=== PATIENT | male | born 1945 | race Two or more races ===

== ENCOUNTER 2021-04-01 08:57 | Outpatient (REF) | payer MEDICARE, SELFPAY ==
[2021-04-01 10:04] LABS: Alanine Aminotransferase 166 U/L (0-40); Albumin Level 4.1 g/dL (3.5-5.0); Alkaline Phosphatase 131 U/L (39-117); Anion Gap 14 (12-20); Aspartate Amino Transferase 214 U/L (5-37); Bilirubin Total 1.2 mg/dL (0.0-1.0); Blood Urea Nitrogen 18 mg/dL (9-16); Calcium 9.1 mg/dL (8.4-10.2); Carbon Dioxide 26 mmol/L (22-29); Chloride 102 mmol/L (96-108); Cholesterol 82 mg/dL; Estimated Glomerular Filt Rate 58; Glucose Fasting 96 mg/dL (60-99); HDL Cholesterol 34 mg/dL; LDL Cholesterol Calculated 30 mg/dl; Potassium 4.6 mmol/L (3.3-5.1); Sodium 137 mmol/L (135-145); Triglycerides 93 mg/dL
== END 2021-04-01 08:58 | disposition home or self-care (01) ==
LOC: HO.LAB 08:57
PROVIDERS: PCP Internal Medicine; Visit Provider Internal Medicine
DX: E78.5 Hyperlipidemia, unspecified (principal); I10 Essential (primary) hypertension; Z87.891 Personal history of nicotine dependence
CPT/HCPCS: 36415; 80053; 80061

== ENCOUNTER 2021-04-26 07:50 | Outpatient (REF) | payer MEDICARE, SELFPAY ==
--- NOTE | ~2021-04-26 | US_ITS ---
EXAMINATION: US RETROPERITONEAL LIMITED (AORTA) CLINICAL INFORMATION: Personal history of nicotine dependence. COMPARISON: None TECHNIQUE: Serna-scale, color Doppler and spectral Doppler evaluation of the abdominal aorta. FINDINGS: The aorta is normal. The measurements of the aorta in maximum AP and transverse dimensions respectively are as follows: Proximal: 2.2 x 2.2 cm. Mid: 1.9 x 1.9 cm. Distal: 1.7 x 1.8 cm. PSV: 87 cm/s. The measurements of the common iliac arteries in maximum AP and TRV dimensions are as follows: Right Common Iliac Artery: 1.1 x 1.1 cm. Left Common Iliac Artery: 1.3 x 1.2 cm. US/US aorta IMPRESSION: No evidence of abdominal aortic aneurysm.
== END 2021-04-26 07:51 | disposition home or self-care (01) ==
LOC: HO.US 07:50
PROVIDERS: Visit Provider Internal Medicine
DX: Z87.891 Personal history of nicotine dependence (principal)
CPT/HCPCS: 76775

== ENCOUNTER 2021-09-12 09:18 | Outpatient (REF) | payer MEDICARE, SELFPAY ==
[2021-09-12 11:26] LABS: MANUAL DIFF FLAG NO
[2021-09-12 12:08] LABS: Basophils Percent Auto 0.5 % (0-2); Eosinophils Absolute Auto 0.1 X10*3/uL (0.0-0.4); Eosinophils Percent Auto 2.4 % (0-4); Hematocrit 40.5 % (42.0-52.0); Hemoglobin 13.2 g/dl (14.0-18.0); Imm Gran Abs Auto 0.02 X10*3/uL (0.00-0.03); Imm Gran Pct Auto 0.4 % (0.0-0.4); Lymphocytes Absolute Auto 1.6 X10*3/uL (1.2-4.9); Lymphocytes Percent Auto 28.1 % (20-40); Mean Corpuscular HGB Conc 32.6 g/dl (31.0-36.0); Mean Corpuscular Hemoglobin 30.9 pg (27.0-33.0); Mean Corpuscular Volume 94.8 fL (80.0-98.0); Mean Platelet Volume 11.6 fL (9.4-12.4); Monocytes Absolute Auto 0.5 X10*3/uL (0.1-1.2); Monocytes Percent Auto 9.1 % (2-11); Neutrophils Absolute Auto 3.3 x10*3/uL (2.0-8.3); Neutrophils Percent Auto 59.5 % (45-73); Platelet Count 162 X10*3/uL (160-400); Red Blood Count 4.27 X10*6/uL (4.60-5.80); Red Cell Distribution Width 12.3 % (11.0-16.0); White Blood Count 5.5 X10*3/uL (4.8-10.8)
[2021-09-12 12:31] LABS: Ethanol < 10 mg/dL
[2021-09-12 12:32] LABS: Bilirubin Direct 0.3 mg/dL (0.0-0.5); Gamma Glutamyl Transpeptidase 435 U/L (11-51)
[2021-09-12 12:52] LABS: Ferritin 696 ng/mL (20-250)
[2021-09-13 04:58] LABS: HBc Num1 0.04 S/CO (0.00-0.79); HIV AB/AG Nonreactive (Nonreactive); HIV Num 1 0.11 S/CO (0.00-0.99); Hepatitis B Core Antibody Nonreactive (Nonreactive); Hepatitis B Surface Antigen Negative (Negative); ~Hepatitis A Antibody IgM Nonreactive (Nonreactive)
[2021-09-13 05:08] LABS: ~HepC Num1 0.12 S/CO (0.00-0.79); ~Hepatitis B Surface Antibody NONREACTIVE (Nonreactive); ~Hepatitis C Antibody Nonreactive (Nonreactive)
[2021-09-13 12:41] LABS: Mitochondrial Antibodies NEGATIVE (NEGATIVE)
[2021-09-13 12:57] LABS: Alpha Fetoprotein 6.6 ng/mL (<6.1)
[2021-09-16 13:22] LABS: Smooth Muscle Antibody 22 U (<20)
== END 2021-09-12 09:19 | disposition home or self-care (01) ==
LOC: HO.LAB 09:18
PROVIDERS: PCP Internal Medicine; Referring Provider Internal Medicine; Visit Provider Nurse Practitioner
DX: Z01.84 Encounter for antibody response examination (principal); Z11.4 Encounter for screening for human immunodeficiency virus [HIV]; R74.01 Elevation of levels of liver transaminase levels; Z79.899 Other long term (current) drug therapy; Z87.891 Personal history of nicotine dependence
CPT/HCPCS: 36415; 82077; 82105; 82248; 82728; 82977; 85025; 86255; 86256; 86704; 86706; 86709; 86803; 87340; 87389; 99202

== ENCOUNTER 2021-10-21 08:32 | Outpatient (REF) | payer MEDICARE, SELFPAY ==
--- NOTE | ~2021-10-21 | US_ITS ---
EXAMINATION: US COMPLETE ABDOMEN WITH LIVER ELASTOGRAPHY CLINICAL INFORMATION: Elevated liver function tests COMPARISON: None. TECHNIQUE: Real-time imaging of the abdominal viscera. Noninvasive ultrasound liver fibrosis assessment is performed using Kip ElastPQ point quantification shear wave elastography (2D-SWE) with a C5-2 MHz transducer. Multiple elastography samples are obtained. FINDINGS: PANCREAS: Normal. ABDOMINAL AORTA: The proximal, middle, and distal aortic segments are normal in caliber. INFERIOR VENA CAVA: Visualized portions are normal. LIVER: Liver echotexture is slightly increased. The contour of the liver is normal. The liver is normal in size. No focal lesion or intrahepatic biliary duct dilatation. The right lobe measures 15 cm in length. The left lobe measures 10 cm in length. Portal flow is normal/hepatopedal Shear wave liver elastography median stiffness is 1.8 m/s (reference: normal median stiffness is 1.3 m/s or less). IQR/median stiffness to assess sampling precision is 0.18 (reference: good quality data set is IQR/median stiffness of 0.15 or less). GALLBLADDER: Normal. The gallbladder is physiologically distended without evidence of stones, sludge, polyps, wall thickening or pericholecystic fluid. COMMON BILE DUCT: Dilated measuring 1.1 cm in diameter. RIGHT KIDNEY: Normal. No hydronephrosis. No renal calculi or focal parenchymal lesions. The kidney measures 10 cm in maximum dimension. LEFT KIDNEY: Normal. No hydronephrosis. No renal calculi or focal parenchymal lesions. The kidney measures 11 cm in maximum dimension. SPLEEN: Normal. The spleen measures 9 cm in maximum dimension. FREE FLUID: None. US/US abdomen comp w elastography IMPRESSION: 1. Impression: Slightly echogenic liver. Dilated common bile duct. Normal-appearing gallbladder. 2. Liver elastography: Slightly limited due to sampling error. Suggestive of compensated advanced chronic liver disease but need further test for confirmation. REFERENCE: Society of Radiologists in Ultrasound Liver Stiffness Thresholds (2020): LIVER STIFFNESS THRESHOLDS: *Liver Stiffness equal or less than 1.3 m/s: High probability of being normal. *Liver Stiffness less than 1.7 m/s: In the absence of other known clinical signs, rules out compensated advanced chronic liver disease. *Liver Stiffness 1.7-2.1 m/s: *Liver Stiffness over 2.1 m/s: Rules in compensated advanced chronic liver disease. *Liver Stiffness over 2.4 m/s: Suggestive of clinically significant portal hypertension. QUALITY OF DATA SET: *IQR/Median value equal or less than 0.15 implies a quality data set. *IQR/Median value over 0.15 implies a poor quality data set. SIGNIFICANT CHANGE FROM PRIOR EXAM: Significant change if liver stiffness measurement is 10% or greater from prior exam. OTHER CONSIDERATIONS: The stage of liver fibrosis may be overestimated in the setting of acute hepatitis, liver inflammation, elevated liver function tests, hepatic vascular congestion, obstructive cholestasis, non-fasting state, and infiltrative diseases such as amyloidosis and lymphoma. In some patients with NAFLD, the liver stiffness thresholds for compensated advanced chronic liver disease may be lower. In causes other than viral hepatitis and NAFLD, liver stiffness thresholds are not well established.
== END 2021-10-21 08:33 | disposition home or self-care (01) ==
LOC: HO.US 08:32
PROVIDERS: Visit Provider Nurse Practitioner
DX: R74.01 Elevation of levels of liver transaminase levels (principal)
CPT/HCPCS: 76705; 76981

== ENCOUNTER 2022-03-25 19:33 | Emergency (ER) | payer MEDICARE, SELFPAY ==
--- NOTE | ~2022-03-25 | XR_ITS ---
EXAMINATION: XR CHEST CLINICAL INFORMATION: Shortness of breath COMPARISON: None TECHNIQUE: 2 views of the chest were obtained. FINDINGS: Lungs are clear. No pulmonary vascular congestion. There is no pleural effusion. The heart size is normal. The cardiac and mediastinal contours are normal. There are calcifications of the thoracic aorta. There are multilevel degenerative changes of dorsal spine. XR/XR chest 2V IMPRESSION: Unremarkable examination.
--- NOTE | 2022-03-25 19:41 | ECG_ITS ---
Test Reason : CHEST PAIN Blood Pressure : / mmHG Vent. Rate : 080 BPM Atrial Rate : 080 BPM P-R Int : 148 ms QRS Dur : 080 ms QT Int : 390 ms P-R-T Axes : 040 -13 008 degrees QTc Int : 449 ms Normal sinus rhythm Normal ECG No previous ECGs available Referred By: Generic ED Physician Electronically Signed By:DEVAN MICHEL MD
[2022-03-25 19:48] VITALS: BP 161/83; PULSE 88; RESP 18; TEMP 37; O2SAT 96; BMI 21.2
[2022-03-25 19:53] LABS: MANUAL DIFF FLAG NO
[2022-03-25 19:55] LABS: Basophils Percent Auto 0.5 % (0-2); Eosinophils Absolute Auto 0.1 X10*3/uL (0.0-0.4); Eosinophils Percent Auto 3.4 % (0-4); Hematocrit 39.2 % (42.0-52.0); Hemoglobin 13.1 g/dl (14.0-18.0); Imm Gran Abs Auto 0.01 X10*3/uL (0.00-0.03); Imm Gran Pct Auto 0.3 % (0.0-0.4); Lymphocytes Absolute Auto 1.3 X10*3/uL (1.2-4.9); Lymphocytes Percent Auto 34.7 % (20-40); Mean Corpuscular HGB Conc 33.4 g/dl (31.0-36.0); Mean Corpuscular Hemoglobin 30.6 pg (27.0-33.0); Mean Corpuscular Volume 91.6 fL (80.0-98.0); Mean Platelet Volume 10.8 fL (9.4-12.4); Monocytes Absolute Auto 0.4 X10*3/uL (0.1-1.2); Monocytes Percent Auto 10.4 % (2-11); Neutrophils Absolute Auto 1.9 x10*3/uL (2.0-8.3); Neutrophils Percent Auto 50.7 % (45-73); Platelet Count 109 X10*3/uL (160-400); Red Blood Count 4.28 X10*6/uL (4.60-5.80); Red Cell Distribution Width 13.3 % (11.0-16.0); White Blood Count 3.8 X10*3/uL (4.8-10.8)
[2022-03-25 20:12] LABS: Troponin-I High Sensitivity 4.3 ng/L (<3.5-35.0)
[2022-03-25 20:13] LABS: Alanine Aminotransferase 130 U/L (0-40); Albumin Level 3.9 g/dL (3.5-5.0); Alkaline Phosphatase 120 U/L (39-117); Anion Gap 13 (12-20); Aspartate Amino Transferase 244 U/L (5-37); Bilirubin Total 0.7 mg/dL (0.0-1.0); Blood Urea Nitrogen 14 mg/dL (9-16); Calcium 8.6 mg/dL (8.4-10.2); Carbon Dioxide 24 mmol/L (22-29); Chloride 104 mmol/L (96-108); Creatinine Clr Calc Pharmacy 40.1; Estimated Glomerular Filt Rate 55; Glucose Random 106 mg/dL (60-115); Potassium 4.1 mmol/L (3.3-5.1); Sodium 137 mmol/L (135-145); Total Protein 7.5 g/dL (6.5-8.0)
[2022-03-25 20:14] LABS: COVID-19 Test Negative (Negative)
--- NOTE | 2022-03-25 20:28 | ED_ITS ---
HPI - General Adult General Chief complaint: General Medical Stated complaint: SoB, Chest Tightness Time Seen by Provider: 03/25/22 20:28 Source: patient Mode of arrival: ambulatory Limitations: language barrier History of Present Illness HPI narrative: Patient with history of alcohol use and palpitation last night patient cramping in the right leg so he took 7 Emanuel aspirin tablets since morning complaining of pain retrosternal along with palpitation off and on no pain at all and after arrival in the ER no vomiting or diarrhea no black stools patient does have history of palpitation in the past and had full evaluation no medications started no dizziness no loss of consciousness Related Data Home Medications Medication Instructions Recorded Confirmed acetaminophen 650 mg 650 mg PO Q8H 04/01/21 02/24/22 tablet,extended release (Pain Relief (acetaminophen)) Previous Rx's Medication Instructions Recorded aspirin 81 mg tablet,delayed 81 mg PO DAILY 90 days #90 tabs 07/17/21 release (Adult Aspirin Regimen) metoprolol tartrate 25 mg tablet 25 mg PO BID 90 days #180 tabs 07/17/21 lisinopril 5 mg tablet 5 mg PO DAILY 90 days #90 tabs 08/28/21 hydroxyzine HCl 50 mg tablet 50 mg PO BEDTIME 30 days #30 tabs 09/12/21 rosuvastatin 20 mg tablet 20 mg PO DAILY 90 days #90 tabs 01/14/22 omeprazole 40 mg capsule,delayed 40 mg PO DAILY #30 caps 03/25/22 release sucralfate 1 gram tablet 1 g PO BID #60 tabs 03/25/22 Allergies Allergy/AdvReac Type Severity Reaction Status Date / Time atorvastatin Allergy Intermediate Rash Verified 03/25/22 19:47 oxycodone [From Percocet] AdvReac Intermediate itchy skin Verified 03/25/22 19:47 Review of Systems Review of Systems: Yes all other systems are reviewed and are negative [facility] Past Medical History Surgical History History of hernia surgery Family History Family History Mother No problems noted. Father No problems noted. Social History Social History Household Members: Children Housing: House Housing Other:: lives with son Are you a primary rn acute care to a significant other at home: No Do you presently have visiting nurse or other home services: No Alcohol intake: current Alcohol intake frequency: 0-2 drinks per day Alcohol type: beer and hard liquor Patient Tobacco Use Status: Former Tobacco user Tobacco use type: Cigarette e-Cigarette/Vaping Use: Never Used Second Hand Smoke Exposure: No Advance Directives: No Advance Directives Information Provided: Yes service: No Current occupational status: retired Physical Exam ED Vital Signs: Vital Signs - 24 hr 03/25/22 19:48 Temperature 98.6 F Pulse Rate 88 Respiratory Rate 18 Blood Pressure 161/83 H Pulse Oximetry 96 Oxygen Delivery Method Room Air BMI result Body Mass Index 21.2 Appearance: Alert. Oriented X3. No acute distress. Eyes: PERRLA, No Nystagmus ENT: Pharynx normal. Oral Mucosa moist Neck: Normal inspection. Neck supple. CVS: Normal heart rate and rhythm. Pulses normal. Respiratory: No respiratory distress. Equal air entry bilateral, no wheezing/rales/rhonchi Abdomen: Soft and nontender. Bowel sounds are present, no mass palpable, no CVA tenderness Skin: Skin warm and dry. Normal skin color. Normal skin turgor. Extremities: No lower extremity edema. No calf tenderness Neuro: Oriented X 3. No motor deficit. No sensory deficit.No cerebellar signs , cranial nerves II-XII intact Medical Decision Making MDM Narrative Medical decision making narrative: Patient with palpitation with chest pain with alcoholic gastritis after taking 6 Emanuel aspirin workup is negative EKG without any ischemic changes patient currently does not have any chest pain patient advised to follow-up with PCP/property management specialist stop drinking alcohol will give him a prescription for Prilosec and sucralfate Lab Data Lab results reviewed: Yes I reviewed the patient's lab results. Result diagrams: 03/25/22 19:48 03/25/22 19:48 Labs: Lab Results 03/25/22 03/25/22 03/25/22 Range/Units 19:48 19:48 19:48 WBC 3.8 L (4.8-10.8) X10*3/uL RBC 4.28 L (4.60-5.80) X10*6/uL Hgb 13.1 L (14.0-18.0) g/dl Hct 39.2 L (42.0-52.0) % MCV 91.6 (80.0-98.0) fL MCH 30.6 (27.0-33.0) pg MCHC 33.4 (31.0-36.0) g/dl RDW 13.3 (11.0-16.0) % Plt Count 109 L (160-400) X10*3/uL MPV 10.8 (9.4-12.4) fL Immature Gran % (Auto) 0.3 (0.0-0.4) % Neut % (Auto) 50.7 (45-73) % Lymph % (Auto) 34.7 (20-40) % [place] % (Auto) 10.4 (2-11) % Eos % (Auto) 3.4 (0-4) % Baso % (Auto) 0.5 (0-2) % Lymph # (Auto) 1.3 (1.2-4.9) X10*3/uL [place] # (Auto) 0.4 (0.1-1.2) X10*3/uL Eos # (Auto) 0.1 (0.0-0.4) X10*3/uL Baso # (Auto) 0.0 (0.0-0.2) X10*3/uL Abs Immat Gran (auto) 0.01 (0.00-0.03) X10*3/uL Absolute Neuts (auto) 1.9 L (2.0-8.3) x10*3/uL Absolute Nucleated RBC 0.000 (0.0-0.012) X10*3/uL Nucleated RBC % (auto) 0.0 (0.0-0.2) /100WBC Sodium 137 (135-145) mmol/L Potassium 4.1 (3.3-5.1) mmol/L Chloride 104 (96-108) mmol/L Carbon Dioxide 24 (22-29) mmol/L Anion Gap 13 (12-20) BUN 14 (9-16) mg/dL Creatinine 1.28 (0.5-1.4) mg/dL Estim Creat Clear Calc 40.1 Estimated GFR 55 Random Glucose 106 (60-115) mg/dL Calcium 8.6 D (8.4-10.2) mg/dL Magnesium 2.4 (1.6-2.6) mg/dL Total Bilirubin 0.7 (0.0-1.0) mg/dL AST 244 H (5-37) U/L ALT 130 H (0-40) U/L Alkaline Phosphatase 120 H D (39-117) U/L Troponin I High Sens 4.3 (<3.5-35.0) ng/L Total Protein 7.5 (6.5-8.0) g/dL Albumin 3.9 (3.5-5.0) g/dL COVID-19 ([facility]) (Negative) COVID-19 Clin Com 03/25/22 Range/Units 19:48 WBC (4.8-10.8) X10*3/uL RBC (4.60-5.80) X10*6/uL Hgb (14.0-18.0) g/dl Hct (42.0-52.0) % MCV (80.0-98.0) fL MCH (27.0-33.0) pg MCHC (31.0-36.0) g/dl RDW (11.0-16.0) % Plt Count (160-400) X10*3/uL MPV (9.4-12.4) fL Immature Gran % (Auto) (0.0-0.4) % Neut % (Auto) (45-73) % Lymph % (Auto) (20-40) % [place] % (Auto) (2-11) % Eos % (Auto) (0-4) % Baso % (Auto) (0-2) % Lymph # (Auto) (1.2-4.9) X10*3/uL [place] # (Auto) (0.1-1.2) X10*3/uL Eos # (Auto) (0.0-0.4) X10*3/uL Baso # (Auto) (0.0-0.2) X10*3/uL Abs Immat Gran (auto) (0.00-0.03) X10*3/uL Absolute Neuts (auto) (2.0-8.3) x10*3/uL Absolute Nucleated RBC (0.0-0.012) X10*3/uL Nucleated RBC % (auto) (0.0-0.2) /100WBC Sodium (135-145) mmol/L Potassium (3.3-5.1) mmol/L Chloride (96-108) mmol/L Carbon Dioxide (22-29) mmol/L Anion Gap (12-20) BUN (9-16) mg/dL Creatinine (0.5-1.4) mg/dL Estim Creat Clear Calc Estimated GFR Random Glucose (60-115) mg/dL Calcium (8.4-10.2) mg/dL Magnesium (1.6-2.6) mg/dL Total Bilirubin (0.0-1.0) mg/dL AST (5-37) U/L ALT (0-40) U/L Alkaline Phosphatase (39-117) U/L Troponin I High Sens (<3.5-35.0) ng/L Total Protein (6.5-8.0) g/dL Albumin (3.5-5.0) g/dL COVID-19 ([facility]) Negative (Negative) COVID-19 Clin Com See Note ECG Data Attestation: I personally reviewed and interpreted this ECG as follows: Interpretation: Normal sinus rhythm heart rate 80 beats per minute normal interval normal axis no acute ST-T changes impression normal EKG Discharge Plan Discharge Clinical Impression: Acute alcoholic gastritis, Heart palpitations Patient Disposition: Home, Self-Care Instructions: Heart Palpitations (ED), Gastritis (ED) Additional Instructions: Stop drinking alcohol Medicine as advised for gastritis Follow-up with property management specialist/PCP for further evaluation dejar de beber alcohol Medicamentos recomendados para la gastritis Seguimiento con cardi?logo/PCP para evaluaci?n adicional Prescriptions: New omeprazole 40 mg capsule,delayed release(DR/EC) 40 mg PO DAILY Qty: 30 0RF sucralfate 1 gram tablet 1 g PO BID Qty: 60 0RF No Action aspirin [Adult Aspirin Regimen] 81 mg tablet,delayed release (DR/EC) 81 mg PO DAILY 90 Days Qty: 90 1RF metoprolol tartrate 25 mg tablet 25 mg PO BID 90 Days Qty: 180 1RF rosuvastatin 20 mg tablet 20 mg PO DAILY 90 Days Qty: 90 1RF acetaminophen [Pain Relief (acetaminophen)] 650 mg tablet extended release 650 mg PO Q8H lisinopril 5 mg tablet 5 mg PO DAILY 90 Days Qty: 90 1RF hydroxyzine HCl 50 mg tablet 50 mg PO BEDTIME 30 Days Qty: 30 6RF Print Language: Thai
[2022-03-25 21:02] LABS: Magnesium 2.4 mg/dL (1.6-2.6)
[2022-03-25] MEDS: Magnesium Hydrox/Alum Hydrox 30 ML ORAL.SUSP PO (21:44)
[2022-03-25] MEDS: Omeprazole 40 MG CAPSULE.DR PO (21:44)
== END 2022-03-25 21:47 | disposition home or self-care (01) ==
PROVIDERS: Emergency Provider Internal Medicine
DX: K29.20 Alcoholic gastritis without bleeding (principal); R00.2 Palpitations; Z20.822 Contact with and (suspected) exposure to COVID-19; R06.02 Shortness of breath; I10 Essential (primary) hypertension; K70.9 Alcoholic liver disease, unspecified; Z79.82 Long term (current) use of aspirin; Z79.02 Long term (current) use of antithrombotics/antiplatelets; Z87.891 Personal history of nicotine dependence
CPT/HCPCS: 71046; 80053; 83735; 84484; 85025; 87635; 93005; 99283

== ENCOUNTER → 2022-10-27 10:59 | Outpatient (REF) | payer MEDICARE, SELFPAY ==
--- NOTE | 2022-10-27 11:06 | ECG_ITS ---
Test Reason : cp Blood Pressure : / mmHG Vent. Rate : 054 BPM Atrial Rate : 054 BPM P-R Int : 144 ms QRS Dur : 082 ms QT Int : 458 ms P-R-T Axes : 041 -16 009 degrees QTc Int : 434 ms Sinus bradycardia with sinus arrhythmia Nonspecific ST abnormality Abnormal ECG When compared with ECG of 25-MAR-2022 19:35, Vent. rate has decreased BY 26 BPM Referred By: Noemi Oliva Electronically Signed By:DEVAN MICHEL MD
== END ==
LOC: HO.CARD 10:59
PROVIDERS: PCP Internal Medicine; Visit Provider Internal Medicine
DX: R07.9 Chest pain, unspecified (principal)
CPT/HCPCS: 93005

== ENCOUNTER 2022-11-19 08:10 | Outpatient (REF) | payer MEDICARE, SELFPAY ==
--- NOTE | ~2022-11-19 | XR_ITS ---
EXAMINATION: XR SCAPULA, RIGHT CLINICAL INFORMATION: M89.8X1 - Other specified disorders of bone, shoulder COMPARISON: None TECHNIQUE: AP and scapular Y views of the right scapula. FINDINGS: There is prominent anterior downsloping of the anterior acromion. There is [id number] hypertrophic osteoarthritis of the acromioclavicular joint. In the partially visualized chest, there is calcification of the dorsal aorta. There is also spondylosis of the partially visualized cervical spine with facet arthrosis noted on the right. XR/XR scapula RT IMPRESSION: Degenerative changes of the right shoulder. Anterior downsloping of the acromion.
[2022-11-19 08:24] LABS: MANUAL DIFF FLAG NO
[2022-11-19 08:59] LABS: Eosinophils Absolute Auto 0.2 X10*3/uL (0.0-0.4); Eosinophils Percent Auto 3.9 % (0-4); Hematocrit 41.3 % (42.0-52.0); Imm Gran Abs Auto 0.01 X10*3/uL (0.00-0.03); Imm Gran Pct Auto 0.2 % (0.0-0.4); Lymphocytes Absolute Auto 1.6 X10*3/uL (1.2-4.9); Lymphocytes Percent Auto 37.5 % (20-40); Mean Corpuscular HGB Conc 33.9 g/dl (31.0-36.0); Mean Corpuscular Hemoglobin 31.3 pg (27.0-33.0); Mean Corpuscular Volume 92.2 fL (80.0-98.0); Monocytes Absolute Auto 0.4 X10*3/uL (0.1-1.2); Monocytes Percent Auto 10.2 % (2-11); Neutrophils Percent Auto 47.2 % (45-73); Platelet Count 129 X10*3/uL (160-400); Red Blood Count 4.48 X10*6/uL (4.60-5.80); Red Cell Distribution Width 12.4 % (11.0-16.0); White Blood Count 4.1 X10*3/uL (4.8-10.8)
[2022-11-19 09:29] LABS: Alanine Aminotransferase 313 U/L (0-40); Alkaline Phosphatase 128 U/L (39-117); Anion Gap 19 (12-20); Aspartate Amino Transferase 424 U/L (5-37); Bilirubin Total 1.2 mg/dL (0.0-1.0); Blood Urea Nitrogen 13 mg/dL (9-16); Calcium 9.3 mg/dL (8.4-10.2); Carbon Dioxide 22 mmol/L (22-29); Chloride 104 mmol/L (96-108); Cholesterol 101 mg/dL; Estimated Glomerular Filt Rate > 60; Glucose Fasting 82 mg/dL (60-99); HDL Cholesterol 37 mg/dL; Iron 110 mcg/dL (45-160); LDL Cholesterol Calculated 28 mg/dl; Percent Iron Saturation 39 % (15-50); Sodium 141 mmol/L (135-145); Total Iron Binding Capacity 284 mcg/dL (228-428); Total Protein 7.5 g/dL (6.5-8.0); Triglycerides 181 mg/dL; Unsaturated Iron Binding 174 ug/dL
[2022-11-19 10:02] LABS: Vitamin B12 421 pg/mL (200-900); Vitamin D 25-OH Total 7.7 ng/mL (>30)
[2022-11-26 17:14] LABS: Vitamin B1 13 nmol/L (8-30)
== END 2022-11-19 08:11 | disposition home or self-care (01) ==
LOC: HO.XRAY 08:10
PROVIDERS: PCP Internal Medicine; Visit Provider Internal Medicine
DX: M89.8X1 Other specified disorders of bone, shoulder (principal); E55.9 Vitamin D deficiency, unspecified; E53.8 Deficiency of other specified B group vitamins; E78.5 Hyperlipidemia, unspecified; D64.9 Anemia, unspecified; K70.9 Alcoholic liver disease, unspecified
CPT/HCPCS: 36415; 73010; 80053; 80061; 82306; 82607; 82746; 83540; 84425; 85025

== ENCOUNTER → 2022-12-16 14:39 | Outpatient (BNVA) | payer MEDICARE, SELFPAY | PROVIDERS: PCP Internal Medicine; Referring Provider Internal Medicine; Visit Provider Internal Medicine Cardiovascular Disease | DX: R07.9 Chest pain, unspecified (principal) | CPT/HCPCS: 99202 ==

== ENCOUNTER → 2022-12-29 08:46 | Outpatient (REF) | payer MEDICARE, SELFPAY ==
--- NOTE | ~2022-12-29 | NM_ITS ---
Myocardial perfusion study Indication: Chest pain to evaluate for myocardial ischemia Technique: The patient was brought in for a Lexiscan perfusion study on 12/29/2022. Patient performed low-level exercise and was injected 0.4 mg of Lexiscan intravenously. Within a minute of injection, 25 mCi of sestamibi was given intravenously. Images were obtained using the SPECT gamma camera interlaced with the gating device. Images were obtained in supine position. Resting perfusion study was performed on 12/30/2022. Patient was administered 25 mCi of sestamibi intravenously at rest. Images were then obtained in supine position. Images obtained with and without CT attenuation. Total DLP 95 mGy-cm. Images were processed with the software and compared side to side in short axis, horizontal long axis and vertical long axis views. Findings: The stress perfusion study showed non attenuated as well as attenuated corrected images show normal uptake of radiotracer in all segments of LV myocardium. The gated study shows normal LV systolic function with calculated LVEF of greater than 70%. LV cavity is normal size. The gated study shows normal systolic wall thickening and contraction of segments. Resting study shows attenuated corrected images show normal uptake of radiotracer in all segments of LV myocardium. Gating at rest reveals normal systolic wall motion with ejection fraction at 67%. The findings are consistent with normal myocardial perfusion. NM/NM cardiolite stress test Impression: 1. Myocardial perfusion imaging study shows normal myocardial perfusion 2. Gated LVEF is 67% 3. Transient ischemic dilatation not present EKG is nondiagnostic for ischemia
--- NOTE | 2022-12-29 08:52 | CA_ITS ---
Transthoracic Echocardiogram Patient (Last, First, Middle): Eulalio Miranda, Gender: Male Date of : 1945 Age: 77 Procedure Date: 12/29/2022 Procedure Type: Transthoracic Echocardiogram Location: OP Height: 160.02 cm Weight: 55.34 kg BSA: 1.57 m2 Heart Rate: bpm BP: 124 / 80 mmHg Prisoner Classification Interviewer: Referring MD: Oumar Mendoza MD Meat Cutting Teacher: Oumar Mendoza MD Symptoms: R07.9 - Chest pain, unspecified Study Quality: Good ECG Rhythm: Sinus Conclusions: - 1. Normal LV systolic function with grade 1 diastolic dysfunction 2. Mild aortic regurgitation 3. Normal RV systolic pressure 4. Mildly dilated ascending aorta at 3.9 cm 5. No gross pericardial effusion Findings Left Ventricle Normal left ventricular size, thickness, and systolic function. The visually estimated ejection fraction is between 65-70%. Spectral Doppler is indicative of an impaired relaxation filling pattern. E/E prime ratio is <8, consistent with normal filling pressures. Evidence suggests grade I (mild) diastolic dysfunction. Peak GLS is -22.4%, within normal limits. Right Ventricle Normal right ventricular cavity size and systolic function. Atria Both atria are normal in size. There is lipomatous hypertrophy of the interatrial septum. There is no evidence of interatrial shunt. Aortic Valve There is mild calcification of the aortic valve. There is mild thickening of the aortic valve. There is no aortic valve stenosis. There is mild aortic valve regurgitation. Mitral Valve There is mild anterior and posterior mitral leaflet thickening. There is trace mitral valve regurgitation. There is no mitral valve stenosis. Pulmonic Valve The pulmonic valve was not well visualized. There is trace to mild pulmonic valve regurgitation. Tricuspid Valve Normal tricuspid valve structure. There is mild tricuspid valve regurgitation. The right ventricular systolic pressure is normal. The right ventricular systolic pressure is 20 mmHg. Normal right atrial pressure. There is no evidence of pulmonary hypertension. Great Vessels The pulmonary artery was not well visualized. There is mild dilatation of the ascending aorta measuring 3.90 cm. Venous The inferior vena cava is normal in size and collapses greater than 50% with inspiration. Pericardium/Pleural There is no evidence of pericardial effusion. Prior Study Comparison No prior study available for comparison. Measurements 2D Linear Measurements IVSd: 1.05 0.6-0.9/0.6-1.0 cm LVIDd: 4.47 3.9-5.3/4.2-5.9 cm LVIDd Index: 2.85 2.4-3.2/2.2-3.1 cm/m2 LVIDs: 2.57 2.0-3.6 cm LVPWd: 0.97 0.7-1.1 cm Ao Root: 3.70 2.1-3.5 cm LA Diam: 3.50 2.7-3.8/3.0-4.0 cm LAIDs Index: 2.23 1.5-2.3 cm/m2 LV Mass: 191.01 67-162/88-224 g LV Mass Index: 121.66 43-95/49-115 g/m2 LVOT Diam: 2.20 3.0+(-)1.3 cm Mitral Valve MV Pk E: 0.47 MV PK A: 0.87 MV Decel Time: 235.00 E/A: 0.50 E'Lateral: 7.83 E'Medial: 6.20 E/E' Med: 7.60 E/E' Lat: 6.00 PHT: 69.00 MVA PHT: 3.19 Decel Payette: 2.01 Aortic Valve AoV Pk Alban: 1.25 AoV Mn Alban: 0.74 AoV VTI: 0.27 AoV Pk Grad: 6.00 Aov Mn Grad: 3.00 NICOLA Cont.VTI: 3.38 LVOT LVOT Pk Alban: 1.13 LVOT Mn Alban: 0.68 LVOT VTI: 0.24 LVOT Pk Grad: 5.00 LVOT Mn Grad: 2.00 LVOT Diam: 2.20 LVOT Area: 3.80 Diastolic Function MV Pk E: 0.47 MV Pk A: 0.87 E/A: 0.50 E'Medial: 6.20 E/E' Med: 7.60 E' Laterial: 7.83 E/E' Lat: 6.00 Right Ventricle TAPSE (mm): 21.00 TVS' Alban: 8.00 Tricuspid Valve TR Pk Alban: 2.04 TR Pk Grad: 17.00 RA Press: 3.00 RVSP: 20.00 Great Vessels Aorta Ao Root-2D: 3.70 2.0-3.7 cm Ao Asc: 3.90 2.1-3.4 cm Pulmonary Valve PV Pk Alban: 0.82 Peak PV Grad: 3.00 Updated in Other Vendor System with Status of Final Oumar Mendoza MD electronically signed on 12/29/2022 1:31:55 PM with status of Final
--- NOTE | 2022-12-29 08:52 | CA_ITS ---
Acquisition Time: 2022-12-29 09:55:58 Total Exercise Time: 00:02:00 Test Indications: CP,CAD Medications: SEE H Protocol: LEXISCAN Max HR: 084 BPM 57% of Pred: 145 BPM Max BP: 128/060 mmHG Max Work Load: 1.0 METS Pharmacological stress test with Lexiscan injection, while sitting and kicking his legs, without anginal symptoms, with isolated PACs, with normotensive response to injection, with nondiagnostic EKG for ischemia. Nuclear images pending. Test reviewed with Dr Mendoza Note: test ordered as exercise nuclear stress test and pt states he is unable to walk on treadmill. Test changed to a pharm nuclear stress test. Referred By: Oumar Mendoza Overread By: LETITIA MADSEN
== END ==
LOC: HO.CARD 08:46
PROVIDERS: PCP Internal Medicine; Visit Provider Internal Medicine Cardiovascular Disease
DX: R07.9 Chest pain, unspecified (principal)
CPT/HCPCS: 78452; 93017; 93306; 93356; A9500; J0280; J2785

== ENCOUNTER 2023-02-26 09:42 | Outpatient (REF) | payer MEDICARE, SELFPAY ==
[2023-02-26 10:01] LABS: MANUAL DIFF FLAG NO
[2023-02-26 10:46] LABS: Basophils Percent Auto 0.7 % (0-2); Eosinophils Absolute Auto 0.2 X10*3/uL (0.0-0.4); Eosinophils Percent Auto 3.8 % (0-4); Hematocrit 39.6 % (42.0-52.0); Hemoglobin 12.8 g/dl (14.0-18.0); Imm Gran Abs Auto 0.01 X10*3/uL (0.00-0.03); Imm Gran Pct Auto 0.2 % (0.0-0.4); Lymphocytes Absolute Auto 1.2 X10*3/uL (1.2-4.9); Lymphocytes Percent Auto 29.1 % (20-40); Mean Corpuscular HGB Conc 32.3 g/dl (31.0-36.0); Mean Corpuscular Hemoglobin 31.4 pg (27.0-33.0); Mean Corpuscular Volume 97.1 fL (80.0-98.0); Mean Platelet Volume 11.6 fL (9.4-12.4); Monocytes Absolute Auto 0.6 X10*3/uL (0.1-1.2); Monocytes Percent Auto 13.7 % (2-11); Neutrophils Absolute Auto 2.2 x10*3/uL (2.0-8.3); Neutrophils Percent Auto 52.5 % (45-73); Platelet Count 128 X10*3/uL (160-400); Red Blood Count 4.08 X10*6/uL (4.60-5.80); Red Cell Distribution Width 15.5 % (11.0-16.0); White Blood Count 4.2 X10*3/uL (4.8-10.8)
[2023-02-26 11:03] LABS: Alanine Aminotransferase 82 U/L (0-40); Albumin Level 3.7 g/dL (3.5-5.0); Alkaline Phosphatase 86 U/L (39-117); Aspartate Amino Transferase 80 U/L (5-37); Bilirubin Direct 0.5 mg/dL (0.0-0.5); Bilirubin Total 1.6 mg/dL (0.0-1.0)
== END 2023-02-26 09:43 | disposition home or self-care (01) ==
LOC: HO.LAB 09:42
PROVIDERS: Absent Provider Internal Medicine; PCP Internal Medicine; Visit Provider Internal Medicine Medical Oncology
DX: K70.9 Alcoholic liver disease, unspecified (principal); D64.9 Anemia, unspecified
CPT/HCPCS: 36415; 80076; 85025

== ENCOUNTER 2023-06-08 15:12 | Outpatient (AMB) | payer MEDICARE, SELFPAY ==
--- NOTE | 2023-06-08 15:20 | MHC.PC.OV ---
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 Accompanied by: son in law Allergies atorvastatin Allergy (Intermediate, Verified 06/08/23 15:50) Rash oxycodone [From Percocet] Adverse Reaction (Intermediate, Verified 06/08/23 15:50) itchy skin Medication List - Last Reconciled 06/08/23 by Noemi Oliva MD aspirin (Adult Aspirin Regimen) 81 mg PO DAILY 90 days hydroxyzine HCl 50 mg PO BEDTIME 30 days lisinopril 10 mg PO DAILY 90 days metoprolol tartrate 25 mg PO BID 90 days omeprazole 40 mg PO DAILY 90 days rosuvastatin 20 mg PO DAILY 90 days sucralfate 1 g PO BID Tobacco use date assessed: 11/19/22 Fall risk assessment: No Falls in past year Last assessed Fall Risk: 06/08/23 Dental Screening Dental Screen Date: 06/08/23 Did you have a dental visit in the last 12 months?: No Did you have a dental problem in the last 6 months where you did not have access to dental care?: No Was dental information given to patient?: Yes HPI HPI Comments History of Present Illness Details This is a 78-year-old male with hypertension, dyslipidemia, chronic GERD and alcoholic liver disease that comes today for follow-up on his conditions. Blood pressure stable. On statin for dyslipidemia and was advised to continue. GERD stable with PPIs. Alcoholic liver disease has been follow by Gastroenterology and was recommended to discontinue drinking alcohol. No chest pain. Complains of some shortness of breath and insomnia. No wheezing. Some occasional leg swelling. He is alone in the room. PFSH Medical History Alcoholic liver disease Anemia Decrease in appetite Dyslipidemia Essential hypertension Former smoker Surgical History History of hernia surgery Family History Mother No problems noted. Father No problems noted. Social History Household Members: Children Housing: House Housing Other:: lives with son Are you a primary neonatal critical care nurse to a significant other at home: No Do you presently have visiting nurse or other home services: No Alcohol intake: current Alcohol intake frequency: 0-2 drinks per day Alcohol type: beer and hard liquor Patient Tobacco Use Status: Former Tobacco user Tobacco use type: Cigarette e-Cigarette/Vaping Use: Never Used Second Hand Smoke Exposure: No service: No Current occupational status: retired Cognitive needs: No Hearing needs: No Vision needs: No Questionnaire Thrive Questionnaire Date Thrive assessed: 10/20/22 DUNIA-7 AMB Questionnaire DUNIA-7 Date DUNIA - 7 assessed: 10/20/22 Source: Developed by Drs. Joseph Bourgeois, Veronica Fiore, Kenyon Barbosa and colleagues, with an educational chico from [employer]. Review of Systems Const All systems reviewed & are unremarkable except as noted in HPI and below Eyes Reports no additional complaints, Denies change in vision and Denies other visual disturbances Card Denies chest pain at rest, Denies chest pain with activity, Denies edema, Denies irregular heart rhythm, Denies claudication, Denies dyspnea, Denies dyspnea on exertion, Denies orthopnea, Denies paroxysmal nocturnal dyspnea and Denies slow heart rate Resp Denies cough, Denies dyspnea and Denies dyspnea on exertion GI Denies abdominal pain, Denies change in bowel habits, Denies excessive flatus, Denies nausea and Denies vomiting Denies urinary hesitancy, Denies urinary incontinence and Denies urinary urgency Musc Denies abnormal gait, Denies atrophy, Denies deformity and Denies limited range of motion Skin/Breast Denies bleeding lesions, Denies changing lesions and Denies rash Neuro Denies abnormal gait and Denies lack of coordination Physical exam (Primary Care) Vital Signs: Last Vital Signs BP 120/70 06/08/23 15:35 BMI result Body Mass Index 20.9 Tobacco/Smoking Status: Tobacco use Status Tobacco use date assessed 11/19/22 06/08/23 15:21 Patient Tobacco Use Status Former Tobacco user 06/08/23 15:21 Tobacco use type Cigarette 06/08/23 15:21 e-Cigarette/Vaping Use Never Used 06/08/23 15:21 Thrive Assessment: Date of Thrive Assessment Date Thrive assessed 10/20/22 06/08/23 15:21 Eyes General: appearance normal, both eyes and all related structures Eyelids: Yes eyelids normal Conjunctivae: conjunctivae normal Neck Neck: Yes normal visual inspection and Yes supple Resp Effort & Inspection: normal respiratory effort Auscultation: clear to auscultation bilaterally Cardio Jugular venous distension: no JVD Rate: regular rate Rhythm: regular rhythm Heart sounds: Murmur heart sound present Extrem General: Yes full ROM Assessment and Plan Assessment & Plan (1) Alcoholic liver disease: Code(s): K70.9 - Alcoholic liver disease, unspecified Plan: Recommended to stop drinking alcohol. Follow up with Gastroenterology. (2) Essential hypertension: Code(s): I10 - Essential (primary) hypertension Plan: Continue lisinopril. Blood pressure goal is equal or less than 130/80. (3) Dyslipidemia: Code(s): E78.5 - Hyperlipidemia, unspecified Plan: Continue statins. (4) Chronic GERD: Code(s): K21.9 - Gastro-esophageal reflux disease without esophagitis Plan: Continue PPIs Orders: Orders CA echo transthoracic complete Today R01.1 - Cardiac murmur, unspecified PFT pulmonary function test Today R06.00 - Dyspnea, unspecified Medications: New melatonin 10 mg PO BEDTIME 90 days PRN 90 caps 1RF sleep Refilled aspirin (Adult Aspirin Regimen) 81 mg PO DAILY 90 days 90 tabs 1RF metoprolol tartrate 25 mg PO BID 90 days 180 tabs 1RF omeprazole 40 mg PO DAILY 90 days 90 caps 1RF rosuvastatin 20 mg PO DAILY 90 days 90 tabs 1RF Discontinued sucralfate Discontinued Reason: Patient Completed Course 1 g PO BID 60 tabs 0RF hydroxyzine HCl Discontinued Reason: Patient Completed Course 50 mg PO BEDTIME 30 days 30 tabs 6RF R74.01 - Elevation of levels of liver transaminase levels Coding Level of Care Code Est Pt Level 4 (92338) Diagnoses Alcoholic liver disease K70.9 Essential hypertension I10 Dyslipidemia E78.5 Chronic GERD K21.9 Time Spent (min) 22
[2023-06-08 15:35] VITALS: BP 120/70; BMI 20.9
== END 2023-06-08 15:58 | disposition home or self-care (01) ==
PROVIDERS: PCP Internal Medicine; Visit Provider Internal Medicine
DX: K70.9 Alcoholic liver disease, unspecified (principal); I10 Essential (primary) hypertension; E78.5 Hyperlipidemia, unspecified; K21.9 Gastro-esophageal reflux disease without esophagitis
CPT/HCPCS: 99214

== ENCOUNTER 2023-07-02 07:16 | Outpatient (REF) | payer MEDICARE, SELFPAY ==
--- NOTE | 2023-07-02 08:22 | PFT_ITS ---
FLOWS: 1. FEV1 96% of predicted at 2.18 L. 2. FVC 97% of predicted at 3.0 L. 3. FEV1 to FVC ratio of 0.73. 4. Positive bronchodilator response. LUNG VOLUMES: 1. Total lung capacity 85% of predicted at 4.78 L. 2. Residual volume 99% of predicted at 2.18 L. 3. Slow vital capacity 75% of predicted at 2.61 L. 4. Expiratory reserve volume 91% of predicted at 0.70 L. 5. Diffusion capacity is moderately decreased, diffusion capacity corrects to normal after adjustment for alveolar ventilation. IMPRESSION: Mild obstructive reversible ventilatory defect with positive bronchodilator response. Decreased diffusion capacity suggest emphysema. MD CASIMIRO Lopez/MODL / [id number]
== END 2023-07-02 07:17 | disposition home or self-care (01) ==
LOC: HO.RESP 07:16
PROVIDERS: Visit Provider Internal Medicine
DX: R06.00 Dyspnea, unspecified (principal)
CPT/HCPCS: 94010; 94727; 94729

== ENCOUNTER → 2023-07-02 08:22 | Outpatient (BNV) | payer MEDICARE, SELFPAY | PROVIDERS: Visit Provider Internal Medicine Pulmonary Disease | DX: R06.09 Other forms of dyspnea (principal) | CPT/HCPCS: 94060; 94727; 94729 ==

== ENCOUNTER → 2023-07-23 12:40 | Outpatient (REF) | payer MEDICARE, SELFPAY ==
--- NOTE | 2023-07-23 12:43 | CA_ITS ---
Transthoracic Echocardiogram Patient (Last, First, Middle): Eulalio Miranda, Gender: Male Date of : 1945 Age: 78 Procedure Date: 07/23/2023 Procedure Type: Transthoracic Echocardiogram Location: OP Height: 152.4 cm Weight: 54.89 kg BSA: 1.51 m2 Heart Rate: bpm BP: 115 / 68 mmHg Nurse Care Manager: YASSINE Referring MD: Noemi Oliva MD Symptoms: R01.1 - Cardiac murmur, unspecified Study Quality: Fair Conclusions: - Normal left ventricular size, thickness, systolic function, and wall motion. The visually estimated ejection fraction is between 55-60%. Diastolic function is normal for age. - Normal right ventricular cavity size. There is borderline right ventricular systolic function. - There is mild aortic valve regurgitation. - There is mild dilatation of the sinuses of Valsalva measuring 3.88 cm and mild dilatation of the ascending aorta measuring 3.90 cm. Findings Left Ventricle Normal left ventricular size, thickness, systolic function, and wall motion. The visually estimated ejection fraction is between 55-60%. Diastolic function is normal for age. Right Ventricle Normal right ventricular cavity size. There is borderline right ventricular systolic function. Atria The left atrium is mildly dilated. Aortic Valve There is a normal trileaflet aortic valve. There is mild calcification of the aortic valve. There is no aortic valve stenosis. There is mild aortic valve regurgitation. Mitral Valve The mitral valve appears normal. There is trace mitral valve regurgitation. There is no mitral valve stenosis. Pulmonic Valve Normal pulmonic valve structure and function. There is trace pulmonic valve regurgitation. Tricuspid Valve Normal tricuspid valve structure. There is trace tricuspid valve regurgitation. Normal right atrial pressure. There is no evidence of pulmonary hypertension. Great Vessels There is mild dilatation of the sinuses of Valsalva measuring 3.88 cm and mild dilatation of the ascending aorta measuring 3.90 cm. The visualized portions of the pulmonary artery and branches are normal. Venous The inferior vena cava is normal in size and collapses greater than 50% with inspiration. Pericardium/Pleural There is no evidence of pericardial effusion. Prior Study Comparison Changes noted compared to prior study dated: 12/29/2022. Mildly dilated ascending aorta. Measurements 2D Linear Measurements IVSd: 0.86 0.6-0.9/0.6-1.0 cm LVIDd: 4.92 3.9-5.3/4.2-5.9 cm LVIDd Index: 3.26 2.4-3.2/2.2-3.1 cm/m2 LVIDs: 3.42 2.0-3.6 cm LVPWd: 0.92 0.7-1.1 cm LA Diam: 3.60 2.7-3.8/3.0-4.0 cm LAIDs Index: 2.38 1.5-2.3 cm/m2 LV Mass: 188.65 67-162/88-224 g LV Mass Index: 124.94 43-95/49-115 g/m2 LVOT Diam: 2.00 3.0+(-)1.3 cm 2D Systolic Function EF 4C: 59.20 >55% EF 2C: 67.00 >55% EF BiP: 63.50 >55% Mitral Valve MV Pk E: 0.44 MV PK A: 0.78 MV Decel Time: 496.00 E/A: 0.60 E'Lateral: 6.53 E'Medial: 5.00 E/E' Med: 8.80 E/E' Lat: 6.80 PHT: 145.00 MVA PHT: 1.52 Decel [place]: 0.89 Aortic Valve AoV Pk Alban: 1.33 AoV Mn Alban: 0.69 AoV VTI: 0.28 AoV Pk Grad: 7.00 Aov Mn Grad: 3.00 NICOLA Cont.VTI: 2.37 AI Pk [place]: 4.44 AI [place]: 1.75 LVOT LVOT Pk [place]: 0.83 LVOT Mn [place]: 0.49 LVOT VTI: 0.21 LVOT Pk Grad: 3.00 LVOT Mn Grad: 1.00 LVOT Diam: 2.00 LVOT Area: 3.14 Diastolic Function MV Pk E: 0.44 MV Pk A: 0.78 E/A: 0.60 E'Medial: 5.00 E/E' Med: 8.80 E' Laterial: 6.53 E/E' Lat: 6.80 Right Ventricle TAPSE (mm): 20.40 TVS' Alban: 9.68 Tricuspid Valve TR Pk [place]: 2.13 TR Pk Grad: 18.00 RA Press: 3.00 RVSP: 21.00 Great Vessels Aorta Sinus of Valsalva: 3.88 2.0-3.[address] [place]: 3.33 1.7-3.4 cm Ao Asc: 3.90 2.1-3.4 cm Updated in Other Vendor System with Status of Final Albert Parker MD electronically signed on 07/25/2023 8:04:33 PM with status of Final
== END ==
LOC: HO.CARD 12:40
PROVIDERS: PCP Internal Medicine; Visit Provider Internal Medicine
DX: R01.1 Cardiac murmur, unspecified (principal)
CPT/HCPCS: 93306

== ENCOUNTER → 2023-07-23 12:43 | Outpatient (BNV) | payer MEDICARE, SELFPAY | PROVIDERS: PCP Internal Medicine; Visit Provider Internal Medicine Cardiovascular Disease | DX: I35.1 Nonrheumatic aortic (valve) insufficiency (principal) | CPT/HCPCS: 93306 ==

== ENCOUNTER 2023-09-17 09:03 | Outpatient (AMB) | payer MEDICARE, SELFPAY ==
--- NOTE | 2023-09-17 09:06 | A.OFFPC_ITS ---
Vital Signs 3 09/17/23 09:07 Height 5 ft 3 in Weight 122 lb 2 oz BMI 21.6 BP 138/62 Blood Pressure Location Rt brachial Position Sitting Pulse 65 Pulse Source Palpation Intake Visit Reasons: Inflammed/Nerve Pain On Fingers Intake Note: Pt is here for right arm swelling with pain from a fall happened in . . 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 Accompanied by: Son Allergies atorvastatin Allergy (Intermediate, Verified 09/17/23 09:15) Rash oxycodone [From Percocet] Adverse Reaction (Intermediate, Verified 09/17/23 09:15) itchy skin Medication List - Last Reconciled 09/17/23 by Claudio Nam PA-C aspirin (Adult Aspirin Regimen) 81 mg PO DAILY 90 days lisinopril 10 mg PO DAILY 90 days melatonin 10 mg PO BEDTIME PRN 90 days metoprolol tartrate 25 mg PO BID 90 days omeprazole 40 mg PO DAILY 90 days rosuvastatin 20 mg PO DAILY 90 days Tobacco use date assessed: 11/19/22 Fall risk assessment: 1 Fall in past year ( ) Last assessed Fall Risk: 09/17/23 Dental Screening Dental Screen Date: 09/17/23 Did you have a dental visit in the last 12 months?: No Did you have a dental problem in the last 6 months where you did not have access to dental care?: No Was dental information given to patient?: No HPI Inflammed/Nerve Pain On Fingers 2 HPI0 Details Patient is a 78-year-old male here today for problem visit. The 1st time I am meeting this 78-year-old male with a past medical history significant for hyperlipidemia, liver disease, essential hypertension. He presents today with a family member who reports patient had fallen in June 2023 and has ever since been having right hand swelling and pain. Reports during the fall he injured his hand, wrist and right shoulder. He did not go to the hospital to be evaluated. They mention he may have dislocated his fingers in his right hand. Has ever since been having difficulty with his grasp in his right hand, unable to make a full fist. Does have swollen 3rd and 4th digits. PFSH Medical History Alcoholic liver disease Anemia Decrease in appetite Dyslipidemia Essential hypertension Former smoker Surgical History History of hernia surgery Family History Mother No problems noted. Father No problems noted. Social History Household Members: Children Housing: House Housing Other:: lives with son Are you a primary career services director to a significant other at home: No Do you presently have visiting nurse or other home services: No Alcohol intake: current Alcohol intake frequency: 0-2 drinks per day Alcohol type: beer and hard liquor Patient Tobacco Use Status: Former Tobacco user Tobacco use type: Cigarette e-Cigarette/Vaping Use: Never Used Second Hand Smoke Exposure: No service: No Current occupational status: retired Cognitive needs: No Hearing needs: No Vision needs: No Questionnaire Thrive Questionnaire Date Thrive assessed: 10/20/22 DUNIA-7 AMB Questionnaire DUNIA-7 Date DUNIA - 7 assessed: 10/20/22 Source: Developed by Drs. Joseph Bourgeois, Veronica Fiore, Kenyon Barbosa and colleagues, with an educational chico from [employer]. Review of Systems Const Denies headache(s) Eyes Denies loss of vision ENT Denies vertigo, Denies dizziness, Denies headache(s) and Denies sore throat Card Denies chest pain, Denies leg edema and Denies lightheadedness Resp Denies cough, Denies hemoptysis and Denies wheezing GI Denies abdominal pain, Denies melena, Denies constipation, Denies diarrhea and Denies vomiting Denies dysuria, Denies urinary frequency and Denies urinary urgency Musc Denies arthralgias, Denies joint swelling, Denies numbness and Denies tingling Neuro Denies Abnormal speech present, Denies behavioral changes, Denies vertigo, Denies dizziness, Denies headache(s), Denies loss of vision, Denies memory loss, Denies numbness and Denies tingling Psych Denies anxiety, Denies behavioral changes, Denies depression, Denies memory loss and Denies panic attacks Toño/Lymph Denies easy bleeding and Denies easy bruising Aller/Immun Denies wheezing Physical exam (Primary Care) Vital Signs: Last Vital Signs Pulse 65 09/17/23 09:07 BP 138/62 09/17/23 09:07 BMI result Body Mass Index 21.6 Tobacco/Smoking Status: Tobacco use Status Tobacco use date assessed 11/19/22 09/17/23 09:08 Patient Tobacco Use Status Former Tobacco user 09/17/23 09:08 Tobacco use type Cigarette 09/17/23 09:08 e-Cigarette/Vaping Use Never Used 09/17/23 09:08 Thrive Assessment: Date of Thrive Assessment Date Thrive assessed 10/20/22 09/17/23 09:08 Const General: healthy appearing, no acute distress, alert and awake Nutritional Appearance: well nourished Orientation/consciousness: oriented to person, oriented to place and oriented to time HENMT Ears: TM's normal bilaterally General nose exam: Normal nasal mucous membranes and turbinates present Eyes Conjunctivae: conjunctivae normal Sclerae: sclerae normal Pupils: Equal, round and reactive pupils present Neck Neck: Yes no lymphadenopathy and Yes no JVD Thyroid: Thyroid normal Carotids: no bruits Resp Effort & Inspection: normal respiratory effort and not tachypneic Auscultation: no crackles, no rales, no rhonchi and no wheezes Cardio Rate: regular rate Rhythm: regular rhythm Heart sounds: no murmurs and normal S1 and S2 GI Palpation (GI): Soft to palpation, nontender, no hepatomegaly and no splenomegaly Auscultation: normal bowel sounds Skin General skin exam: no rashes or lesions noted and dry skin Neuro General: oriented to person, oriented to place and oriented to time Cranial nerves: Yes Equal, round and reactive pupils present Speech: No Abnormal speech present Gait exam (Neuro): Normal gait present Motor exam (neuro): no tremor noted Extrem Other: RIGHT HAND: 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 NOTABLE SWELLING OF THE 3RD AND 4TH DIGITS. Right upper extremity: full ROM Left upper extremity: full ROM Hand/finger images: 2 1. SWOLLEN 3RD AND 4TH DIGIT. Right lower extremity: full ROM; no edema Left lower extremity: full ROM; no edema Psych Mental Status: mental status grossly normal Speech and movement: Normal speech and movement present Affect: normal affect Attitude: cooperative Thought process: Normal thought process present Assessment and Plan Assessment & Plan (1) Right hand tendonitis: Code(s): M77.8 - Other enthesopathies, not elsewhere classified Plan: Seems to have a tendinitis of the right hand and wrist. Will send for x-rays of the hand and right shoulder to evaluate for any occult fractures. 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 Will refer to orthopedic hand surgeon for possible cortisone injection (2) Arm paresthesia, right: Code(s): R20.2 - Paresthesia of skin Plan: Does report tingling feeling in his right hand ever since the injury. Will send for EMG to evaluate for a neuropathy. Orders: Orders 2 NE electromyogram (EMG) Today R20.2 - Paresthesia of skin XR shoulder RT 1V Today M25.511 - Pain in right shoulder XR hand RT 2V Today M77.8 - Other enthesopathies, not elsewhere classified OT Evaluation and Treatment Today M77.8 - Other enthesopathies, not elsewhere classified Referrals 2 Orthopedics Referral M77.8 - Other enthesopathies, not elsewhere classified Medications: New 2 naproxen 250 mg PO BID 10 days PRN 20 tabs 0RF pain R20.2 - Paresthesia of skin Coding Level of Care Code Est Pt Level 3 (28999) Diagnoses Right hand tendonitis M77.8 Arm paresthesia, right R20.2
[2023-09-17 09:07] VITALS: BP 138/62; PULSE 65; BMI 21.6
== END 2023-09-17 09:31 | disposition home or self-care (01) ==
PROVIDERS: PCP Internal Medicine; Visit Provider Physician Assistant
DX: M77.8 Other enthesopathies, not elsewhere classified (principal); R20.2 Paresthesia of skin
CPT/HCPCS: 99213

== ENCOUNTER 2023-09-17 09:39 | Outpatient (REF) | payer MEDICARE, SELFPAY ==
--- NOTE | ~2023-09-17 | XR_ITS ---
EXAMINATION: XR RIGHT SHOULDER XR RIGHT HAND CLINICAL INFORMATION: Bilateral enthesopathies of the hand. Pain in right shoulder. COMPARISON: Right scapula of November 21, 2022. TECHNIQUE: 5 views of the right shoulder. 3 views of the right hand. FINDINGS: RIGHT HAND: Moderate degenerative changes in the first carpometacarpal joint with joint space narrowing and hypertrophic change. Moderate degenerative changes in the first carpometacarpal joint with hypertrophic change. Faint calcifications in the soft tissues of the wrist, possibly vascular. Soft tissue swelling with possible ulcerations at the distal aspects of the proximal phalanges, most notable adjacent to the PIP joints of the second, third and fourth digits. RIGHT SHOULDER: Redemonstration of previously noted prominent anterior downsloping of the anterior acromion. Sali-gc-exarjxgk degenerative changes in the acromioclavicular joint with joint space narrowing and hypertrophic change. Degenerative changes with hypertrophic change along the glenoid. Degenerative changes in the imaged upper thoracic and lower cervical spine. Atherosclerotic calcifications in the partially imaged thoracic aorta. Possible faint calcifications in the region of the greater tuberosity versus mild hypertrophic change. XR/XR shoulder RT 1V IMPRESSION: 1. Stip-uv-vpespjvm degenerative changes in the acromioclavicular joint. 2. Degenerative changes in the right hand as detailed above. Recommend follow-up imaging in 10-14 days if fracture is suspected. Alignment
--- NOTE | ~2023-09-17 | XR_ITS ---
EXAMINATION: XR RIGHT SHOULDER XR RIGHT HAND CLINICAL INFORMATION: Bilateral enthesopathies of the hand. Pain in right shoulder. COMPARISON: Right scapula of November 21, 2022. TECHNIQUE: 5 views of the right shoulder. 3 views of the right hand. FINDINGS: RIGHT HAND: Moderate degenerative changes in the first carpometacarpal joint with joint space narrowing and hypertrophic change. Moderate degenerative changes in the first carpometacarpal joint with hypertrophic change. Faint calcifications in the soft tissues of the wrist, possibly vascular. Soft tissue swelling with possible ulcerations at the distal aspects of the proximal phalanges, most notable adjacent to the PIP joints of the second, third and fourth digits. RIGHT SHOULDER: Redemonstration of previously noted prominent anterior downsloping of the anterior acromion. Qovb-no-dbepucis degenerative changes in the acromioclavicular joint with joint space narrowing and hypertrophic change. Degenerative changes with hypertrophic change along the glenoid. Degenerative changes in the imaged upper thoracic and lower cervical spine. Atherosclerotic calcifications in the partially imaged thoracic aorta. Possible faint calcifications in the region of the greater tuberosity versus mild hypertrophic change. XR/XR hand RT 2V IMPRESSION: 1. Iszi-lk-plggopaj degenerative changes in the acromioclavicular joint. 2. Degenerative changes in the right hand as detailed above. Recommend follow-up imaging in 10-14 days if fracture is suspected. Alignment
== END 2023-09-17 09:40 | disposition home or self-care (01) ==
LOC: HO.XRAY 09:39
PROVIDERS: PCP Physician Assistant; Visit Provider Physician Assistant
DX: M25.511 Pain in right shoulder (principal); M77.8 Other enthesopathies, not elsewhere classified
CPT/HCPCS: 73020; 73120

== ENCOUNTER 2023-09-25 10:22 | Outpatient (AMB) | payer MEDICARE, SELFPAY ==
--- NOTE | 2023-09-25 10:29 | MHC.OFFVIS ---
Intake Vital Signs 09/25/23 10:33 Height 5 ft 3 in Weight 122 lb BMI 21.6 Intake Visit Reasons: N/P right hand pain s/p falling 06/15/23 Intake Note: Caitlin prakash 78 year old right hand dominant male presents today with his son for an evaluation of right hand, 06/15/23. Patient reports having a fall injuring his right hand, he waited to see if his pain would improve however his pain did not improve. He was seen by his PCP who ordered xrays and referred to orthopedics. Currently he has no strength, stating unable lift items and pain with making a fist. He has pain as well as numbness and tingling at the top of his hand radiating into his 3rd & 4th digit. Allergies atorvastatin Allergy (Intermediate, Verified 09/25/23 10:33) Rash oxycodone [From Percocet] Adverse Reaction (Intermediate, Verified 09/25/23 10:33) itchy skin HPI N/P right hand pain s/p falling 06/15/23 HPI Details 78-year-old right hand dominant male who presents to the office today with his son for evaluation of right-hand pain s/p fall and injuring his hand, 06/15/23. He reports he waited to see if his pain would improve but had no improvement. He was seen by his PCP who ordered x-rays and he was referred to our office. He currently states he has no strength which makes him unable to lift items. He also c/o pain, and intermittent numbness and tingling at the top of his hand which radiates into his 3rd and 4th digit. His pain is aggravated with making a fist. He finds pain relief with naproxen but denies swelling relief. PFSH Medical History Alcoholic liver disease Anemia Decrease in appetite Dyslipidemia Essential hypertension Former smoker Surgical History History of hernia surgery Family History Mother No problems noted. Father No problems noted. Social History Household Members: Children Housing: House Housing Other:: lives with son Are you a primary congregational care pastor to a significant other at home: No Do you presently have visiting nurse or other home services: No Alcohol intake: current Alcohol intake frequency: 0-2 drinks per day Alcohol type: beer and hard liquor Patient Tobacco Use Status: Former Tobacco user Tobacco use type: Cigarette e-Cigarette/Vaping Use: Never Used Second Hand Smoke Exposure: No service: No Current occupational status: retired Cognitive needs: No Hearing needs: No Vision needs: No Review of Systems Const All systems reviewed & are unremarkable except as noted in HPI and below Physical Exam Vital Signs: BMI result Body Mass Index 21.6 Const General: cooperative, healthy appearing, comfortable, no acute distress, well developed and alert Orientation/consciousness: patient oriented x3 HEENT Head: Yes normal to inspection, Yes normocephalic and Yes atraumatic Eyes General: appearance normal, both eyes and all related structures Resp Effort & Inspection: normal respiratory effort and able to speak in complete sentences Cardio Rate: regular rate Peripheral pulses: Peripheral pulses 2+ throughout GI Palpation (GI): Soft to palpation Skin Lesions: no lesions Rashes: no rashes Neuro General: patient oriented x3 Extrem Other: Right hand: Normal to inspection. He does have tenderness over the scaffold lunate of the wrist which extends to distal radius. He can extend all digit but he does have difficulty making a fist. I can passively bring him to a closed fist. NVI. Assessment & Plan Assessment & Plan (1) Right hand tendonitis: Code(s): M77.8 - Other enthesopathies, not elsewhere classified Plan We discussed options which include PT, NSAIDs and injections. The patient will defer on the injection today and proceed with PT and NSAIDs. He was given prescription of Celebrex and a Velcro wrist brace in the office today to wear at night. If symptoms persist, the patient will contact me for an injection, otherwise, PRN. Orders: Orders OT Evaluation and Treatment Today M77.8 - Other enthesopathies, not elsewhere classified Medications: New celecoxib (Celebrex) 200 mg PO BID 30 days 60 caps 3RF Patient Instructions: Scribed for Pravin Jennings PA-C, by Huber Lainez medical sales consultant, on 09/25/2023 at 10:45 AM EST. IPravin PA-C, have personally reviewed and agree with the information entered by the scribe. Coding Level of Care Code New Pt Level 3 (11458) Diagnoses Right hand tendonitis M77.8
[2023-09-25 10:33] VITALS: BMI 21.6
== END 2023-09-25 11:17 | disposition home or self-care (01) ==
PROVIDERS: PCP Physician Assistant; Visit Provider Physician Assistant
DX: M77.8 Other enthesopathies, not elsewhere classified (principal)
CPT/HCPCS: 99204

== ENCOUNTER → 2023-09-25 10:22 | Outpatient (BNVA) | payer MEDICARE, SELFPAY | PROVIDERS: PCP Physician Assistant; Visit Provider Physician Assistant | DX: M77.8 Other enthesopathies, not elsewhere classified (principal) | CPT/HCPCS: 99202 ==

== ENCOUNTER 2023-10-26 07:20 | Outpatient (AMB) | payer MEDICARE, SELFPAY ==
--- NOTE | 2023-10-26 07:31 | MHC.PC.OV ---
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 Accompanied by: Son Allergies atorvastatin Allergy (Intermediate, Verified 10/26/23 07:43) Rash oxycodone [From Percocet] Adverse Reaction (Intermediate, Verified 10/26/23 07:43) itchy skin Medication List - Last Reconciled 10/26/23 by Noemi Oliva MD aspirin (Adult Aspirin Regimen) 81 mg PO DAILY 90 days celecoxib (Celebrex) 200 mg PO BID 30 days lisinopril 10 mg PO DAILY 90 days melatonin 10 mg PO BEDTIME PRN 90 days metoprolol tartrate 25 mg PO BID 90 days naproxen 250 mg PO BID PRN 10 days omeprazole 40 mg PO DAILY 90 days rosuvastatin 20 mg PO DAILY 90 days Tobacco use date assessed: 10/26/23 Fall risk assessment: 1 Fall in past year Last assessed Fall Risk: 10/26/23 Dental Screening Dental Screen Date: 10/26/23 Did you have a dental visit in the last 12 months?: No Did you have a dental problem in the last 6 months where you did not have access to dental care?: No Was dental information given to patient?: Patient declined HPI HPI Comments History of Present Illness Details This is a 78-year-old male with alcoholic liver disease and mild major depression that comes for his physical exam. He was advised to stop drinking alcohol and is aware that there is some outpatient rehab but declines it. Has mild major depression and I will start him on venlafaxine at bedtime. I told him to hold melatonin while taking venlafaxine. He is accompanied by son. Has pancytopenia and was seen Hematology-Oncology for this matter but does not want a see Gastroenterology or Hematology-Oncology anymore. Blood pressure elevated because he has stopped taking lisinopril for the past 3 days. Blood pressure will be recheck in 3 weeks by nurse navigator. Has pneumonia vaccine 2 years ago. Has some dyspnea on exertion but his echocardiogram done July 2023 shows normal ejection fraction and only mild valvular changes. [facility] Medical History (Updated 10/26/23 @ 08:08 by Noemi Oliva MD) Anemia Decrease in appetite Alcoholic liver disease Dyslipidemia Former smoker Essential hypertension Surgical History History of hernia surgery Family History Mother No problems noted. Father No problems noted. Social History Household Members: Children Housing: House Housing Other:: lives with son Are you a primary home care aide to a significant other at home: No Do you presently have visiting nurse or other home services: No Alcohol intake: current Alcohol intake frequency: 0-2 drinks per day Alcohol type: beer and hard liquor Patient Tobacco Use Status: Former Tobacco user Tobacco use type: Cigarette e-Cigarette/Vaping Use: Never Used Second Hand Smoke Exposure: No service: No Current occupational status: retired Cognitive needs: No Hearing needs: No Vision needs: No Questionnaire PHQ-9 Over the last 2 weeks, how often have you been bothered by any of the following problems? 1. Little interest or pleasure in doing things: not at all 2. Feeling down, depressed, or hopeless: several days 3. Trouble falling or staying asleep, or sleeping too much: not at all 4. Feeling tired or having little energy: several days 5. Poor appetite or overeating: several days 6. Feeling bad about yourself - or that you are a failure or have let yourself or your family down: several days 7. Trouble concentrating on things, such as reading the newspaper or watching television: several days 8. Moving or speaking so slowly that other people could have noticed. Or the opposite - being so fidgety or restless that you have been moving around a lot more than usual: several days 9. Thoughts that you would be better off or of hurting yourself in some way: not at all Total score: 6 Depression Screening Interpretation: Positive Depression Screening Follow-up: Existing condition and New Medication prescribed Depression Screening Done: Yes 31881 - PHQ-9 Billing: Yes Source: Developed by Drs. Joseph Bourgeois, Veronica Fiore, Kenyon Barbosa and colleagues, with an educational chico from [employer] ([employer]: [place]). Thrive Questionnaire Date Thrive assessed: 10/26/23 I am a: Patient What is your living situation today?: I have a steady place to live Within the past 12 months, did the food you bought not last and you didn't have the money to get more?: Never true Within the past 12 months, did you worry whether your food would run out before you got money to buy more?: Never true Do you have trouble paying for medicines?: No Do you have trouble getting transportation to medical appointments?: No Do you have trouble paying your heating and electricity bill?: No Do you have trouble taking care of your child, family member or friend?: No Do you have trouble with day-to-day activities such as bathing, preparing meals, shopping, managing finances, etc.?: No Are you currently unemployed and looking for a job?: No Are you interested in more education?: No Please select the resources that you would like help with: None AUDIT C Alcohol Use Questionnaire (AUDIT-C) 1. How often do you have a drink containing alcohol?: 4 or more times a week 2. How many drinks containing alcohol do you have on a typical day when you are drinking?: 1 or 2 3. How often do you have six or more drinks on one occasion?: Never Total Score: 4 Score Reviewed/Action Taken: Yes DUNIA-7 AMB Questionnaire DUNIA-7 Date DUNIA - 7 assessed: 10/26/23 Feeling nervous, anxious, or on edge: 1 = Several days Not being able to stop or control worryin = Not at all Worrying too much about different things: 1 = Several days Trouble relaxin = Several days Being so restless that it is hard to sit still: 0 = Not at all Becoming easily annoyed or irritable: 1 = Several days Feeling afraid as if something awful might happen: 0 = Not at all Total DUNIA-7 score (0-4 normal; 5-9 mild; 10-14 moderate; 15-21 severe): 4 Source: Developed by Drs. Joseph Bourgeois, Veronica Fiore, Kenyon Barbosa and colleagues, with an educational chico from [employer] ([employer]: [place]). DUNIA-7 Assessment Billing DUNIA-7 Assessment Tool: DUNIA-7 Assessment 48056 Review of Systems Const All systems reviewed & are unremarkable except as noted in HPI and below Eyes Reports no additional complaints, Denies change in vision and Denies other visual disturbances Card Denies chest pain at rest, Denies chest pain with activity, Denies edema, Denies irregular heart rhythm, Denies claudication, Denies dyspnea, Denies dyspnea on exertion, Denies orthopnea, Denies paroxysmal nocturnal dyspnea and Denies slow heart rate Resp Denies cough, Denies dyspnea and Denies dyspnea on exertion GI Denies abdominal pain, Denies change in bowel habits, Denies excessive flatus, Denies nausea and Denies vomiting Denies urinary hesitancy, Denies urinary incontinence and Denies urinary urgency Musc Denies abnormal gait, Denies atrophy, Denies deformity and Denies limited range of motion Skin/Breast Denies bleeding lesions, Denies changing lesions and Denies rash Neuro Denies abnormal gait, Denies behavioral changes, Denies confusion and Denies lack of coordination Psych Denies behavioral changes and Denies confusion Physical exam (Primary Care) Vital Signs: Last Vital Signs BP 150/70 H 10/26/23 07:32 BMI result Body Mass Index 21.4 Tobacco/Smoking Status: Tobacco use Status Tobacco use date assessed 10/26/23 10/26/23 07:38 Patient Tobacco Use Status Former Tobacco user 10/26/23 07:38 Tobacco use type Cigarette 10/26/23 07:38 e-Cigarette/Vaping Use Never Used 10/26/23 07:38 PHQ-9: PHQ-9 Score PHQ-9: Total score 6 10/26/23 07:50 Depression Screening Interpretation: Positive Depression Screening Follow-up: Existing condition and New Medication prescribed Thrive Assessment: Date of Thrive Assessment Date Thrive assessed 10/26/23 10/26/23 07:38 Const General: No confusion Orientation/consciousness: patient oriented x3 and No confusion HENMT Head: Yes normal to inspection, Yes normocephalic and Yes atraumatic Ears: external ears normal Eyes General: appearance normal, both eyes and all related structures Eyelids: Yes eyelids normal Conjunctivae: conjunctivae normal Neck Neck: Yes normal visual inspection and Yes supple Resp Effort & Inspection: normal respiratory effort Auscultation: clear to auscultation bilaterally Cardio Jugular venous distension: no JVD Rate: regular rate Rhythm: regular rhythm Heart sounds: S1 normal heart sound present and S2 normal heart sound present GI Inspection: Yes normal to inspection Palpation (GI): Soft to palpation and nontender Auscultation: normal bowel sounds Skin General skin exam: no rashes or lesions noted Neuro General: patient oriented x3, no focal motor deficits and No confusion Extrem General: Yes full ROM Psych Appearance: grossly normal Office Procedures Advance Care Planning Advance Care Planning discussion: Exists, not on file Date of discussion: 10/26/23 Who was present: son, patient, medical records administrator Jessie Urena and de Forms completed: Health Care Proxy Time spent: 1-15 minutes, on File Actual minutes spent: 1 Flu Questionnaire Does the patient have a severe egg allergy?: No Immunizations flu vacc [id number] 6mos up(PF) 60 mcg(15 mcgx4)/0.5 mL IM syringe Performing Provider: Noemi Oliva MD [facility] Documented (not given) by: NYDIA Garcia on 10/26/23 08:03 Reason Not Given: Not Given Assessment and Plan Assessment & Plan (1) Physical exam: Code(s): Z00.00 - Encounter for general adult medical examination without abnormal findings Plan: Repeat in a year. (2) Mild major depression: Code(s): F32.0 - Major depressive disorder, single episode, mild Plan: Start venlafaxine at bedtime. (3) Alcoholic liver disease: Code(s): K70.9 - Alcoholic liver disease, unspecified Plan: Was advised to stop drinking alcohol and searching for rehab which he declines. Does not want to see Gastroenterology again. Orders: Orders XR chest 2V Today R06.00 - Dyspnea, unspecified Influenza [id number] Immunization Today Z23 - Encounter for immunization Complete Blood Count Auto Diff Today D64.9 - Anemia, unspecified Vitamin B12 and Folate Today D64.9 - Anemia, unspecified, E53.8 - Deficiency of other specified B group vitamins Lipid Panel Today E78.5 - Hyperlipidemia, unspecified Comprehensive [place]. Panel Fast Today K70.9 - Alcoholic liver disease, unspecified XR hand RT 2V Today M77.8 - Other enthesopathies, not elsewhere classified IRON PROFILE Today D64.9 - Anemia, unspecified Medications: New venlafaxine ER 37.5 mg PO BEDTIME 30 days 30 caps 1RF F32.0 - Major depressive disorder, single episode, mild Coding Level of Care Code Est Pt Prev Care >65y(58652) Diagnoses Physical exam Z00.00 Mild major depression F32.0 Alcoholic liver disease K70.9 CPT Codes Advance Care Planning - Time spent: 1-15 minutes, on File ([id number]) Additional Codes DUNIA-7 Assessment Billing - DUNIA-7 Assessment Tool: DUNIA-7 Assessment 35595 ([id number]) Time Spent (min) 34
[2023-10-26 07:32] VITALS: BP 150/70; BMI 21.4
== END 2023-10-26 08:04 | disposition home or self-care (01) ==
PROVIDERS: Visit Provider Internal Medicine
DX: F32.0 Major depressive disorder, single episode, mild (principal); K70.9 Alcoholic liver disease, unspecified; Z00.00 Encounter for general adult medical examination without abnormal findings
CPT/HCPCS: 1123F; 96127; 99214

== ENCOUNTER 2023-10-26 08:13 | Outpatient (REF) | payer MEDICARE, SELFPAY ==
[2023-10-26 08:24] LABS: MANUAL DIFF FLAG NO
[2023-10-26 08:53] LABS: Alanine Aminotransferase 31 U/L (0-40); Albumin Level 4.1 g/dL (3.5-5.0); Alkaline Phosphatase 73 U/L (39-117); Anion Gap 14 (12-20); Aspartate Amino Transferase 55 U/L (5-37); Basophils Percent Auto 0.8 % (0-2); Bilirubin Total 1.2 mg/dL (0.0-1.0); Blood Urea Nitrogen 18 mg/dL (9-16); Calcium 9.3 mg/dL (8.4-10.2); Carbon Dioxide 26 mmol/L (22-29); Chloride 103 mmol/L (96-108); Cholesterol 121 mg/dL (<200); Eosinophils Absolute Auto 0.1 X10*3/uL (0.0-0.4); Eosinophils Percent Auto 2.3 % (0-4); Estimated Glomerular Filt Rate > 60; Glucose Fasting 93 mg/dL (60-99); HDL Cholesterol 49 mg/dL (>40); Hematocrit 42.5 % (42.0-52.0); Imm Gran Abs Auto 0.01 X10*3/uL (0.00-0.03); Imm Gran Pct Auto 0.2 % (0.0-0.4); Iron 148 mcg/dL (45-160); LDL Cholesterol Calculated 36 mg/dL (<100); Lymphocytes Absolute Auto 1.3 X10*3/uL (1.2-4.9); Lymphocytes Percent Auto 28.1 % (20-40); Mean Corpuscular HGB Conc 32.9 g/dl (31.0-36.0); Mean Corpuscular Hemoglobin 31.9 pg (27.0-33.0); Mean Corpuscular Volume 96.8 fL (80.0-98.0); Mean Platelet Volume 11.6 fL (9.4-12.4); Monocytes Absolute Auto 0.5 X10*3/uL (0.1-1.2); Monocytes Percent Auto 10.3 % (2-11); Neutrophils Absolute Auto 2.8 x10*3/uL (2.0-8.3); Neutrophils Percent Auto 58.3 % (45-73); Percent Iron Saturation 46 % (15-50); Platelet Count 112 X10*3/uL (160-400); Potassium 3.8 mmol/L (3.3-5.1); Red Blood Count 4.39 X10*6/uL (4.60-5.80); Red Cell Distribution Width 12.5 % (11.0-16.0); Sodium 139 mmol/L (135-145); Total Iron Binding Capacity 321 mcg/dL (228-428); Total Protein 8.4 g/dL (6.5-8.0); Triglycerides 181 mg/dL (<150); Unsaturated Iron Binding 173 ug/dL; White Blood Count 4.8 X10*3/uL (4.8-10.8)
[2023-10-26 09:24] LABS: Folate 10.6 ng/mL (> or = 4.0); Vitamin B12 286 pg/mL (200-900)
== END 2023-10-26 08:14 | disposition home or self-care (01) ==
LOC: HO.LAB 08:13
PROVIDERS: PCP Internal Medicine; Visit Provider Internal Medicine
DX: D64.9 Anemia, unspecified (principal); E53.8 Deficiency of other specified B group vitamins; K70.9 Alcoholic liver disease, unspecified; E78.5 Hyperlipidemia, unspecified
CPT/HCPCS: 36415; 80053; 80061; 82607; 82746; 83540; 85025

== ENCOUNTER 2025-08-02 07:53 | Outpatient (REF) | payer MEDICARE, SELFPAY ==
--- OUTSIDE RECORDS SUMMARY | 2025-08-02 07:56 | XMS_ITS | Clinical Summary ---
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 Name Role Phone Unavailable Primary Care Provider Unavailabl e Source Comments PLEASE NOTE, if this patient is a minor, it may be UNLAWFUL to discuss sensitive information that is contained in these records (such as FAMILY PLANNING, MENTAL HEALTH or SUBSTANCE ABUSE) with the minor patient's parent or other person without the patient's specific authorization.[facility] Immunizations Immunization Administration Dates Next Due Moderna COVID-19 Vaccine, re d cap blue label, 12+ Primary Series 02/13/2021,01/16/2021 Social History Tobacco Use Types Packs/Day Years Used Date Smoking Tobacco: Never Assessed Social Connections Answer Date Recorded Social Connections and Isolation 0 01/16/2021 Financial Resource Strain Answer Date R ecorded Financial Resource Strain 0 2020 Stress Answer Date Recorded Stress 0 01/16/2021 Physical Activity Answer Date Recorded Physical Activity 0 01/16/2021 Food Insecurity Answer Date Recorded Food 0 01/16/2021 Transportation Needs Answer Date Record ed Transportation 0 01/16/2021 Housing Stability Answer Date Recorded Housing 0 01/16/2021 Safety and Environment Answer Date Bj rded Safety 0 01/16/2021 Utilities Answer Date Recorded Utilities 0 01/16/2021 Employment Answer Date Recorded Employment 0 01/16/2021 Sex and Gender Information Value Date Recorded Sex Assigned at Not on file Legal Sex Male 8:27 AM PDT Gender Identity Not on file Sexual Orientation Not on file Plan of Treatment Health Maintenance Due Date Last Done Comments Hepatitis C Screening 1945 Tobacco Screening 1945 Hypertension Screening (#1) 1965 Medicare Annual Wellness Visit 1965 Imm-DTaP/Tdap/Td (1 - Tdap) 1966 Imm-Pneumococcal 50+ (1 of 1 - PCV) 1997 Imm-Zoster, Recombinant (1 of 2) 1997 Falls Prevention 2012 Imm-RSV (adult) (1 - 1-dose 75+ series) 2022 Alcohol and Drug Screen 10/12/2024 Depression Annual Screen 10/12/2024 [id number] (3 - 2024- season) 2025 021, 01/16/2021 Imm-Influenza (#1) 2025 [place] - [place]
--- OUTSIDE RECORDS SUMMARY | 2025-08-02 07:56 | XMS_ITS | Clinical Summary ---
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 Active metoprolol tartrate (LOPRESSOR) 25 mg tablet Take 1 tablet (25 mg total) by mouth 2 (two) times a day. Active lisinopriL (PRINIVIL,ZEST RIL) 10 mg tablet Take 1 tablet (10 mg total) by mouth 1 (one) time each day. Active phenazopyridin e (PYRIDIUM) 200 mg tablet Take 1 tablet (200 mg total) by mouth every 8 (eight) hours if needed (urinary discomfort). 9 tablet 5 Active sucralfate (CARAFATE) 1 gram tablet Take 1 tablet (1 g total) by mouth 4 (four) times a day (before meals and nightly). 120 each 11 5 06/08/20 26 Active oxyCODONE (ROXICODONE) 5 mg immediate release tablet Take 1 tablet (5 mg total) by mouth every 6 (six) hours if needed for severe pain. Partial fill allowed Max Daily Amount: 20 mg 120 tablet 5 Active megestroL (MEGACE) 400 mg/10 mL (40 mg/mL) suspension Take 20 mL (800 mg total) by mouth 1 (one) time each day. Shake well just before you measure a dose. Measure with a special dose-measuring spoon or medicine cup, not with a regular table spoon. If you do not have a dose-measuring device, ask your pharmacist for one. 600 mL 1 5 07/18/20 26 Active megestroL (MEGACE) 400 mg/10 mL (40 mg/mL) suspension Take 20 mL (800 mg total) by mouth 1 (one) time each day. Shake well just before you measure a dose. Measure with a special dose-measuring spoon or medicine cup, not with a regular table spoon. If you do not have a dose-measuring device, ask your pharmacist for one. 600 mL 1 5 07/18/20 25 Discontinu ed(Reorder ) oxyCODONE (ROXICODONE) 5 mg immediate release tablet Take 1 tablet (5 mg total) by mouth every 6 (six) hours if needed for severe pain. Partial fill allowed Max Daily Amount: 20 mg 120 tablet 5 07/18/20 25 Discontinu ed(Reorder ) levoFLOXacin (LEVAQUIN) 500 mg tablet Take 1 tablet (500 mg total) by mouth 1 (one) time each day for 10 days. 10 tablet 5 07/03/20 25 Active Problems Problem Noted Date Diagnosed Date Acquired autoimmune hypothyroidism 05/03/2025 Acute pyelonephritis 04/25/2025 Arteriosclerosis of coronary artery 04/20/2025 Benign hypertension 04/20/2025 Gastroesophageal reflux disease 04/20/2025 Harmful use of alcohol 04/20/2025 Hyperlipidemia 04/20/2025 Multiple pulmonary nodules 04/20/2025 Malignant neoplasm of overla pping sites of bladder (CMS/HCC V24, CMS/HCC V28) 02/25/2025 Cancer Staging:Clinical stage from 03/30/2025:Stage II(cT2, cN0, cM0) - Signed by Sheridan Sandoval MD on 03/30/2025 Hematuria 02/14/2025 Encounters Date Type Department Care Team Description 07/26/2025 7:56 AM EDT - 07/26/2025 11:59 PM EDT Hospital Encounter [facility] CT Scan [address] [place] [address] Thoracic aortic aneurysm without rupture, unspecified part ([facility] V24) Discharge Disposition: Home or Self Care 07/18/2025 11:24 AM EDT - 07/18/2025 11:59 PM EDT Hospital Encounter [facility] Radiation Oncology [address] [place] [phone] Conchis Jackson, JAVY Malignant neoplasm of overlapping sites of bladder ([facility] V24, [facility] V28) (Primary Dx) Discharge Disposition: Home or Self Care 07/18/2025 9:15 AM EDT Office Visit [facility] Hematology Oncology [address] [place] [phone] Yohannes Woody MD Malignant neoplasm of overlapping sites of bladder ([facility] V24, [facility] V28) (Primary Dx) 07/18/2025 Telephone [facility]iation [facility]cology [address] [place] [phone] Jerrica Ernandez, KIMBERLEY 06/23/2025 Telephone [facility] Hematology Oncology [address] [place] [phone] Yohannes Woody MD 06/20/2025 9:00 AM EDT Office Visit [facility] Hematology Oncology [address] [place] [phone] Yohannes Woody MD Malignant neoplasm of overlapping sites of bladder ([facility] V24, [facility] V28) (Primary Dx) 06/08/2025 5:08 PM EDT - 06/09/2025 12:49 AM EDT Emergency [facility] Emergency [address] [place] [phone] Pj Calderon MD Chest pain, unspecified type (Primary Dx); Epigastric pain; Anemia, unspecified type Discharge Disposition: Home or Self Care 06/07/2025 10:14 AM EDT - 06/07/2025 11:59 PM EDT Hospital Encounter [facility] CT Scan [address] [place] [address] Malignant neoplasm of overlapping sites of bladder ([facility] V24, [facility] V28) Discharge Disposition: Home or Self Care 06/07/2025 9:50 AM EDT - 06/07/2025 11:59 PM EDT Hospital Encounter [facility] Radiation [facility]cology [address] [place] [phone] Sheridan Sandoval MD Malignant neoplasm of overlapping sites of bladder ([facility] V24, [facility] V28) (Primary Dx) Discharge Disposition: Home or Self Care 06/07/2025 9:07 AM EDT - 06/07/2025 11:59 PM EDT Hospital Encounter [facility] Radiation [facility]cology [address] [place] [phone] Malignant neoplasm of overlapping sites of bladder ([facility] V24, [facility] V28) (Primary Dx) Discharge Disposition: Home or Self Care 06/06/2025 9:30 AM EDT - 06/06/2025 11:59 PM EDT Hospital Encounter [facility] Radiation Oncology [address] [place] [phone] Discharge Disposition: Home or Self Care 06/05/2025 Telephone [facility] [address] [place] [phone] Jerrica Ernandez, KIMBERLEY 2025 7:32 AM EDT Anesthesia Event [facility] Main OR [address] [place] [phone] Mikey Singh MD 2025 7:30 AM EDT - 2025 9:00 AM EDT Surgery [facility] OR [address] [place] [phone] Jurgen Currie MD CYSTOSCOPY, Bilateral Retrograde Pyelogram, BILATERAL STENT EXCHANGE, Removal of Right Nephrostomy Tube [61340 (CPT )] 2025 6:05 AM EDT - 2025 11:59 PM EDT Hospital Encounter [facility] Xray [address] [place] [phone] Pain Discharge Disposition: Home or Self Care 2025 6:00 AM EDT - 2025 10:27 AM EDT Hospital Encounter [facility] Main OR [address] [place] [phone] Jurgen Currie MD Malignant neoplasm of overlapping sites of bladder ([facility] V24, [facility] V28) Discharge Disposition: Home or Self Care 06/01/2025 9:50 AM EDT - 06/01/2025 11:59 PM EDT Hospital Encounter [facility] [address] [place] [phone] Yohannes Woody MD Malignant neoplasm of overlapping sites of bladder ([facility] V24, [facility] V28) (Primary Dx); Acquired autoimmune hypothyroidism Discharge Disposition: Home or Self Care 06/01/2025 9:18 AM EDT - 06/01/2025 11:59 PM EDT Hospital Encounter [facility] Radiation Oncology [address] [place] [phone] Discharge Disposition: Home or Self Care 05/31/2025 9:15 AM EDT - 05/31/2025 11:59 PM EDT Hospital Encounter [facility] Radiation [facility]cology [address] [place] [phone] Discharge Disposition: Home or Self Care 05/30/2025 9:30 AM EDT - 05/30/2025 11:59 PM EDT Hospital Encounter [facility] Radiation [facility]cology [address] [place] [phone] Discharge Disposition: Home or Self Care 05/30/2025 9:00 AM EDT Office Visit [facility] Hematology Oncology [address] [place] [phone] Yohannes Woody MD Malignant neoplasm of overlapping sites of bladder ([facility] V24, [facility] V28) (Primary Dx) 05/29/2025 9:14 AM EDT - 05/29/2025 11:59 PM EDT Hospital Encounter [facility] Radiation [facility]cology [address] [place] [phone] Discharge Disposition: Home or Self Care 05/25/2025 10:54 AM EDT - 05/25/2025 11:59 PM EDT Hospital Encounter [facility] Xray [address] [place] [phone] Malignant neoplasm of overlapping sites of bladder ([facility] V24, [facility] V28) Discharge Disposition: Home or Self Care 05/25/2025 9:47 AM EDT - 05/25/2025 11:59 PM EDT Hospital Encounter [facility] [address] [phone] Yohannes Woody MD Malignant neoplasm of overlapping sites of bladder ([facility] V24, [facility] V28) (Primary Dx); Acquired autoimmune hypothyroidism Discharge Disposition: Home or Self Care 05/25/2025 9:16 AM EDT - 05/25/2025 11:59 PM EDT Hospital Encounter [facility] Radiation Oncology [address] [place] [phone] Discharge Disposition: Home or Self Care 05/24/2025 9:30 AM EDT - 05/24/2025 11:59 PM EDT Hospital Encounter [facility] Radiation [facility]cology [address] [place] [phone] Discharge Disposition: Home or Self Care 05/23/2025 9:27 AM EDT - 05/23/2025 11:59 PM EDT Hospital Encounter [facility]iation [facility]cology [address] [place] [phone] Discharge Disposition: Home or Self Care 05/22/2025 9:25 AM EDT - 05/22/2025 11:59 PM EDT Hospital Encounter [facility]iation [facility]cology [address] [place] [phone] Discharge Disposition: Home or Self Care 05/19/2025 9:40 AM EDT - 05/19/2025 11:59 PM EDT Hospital Encounter [facility] Radiation Oncology [address] [place] [phone] Sheridan Sandoval MD Malignant neoplasm of overlapping sites of bladder ([facility]/HCC V24, [facility] V28) (Primary Dx) Discharge Disposition: Home or Self Care 05/19/2025 9:23 AM EDT - 05/19/2025 11:59 PM EDT Hospital Encounter [facility] Radiation Oncology [address] [place] [phone] Discharge Disposition: Home or Self Care 05/18/2025 9:41 AM EDT - 05/18/2025 11:59 PM EDT Hospital Encounter [facility] [address] [place] [phone] Yohannes Woody MD Acquired autoimmune hypothyroidism (Primary Dx); Malignant neoplasm of overlapping sites of bladder ([facility] V24, [facility] V28) Discharge Disposition: Home or Self Care 05/18/2025 9:19 AM EDT - 05/18/2025 11:59 PM EDT Hospital Encounter [facility] Radiation Oncology [address] [place] [phone] Discharge Disposition: Home or Self Care 05/17/2025 9:29 AM EDT - 05/17/2025 11:59 PM EDT Hospital Encounter [facility] Radiation Oncology [address] [place] [phone] Discharge Disposition: Home or Self Care 05/17/2025 9:00 AM EDT Office Visit [facility] Hematology Oncology [address] [place] [phone] Adriana Hodge PA Malignant neoplasm of overlapping sites of bladder ([facility] V24, [facility] V28) (Primary Dx); H/O insertion of nephrostomy tube; Poor appetite 05/16/2025 9:23 AM EDT - 05/16/2025 11:59 PM EDT Hospital Encounter [facility] Radiation Oncology [address] [place] [phone] Discharge Disposition: Home or Self Care 05/15/2025 9:26 AM EDT - 05/15/2025 11:59 PM EDT Hospital Encounter [facility]iation [facility]cology [address] [place] [phone] Discharge Disposition: Home or Self Care 05/12/2025 9:38 AM EDT - 05/12/2025 11:59 PM EDT Hospital Encounter [facility] Radiation [facility]cology [address] [place] [phone] Sheridan Sandoval MD Malignant neoplasm of overlapping sites of bladder (CMS/HCC V24, CMS/HCC V28) (Primary Dx) Discharge Disposition: Home or Self Care 05/12/2025 9:12 AM EDT - 05/12/2025 11:59 PM EDT Hospital Encounter [facility] Radiation Oncology [address] [place] [phone] Discharge Disposition: Home or Self Care 05/11/2025 12:10 PM EDT - 05/11/2025 11:59 PM EDT Hospital Encounter [facility] Radiation Oncology [address] [place] [phone] Jerrica Ernandez, KIMBERLEY Malignant neoplasm of overlapping sites of bladder ([facility]/HCC V24, CMS/HCC V28) (Primary Dx) Discharge Disposition: Home or Self Care 05/11/2025 10:45 AM EDT Office Visit [facility] Hematology Oncology [address] [place] [phone] Yohannes Woody MD Malignant neoplasm of overlapping sites of bladder ([facility]/HCC V24, CMS/HCC V28) (Primary Dx) 05/11/2025 9:41 AM EDT - 05/11/2025 11:59 PM EDT Hospital Encounter [facility] [address] [place] [phone] Yohannes Woody MD Acquired autoimmune hypothyroidism (Primary Dx); Malignant neoplasm of overlapping sites of bladder ([facility]/HCC V24, CMS/HCC V28) Discharge Disposition: Home or Self Care 05/11/2025 9:23 AM EDT - 05/11/2025 11:59 PM EDT Hospital Encounter [facility] Radiation Oncology [address] [place] [phone] Discharge Disposition: Home or Self Care 05/11/2025 Social Work [facility] [address] [place] [phone] Nelli Dozier [facility] 05/10/2025 9:30 AM EDT - 05/10/2025 11:59 PM EDT Hospital Encounter [facility] Radiation Oncology [address] [place] [phone] Discharge Disposition: Home or Self Care 05/05/2025 9:39 AM EDT - 05/05/2025 11:59 PM EDT Hospital Encounter [facility] Radiation [facility]cology [address] [place] [phone] Sheridan Sandoval MD Malignant neoplasm of overlapping sites of bladder ([facility]/HCC V24, CMS/HCC V28) (Primary Dx) Discharge Disposition: Home or Self Care 05/05/2025 9:13 AM EDT - 05/05/2025 11:59 PM EDT Hospital Encounter [facility] Radiation Oncology [address] [place] [phone] Discharge Disposition: Home or Self Care 05/04/2025 9:41 AM EDT - 05/04/2025 11:59 PM EDT Hospital Encounter [facility] [address] [place] [phone] Yohannes Woody MD Malignant neoplasm of overlapping sites of bladder (CMS/HCC V24, CMS/HCC V28) (Primary Dx); Acquired autoimmune hypothyroidism Discharge Disposition: Home or Self Care 05/04/2025 9:19 AM EDT - 05/04/2025 11:59 PM EDT Hospital Encounter [facility] Radiation Oncology [address] [place] [phone] Discharge Disposition: Home or Self Care 05/03/2025 9:22 AM EDT - 05/03/2025 11:59 PM EDT Hospital Encounter [facility] Radiation Oncology [address] [place] [phone] Discharge Disposition: Home or Self Care 05/02/2025 9:45 AM EDT Office Visit [facility] Hematology Oncology [address] [place] [phone] Yohannes Woody MD Malignant neoplasm of overlapping sites of bladder ([facility] V24, [facility] V28) (Primary Dx) 05/02/2025 9:30 AM EDT - 05/02/2025 11:59 PM EDT Hospital Encounter [facility] Radiation Oncology [address] [place] [phone] Discharge Disposition: Home or Self Care from Last 3 Months Surgical History Surgery Date Site/Laterality Comments BLADDER SURGERY CYSTOSCOPY Medical History Medical History Date Comments Bladder cancer ([facility] V24, [facility] V28) Nephrostomy present ([facility] V24, [facility] V28) Family History Medical History Relation Name Comments Cancer Neg Hx Social History Tobacco Use Types Packs/Day Years Used Date Smoking Tobacco: Former Cigarettes Smokeless Tobacco: Never Tobacco Cessation:Counseling Given: Not Answered Alcohol Use Standard Drinks/Week Comments Not Currently 0 (1 standard drink = 0.6 oz pure alcohol) Has not drank since October 2024 Food Risk Answer Date Recorded Within the past 12 months we worried whether our food would run out before we got money to buy more. Not asked 04/28/2025 Within the past 12 months th e food we bought just didn't last and we didn't have money to get more. Not asked 04/28/2025 Interpersonal Safety Answer Date Record ed Physical Abuse Unrecognized value 2025 Verbal Abuse Unrecognized value 2025 Sex and Gender Information Value Date Recorded Sex Assigned at Male 03/02/2025 7:39 AM EDT Legal Sex Male 5:43 AM EST Gender Identity Male 03/02/2025 7:39 AM EDT Sexual Orientation Straight 03/02/2025 7: 39 AM EDT Occupation Industry Job Start Date Job End Date Retired Not on file Not on file Not on file Obstetrics History Last Filed Vital Signs Vital Sign Reading Time Taken Comments Blood Pressure 115/55 07/18/2025 12:06 PM EDT Pulse 74 07/18/2025 12:06 PM EDT Temperature 36.5 C (97.7 F) 07/18/2025 12:06 PM EDT Respiratory Rate 16 07/18/2025 12:06 PM EDT Oxygen Saturation 98% 07/18/2025 12:06 PM EDT Inhaled Oxygen Concentration - - Weight 49.7 kg (109 lb 9.6 oz) 07/18/2025 12:06 PM EDT Height 160 cm (5' 3 ) 07/18/2025 12:06 PM EDT Body Mass Index 19.41 07/18/2025 12:06 PM EDT Plan of Treatment Upcoming Encounters Date Type Department Care Team (Late st Contact Info) Description 08/07/2025 2:00 PM EDT Appointment [facility] Radiation Oncology [address] [place] [phone] Jerrica Ernandez, KIMBERLEY 08/15/2025 9:45 AM EST Office Visit [facility] Hematology Oncology [address] [place] [phone] Yohannes Woody MD [address] [place] [phone] Health Maintenance Due Date Last Done Comments DTaP,Tdap,and Td Vaccines (1 - Tdap) 1964 Hepatitis A Vaccines (1 of 2 - Risk 2-dose series) 1964 Zoster Vaccines (1 of 2) 1964 COVID-19 Vaccine (3 - Moderna risk series) 03/13/2021 02/13/2021, 01/16/2021 Pneumococcal Vaccine: 50+ Years (2 of 2 - PCV) 04/01/2022 04/01/2021 RSV Immunization Adult Patients (1 - 1-dose 75+ series) 2022 Depression Screening 10/12/2024 Cholesterol Screening (Lipid Panel) 02/15/2025 Hepatitis C Screening 02/15/2025 Medicare Annual Wellness Visit 02/15/2025 Influenza Vaccine (#1) 2025 10/20/2022, 2020 Social Influencers of Health Screening 04/28/2026 04/28/2025 Falls Risk Assessment 2026 2025 Hypertension/CHF/CAD Annual BMP Blood Test 07/12/2026 07/12/2025, 06/08/2025, 05/30/2025, Additional history exists HIB Vaccines Aged Out No longer eligi ble based on patient's age to complete this topic HPV Vaccines Aged Out No longer eligi ble based on patient's age to complete this topic Hepatitis B Vaccines Aged Out No long er eligible based on patient's age to complete this topic IPV Vaccines Aged Out No longer eligi ble based on patient's age to complete this topic MMR Vaccines Aged Out No longer eligi ble based on patient's age to complete this topic Meningococcal ACWY Vaccine Aged Out N o longer eligible based on patient's age to complete this topic Meningococcal B Vaccine Aged Out No l onger eligible based on patient's age to complete this topic RSV Immunization Patients Under 20 months Aged Out No longer eligible based on patient's age to complete this topic Varicella Vaccines Aged Out No longer eligible based on patient's age to complete this topic Medical Devices Implanted Type [employer] Supervisor Device Identifier Shelf Expiration Date Model / Serial / Lot Stent Uret [id number] Contr Percuflex Hydroplus - Sn/A - [id number] Implanted:Qty: 1 on 02/17/2025 by Naty Harris MD at [facility] Stents Left: Bladder [employer] 09/01/2027 [id number] 60 / N/A / [id number] Stent Nephuret Lplk [id number] Radiopq Bnd - [id number] Implanted:Qty: 1 on 05/01/2025 by Leydi Jain MD at [facility] Stents Right: Kidney [employer] [id number] 11/15/2027 [id number] / / [id number] Stent Uret Tria Firm W/Side Holes 7f [id number] - Sn/A - [id number] Implanted:Qty: 1 on 2025 by Jurgen Currie MD at [facility] Stents Right: Ureter [employer] [id number] 01/24/2028 [id number] 30 / N/A / [id number] Stent Uret [employer] W/Side Holes 7f [id number] - Sn/A - [id number] Implanted:Qty: 1 on 2025 by Jurgen Currie MD at [facility] Stents Left: Ureter [employer] [id number] 01/24/2028 [id number] 30 / N/A / [id number] Procedures Procedure Name Priority Date/Time Associated Diagnosis Comments CBC WITH AUTO DIFFERENTIAL Routine 07/12/2025 9:42 AM EDT Malignant neoplasm of overlapping sites of bladder (CMS/HCC V24, CMS/HCC V28) COMPREHENSIVE METABOLIC PANEL Routine 07/12/2025 9:42 AM EDT Malignant neoplasm of overlapping sites of bladder (CMS/HCC V24, CMS/HCC V28) CBC AND DIFFERENTIAL Routine 07/12/2025 9:42 AM EDT Malignant neoplasm of overlapping sites of bladder (CMS/HCC V24, CMS/HCC V28) SERNA URINE CULTURE TUBE Routine 06/23/20 25 11:19 AM EDT Urinary tract infection without hematuria, site unspecified URINALYSIS WITH REFLEX MICROSCOPIC AND CULTURE Routine 06/23/2025 11:19 AM EDT Urinary tract infection without hematuria, site unspecified URINALYSIS WITH REFLEX MICROSCOPIC AND CULTURE Routine 06/23/2025 11:19 AM EDT Urinary tract infection without hematuria, site unspecified CULTURE URINE Routine 06/23/2025 11:19 AM EDT Urinary tract infection without hematuria, site unspecified ECG ANNOTATED 06/09/2025 TROPONIN I HIGH SENSITIVITY Timed 06/08/2025 10:34 PM EDT CBC WITH AUTO DIFFERENTIAL STAT 06/08/2025 9:34 PM EDT LIPASE STAT 06/08/2025 9:34 PM EDT TROPONIN I HIGH SENSITIVITY Timed 06/08/2025 9:34 PM EDT COMPREHENSIVE METABOLIC PANEL STAT 06/08/2025 9:34 PM EDT CBC AND DIFFERENTIAL STAT 06/08/2025 9:34 PM EDT MAGNESIUM STAT 06/08/2025 9:34 PM EDT XR CHEST 1 VIEW STAT 06/08/2025 9:21 PM EDT ECG 12-LEAD STAT 06/08/2025 9:[address] HEAD WO CONTRAST Routine 06/07/2025 10:28 AM EDT Malignant neoplasm of overlapping sites of bladder (CMS/HCC V24, CMS/HCC V28) RAD ONC MSQ TREATMENT SUMMARY Routine 06/07/2025 9:34 AM EDT RAD ONC MSQ TREATMENT SUMMARY Routine 06/06/2025 9:45 AM EDT OXYGEN THERAPY, ADULT Routine 2025 8:17 AM EDT OXYGEN THERAPY, ADULT Routine 2025 8:17 AM EDT XR UROGRAM RETROGRADE Routine 2025 8:13 AM EDT Pain CULTURE URINE Routine 2025 7:57 AM EDT Malignant neoplasm of overlapping sites of bladder (CMS/HCC V24, CMS/HCC V28) TH AN LMA(NO CHARGE) Routine 2025 7:50 AM EDT ND CYSTOURETHROSCOPY WITH INSERTION INDWELLING URETERAL STENT 2025 7:32 AM EDT Malignant neoplasm of overlapping sites of bladder (CMS/HCC V24, CMS/HCC V28) Other hydronephrosis Case Notes C-ARM Special Needs TIME CHGD TO 730 PER JACKIE VIA PHONE 05/08 RAD ONC MSQ TREATMENT SUMMARY Routine 06/01/2025 9:45 AM EDT RAD ONC MSQ TREATMENT SUMMARY Routine 05/31/2025 9:49 AM EDT RAD ONC MSQ TREATMENT SUMMARY Routine 05/30/2025 10:04 AM EDT CBC WITH AUTO DIFFERENTIAL Routine 05/30/2025 9:11 AM EDT Malignant neoplasm of overlapping sites of bladder (CMS/HCC V24, CMS/HCC V28) Acquired autoimmune hypothyroidism COMPREHENSIVE METABOLIC PANEL Routine 05/30/2025 9:11 AM EDT Malignant neoplasm of overlapping sites of bladder (CMS/HCC V24, CMS/HCC V28) Acquired autoimmune hypothyroidism CBC AND DIFFERENTIAL Routine 05/30/2025 9:11 AM EDT Malignant neoplasm of overlapping sites of bladder (CMS/HCC V24, CMS/HCC V28) Acquired autoimmune hypothyroidism RAD ONC MSQ TREATMENT SUMMARY Routine 05/29/2025 9:36 AM EDT XR CHEST 1 VIEW STAT 05/25/2025 11:15 AM EDT Malignant neoplasm of overlapping sites of bladder (CMS/HCC V24, CMS/HCC V28) RAD ONC MSQ TREATMENT SUMMARY Routine 05/25/2025 9:44 AM EDT CBC WITH AUTO DIFFERENTIAL Routine 05/24/2025 9:55 AM EDT Malignant neoplasm of overlapping sites of bladder (CMS/HCC V24, CMS/HCC V28) Acquired autoimmune hypothyroidism COMPREHENSIVE METABOLIC PANEL Routine 05/24/2025 9:55 AM EDT Malignant neoplasm of overlapping sites of bladder (CMS/HCC V24, CMS/HCC V28) Acquired autoimmune hypothyroidism CBC AND DIFFERENTIAL Routine 05/24/2025 9:55 AM EDT Malignant neoplasm of overlapping sites of bladder (CMS/HCC V24, CMS/HCC V28) Acquired autoimmune hypothyroidism RAD ONC MSQ TREATMENT SUMMARY Routine 05/24/2025 9:44 AM EDT RAD ONC MSQ TREATMENT SUMMARY Routine 05/23/2025 9:44 AM EDT RAD ONC MSQ TREATMENT SUMMARY Routine 05/22/2025 9:42 AM EDT RAD ONC MSQ TREATMENT SUMMARY Routine 05/19/2025 9:49 AM EDT RAD ONC MSQ TREATMENT SUMMARY Routine 05/18/2025 9:35 AM EDT CBC WITH AUTO DIFFERENTIAL Routine 05/17/2025 9:53 AM EDT Malignant neoplasm of overlapping sites of bladder (CMS/HCC V24, CMS/HCC V28) Acquired autoimmune hypothyroidism CBC AND DIFFERENTIAL Routine 05/17/2025 9:53 AM EDT Malignant neoplasm of overlapping sites of bladder (CMS/HCC V24, CMS/HCC V28) Acquired autoimmune hypothyroidism COMPREHENSIVE METABOLIC PANEL Routine 05/17/2025 9:53 AM EDT Malignant neoplasm of overlapping sites of bladder (CMS/HCC V24, CMS/HCC V28) Acquired autoimmune hypothyroidism RAD ONC MSQ TREATMENT SUMMARY Routine 05/17/2025 9:44 AM EDT RAD ONC MSQ TREATMENT SUMMARY Routine 05/16/2025 9:35 AM EDT RAD ONC MSQ TREATMENT SUMMARY Routine 05/15/2025 9:42 AM EDT RAD ONC MSQ TREATMENT SUMMARY Routine 05/12/2025 9:38 AM EDT CBC WITH AUTO DIFFERENTIAL Routine 05/11/2025 9:51 AM EDT Malignant neoplasm of overlapping sites of bladder (CMS/HCC V24, CMS/HCC V28) Acquired autoimmune hypothyroidism CBC AND DIFFERENTIAL Routine 05/11/2025 9:51 AM EDT Malignant neoplasm of overlapping sites of bladder (CMS/HCC V24, CMS/HCC V28) Acquired autoimmune hypothyroidism COMPREHENSIVE METABOLIC PANEL Routine 05/11/2025 9:51 AM EDT Malignant neoplasm of overlapping sites of bladder (CMS/HCC V24, CMS/HCC V28) Acquired autoimmune hypothyroidism RAD ONC MSQ TREATMENT SUMMARY Routine 05/11/2025 9:34 AM EDT RAD ONC MSQ TREATMENT SUMMARY Routine 05/10/2025 10:28 AM EDT RAD ONC MSQ TREATMENT SUMMARY Routine 05/05/2025 9:39 AM EDT RAD ONC MSQ TREATMENT SUMMARY Routine 05/04/2025 9:34 AM EDT CBC WITH AUTO DIFFERENTIAL Routine 05/03/2025 9:47 AM EDT Malignant neoplasm of overlapping sites of bladder (CMS/HCC V24, CMS/HCC V28) MAGNESIUM Routine 05/03/2025 9:47 AM EDT Malignant neoplasm of overlapping sites of bladder (CMS/HCC V24, CMS/HCC V28) COMPREHENSIVE METABOLIC PANEL Routine 05/03/2025 9:47 AM EDT Malignant neoplasm of overlapping sites of bladder (CMS/HCC V24, CMS/HCC V28) CBC AND DIFFERENTIAL Routine 05/03/2025 9:47 AM EDT Malignant neoplasm of overlapping sites of bladder (CMS/HCC V24, CMS/HCC V28) RAD ONC MSQ TREATMENT SUMMARY Routine 05/03/2025 9:38 AM EDT from Last 3 Months Results * (ABNORMAL) CBC auto differential (07/12/2025 9:42 AM EDT) Only the most recent of7 resultswithin the time period is included. WBC 6.4 4.8 - 10.8 K/[facility] LAB HEMETOLOGY METHOD 07/12/2025 11:18 AM EDT [facility] RBC 3.80(L) 4.50 - 5.50 M/[facility] LAB HEMETOLOGY METHOD 07/12/2025 11:18 AM [facility] Hemoglobin 9.7(L) 13.5 - 17.5 g/dL LAB HEMETOLOGY METHOD 07/12/2025 11:18 AM [facility] Hematocrit 32.4(L) 42.0 - 54.0 % LAB HEMETOLOGY METHOD 07/12/2025 11:18 AM [facility] MCV 84.6 79.0 - 98.0 FL LAB HEMETOLOGY METHOD 07/12/2025 11:18 AM [facility] MCH 25.3(L) 27.0 - 32.0 pcg LAB HEMETOLOGY METHOD 07/12/2025 11:18 AM [facility] MCHC 29.9(L) 32.0 - 37.0 g/dL LAB HEMETOLOGY METHOD 07/12/2025 11:18 AM [facility] RDW 20.0(H) 11.0 - 15.0 % LAB HEMETOLOGY METHOD 07/12/2025 11:18 AM [facility] Platelets 254 130 - 400 K/mcL LAB HEMETOLOGY METHOD 07/12/2025 11:18 AM [facility] MPV 10.3 7.0 - 11.0 FL LAB HEMETOLOGY METHOD 07/12/2025 11:18 AM [facility] NRBC 0.0 <1.0 % LAB HEMETOLOGY METHOD 07/12/2025 11:18 AM [facility] NRBC Absolute 0.00 <0.10 K/mcL LAB HEMETOLOGY METHOD 07/12/2025 11:18 AM [facility] Neutrophils Relative 71.4 % LAB HEMETOLOGY METHOD 07/12/2025 11:18 AM [facility] Lymphocytes Relative 10.8 % LAB HEMETOLOGY METHOD 07/12/2025 11:18 AM [facility] Monocytes Relative 12.2 % LAB HEMETOLOGY METHOD 07/12/2025 11:18 AM [facility] Eosinophils Relative 4.7 % LAB HEMETOLOGY METHOD 07/12/2025 11:18 AM [facility] Basophils Relative 0.3 % LAB HEMETOLOGY METHOD 07/12/2025 11:18 AM [facility] Immature Granulocytes Relative 0.6 % LAB HEMETOLOGY METHOD 07/12/2025 11:18 AM [facility] Neutrophils Absolute 4.57 1.50 - 7.00 K/mcL LAB HEMETOLOGY METHOD 07/12/2025 11:18 AM [facility] Lymphocytes Absolute 0.69(L) 1.00 - 5.00 K/mcL LAB HEMETOLOGY METHOD 07/12/2025 11:18 AM [facility] Monocytes Absolute 0.78 0.20 - 1.00 K/mcL LAB HEMETOLOGY METHOD 07/12/2025 11:18 AM [facility] Eosinophils Absolute 0.30 0.00 - 0.50 K/mcL LAB HEMETOLOGY METHOD 07/12/2025 11:18 AM [facility] Basophils Absolute 0.02 0.00 - 0.20 K/mcL LAB HEMETOLOGY METHOD 07/12/2025 11:18 AM [facility] Immature Granulocytes Absolute 0.04(H) 0.00 - 0.03 K/mcL LAB HEMETOLOGY METHOD 07/12/2025 11:18 AM [facility] Blood Venous blood specimen / Unknown Venipuncture / Unknown 07/12/2025 9:42 AM EDT 07/12/2025 11:08 AM EDT Yohannes Woody MD LAB BLOOD ORDERABLES Final Result [facility] [address] [place] [address], * (ABNORMAL) Comprehensive metabolic panel (07/12/2025 9:42 AM EDT) Only the most recent of7 resultswithin the time period is included. Sodium 138 133 - 145 mmol/L LAB CHEMISTRY METHOD 07/12/2025 11:45 AM [facility] Potassium 4.9 3.5 - 5.5 mmol/L LAB CHEMISTRY METHOD 07/12/2025 11:45 AM [facility] Chloride 104 96 - 110 mmol/L LAB CHEMISTRY METHOD 07/12/2025 11:45 AM [facility] CO2 29 21 - 32 mmol/L LAB CHEMISTRY METHOD 07/12/2025 11:45 AM [facility] Anion Gap 5 3 - 11 LAB CHEMISTRY METHOD 07/12/2025 11:45 AM [facility] Glucose 87 70 - 100 mg/dL LAB CHEMISTRY METHOD 07/12/2025 11:45 AM [facility] BUN 20 5 - 25 mg/dL LAB CHEMISTRY METHOD 07/12/2025 11:45 AM [facility] Creatinine 1.44(H) 0.70 - 1.30 mg/dL LAB CHEMISTRY METHOD 07/12/2025 11:45 AM [facility] eGFR 50(L) >=60 mL/min/1. 73m2 LAB CHEMISTRY METHOD 07/12/2025 11:45 AM [facility] Comment:Calculation based on the Chronic Kidney Disease Epidemiology Collaboration (CKD-EPI) equation refit without adjustment for race. BUN/Creatinine Ratio 13.9 LAB CHEMISTRY METHOD 07/12/2025 11:45 AM [facility] Calcium 8.7 8.5 - 10.5 mg/dL LAB CHEMISTRY METHOD 07/12/2025 11:45 AM [facility] AST (SGOT) 31 10 - 42 unit/L LAB CHEMISTRY METHOD 07/12/2025 11:45 AM [facility] ALT (SGPT) 21 10 - 60 unit/L LAB CHEMISTRY METHOD 07/12/2025 11:45 AM [facility] Alkaline Phosphatase 96 42 - 121 unit/L LAB CHEMISTRY METHOD 07/12/2025 11:45 AM [facility] Total Protein 7.1 6.0 - 8.0 g/dL LAB CHEMISTRY METHOD 07/12/2025 11:45 AM [facility] Albumin 2.6(L) 3.2 - 5.0 g/dL LAB CHEMISTRY METHOD 07/12/2025 11:45 AM [facility] Total Bilirubin 0.9 0.0 - 1.4 mg/dL LAB CHEMISTRY METHOD 07/12/2025 11:45 AM [facility] Blood Venous blood specimen / Unknown Venipuncture / Unknown 07/12/2025 9:42 AM EDT 07/12/2025 11:06 AM EDT Yohannes Woody MD LAB BLOOD ORDERABLES Final Result Performing Organization Address [facility]/State/ZIP Co de Phone Number [facility] [address] [place] [address], * (ABNORMAL) Urinalysis with reflex microscopic and culture (06/23/2025 11:19 AM EDT) Specific [place] Urine 1.010 1.003 - 1.030 LAB URINALYSIS - AUTOMATED METHOD 06/23/2025 12:57 PM [facility] pH, Urine 6.0 5.0 - 8.0 pH LAB URINALYSIS - AUTOMATED METHOD 06/23/2025 12:57 PM [facility] Leukocytes, Urine Large(A) Negative LAB URINALYSIS - AUTOMATED METHOD 06/23/2025 12:57 PM [facility] Nitrite, Urine Negative Negative LAB URINALYSIS - AUTOMATED METHOD 06/23/2025 12:57 PM [facility] Protein, Urine 100(A) <=Trace mg/dL LAB URINALYSIS - AUTOMATED METHOD 06/23/2025 12:57 PM [facility] Glucose, Urine Negative Negative mg/dL LAB URINALYSIS - AUTOMATED METHOD 06/23/2025 12:57 PM [facility] Ketones, Urine Negative Negative mg/dL LAB URINALYSIS - AUTOMATED METHOD 06/23/2025 12:57 PM [facility] Urobilinogen , Urine 0.2 0.2 - 1.0 mg/dL LAB URINALYSIS - AUTOMATED METHOD 06/23/2025 12:57 PM [facility] Bilirubin, Urine Negative Negative LAB URINALYSIS - AUTOMATED METHOD 06/23/2025 12:57 PM [facility] Blood, Urine Moderate(A) Negative LAB URINALYSIS - AUTOMATED METHOD 06/23/2025 12:57 PM [facility] RBC, Urine 3 0 - 4 /HPF LAB URINALYSIS - AUTOMATED METHOD 06/23/2025 12:57 PM [facility] WBC, Urine >4,000(H) 0 - 4 /HPF LAB URINALYSIS - AUTOMATED METHOD 06/23/2025 12:57 PM [facility] Squamous Epithelial, Urine 93(H) 0 - 60 /LPF LAB URINALYSIS - AUTOMATED METHOD 06/23/2025 12:57 PM [facility] Bacteria, Urine Many(A) Negative /HPF LAB URINALYSIS - AUTOMATED METHOD 06/23/2025 12:57 PM [facility] Hyaline Casts, Urine 33.7(H) 0 - 3 /LPF LAB URINALYSIS - AUTOMATED METHOD 06/23/2025 12:57 PM EDT [facility] Urine Urine specimen obtained by clean catch procedure / Unknown Non-blood Collection / Unknown 06/23/2025 11:19 AM EDT 06/23/2025 11:26 AM EDT us Yohannes Woody MD LAB URINE ORDERABLES Final Result Performing Organization Address [facility] Co de Phone Number [facility] [address] [place] [address], [place] [phone] * Serna urine culture tube (06/23/2025 11:19 AM EDT) Extra Tube Hold for add-ons. 06/23/2025 1:01 PM EDT [facility] Comment:Auto resulted. Urine Urine specimen obtained by clean catch procedure / Unknown Non-blood Collection / Unknown 06/23/2025 11:19 AM EDT 06/23/2025 11:26 AM EDT us Yohannes Woody MD LAB URINE ORDERABLES Final Result Performing Organization Address [facility] de Phone Number [facility] [address] [place] [address], [place] [phone] * (ABNORMAL) Culture urine (06/23/2025 11:19 AM EDT) Only the most recent of2 resultswithin the time period is included. Culture, Urine >=100,000 CFU/mL Pseudomonas aeruginosa(A) JEROME 06/28/2025 7:32 AM EDT [facility] Comment: The organism value for this result has been updated. These results have been appended to the previously preliminary verified report. This is an edited result. Previous organism was Gram negative bacilli on 06/27/2025 at 0843 EDT. Urine Urine specimen obtained by clean catch procedure / Unknown Non-blood Collection / Unknown 06/23/2025 11:19 AM EDT 06/23/2025 12:57 PM EDT Narrative [facility] - 06/28/2025 7:32 AM EDT Additional colony types present in insignificant amounts. Organism Antibiotic Method Susceptibility Pseudomonas aeruginosa Piperacillin/Tazobactam JEROME <=4 ug/ml: Susceptible Pseudomonas aeruginosa Ceftazidime JEROME <=0.5 ug/ml: Susceptible Pseudomonas aeruginosa Cefepime JEROME 0.25 ug/ml: Susceptible Pseudomonas aeruginosa Meropenem JEROME <=0.25 ug/ml: Susceptible Pseudomonas aeruginosa Amikacin JEROME <=1 ug/ml: Susceptible Pseudomonas aeruginosa Ciprofloxacin JEROME <=0.06 ug/ml: Susceptible Pseudomonas aeruginosa Levofloxacin JEROME 0.25 ug/ml: Susceptible us Yohannes Woody MD LAB MICROBIOLOGY - GENERAL ORDERABLES Final Result [facility] [address] [place] [address], * ECG-Annotated (06/09/2025) us Provider Onbase ECG ORDERABLES Final Result * Troponin I high sensitivity (NOW and then in 1 hour) (06/08/2025 10:34 PM EDT) Only the most recent of2 resultswithin the time period is included. High Sensitivity Troponin I 54 <=79 ng/L LAB CHEMISTRY METHOD 06/08/2025 11:27 PM EDT [facility] Blood Venous blood specimen / Unknown Venipuncture / Unknown 06/08/2025 10:34 PM EDT 06/08/2025 11:03 PM EDT Narrative [facility] - 06/08/2025 11:27 PM EDT High levels of biotin in samples may falsely decrease hsTroponin values. Use caution when interpreting hsTroponin results in patients taking biotin who exhibit renal impairment (eGFR <60) or in patients taking more than 20 mg/day of biotin. us Pj Calderon MD LAB BLOOD ORDERABLES Final R esult Performing Organization Address [facility] de Phone Number [facility] [address] [place] [address], * Magnesium (06/08/2025 9:34 PM EDT) Only the most recent of2 resultswithin the time period is included. Magnesium 2.2 1.9 - 2.6 mg/dL LAB CHEMISTRY METHOD 06/08/2025 10:18 PM EDT [facility] Blood Venous blood specimen / Unknown Venipuncture / Unknown 06/08/2025 9:34 PM EDT 06/08/2025 9:52 PM EDT Pj Calderon MD LAB BLOOD ORDERABLES Final R esult Performing Organization Address [facility] de Phone Number [facility] [address] [place] [address], * Lipase (06/08/2025 9:34 PM EDT) Lipase 21 13 - 75 unit/L LAB CHEMISTRY METHOD 06/08/2025 10:18 PM EDT [facility] Blood Venous blood specimen / Unknown Venipuncture / Unknown 06/08/2025 9:34 PM EDT 06/08/2025 9:52 PM EDT Pj Calderon MD LAB BLOOD ORDERABLES Final R esult Performing Organization Address [facility] de Phone Number [facility] [address] [place] [address], * XR Chest 1 View (06/08/2025 9:21 PM EDT) Only the most recent of2 resultswithin the time period is included. Anatomical Region Laterality Modality Body Radiographic [place] ging 06/09/2025 8:50 AM EDT Impressions 06/09/2025 8:51 AM EDT FINDINGS/IMPRESSION: No pneumonia or pulmonary edema. Linear left retrocardiac opacities, likely atelectasis/scarring. No pleural effusion or pneumothorax. Cardiac silhouette and bones are stable compared to the recent prior exam. -------- FINAL REPORT -------- Dictated By: BRY JOSEPH Dictated Date: 06/09/2025 08:50 ET Assigned Physician: BRY JOSEPH Reviewed and Electronically Signed By: BRY JOSEPH Signed Date: 06/09/2025 08:51 ET Workstation ID: [id number] Transcribed By: Self Edit Transcribed Date: 06/09/2025 08:50 ET Narrative 06/09/2025 8:51 AM EDT XR CHEST 1 VIEW INDICATION: Chest pain TECHNIQUE: XR CHEST 1 VIEW COMPARISON: 05/25/2025 Procedure Note Bry Joseph MD - 06/09/2025 XR CHEST 1 VIEW INDICATION: Chest pain TECHNIQUE: XR CHEST 1 VIEW COMPARISON: 05/25/2025 IMPRESSION: FINDINGS/IMPRESSION: No pneumonia or pulmonary edema. Linear leftretrocardiac opacities, likely atelectasis/scarring. No pleural effusionor pneumothorax. Cardiac silhouette and bones are stable compared to therecent prior exam. -------- FINAL REPORT -------- Dictated By: BRY JOSEPH Dictated Date: 06/09/2025 08:50 ET Assigned Physician: BRY JOSEPH Reviewed and Electronically Signed By: BRY JOSEPH Signed Date: 06/09/2025 08:51 ET Workstation ID: [id number] Transcribed By: Self Edit Transcribed Date: 06/09/2025 08:50 ET us Pj Calderon MD IMG XR PROCEDURES Final Resu lt * ECG 12 lead (06/08/2025 9:20 PM EDT) Ventricular Rate ECG 66 BPM GEMUSE QRS Duration 80 ms GEMUSE Q-T Interval 452 ms GEMUSE QTc 473 ms GEMUSE R [place] -28 degrees GEMUSE T [place] 73 degrees GEMUSE ECG Interpretation Sinus rhythm with premature atrial complexes ST and T wave abnormality, consider lateral ischemia Prolongation of QT interval Abnormal ECG When compared with ECG of 20-APR-2025 12:54, Inverted T waves have replaced nonspecific T wave abnormality in Lateral leads Confirmed by Rohith ADLER YUFENG ([id number]) on 06/09/2025 2:30:34 PM GEMUSE 06/08/2025 9:20 PM EDT 06/09/2025 2:30 PM EDT us Pj Calderon MD ECG ORDERABLES Final Result GEMUSE * CT Head wo Contrast (06/07/2025 10:28 AM EDT) Anatomical Region Laterality Modality Head and Neck Computed Tomogra phy 06/07/2025 10:3 1 AM EDT Impressions 06/07/2025 10:35 AM EDT Impression: 1. No acute hemorrhage or intracranial mass effect. 2. Moderate, nonspecific deep white matter changes compatible with chronic microvascular ischemia in a patient of this age. 3. Disproportionate ventriculomegaly, similar to the previous study, suggesting asymmetric central atrophy versus normal pressure hydrocephalus. Telerad JULY ([id number]) -------- FINAL REPORT -------- Dictated By: Amaris Merino Dictated Date: 06/07/2025 10:31 ET Assigned Physician: Amaris Merino Reviewed and Electronically Signed By: Amaris Merino Signed Date: 06/07/2025 10:35 ET Workstation ID: [id number] Transcribed By: Self Edit Transcribed Date: 06/07/2025 10:31 ET Narrative 06/07/2025 10:35 AM EDT History: Headache. Fall 4 days ago. Personal history of bladder carcinoma. Comparison: 02/18/16 Technique: Contiguous axial images were obtained at 2.5 mm intervals through the posterior fossa and at 5 mm intervals through the remainder of the brain without intravenous contrast. DLP: 808.85 mGy/cm [employer] VCT Iterative reconstruction technique Findings: There is diffuse ventriculomegaly, similar to the previous study, somewhat out of proportion to the degree of sulcal prominence. Patchy deep white matter hypodensity is present bilaterally, unaccompanied by mass effect or hemorrhage and without significant change. 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 No abnormal intra- or extra-axial masses or fluid collections are demonstrated. There is no evidence of acute intracranial hemorrhage. Minimal mucoperiosteal thickening is seen within the partially imaged paranasal sinuses. The mastoid air cells are clear. No calvarial fracture is identified. Procedure Note Amaris Merino MD - 06/07/2025 History: Headache. Fall 4 days ago. Personal history of bladdercarcinoma. Comparison: 02/18/16 Technique: Contiguous axial images were obtained at 2.5 mm intervalsthrough the posterior fossa and at 5 mm intervals through the remainder ofthe brain without intravenous contrast. DLP: 808.85 mGy/cm [employer] VCT Iterative reconstruction technique Findings: There is diffuse ventriculomegaly, similar to the previous study, somewhatout of proportion to the degree of sulcal prominence. Patchy deep whitematter hypodensity is present bilaterally, unaccompanied by mass effect orhemorrhage and without significant change. A chronic left thalamic lacunarinfarct is again seen. No abnormal intra- or extra-axial masses or fluid collections aredemonstrated. There is no evidence of acute intracranial hemorrhage. Minimal mucoperiosteal thickening is seen within the partially imagedparanasal sinuses. The mastoid air cells are clear. No calvarial fractureis identified. IMPRESSION: Impression: 1. No acute hemorrhage or intracranial mass effect. 2. Moderate, nonspecific deep white matter changes compatible with chronicmicrovascular ischemia in a patient of this age. 3. Disproportionate ventriculomegaly, similar to the previous study,suggesting asymmetric central atrophy versus normal pressurehydrocephalus. Telerad PA ([id number]) -------- FINAL REPORT -------- Dictated By: Amaris Merino Dictated Date: 06/07/2025 10:31 ET Assigned Physician: Amaris Merino Reviewed and Electronically Signed By: Amaris Merino Signed Date: 06/07/2025 10:35 ET Workstation ID: [id number] Transcribed By: Self Edit Transcribed Date: 06/07/2025 10:31 ET Sheridan Sandoval MD IMG CT PROCEDURES Final Result * Rad Onc Msq Treatment Summary (06/07/2025 9:34 AM EDT) Treatment Site bladder MOSAI Q RADIATION ONCOLOGY Course Number 1 MOSAIQ RADIATION ONCOLOGY Prescribed Fractional Dose 200 cGray MOSAIQ RADIATION ONCOLOGY Prescribed Total Dose 6,000 cGray MOSAIQ RADIATION ONCOLOGY Actual Fractions Delivered 30 MOSAIQ RADIATION ONCOLOGY Actual Session Delivered Dose 200 cGray MOSAIQ RADIATION ONCOLOGY Actual Total Dose 6,000 cGray MOSAIQ RADIATION ONCOLOGY Prescribed Technique 2 arc VMAT MOSAIQ RADIATION ONCOLOGY Elapsed Days 49 MOSAIQ RADIATION ONCOLOGY Start Date 04/19/2025 MOSAIQ RADIATION ONCOLOGY Last Date 06/07/2025 MOSAIQ RADIATION ONCOLOGY Prescribed Number of Fractions 30 MOSAIQ RADIATION ONCOLOGY 06/07/2025 9:34 AM EDT Physician Radiation Oncology RADIATION ONCOLO GY ORDERABLES Final Result MOSAIQ RADIATION ONCOLOGY * Rad Onc Msq Treatment Summary (06/06/2025 9:45 AM EDT) Treatment Site bladder MOSAI Q RADIATION ONCOLOGY Course Number 1 MOSAIQ RADIATION ONCOLOGY Prescribed Fractional Dose 200 cGray MOSAIQ RADIATION ONCOLOGY Prescribed Total Dose 6,000 cGray MOSAIQ RADIATION ONCOLOGY Actual Fractions Delivered 29 MOSAIQ RADIATION ONCOLOGY Actual Session Delivered Dose 200 cGray MOSAIQ RADIATION ONCOLOGY Actual Total Dose 5,800 cGray MOSAIQ RADIATION ONCOLOGY Prescribed Technique 2 arc VMAT MOSAIQ RADIATION ONCOLOGY Elapsed Days 48 MOSAIQ RADIATION ONCOLOGY Start Date 04/19/2025 MOSAIQ RADIATION ONCOLOGY Last Date 06/06/2025 MOSAIQ RADIATION ONCOLOGY Prescribed Number of Fractions 30 MOSAIQ RADIATION ONCOLOGY 06/06/2025 9:45 AM EDT Physician Radiation Oncology RADIATION ONCOLO GY ORDERABLES Final Result MOSAIQ RADIATION ONCOLOGY * XR Urogram Retrograde (2025 8:13 AM EDT) Anatomical Region Laterality Modality Body Radio Fluoroscop y 2025 8:24 AM EDT Narrative 2025 8:25 AM EDT Fluoroscopic spot radiographs obtained during a bilateral endourologic procedure are submitted. No radiologist consultation was requested or provided during this procedure and there is no radiologist professional charge. This report is generated for documentation purposes only. The dose-area product for this procedure was 1.3612 Gy*cm2. RI CPT II G9500 -------- FINAL REPORT -------- Dictated By: Abhishek Mace Dictated Date: 2025 08:24 ET Assigned Physician: Abhishek Mace Reviewed and Electronically Signed By: Abhishek Mace Signed Date: 2025 08:25 ET Workstation ID: [id number] Transcribed By: Self Edit Transcribed Date: 2025 08:24 ET Procedure Note Abhishek Maec MD - 2025 Fluoroscopic spot radiographs obtained during a bilateral endourologicprocedure are submitted. No radiologist consultation was requested orprovided during this procedure and there is no radiologist professionalcharge. This report is generated for documentation purposes only. The dose-area product for this procedure was 1.3612 Gy*cm2. RI CPT II G9500 -------- FINAL REPORT -------- Dictated By: Abhishek Mace Dictated Date: 2025 08:24 ET Assigned Physician: Abhishek Mace Reviewed and Electronically Signed By: Abhishek Mace Signed Date: 2025 08:25 ET Workstation ID: [id number] Transcribed By: Self Edit Transcribed Date: 2025 08:24 ET Jurgen Currie MD IMG FLUOROSCOPY PROCEDURES Final Result * TH AN LMA(NO CHARGE) (2025 7:50 AM EDT) Narrative Mikey Singh MD - 2025 7:50 AM EDT Mikey Singh MD 2025 7:51 AM General Information and Staff Patient location during procedure: OR Performed by: Mikey Singh MD Authorized by: Mikey Singh MD Intubation Airway not difficult Urgency: elective Final Airway Details Number of attempts at approach: 1 Ventilation between attempts: none Number of other approaches attempted: 0 LMA Size: 4 LMA Type: Classic LMA Seal Pressure: Final airway type: LMA Indications and Patient Condition Indications for airway management: anesthesia Sedation level: No Preoxygenated: yes Soft Tissue Damage: No Dentition unchanged: edentulous. Patient position: neutral Mask difficulty assessment: 0 - not attempted Start Time: 2025 7:39 AMStop Time: 2025 7:39 AM Mikey Singh MD ANESTHESIA ORDERABLES Final Re sult * Rad Onc Msq Treatment Summary (06/01/2025 9:45 AM EDT) Treatment Site bladder MOSAI Q RADIATION ONCOLOGY Course Number 1 MOSAIQ RADIATION ONCOLOGY Prescribed Fractional Dose 200 cGray MOSAIQ RADIATION ONCOLOGY Prescribed Total Dose 6,000 cGray MOSAIQ RADIATION ONCOLOGY Actual Fractions Delivered 28 MOSAIQ RADIATION ONCOLOGY Actual Session Delivered Dose 200 cGray MOSAIQ RADIATION ONCOLOGY Actual Total Dose 5,600 cGray MOSAIQ RADIATION ONCOLOGY Prescribed Technique 2 arc VMAT MOSAIQ RADIATION ONCOLOGY Elapsed Days 43 MOSAIQ RADIATION ONCOLOGY Start Date 04/19/2025 MOSAIQ RADIATION ONCOLOGY Last Date 06/01/2025 MOSAIQ RADIATION ONCOLOGY Prescribed Number of Fractions 30 MOSAIQ RADIATION ONCOLOGY 06/01/2025 9:45 AM EDT Physician Radiation Oncology RADIATION ONCOLO GY ORDERABLES Final Result MOSAIQ RADIATION ONCOLOGY * Rad Onc Msq Treatment Summary (05/31/2025 9:49 AM EDT) Treatment Site bladder MOSAI Q RADIATION ONCOLOGY Course Number 1 MOSAIQ RADIATION ONCOLOGY Prescribed Fractional Dose 200 cGray MOSAIQ RADIATION ONCOLOGY Prescribed Total Dose 6,000 cGray MOSAIQ RADIATION ONCOLOGY Actual Fractions Delivered 27 MOSAIQ RADIATION ONCOLOGY Actual Session Delivered Dose 200 cGray MOSAIQ RADIATION ONCOLOGY Actual Total Dose 5,400 cGray MOSAIQ RADIATION ONCOLOGY Prescribed Technique 2 arc VMAT MOSAIQ RADIATION ONCOLOGY Elapsed Days 42 MOSAIQ RADIATION ONCOLOGY Start Date 04/19/2025 MOSAIQ RADIATION ONCOLOGY Last Date 05/31/2025 MOSAIQ RADIATION ONCOLOGY Prescribed Number of Fractions 30 MOSAIQ RADIATION ONCOLOGY 05/31/2025 9:49 AM EDT Physician Radiation Oncology RADIATION ONCKASSANDRA GY ORDERABLES Final Result MOSAIQ RADIATION ONCOLOGY * Rad Onc Msq Treatment Summary (05/30/2025 10:04 AM EDT) Treatment Site bladder MOSAI Q RADIATION ONCOLOGY Course Number 1 MOSAIQ RADIATION ONCOLOGY Prescribed Fractional Dose 200 cGray MOSAIQ RADIATION ONCOLOGY Prescribed Total Dose 6,000 cGray MOSAIQ RADIATION ONCOLOGY Actual Fractions Delivered 26 MOSAIQ RADIATION ONCOLOGY Actual Session Delivered Dose 200 cGray MOSAIQ RADIATION ONCOLOGY Actual Total Dose 5,200 cGray MOSAIQ RADIATION ONCOLOGY Prescribed Technique 2 arc VMAT MOSAIQ RADIATION ONCOLOGY Elapsed Days 41 MOSAIQ RADIATION ONCOLOGY Start Date 04/19/2025 MOSAIQ RADIATION ONCOLOGY Last Date 05/30/2025 MOSAIQ RADIATION ONCOLOGY Prescribed Number of Fractions 30 MOSAIQ RADIATION ONCOLOGY 05/30/2025 10:0 4 AM EDT Physician Radiation Oncology RADIATION ONCKASSANDRA GY ORDERABLES Final Result MOSAIQ RADIATION ONCOLOGY * Rad Onc Msq Treatment Summary (05/29/2025 9:36 AM EDT) Treatment Site bladder MOSAI Q RADIATION ONCOLOGY Course Number 1 MOSAIQ RADIATION ONCOLOGY Prescribed Fractional Dose 200 cGray MOSAIQ RADIATION ONCOLOGY Prescribed Total Dose 6,000 cGray MOSAIQ RADIATION ONCOLOGY Actual Fractions Delivered 25 MOSAIQ RADIATION ONCOLOGY Actual Session Delivered Dose 200 cGray MOSAIQ RADIATION ONCOLOGY Actual Total Dose 5,000 cGray MOSAIQ RADIATION ONCOLOGY Prescribed Technique 2 arc VMAT MOSAIQ RADIATION ONCOLOGY Elapsed Days 40 MOSAIQ RADIATION ONCOLOGY Start Date 04/19/2025 MOSAIQ RADIATION ONCOLOGY Last Date 05/29/2025 MOSAIQ RADIATION ONCOLOGY Prescribed Number of Fractions 30 MOSAIQ RADIATION ONCOLOGY 05/29/2025 9:36 AM EDT us Physician Radiation Oncology RADIATION ONCOLO GY ORDERABLES Final Result MOSAIQ RADIATION ONCOLOGY * Rad Onc Msq Treatment Summary (05/25/2025 9:44 AM EDT) Treatment Site bladder MOSAI Q RADIATION ONCOLOGY Course Number 1 MOSAIQ RADIATION ONCOLOGY Prescribed Fractional Dose 200 cGray MOSAIQ RADIATION ONCOLOGY Prescribed Total Dose 6,000 cGray MOSAIQ RADIATION ONCOLOGY Actual Fractions Delivered 24 MOSAIQ RADIATION ONCOLOGY Actual Session Delivered Dose 200 cGray MOSAIQ RADIATION ONCOLOGY Actual Total Dose 4,800 cGray MOSAIQ RADIATION ONCOLOGY Prescribed Technique 2 arc VMAT MOSAIQ RADIATION ONCOLOGY Elapsed Days 36 MOSAIQ RADIATION ONCOLOGY Start Date 04/19/2025 MOSAIQ RADIATION ONCOLOGY Last Date 05/25/2025 MOSAIQ RADIATION ONCOLOGY Prescribed Number of Fractions 30 MOSAIQ RADIATION ONCOLOGY 05/25/2025 9:44 AM EDT Physician Radiation Oncology RADIATION ONCOLO GY ORDERABLES Final Result MOSAIQ RADIATION ONCOLOGY * Rad Onc Msq Treatment Summary (05/24/2025 9:44 AM EDT) Treatment Site bladder MOSAI Q RADIATION ONCOLOGY Course Number 1 MOSAIQ RADIATION ONCOLOGY Prescribed Fractional Dose 200 cGray MOSAIQ RADIATION ONCOLOGY Prescribed Total Dose 6,000 cGray MOSAIQ RADIATION ONCOLOGY Actual Fractions Delivered 23 MOSAIQ RADIATION ONCOLOGY Actual Session Delivered Dose 200 cGray MOSAIQ RADIATION ONCOLOGY Actual Total Dose 4,600 cGray MOSAIQ RADIATION ONCOLOGY Prescribed Technique 2 arc VMAT MOSAIQ RADIATION ONCOLOGY Elapsed Days 35 MOSAIQ RADIATION ONCOLOGY Start Date 04/19/2025 MOSAIQ RADIATION ONCOLOGY Last Date 05/24/2025 MOSAIQ RADIATION ONCOLOGY Prescribed Number of Fractions 30 MOSAIQ RADIATION ONCOLOGY 05/24/2025 9:44 AM EDT Physician Radiation Oncology RADIATION ONCOLO GY ORDERABLES Final Result MOSAIQ RADIATION ONCOLOGY * Rad Onc Msq Treatment Summary (05/23/2025 9:44 AM EDT) Treatment Site bladder MOSAI Q RADIATION ONCOLOGY Course Number 1 MOSAIQ RADIATION ONCOLOGY Prescribed Fractional Dose 200 cGray MOSAIQ RADIATION ONCOLOGY Prescribed Total Dose 6,000 cGray MOSAIQ RADIATION ONCOLOGY Actual Fractions Delivered 22 MOSAIQ RADIATION ONCOLOGY Actual Session Delivered Dose 200 cGray MOSAIQ RADIATION ONCOLOGY Actual Total Dose 4,400 cGray MOSAIQ RADIATION ONCOLOGY Prescribed Technique 2 arc VMAT MOSAIQ RADIATION ONCOLOGY Elapsed Days 34 MOSAIQ RADIATION ONCOLOGY Start Date 04/19/2025 MOSAIQ RADIATION ONCOLOGY Last Date 05/23/2025 MOSAIQ RADIATION ONCOLOGY Prescribed Number of Fractions 30 MOSAIQ RADIATION ONCOLOGY 05/23/2025 9:44 AM EDT Physician Radiation Oncology RADIATION ONCOLO GY ORDERABLES Final Result Performing Organization Address City/[facility]/ZIP Co de Phone Number MOSAIQ RADIATION ONCOLOGY * Rad Onc Msq Treatment Summary (05/22/2025 9:42 AM EDT) Treatment Site bladder MOSAI Q RADIATION ONCOLOGY Course Number 1 MOSAIQ RADIATION ONCOLOGY Prescribed Fractional Dose 200 cGray MOSAIQ RADIATION ONCOLOGY Prescribed Total Dose 6,000 cGray MOSAIQ RADIATION ONCOLOGY Actual Fractions Delivered 21 MOSAIQ RADIATION ONCOLOGY Actual Session Delivered Dose 200 cGray MOSAIQ RADIATION ONCOLOGY Actual Total Dose 4,200 cGray MOSAIQ RADIATION ONCOLOGY Prescribed Technique 2 arc VMAT MOSAIQ RADIATION ONCOLOGY Elapsed Days 33 MOSAIQ RADIATION ONCOLOGY Start Date 04/19/2025 MOSAIQ RADIATION ONCOLOGY Last Date 05/22/2025 MOSAIQ RADIATION ONCOLOGY Prescribed Number of Fractions 30 MOSAIQ RADIATION ONCOLOGY 05/22/2025 9:42 AM EDT Physician Radiation Oncology RADIATION ONCKASSANDRA GY ORDERABLES Final Result MOSAIQ RADIATION ONCOLOGY * Rad Onc Msq Treatment Summary (05/19/2025 9:49 AM EDT) Treatment Site bladder MOSAI Q RADIATION ONCOLOGY Course Number 1 MOSAIQ RADIATION ONCOLOGY Prescribed Fractional Dose 200 cGray MOSAIQ RADIATION ONCOLOGY Prescribed Total Dose 6,000 cGray MOSAIQ RADIATION ONCOLOGY Actual Fractions Delivered 20 MOSAIQ RADIATION ONCOLOGY Actual Session Delivered Dose 200 cGray MOSAIQ RADIATION ONCOLOGY Actual Total Dose 4,000 cGray MOSAIQ RADIATION ONCOLOGY Prescribed Technique 2 arc VMAT MOSAIQ RADIATION ONCOLOGY Elapsed Days 30 MOSAIQ RADIATION ONCOLOGY Start Date 04/19/2025 MOSAIQ RADIATION ONCOLOGY Last Date 05/19/2025 MOSAIQ RADIATION ONCOLOGY Prescribed Number of Fractions 30 MOSAIQ RADIATION ONCOLOGY 05/19/2025 9:49 AM EDT Physician Radiation Oncology RADIATION ONCKASSANDRA GY ORDERABLES Final Result MOSAIQ RADIATION ONCOLOGY * Rad Onc Msq Treatment Summary (05/18/2025 9:35 AM EDT) Treatment Site bladder MOSAI Q RADIATION ONCOLOGY Course Number 1 MOSAIQ RADIATION ONCOLOGY Prescribed Fractional Dose 200 cGray MOSAIQ RADIATION ONCOLOGY Prescribed Total Dose 6,000 cGray MOSAIQ RADIATION ONCOLOGY Actual Fractions Delivered 19 MOSAIQ RADIATION ONCOLOGY Actual Session Delivered Dose 200 cGray MOSAIQ RADIATION ONCOLOGY Actual Total Dose 3,800 cGray MOSAIQ RADIATION ONCOLOGY Prescribed Technique 2 arc VMAT MOSAIQ RADIATION ONCOLOGY Elapsed Days 29 MOSAIQ RADIATION ONCOLOGY Start Date 04/19/2025 MOSAIQ RADIATION ONCOLOGY Last Date 05/18/2025 MOSAIQ RADIATION ONCOLOGY Prescribed Number of Fractions 30 MOSAIQ RADIATION ONCOLOGY 05/18/2025 9:35 AM EDT Physician Radiation Oncology RADIATION ONCKASSANDRA GY ORDERABLES Final Result MOSAIQ RADIATION ONCOLOGY * Rad Onc Msq Treatment Summary (05/17/2025 9:44 AM EDT) Treatment Site bladder MOSAI Q RADIATION ONCOLOGY Course Number 1 MOSAIQ RADIATION ONCOLOGY Prescribed Fractional Dose 200 cGray MOSAIQ RADIATION ONCOLOGY Prescribed Total Dose 6,000 cGray MOSAIQ RADIATION ONCOLOGY Actual Fractions Delivered 18 MOSAIQ RADIATION ONCOLOGY Actual Session Delivered Dose 200 cGray MOSAIQ RADIATION ONCOLOGY Actual Total Dose 3,600 cGray MOSAIQ RADIATION ONCOLOGY Prescribed Technique 2 arc VMAT MOSAIQ RADIATION ONCOLOGY Elapsed Days 28 MOSAIQ RADIATION ONCOLOGY Start Date 04/19/2025 MOSAIQ RADIATION ONCOLOGY Last Date 05/17/2025 MOSAIQ RADIATION ONCOLOGY Prescribed Number of Fractions 30 MOSAIQ RADIATION ONCOLOGY 05/17/2025 9:44 AM EDT Physician Radiation Oncology RADIATION ONCKASSANDRA GY ORDERABLES Final Result MOSAIQ RADIATION ONCOLOGY * Rad Onc Msq Treatment Summary (05/16/2025 9:35 AM EDT) Treatment Site bladder MOSAI Q RADIATION ONCOLOGY Course Number 1 MOSAIQ RADIATION ONCOLOGY Prescribed Fractional Dose 200 cGray MOSAIQ RADIATION ONCOLOGY Prescribed Total Dose 6,000 cGray MOSAIQ RADIATION ONCOLOGY Actual Fractions Delivered 17 MOSAIQ RADIATION ONCOLOGY Actual Session Delivered Dose 200 cGray MOSAIQ RADIATION ONCOLOGY Actual Total Dose 3,400 cGray MOSAIQ RADIATION ONCOLOGY Prescribed Technique 2 arc VMAT MOSAIQ RADIATION ONCOLOGY Elapsed Days 27 MOSAIQ RADIATION ONCOLOGY Start Date 04/19/2025 MOSAIQ RADIATION ONCOLOGY Last Date 05/16/2025 MOSAIQ RADIATION ONCOLOGY Prescribed Number of Fractions 30 MOSAIQ RADIATION ONCOLOGY 05/16/2025 9:35 AM EDT Physician Radiation Oncology RADIATION ONCKASSANDRA GY ORDERABLES Final Result MOSAIQ RADIATION ONCOLOGY * Rad Onc Msq Treatment Summary (05/15/2025 9:42 AM EDT) Treatment Site bladder MOSAI Q RADIATION ONCOLOGY Course Number 1 MOSAIQ RADIATION ONCOLOGY Prescribed Fractional Dose 200 cGray MOSAIQ RADIATION ONCOLOGY Prescribed Total Dose 6,000 cGray MOSAIQ RADIATION ONCOLOGY Actual Fractions Delivered 16 MOSAIQ RADIATION ONCOLOGY Actual Session Delivered Dose 200 cGray MOSAIQ RADIATION ONCOLOGY Actual Total Dose 3,200 cGray MOSAIQ RADIATION ONCOLOGY Prescribed Technique 2 arc VMAT MOSAIQ RADIATION ONCOLOGY Elapsed Days 26 MOSAIQ RADIATION ONCOLOGY Start Date 04/19/2025 MOSAIQ RADIATION ONCOLOGY Last Date 05/15/2025 MOSAIQ RADIATION ONCOLOGY Prescribed Number of Fractions 30 MOSAIQ RADIATION ONCOLOGY 05/15/2025 9:42 AM EDT Physician Radiation Oncology RADIATION ONCOLO GY ORDERABLES Final Result MOSAIQ RADIATION ONCOLOGY * Rad Onc Msq Treatment Summary (05/12/2025 9:38 AM EDT) Treatment Site bladder MOSAI Q RADIATION ONCOLOGY Course Number 1 MOSAIQ RADIATION ONCOLOGY Prescribed Fractional Dose 200 cGray MOSAIQ RADIATION ONCOLOGY Prescribed Total Dose 6,000 cGray MOSAIQ RADIATION ONCOLOGY Actual Fractions Delivered 15 MOSAIQ RADIATION ONCOLOGY Actual Session Delivered Dose 200 cGray MOSAIQ RADIATION ONCOLOGY Actual Total Dose 3,000 cGray MOSAIQ RADIATION ONCOLOGY Prescribed Technique 2 arc VMAT MOSAIQ RADIATION ONCOLOGY Elapsed Days 23 MOSAIQ RADIATION ONCOLOGY Start Date 04/19/2025 MOSAIQ RADIATION ONCOLOGY Last Date 05/12/2025 MOSAIQ RADIATION ONCOLOGY Prescribed Number of Fractions 30 MOSAIQ RADIATION ONCOLOGY 05/12/2025 9:38 AM EDT Physician Radiation Oncology RADIATION ONCOLO GY ORDERABLES Final Result MOSAIQ RADIATION ONCOLOGY * Rad Onc Msq Treatment Summary (05/11/2025 9:34 AM EDT) Treatment Site bladder MOSAI Q RADIATION ONCOLOGY Course Number 1 MOSAIQ RADIATION ONCOLOGY Prescribed Fractional Dose 200 cGray MOSAIQ RADIATION ONCOLOGY Prescribed Total Dose 6,000 cGray MOSAIQ RADIATION ONCOLOGY Actual Fractions Delivered 14 MOSAIQ RADIATION ONCOLOGY Actual Session Delivered Dose 200 cGray MOSAIQ RADIATION ONCOLOGY Actual Total Dose 2,800 cGray MOSAIQ RADIATION ONCOLOGY Prescribed Technique 2 arc VMAT MOSAIQ RADIATION ONCOLOGY Elapsed Days 22 MOSAIQ RADIATION ONCOLOGY Start Date 04/19/2025 MOSAIQ RADIATION ONCOLOGY Last Date 05/11/2025 MOSAIQ RADIATION ONCOLOGY Prescribed Number of Fractions 30 MOSAIQ RADIATION ONCOLOGY 05/11/2025 9:34 AM EDT Physician Radiation Oncology RADIATION ONCOLO GY ORDERABLES Final Result MOSAIQ RADIATION ONCOLOGY * Rad Onc Msq Treatment Summary (05/10/2025 10:28 AM EDT) Treatment Site bladder MOSAI Q RADIATION ONCOLOGY Course Number 1 MOSAIQ RADIATION ONCOLOGY Prescribed Fractional Dose 200 cGray MOSAIQ RADIATION ONCOLOGY Prescribed Total Dose 6,000 cGray MOSAIQ RADIATION ONCOLOGY Actual Fractions Delivered 13 MOSAIQ RADIATION ONCOLOGY Actual Session Delivered Dose 200 cGray MOSAIQ RADIATION ONCOLOGY Actual Total Dose 2,600 cGray MOSAIQ RADIATION ONCOLOGY Prescribed Technique 2 arc VMAT MOSAIQ RADIATION ONCOLOGY Elapsed Days 21 MOSAIQ RADIATION ONCOLOGY Start Date 04/19/2025 MOSAIQ RADIATION ONCOLOGY Last Date 05/10/2025 MOSAIQ RADIATION ONCOLOGY Prescribed Number of Fractions 30 MOSAIQ RADIATION ONCOLOGY 05/10/2025 10:2 8 AM EDT Physician Radiation Oncology RADIATION ONCKASSANDRA GY ORDERABLES Final Result MOSAIQ RADIATION ONCOLOGY * Rad Onc Msq Treatment Summary (05/05/2025 9:39 AM EDT) Pathologist [facility] Treatment Site bladder MOSAI Q RADIATION ONCOLOGY Course Number 1 MOSAIQ RADIATION ONCOLOGY Prescribed Fractional Dose 200 cGray MOSAIQ RADIATION ONCOLOGY Prescribed Total Dose 6,000 cGray MOSAIQ RADIATION ONCOLOGY Actual Fractions Delivered 12 MOSAIQ RADIATION ONCOLOGY Actual Session Delivered Dose 200 cGray MOSAIQ RADIATION ONCOLOGY Actual Total Dose 2,400 cGray MOSAIQ RADIATION ONCOLOGY Prescribed Technique 2 arc VMAT MOSAIQ RADIATION ONCOLOGY Elapsed Days 16 MOSAIQ RADIATION ONCOLOGY Start Date 04/19/2025 MOSAIQ RADIATION ONCOLOGY Last Date 05/05/2025 MOSAIQ RADIATION ONCOLOGY Prescribed Number of Fractions 30 MOSAIQ RADIATION ONCOLOGY 05/05/2025 9:39 AM EDT Physician Radiation Oncology RADIATION ONCKASSANDRA GY ORDERABLES Final Result MOSAIQ RADIATION ONCOLOGY * Rad Onc Msq Treatment Summary (05/04/2025 9:34 AM EDT) Treatment Site bladder MOSAI Q RADIATION ONCOLOGY Course Number 1 MOSAIQ RADIATION ONCOLOGY Prescribed Fractional Dose 200 cGray MOSAIQ RADIATION ONCOLOGY Prescribed Total Dose 6,000 cGray MOSAIQ RADIATION ONCOLOGY Actual Fractions Delivered 11 MOSAIQ RADIATION ONCOLOGY Actual Session Delivered Dose 200 cGray MOSAIQ RADIATION ONCOLOGY Actual Total Dose 2,200 cGray MOSAIQ RADIATION ONCOLOGY Prescribed Technique 2 arc VMAT MOSAIQ RADIATION ONCOLOGY Elapsed Days 15 MOSAIQ RADIATION ONCOLOGY Start Date 04/19/2025 MOSAIQ RADIATION ONCOLOGY Last Date 05/04/2025 MOSAIQ RADIATION ONCOLOGY Prescribed Number of Fractions 30 MOSAIQ RADIATION ONCOLOGY 05/04/2025 9:34 AM EDT Physician Radiation Oncology RADIATION ONCOLO GY ORDERABLES Final Result MOSAIQ RADIATION ONCOLOGY * Rad Onc Msq Treatment Summary (05/03/2025 9:38 AM EDT) Treatment Site bladder MOSAI Q RADIATION ONCOLOGY Course Number 1 MOSAIQ RADIATION ONCOLOGY Prescribed Fractional Dose 200 cGray MOSAIQ RADIATION ONCOLOGY Prescribed Total Dose 6,000 cGray MOSAIQ RADIATION ONCOLOGY Actual Fractions Delivered 10 MOSAIQ RADIATION ONCOLOGY Actual Session Delivered Dose 200 cGray MOSAIQ RADIATION ONCOLOGY Actual Total Dose 2,000 cGray MOSAIQ RADIATION ONCOLOGY Prescribed Technique 2 arc VMAT MOSAIQ RADIATION ONCOLOGY Elapsed Days 14 MOSAIQ RADIATION ONCOLOGY Start Date 04/19/2025 MOSAIQ RADIATION ONCOLOGY Last Date 05/03/2025 MOSAIQ RADIATION ONCOLOGY Prescribed Number of Fractions 30 MOSAIQ RADIATION ONCOLOGY 05/03/2025 9:38 AM EDT Physician Radiation Oncology RADIATION ONCOLO GY ORDERABLES Final Result MOSAIQ RADIATION ONCOLOGY from Last 3 Months Additional Health Concerns 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 Do not modify or discontinue any currently active code status orders. Care Teams Acid Tank Cleaner Relationship Specialty Start Date End Date Noemi Oliva MD [address] [place] [address] , [address] [facility] Physician Associ D/B/A: [facility] ALEIDA Tello PCP - General Internal Medicine 02/15/25
--- OUTSIDE RECORDS SUMMARY | 2025-08-02 07:56 | XMS_ITS | Encounter Summary ---
Author Organization [facility] Address [address] [place] [address] Care Team Providers Care Manager Hris Name Role Phone Noemi Oliva MD Primary Care Provider [phone] Reason for Visit * Reason Onset Date Comments referral back to dietitian 07/18/2025 Encounter Details Date Type Department Care Team (Late st Contact Info) Description 07/18/2025 Telephone [facility] Radiation Oncology [address] [place] [address] Jerrica Ernandez, RD Social History Tobacco Use Types Packs/Day Years Used Date Smoking Tobacco: Former Cigarettes Smokeless Tobacco: Never Alcohol Use Standard Drinks/Week Comments Not Currently [...] file Not on file Not on file documented as of this encounter Functional Status * Are you deaf or do you have serious difficulty hearing? Answer Date of Assessment Author No 02/14/2025 2:41 PM EDT Dolmaddie, As wendi Mauro RN * Are you blind or do you have serious difficulty seeing, even when wearing glasses? Answer Date of Assessment Author No 02/14/2025 2:41 PM EDT Dolmaddie, As wendi Mauro RN * Do you have serious difficulty walking or climbing stairs? Answer Date of Assessment Author No 02/14/2025 2:41 PM EDT Doles, As wendi Mauro RN * Do you have serious difficulty dressing or bathing? Answer Date of Assessment Author No 02/14/2025 2:41 PM EDT Dolmaddie, As wendi Mauro RN * Because of a physical, mental, or emotional condition, do you have serious difficulty doing errandsalone such as visiting the doctor? Answer Date of Assessment Author No 02/14/2025 2:41 PM EDT Edgard, As wendi Mauro RN documented as of this encounter Mental Status * Because of a physical, mental, or emotional condition, do you have serious difficulty concentrating, remembering, or making decisions? (5 years old or older) Answer Entry Date Author No 02/14/2025 2:41 PM EDT Edgard, As wendi Mauro RN documented in this encounter Progress Notes * Jerrica Ernandez RD - 08/01/2025 2:08 PM EDT Rescheduled visit to Thursday08/07/25 at 2PM. Spoke w/ pt's son Gregory. Reviewed directions to the radiation oncology department on the first floor of the [facility] ([facility]). Contact information for outpatient oncology dietitian provided [phone]. * Jerrica Ernandez RD - 07/20/2025 4:35 PM EDT Attempted to reach pt and/or family members again today to schedule a follow-up appt to discuss nutrition and recent wt loss. Left messages (this time in Senegalese) with both of his sons listed in contact info. * Jerrica Ernandez RD - 07/18/2025 4:19 PM EDT Called and left VM message for pt's son Gregory requesting a call back to schedule a follow-up. Last appts were cancelled. Pt seen in the office by Dr. Woody and Conchis PALAFOX today. Wt loss noted. 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
--- OUTSIDE RECORDS SUMMARY | 2025-08-02 07:56 | XMS_ITS ---
Author Organization [facility] Address [address] [place] [address] Phone Care Team Providers Care Torch Brazer Name Role Phone Noemi Oliva MD Primary Care Provider [phone] Active Problems Problem Noted Date Diagnosed Date [...] Sheridan Sandoval MD on 03/30/2025 Hematuria 02/14/2025 Current Treatment and Therapy Plans Albumin-bound PACLitaxel concurrent with radiation* Plan Start Date:05/04/2025 Plan Provider:Yohannes Woody MD Linked Problems Malignant neoplasm of overla pping sites of bladder (CMS/HCC V24, CMS/HCC V28)Acquired autoimmune hypothyroidism Treatment Medications Current Day (Day 3 6, Cycle 1 - Planned for 06/08/2025) PACLitaxel Protein Bound (ABRAXANE)paclitaxel protein-bound (ABRAXANE) PACLitaxel Protein Bound (ABRAXANE) chem o injection 100 mg Past Treatment and Therapy Plans Oncology Treatment Plan Name Start Date Discontinue Date Treatment Medications Discontinue Reason Plan Provider Cycles PACLitaxel with Concurrent Radiation 5 05/03/2025 PACLitaxel (TAXOL) chemo IVPB NS 250 mL (1 hours) Toxicity/Compl ication Yohannes Woody MD 1 of 1 cycle started Current Radiation Episodes * Radiation Therapy: PelvisOverview* First Treatment Date Latest Treatment Date Treatment Site Technique Goal Episode Provider 04/19/2025 06/07/2025 Pelvis Curative Sheridan Sandoval MD * Linked Problems Treatment Courses* Course 1 04/19/2025 - 06/07/2025 Treatment Sites Treatment Period Fraction Dose Fractions Total Dose bladder 04/19/2025 - 06/07/2025 200 / 200 cGy 30 / 30 6 ,000 / 6,000 cGy Lifetime Dose Tracking * Chemical Lifetime Dose Automatic Entry Manual Entr y Fluoro Time 5 minutes 5 minutes 0 minutes Air Kerma 46 mGy 46 mGy 0 mGy
--- OUTSIDE RECORDS SUMMARY | 2025-08-02 07:56 | XMS_ITS | Patient Health Record ---
Author Organization [facility] Address [address] [place] [address] Care Team Providers Care Denture Model Maker Name Role Phone Noemi Schwartz Primary Care Provider Unavailab le Allergies Allergen (clinical drug ingredient) Drug/Non Drug Allergy documented on EMR Reaction Allergy Type Onset Date Status acetaminophen Acetaminophen Unknown Drug Allergy Active atorvastatin Atorvastatin Calcium rash Drug Allergy Active oxycodone Oxycodone Unknown Drug Allergy Active Reason For Referral No Information Medications Medication SIG (Take, Route, Frequency, Duration) Notes Start Date End Date Status Aspirin 81 MG 1 tablet Orally Once a day Active amLODIPine Benzoate 1 MG/ML 5 ml Orally Once a day Active Lisinopril 10 MG 1 tablet Orally Once a day Active Atorvastatin Calcium 40 MG 1 tablet Oral ly Once a day Active Acetaminophen 650 MG/20.3ML as directed Orally Active Metoprolol Tartrate 25 MG 1 tablet with food Orally Twice a day Active Plan Of Treatment Pending Test Test Name Order Date Trim dystrophic toenails any number 06/14 Insurance Providers Payer Name Payer Address Payer Phone Subscriber Number Group Number Insured Name Patient Relationship to Insured Coverage Start Date Coverage End Date Medicare of [place] [address] [place] [id number] Eulalio Miranda Self - patient is the insured Medical (General) History Medical History History ICD Code Dyslipidemia Essential hypertension Former smoker Surgical History Surgery Date(Month/Year) Hernia surgery
== END 2025-08-02 07:54 | disposition home or self-care (01) ==
LOC: HO.SH 07:53
PROVIDERS: Visit Provider Internal Medicine
DX: Z01.118 Encounter for examination of ears and hearing with other abnormal findings (principal); H90.3 Sensorineural hearing loss, bilateral
CPT/HCPCS: 92557

== ENCOUNTER 2025-08-24 09:46 | Outpatient (AMB) | payer MEDICARE, SELFPAY ==
--- OUTSIDE RECORDS SUMMARY | 2025-08-15 10:22 | XMS_ITS | Encounter Summary ---
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 [address], [address] [place] [address] Phone: tel: fax: Referral ID Status Reason Start Date Expiration Date V isits Requested Visits Authorized [id number] Closed Consult and Treat 08/20/2025 08/20/2026 1 1 Reason for Visit * Reason Comments Weakness - Generalized * Auth/Cert (Routine) Specialty Diagnoses / Procedures Referred By Brandon post Referred To Contact Diagnoses Acute kidney injury (CMS/HCC V24) Urinary tract infection in male Sepsis with acute renal failure, due to unspecified organism, unspecified acute renal failure type, unspecified whether septic shock present (CMS/HCC V24, CMS/HCC V28) Atrial fib/flutter, transient (CMS/HCC V24, CMS/HCC V28) Procedures / Keon Chen MD [address] [place] [address] Phone: tel: fax: [facility] [address] [place] [address] Phone: tel: Referral ID Status Reason Start Date Expiration Date Visits Re quested Visits Authorized [id number] 1 1 Encounter Details Date Type Department Care Team (Latest Contact Info) Description 08/15/2025 10:22 AM EST - 08/20/2025 5:01 PM EST Hospital Encounter [facility] [address] [place] [address] Ej Dixon MD [address] [id number] J Luis Tello MD [address] [place] [address] Keon Chen MD [address], [place] [id number] Physical deconditioning (Primary Dx); Sepsis with acute renal failure, due to unspecified organism, unspecified acute renal failure type, unspecified whether septic shock present ([facility] V24, [facility] V28); Urinary tract infection in male; Acute kidney injury ([facility] V24); Atrial fib/flutter, transient ([facility] V24, [facility] V28) Discharge Disposition: Home-Health Care Svc Social History Tobacco Use Types Packs/Day Years Used Date Smoking Tobacco: Former Cigarettes Smokeless Tobacco: Never Alcohol Use Standard Drinks/Week Comments Not Currently 0 (1 standard drink = 0.6 oz pure alcohol) Has not drank since October 2024 Housing Instability Answer Date Recorde d Are you worried that in the next 2 months you may not have stable housing? Patient declined 08/15/2025 Food Access & Nutrition Answer Date Rec orded Do you have access to a vari ety of food including fruits and vegetables? Patient declined 08/15/2025 Health Literacy Answer Date Recorded How often do you need to hav e someone help you when you read instructions, pamphlets, or other written material from your doctor or pharmacy? Patient declined 08/15/2025 Caregiver: How often do you need to have someone help you when you read instructions, pamphlets, or other written material from your doctor or pharmacy? Not on file 025 Financial Risk Answer Date Recorded How hard is it for you to pa y for the very basics like food, housing, medical care, and air conditioning / heating? Patient declined 08/15/2025 Transportation Answer Date Recorded Has the lack of transportati on kept you from meetings, work, or from getting things needed for daily living? Patient declined 08/15/2025 Has the lack of transportati on kept you from medical appointments or from getting medications? Patient declined 08/15/2025 Social Isolation Answer Date Recorded How often do you feel lonely or isolated from those around you? Patient declined 08/15/2025 Food Risk Answer Date Recorded Within the past 12 months we worried whether our food would run out before we got money to buy more. Patient declined 025 Within the past 12 months th e food we bought just didn't last and we didn't have money to get more. Patient declined 01/2025 Dependent Care Answer Date Recorded Do you need help finding or paying for care for your loved ones. For example, child care associate teacher or elderly care for an older adult? Patient declined 08/15/2025 Education Answer Date Recorded Do you think completing more education or training, like finishing a GED, going to college, or learning a trade, would be helpful for you? Patient declined 08/15/2025 Employment and Income Answer Date Recor ded During the last four weeks, have you been actively looking for work? Patient declined 08/15/2025 Living Situation Answer Date Recorded What is your living situation? Unrecognized valu e 08/15/2025 Interpersonal Safety Answer Date Record ed Physical Abuse Unrecognized value 08/15/2025 Verbal Abuse Unrecognized value 08/15/2025 Sex and Gender Information Value Date Recorded Sex Assigned at Male 03/02/2025 7:39 AM EDT Legal Sex Male 5:43 AM EST Gender Identity Male 03/02/2025 7:39 AM EDT Sexual Orientation Straight 03/02/2025 7: 39 AM EDT Occupation Industry Job Start Date Job End Date Retired Not on file Not on file Not on file documented as of this encounter Last Filed Vital Signs Vital Sign Reading Time Taken Comments Blood Pressure 150/56 08/20/2025 3:44 PM EST Pulse 86 08/20/2025 3:44 PM EST Temperature 36.8 C (98.2 F) 08/20/2025 3:44 PM EST Respiratory Rate 16 08/20/2025 3:44 PM EST Oxygen Saturation 100% 08/20/2025 3:44 PM EST Inhaled Oxygen Concentration - - Weight 48.5 kg (106 lb 14.8 oz) 08/16/2025 8:09 AM EST Height 170 cm (5' 6.93 ) 08/16/2025 8:09 AM EST Body Mass Index 16.78 08/16/2025 8:09 AM EST documented in this encounter Functional Status * Are you deaf or do you have serious difficulty hearing? Answer Date of Assessment Author No 02/14/2025 2:41 PM EDT Dolmaddie, As wendi Mauro RN * Are you blind or do you have serious difficulty seeing, even when wearing glasses? Answer Date of Assessment Author No 02/14/2025 2:41 PM EDT Edgard, Cipriano Mauro RN * Do you have serious difficulty walking or climbing stairs? Answer Date of Assessment Author No 02/14/2025 2:41 PM EDT Edgard, Cipriano Mauro RN * Do you have serious difficulty dressing or bathing? Answer Date of Assessment Author No 02/14/2025 2:41 PM EDT Edgard, Cipriano Mauro RN * Because of a physical, mental, or emotional condition, do you have serious difficulty doing errandsalone such as visiting the doctor? Answer Date of Assessment Author No 02/14/2025 2:41 PM EDT Cipriano Rene RN * Calculated C-SSRS Risk Score (Lifetime/Recent) Answer Date of Assessment Author High Risk 08/16/2025 10:47 PM EST Jossie Muller RN * [place] Suicide Severity Rating Scale (Screener/Recent Self-Report) Question Answer Date of Assessment Author 1. Wish to be (Past 1 Month) Yes 08/16/2025 10:47 PM Rossy Gonzalez RN 2. Non-Specific Active Suici marcy Thoughts (Past 1 Month) Yes 08/16/2025 10:47 PM Marsha Gonzalez RN 3. Active Suicidal Ideation with any Methods (Not Plan) Without Intent to Act (Past 1 Month) Yes 08/16/2025 10:47 PM Jossie Murray lt, RN 4. Active Suicidal Ideation with Some Intent to Act, Without Specific Plan (Past 1 Month) Yes 08/16/2025 10:47 PM Jossie Murray lt, RN 5. Active Suicidal Ideation with Specific Plan and Intent (Past 1 Month) No 08/16/2025 10:47 PM Rossy Gonzalez RN 6. Suicidal Behavior (Lifetime) No 10:47 PM Jossie Gonzalez RN documented as of this encounter Mental Status * Because of a physical, mental, or emotional condition, do you have serious difficulty concentrating, remembering, or making decisions? (5 years old or older) Answer Entry Date Author No 02/14/2025 2:41 PM EDT Cipriano Rene RN documented in this encounter Discharge Summaries * J Luis Tello MD - 08/20/2025 3:49 PM EST Images from the original note were not included. MENAN DISCHARGE SUMMARY Patient Information Eulalio Miranda : 1945 [80 y.o.] Admitting Provider Keon Chen MD Discharge Provider J Luis Tlelo MD, J Luis Tello MD Primary Care Physician Noemi Oliva MD Admission Date 08/15/2025 Discharge Date 08/20/2025 Hospital Course Summary HOSPITAL PRESENTATION: See admission history and physical for details. Briefly, the patient is a 80-year-old man with 80-year-old gentleman with a past medical history ofcoronary artery disease, hypertension, Pseudomonas UTI, known nonocclusive descending thoracic aortic aneurysm, bladder cancer status post TURBT, he has completed radiation and 5 cycles of Abraxane who had developed progressive weakness, loss of appetite, and weight loss. On the day of his hospitalization he was initially seen by his medical oncologist where he had also complained of dyspnea exertion, palpitations, and chest discomfort. He was found to be hypotensive. He was subsequently referred to the [facility] ER where his blood pressure was found to be 86/43 and tachycardic with a heart rate of 145. Subsequent workup was notable for ECG demonstrating atrial fibrillation with rapid ventricular response, acute kidney injury, and elevated lactate. Blood pressures improved after resuscitation with IV fluids and telemetry demonstrating spontaneous conversion to sinus rhythm. Patient was subsequently admitted. HOSPITAL COURSE: Atrial fibrillation with RVR Secondary hypercoagulability due to atrial fibrillation Patient had documented atrial fibrillation with RVR at the time of admission. Shortly after rehydrated he converted back to a sinus rhythm. Echocardiogram showed left ventricle cavity is mildly dilated. Wall thickness is normal. Systolic function is normal with an ejection fraction of 65-70%. Thereare no regional LV wall motion abnormalities. There is Grade II (moderate) diastolic dysfunction. Patient was initially placed on on metoprolol tartrate 25mg BID. Developed sinus bradycardia requiring to hold metoprolol tartrate. Changed to metoprolol succinate 12.5 daily. Rates have been under control and placed on apixaban for secondary hypercoagulability due to atrial fibrillation. Acute on chronic kidney injury CKD stage IIIa. Acute on chronic kidney injury probably due to state in setting of DORA inhibitor and tamsulosin. Appears patient has been on TMP/SMX recently which may have contributed to EM. Contrast-induced nephropathy potentially contributing as patient had CT scan with contrast earlier in the month. CT of theabdomen pelvis does not reveal any hydronephrosis or obstruction. Patient was IV fluids with resolution to better than baseline renal function.. Lactic acidosis Probably due to hypoperfusion. Resolved with 1 L of IV fluids. Descending thoracic aortic aneurysm Known and has been followed by vascular surgeon Dr Wood. Updated CT on 07/26 showed some changes though the size of the aneurysm is approximately the same. Urgent follow-up was requested and patient has an appointment for 09/01. History of hypothyroidism Documented on a few visits. Not on thyroid replacement therapy. Interestingly TSH level on 08/15 waschecked twice: 15 and 5. Patient started on low-dose levothyroxine 25mcg and will need follow-up TFTs in 2 to 3 weeks. Constipation This has been an ongoing issue. Patient reports he does not feel any urge because he is not eating anything. Fecal burden noted on imaging. Patient was scheduled bowel regimen with resolution of his constipation. UTI Urine analysis suspicious for UTI with large leukocytes and moderate bacteria. 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 Patient does have an indwelling stent. Patient was initially placed on IV cefepime. There has been no fever. Patient denied any urinary symptoms. Urine culture negative. Blood cultures were negative at the time of discharge. No further antibiotics will be needed on discharge. History of bladder cancer status post TURBT Patient has completed chemotherapy with Abraxane x 5 cycles and has completed radiation as of May 2025. Daughter reports patient due to have a follow-up PET/CT. Coronary artery disease Documented in past medical history. Patient does take a daily aspirin. He has been on statin in thepast but had an allergy to this. No further history known. Recent imaging showing mild coronary artery calcification and mild cardiomegaly. Patient did not complain of any chest discomfort. Suicidal ideation Depressed mood On the evening of 08/16 patient was verbalizing suicidal ideation. Patient was placed on suicide precautions. He was seen consultation by psychiatry 08/17 who offered depressive medications for which he had declined. On follow-up evaluation on 08/18 psychiatry felt patient no longer suicidal and taken off suicidal precautions. Severe chronic malnutrition Physical deconditioning Megace liquid was trialed as outpatient but patient did not like the taste of that. Formulation wastransition to tablet form which she has been tolerating. Hospital dietitian following and dietary recommendations were provided. He had participated with physical therapy who recommended SNF placement. DISCHARGE PLAN Patient medically stable on the day of discharge. Patient's presenting symptoms have significantly improved. His appetite had improved. After further discussion with family/patient SNF was not a viable option and opted to be discharged home with services arranged. Patient apparently has very supportive family at home. Patient being discharged home with [facility] services. FOLLOW-UP: Primary care provider Medical oncology Urology Discharge Procedure Orders Ambulatory referral to Home Health Standing Status: Future Referral Priority: Routine Referral Type: Home Health Referral Reason: Consult and Treat Referral Location: [facility] Requested Specialty: Home Health Services Number of Visits Requested: 1 There are no outpatient Patient Instructions on file for this admission. Discharge Medications Your medication list START taking these medications Instructions Last Dose Given Next Dose Due apixaban 5 mg tablet Commonly known as: ELIQUIS Take 1 tablet (5 mg total) by mouth 2 (two) times a day. levothyroxine 25 mcg tablet Commonly known as: SYNTHROID, LEVOTHROID Start taking on: August 21, 2025 Take 1 tablet (25 mcg total) by mouth 1 (one) time each day before breakfast. megestroL 40 mg tablet Commonly known as: MEGACE Replaces: megestroL 400 mg/10 mL (40 mg/mL) suspension Take 2 tablets (80 mg total) by mouth 4 (four) times a day (with meals and nightly) metoprolol succinate 25 mg 24 hr tablet Commonly known as: TOPROL-XL Start taking on: August 21, 2025 Take 0.5 tablets (12.5 mg total) by mouth 1 (one) time each day. Do not crush or chew. senna 8.6 mg tablet Commonly known as: SENOKOT Take 2 tablets (17.2 mg total) by mouth at bedtime as needed for constipation. thiamine 100 mg tablet Commonly known as: VITAMIN B-1 Start taking on: August 21, 2025 Take 1 tablet (100 mg total) by mouth 1 (one) time each day for 4 doses. CHANGE how you take these medications Instructions Last Dose Given Next Dose Due lisinopriL 5 mg tablet Commonly known as: PRINIVIL,ZESTRIL Start taking on: August 21, 2025 What changed: medication strength how much to take Take 1 tablet (5 mg total) by mouth 1 (one) time each day. CONTINUE taking these medications Instructions Last Dose Given Next Dose Due aspirin 81 mg EC tablet Take 1 tablet (81 mg total) by mouth 1 (one) time each day. oxyCODONE 5 mg immediate release tablet Commonly known as: ROXICODONE Take 1 tablet (5 mg total) by mouth every 6 (six) hours if needed for severe pain. Partial fill allowed Max Daily Amount: 20 mg sucralfate 1 gram tablet Commonly known as: CARAFATE Take 1 tablet (1 g total) by mouth 4 (four) times a day (before meals and nightly). tamsulosin 0.4 mg 24 hr capsule Commonly known as: FLOMAX Take 1 capsule (0.4 mg total) by mouth 1 (one) time each day with breakfast. Capsules should be taken 30 minutes following the same meal each day. STOP taking these medications megestroL 400 mg/10 mL (40 mg/mL) suspension Commonly known as: MEGACE Replaced by: megestroL 40 mg tablet metoprolol tartrate 25 mg tablet Commonly known as: LOPRESSOR phenazopyridine 200 mg tablet Commonly known as: PYRIDIUM sulfamethoxazole-trimethoprim 800-160 mg per tablet Commonly known as: BACTRIM DS,SEPTRA DS Where to Get Your Medications These medications were sent to [id number] - [address] [address] apixaban 5 mg tablet levothyroxine 25 mcg tablet lisinopriL 5 mg tablet megestroL 40 mg tablet metoprolol succinate 25 mg 24 hr tablet senna 8.6 mg tablet thiamine 100 mg tablet Physical Exam at time of Discharge Visit Vitals BP (!) 150/56 (BP Location: Right arm, Patient Position: Lying) Pulse 86 Temp 36.8 ??C (98.2 ??F) (Temporal) Resp 16 General: Laying in bed. Frail/chronically ill-appearing. No acute distress HEENT/Neck: Moist mucosa, no icterus, supple Thorax: No accessory muscles use. Clear anteriorly Cardiac: Regular. Abdomen: Not distended,+ bowel sounds, soft, nontender Extremities: No edema, no cyanosis, no calf tenderness Mental Status: Awake, alert, and oriented x3 Neurological: No localizing weakness. Gait not tested : Deferred Skin: Warm and dry, no obvious rash * J Luis Tello MD - 08/20/2025 3:43 PM EST Regular * J Luis Tello MD - 08/20/2025 3:41 PM EST As tolerated with rolling walker documented in this encounter Discharge Instructions * Discharge Instructions* J Luis Tello MD - 08/20/2025 3:49 PM EST No further antibiotics needed on discharge Take your medications as directed Follow up with your outpatient health care providers as scheduled documented in this encounter Medications at Time of Discharge apixaban (ELIQUIS) 5 mg tablet Take 1 tablet (5 mg total) by mouth 2 (two) times a day. 60 each 08/20/2025 aspirin 81 mg EC tablet Take 1 tablet (81 mg total) by mouth 1 (one) time each day. levothyroxine (SYNTHROID, LEVOTHROID) 25 mcg tablet Take 1 tablet (25 mcg total) by mouth 1 (one) time each day before breakfast. 30 each 08/21/2025 6 lisinopriL (PRINIVIL,ZESTRI L) 5 mg tablet Take 1 tablet (5 mg total) by mouth 1 (one) time each day. 30 each 5 08/21/2025 6 megestroL (MEGACE) 40 mg tablet Take 2 tablets (80 mg total) by mouth 4 (four) times a day (with meals and nightly) 240 tablet 08/20/2025 6 metoprolol succinate (TOPROL-XL) 25 mg 24 hr tablet Take 0.5 tablets (12.5 mg total) by mouth 1 (one) time each day. Do not crush or chew. 15 each 08/21/2025 6 oxyCODONE (ROXICODONE) 5 mg immediate release tablet Take 1 tablet (5 mg total) by mouth every 6 (six) hours if needed for severe pain. Partial fill allowed Max Daily Amount: 20 mg 120 tablet 07/18/2025 senna (SENOKOT) 8.6 mg tablet Take 2 tablets (17.2 mg total) by mouth at bedtime as needed for constipation. 60 tablet 08/20/2025 5 sucralfate (CARAFATE) 1 gram tablet Take 1 tablet (1 g total) by mouth 4 (four) times a day (before meals and nightly). 120 each 06/08/2025 6 tamsulosin (FLOMAX) 0.4 mg 24 hr capsule Take 1 capsule (0.4 mg total) by mouth 1 (one) time each day with breakfast. Capsules should be taken 30 minutes following the same meal each day. thiamine (VITAMIN B-1) 100 mg tablet Take 1 tablet (100 mg total) by mouth 1 (one) time each day for 4 doses. 4 tablet 08/21/2025 5 documented as of this encounter Ordered Prescriptions Prescription Sig Dispense Quantity Refills Last Filled Start Date End Date lisinopriL (PRINIVIL,ZESTRIL) 5 mg tablet Take 1 tablet (5 mg total) by mouth 1 (one) time each day. 30 each 08/21/2025 6 thiamine (VITAMIN B-1) 100 mg tablet Take 1 tablet (100 mg total) by mouth 1 (one) time each day for 4 doses. 4 tablet 08/21/2025 5 senna (SENOKOT) 8.6 mg tablet Take 2 tablets (17.2 mg total) by mouth at bedtime as needed for constipation. 60 tablet 08/20/2025 5 metoprolol succinate (TOPROL-XL) 25 mg 24 hr tablet Take 0.5 tablets (12.5 mg total) by mouth 1 (one) time each day. Do not crush or chew. 15 each 08/21/2025 6 levothyroxine (SYNTHROID, LEVOTHROID) 25 mcg tablet Take 1 tablet (25 mcg total) by mouth 1 (one) time each day before breakfast. 30 each 08/21/2025 6 apixaban (ELIQUIS) 5 mg tablet Take 1 tablet (5 mg total) by mouth 2 (two) times a day. 60 each 08/20/2025 megestroL (MEGACE) 40 mg tablet Take 2 tablets (80 mg total) by mouth 4 (four) times a day (with meals and nightly) 240 tablet 08/20/2025 6 documented in this encounter Discharge Disposition Disposition Code Departure Means Destination Comment s Home-Health Care [facility] Wheelchair documented in this encounter Progress Notes * Lindsay Conley RN - 08/20/2025 4:33 PM EST Patient states understanding to discharge instructions. IV line removed. Son driving patient home and will stop at the pharmacy on the way home. Patient to take medications as prescribed. Patient to follow up with outpatient providers. All questions answered. * Annalise Sampson RN - 08/20/2025 3:39 PM EST 08/20/25 1539 Initial Transition Plan Initial Transition Plan Home Health Care Back up Transition Plan Back up Transition plan Home Health Care Transportation Transportation at discharge Family What day is the transport expected? 08/20/25 Final Discharge Disposition Senior Living Facility Per MD patient cleared for discharge to home with comfort + VNA. Family to provide transport. * Fe Mayo RN - 08/20/2025 9:30 AM EST Problem: Cognitive: Elsie Parra Fall Risk Goal: Last Known Fall Outcome: Progressing Goal: Mobility requiring assistance of person or device Outcome: Progressing Goal: Dizziness Outcome: Progressing Goal: Medications Outcome: Progressing Goal: Mental Status/LOC/Awareness Outcome: Progressing Goal: Toileting Needs Outcome: Progressing Goal: Volume and Electrolyte Status Outcome: Progressing Goal: Communication/Sensory Outcome: Progressing Goal: Behavior Outcome: Progressing Problem: Skin Integrity: Pressure Injury Actual or Risk of Goal: Will not develop new pressure injury Outcome: Progressing Goal: Skin integrity will improve Outcome: Progressing Goal: Risk for impaired skin integrity will decrease Outcome: Progressing Problem: Activity:Pressure Injury Actual or Risk of Goal: Mobility will improve Outcome: Progressing Problem: Nutritional:Pressure Injury Actual or Risk of Goal: Nutritional status will improve Outcome: Progressing Problem: Patient Specific Problem: Pressure Injury Actual or Risk of Goal: Patient Specific Outcome Outcome: Progressing Goals: Clinical Goals for the Shift: feel better Identify possible barriers to meeting goals/advancing plan of care: IV abx, SNF placement Stability of the patient: Moderately Stable - Low risk of patient condition declining or worsening End of Shift Summary: Patient assessment done with assistance of video electrical laboratory technician. Patient is alert and oriented. Cooperative with meds and plan of care. Complains of abdominal pain and headache, medicated per emar. Denies any nausea at this time. Fair appetite - on Megace. Offers no other acute issues. Care ongoing at this time * Елена Ca RN - 08/19/2025 12:27 PM EST Goals: Clinical Goals for the Shift: feel better Identify possible barriers to meeting goals/advancing plan of care: Stability of the patient: Moderately Stable - Low risk of patient condition declining or worsening End of Shift Summary: Patient OOB pivoted to commode with 1 assist. Denies c/o pain. Patient resting back in bed eating lunch now. Family at bedside. Call pino within reach. * J Luis Tello MD - 08/19/2025 11:26 AM EST Images from the original note were not included. [facility] PROGRESS NOTE Date: 08/19/2025 Author: J Luis Tello MD Patient ID: Eulalio Miranda is a 80 y.o. male : 1945 MR#: [id number] SUBJECTIVE Follow up: generalized weakness, Afib RVR, UTI Transferred to regular floor Son present at bedside. +bowel movements Not much appetite No fever/chills Allergies Atorvastatin calcium and Taxol [paclitaxel] Current Medications: MEDSSCHEDULED[1] MEDSCONTINUOUS[2] MEDSPRN[3] OBJECTIVE Vitals: 08/18/25 1539 08/18/25 1940 08/19/25 0227 08/19/25 0751 BP: 127/54 (!) 140/57 (!) 153/85 (!) 142/63 BP Location: Right arm Left arm Right arm Patient Position: Lying Lying Lying Pulse: (!) 44 50 63 59 Resp: 16 15 16 16 Temp: 36.4 ??C (97.5 ??F) 37 ??C (98.6 ??F) 37.2 ??C (99 ??F) 36.5 ??C (97.7 ??F) TempSrc: Temporal Temporal Temporal SpO2: 100% 100% 98% 97% Weight: Height: Vital Signs: as documented above General: Laying in bed. Frail/chronically ill-appearing. No acute distress HEENT/Neck: Moist mucosa, no icterus, supple Thorax: No accessory muscles use. Clear anteriorly Cardiac: Regular. Abdomen: Not distended,+ bowel sounds, soft, nontender Extremities: No edema, no cyanosis, no calf tenderness Mental Status: Awake, alert, and oriented x3 Neurological: No localizing weakness. Gait not tested : Deferred Skin: Warm and dry, no obvious rash LABS HEMATOLOGY Lab Results Component Value Date WBC 5.0 08/18/2025 HGB 8.9 (L) 08/18/2025 HCT 30.7 (L) 08/18/2025 MCV 84.3 08/18/2025 PLT 205 08/18/2025 CHEMISTRY Lab Results Component Value Date GLUCOSE 84 08/18/2025 NA 140 08/18/2025 K 4.4 08/18/2025 CO2 22 08/18/2025 CL 114 (H) 08/18/2025 BUN 14 08/18/2025 CREATININE 1.43 (H) 08/18/2025 EGFR 50 (L) 08/18/2025 CALCIUM 7.7 (L) 08/18/2025 MG 1.9 08/18/2025 ANIONGAP 4 08/18/2025 Imaging: Transthoracic echocardiogram (TTE) complete with PRN contrast, bubble, strain, and 3D order panel Left Ventricle: Left ventricle cavity is mildly dilated. Wall thickness is normal. Systolic function is normal with an ejection fraction of 65-70%. There are no regional LV wall motion abnormalities. There is Grade II (moderate) diastolic dysfunction. Left Atrium: Left atrium cavity is mildly dilated. Left atrium volume index is mildly increased. Right Ventricle: Right ventricle cavity is dilated. Normal TAPSE (> 17 mm). Normal systolic excursion velocity by TDI (>9.5 cm/s). Right Atrium: Right atrium cavity is dilated. Aortic Valve: There is moderate regurgitation with a centrally directed jet. There is no significant stenosis. Mitral Valve: There is mild regurgitation. Aorta: The Sinus of Valsalva is (3.9 cm). The ascending aorta is (3.9 cm). No previous echocardiogram available for comparison. ASSESSMENT & PLAN Atrial fibrillation with RVR Secondary hypercoagulability due to atrial fibrillation Patient had documented atrial fibrillation with RVR at the time of admission. Shortly after rehydrated he converted back to a sinus rhythm. TTE as above. Initially on metoprolol tartrate 25mg BID. Developed sinus bradycardia requiring to hold metoprolol tartrate. Changed to metoprolol succinate 12.5 -continue apixaban Acute on chronic kidney injury CKD stage IIIa. Acute on chronic kidney injury probably due to state in setting of DORA inhibitor and tamsulosin. Appears patient has been on TMP/SMX recently which may have contributed to EM. Contrast-induced nephropathy potentially contributing as patient had CT scan with contrast earlier in the month. CT of theabdomen pelvis does not reveal any hydronephrosis or obstruction. - Continue IV fluids, hold DORA inhibitor - Follow renal function Lactic acidosis Probably due to hypoperfusion. Resolved with 1 L of IV fluids. Descending thoracic aortic aneurysm Known and has been followed by vascular surgeon Dr Wood. Updated CT on 07/26 showed some changes though the size of the aneurysm is approximately the same. Urgent follow-up was requested and patient has an appointment for 09/01. History of hypothyroidism Documented on a few visits. Not on thyroid replacement therapy. Interestingly TSH level on 08/15 waschecked twice: 15 and 5 - started on levothyroxine 25mcg and will need follow-up TFTs in 2 to 3 weeks. Constipation This has been an ongoing issue. Patient reports he does not feel any urge because he is not eating anything. Fecal burden noted on imaging. On daily MiraLAX and Colace. No regular BMs UTI Urine analysis suspicious for UTI with large leukocytes and moderate bacteria. 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 Patient does have an indwelling stent. On IV cefepime History of bladder cancer status post TURBT Patient has completed chemotherapy with Abraxane x 5 cycles and has completed radiation as of May 2025. Daughter reports patient due to have a follow-up PET/CT. Coronary artery disease Documented in past medical history. Patient does take a daily aspirin. He has been on statin in thepast but had an allergy to this. No further history known. Recent imaging showing mild coronary artery calcification and mild cardiomegaly. Suicidal ideation Depressed mood No further SI per psych reevaluation on 08/18. Patient declining anti-depressant Severe chronic malnutrition Physical deconditioning Megace liquid was trialed as outpatient but patient did not like the taste of that. Hospital dietitian following and dietary recommendations provided. PT recommending SNF. - trial Megace tablet(does not like taste of liquid) - increase activity/OOB DISPOSITION PT recommending SNF. Patient/family preferring home with services presently. D/c in 24-48 hours [1] apixaban, 5 mg, oral, BID cefepime, 1 g, intravenous, q24h docusate sodium, 100 mg, oral, BID levothyroxine, 25 mcg, oral, q AM AC megestroL, 120 mg, oral, With meals & nightly metoprolol succinate, 12.5 mg, oral, Daily perflutren lipid microsphere (DEFINITY) 0.39 mL in sodium chloride 0.9% 2.61 mL injection, 3 mL, intravenous, Once polyetheylene glycol, 17 g, oral, Daily thiamine, 100 mg, oral, Daily [2] sodium chloride, 125 mL/hr, Last Rate: 125 mL/hr (08/19/25 0900) [3] PRN medications: acetaminophen, ondansetron (ZOFRAN-ODT) disintegrating tablet OR ondansetron, oxyCODONE, senna * J Luis Tello MD - 08/18/2025 5:53 PM EST Images from the original note were not included. MENAN PROGRESS NOTE Date: 08/18/2025 Author: J Luis Tello MD Patient ID: Eulalio Miranda is a 80 y.o. male : 1945 MR#: [id number] SUBJECTIVE Follow up: generalized weakness, Afib RVR, UTI Events noted Reevaluated by psychiatry earlier who felt SI resolved Met with patient's 2 sons and updated them Patient otherwise offering no new symptoms/complaints Fair appetite. No constipation No fever/chills OOB with PT earlier Allergies Atorvastatin calcium and Taxol [paclitaxel] Current Medications: MEDSSCHEDULED[1] MEDSCONTINUOUS[2] MEDSPRN[3] OBJECTIVE Vitals: 08/18/25 0412 08/18/25 0739 08/18/25 1052 08/18/25 1539 BP: (!) 141/65 (!) 154/50 (!) 130/43 127/54 BP Location: Right arm Right arm Right arm Right arm Patient Position: Lying Lying Lying Lying Pulse: 70 (!) 43 (!) 48 (!) 44 Resp: 18 16 16 16 Temp: 36.6 ??C (97.9 ??F) 36.4 ??C (97.5 ??F) 36.3 ??C (97.3 ??F) 36.4 ??C (97.5 ??F) TempSrc: Temporal Temporal Temporal Temporal SpO2: 99% 100% 100% 100% Weight: Height: Vital Signs: as documented above General: Laying in bed. Frail/chronically ill-appearing. No acute distress HEENT/Neck: Moist mucosa, no icterus, supple Thorax: No accessory muscles use. Clear anteriorly Cardiac: Regular. Abdomen: Not distended,+ bowel sounds, soft, nontender Extremities: No edema, no cyanosis, no calf tenderness Mental Status: Awake, alert, and oriented x3 Neurological: No localizing weakness. Gait not tested : Deferred Skin: Warm and dry, no obvious rash LABS HEMATOLOGY Lab Results Component Value Date WBC 5.0 08/18/2025 HGB 8.9 (L) 08/18/2025 HCT 30.7 (L) 08/18/2025 MCV 84.3 08/18/2025 PLT 205 08/18/2025 CHEMISTRY Lab Results Component Value Date GLUCOSE 84 08/18/2025 NA 140 08/18/2025 K 4.4 08/18/2025 CO2 22 08/18/2025 CL 114 (H) 08/18/2025 BUN 14 08/18/2025 CREATININE 1.43 (H) 08/18/2025 EGFR 50 (L) 08/18/2025 CALCIUM 7.7 (L) 08/18/2025 MG 1.9 08/18/2025 ANIONGAP 4 08/18/2025 Imaging: Transthoracic echocardiogram (TTE) complete with PRN contrast, bubble, strain, and 3D order panel Left Ventricle: Left ventricle cavity is mildly dilated. Wall thickness is normal. Systolic function is normal with an ejection fraction of 65-70%. There are no regional LV wall motion abnormalities. There is Grade II (moderate) diastolic dysfunction. Left Atrium: Left atrium cavity is mildly dilated. Left atrium volume index is mildly increased. Right Ventricle: Right ventricle cavity is dilated. Normal TAPSE (> 17 mm). Normal systolic excursion velocity by TDI (>9.5 cm/s). Right Atrium: Right atrium cavity is dilated. Aortic Valve: There is moderate regurgitation with a centrally directed jet. There is no significant stenosis. Mitral Valve: There is mild regurgitation. Aorta: The Sinus of Valsalva is (3.9 cm). The ascending aorta is (3.9 cm). No previous echocardiogram available for comparison. ASSESSMENT & PLAN Atrial fibrillation with RVR Secondary hypercoagulability due to atrial fibrillation Patient had documented atrial fibrillation with RVR at the time of admission. Shortly after rehydrated he converted back to a sinus rhythm. TTE as above. Presently sinus elisabeth and metoprolol being held -continue apixaban -discontinue metoprolol tartrate 25mg BID, start low dose metoprolol succinate 12.5 in AM, keep on telemetry for now Acute on chronic kidney injury CKD stage IIIa. Acute on chronic kidney injury probably due to state in setting of DORA inhibitor and tamsulosin. Appears patient has been on TMP/SMX recently which may have contributed to EM. Contrast-induced nephropathy potentially contributing as patient had CT scan with contrast earlier in the month. CT of theabdomen pelvis does not reveal any hydronephrosis or obstruction. - Continue IV fluids, hold DORA inhibitor - Follow renal function Lactic acidosis Probably due to hypoperfusion. Resolved with 1 L of IV fluids. Descending thoracic aortic aneurysm Known and has been followed by vascular surgeon Dr Wood. Updated CT on 07/26 showed some changes though the size of the aneurysm is approximately the same. Urgent follow-up was requested and patient has an appointment for 09/01. History of hypothyroidism Documented on a few visits. Not on thyroid replacement therapy. Interestingly TSH level on 08/15 waschecked twice: 15 and 5 - started on levothyroxine 25mcg and will need follow-up TFTs in 2 to 3 weeks. Constipation This has been an ongoing issue. Patient reports he does not feel any urge because he is not eating anything. Fecal burden noted on imaging. On daily MiraLAX and Colace UTI Urine analysis suspicious for UTI with large leukocytes and moderate bacteria. 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 Patient does have an indwelling stent. On IV cefepime - Isolation per protocol. -Follow renal function History of bladder cancer status post TURBT Patient has completed chemotherapy with Abraxane x 5 cycles and has completed radiation as of May 2025. Daughter reports patient due to have a follow-up PET/CT. Coronary artery disease Documented in past medical history. Patient does take a daily aspirin. He has been on statin in thepast but had an allergy to this. No further history known. Recent imaging showing mild coronary artery calcification and mild cardiomegaly. Malnutrition Physical deconditioning Megace was trialed but patient did not like the taste of that. It is documented that he consumes 2 ensures per day but daughter reports he is not taking in that much. Evaluated by physical therapy who Suicidal ideation Depressed mood No further SI per psych re-eval earlier. - patient declining anti-depressant DISPOSITION Ok for regular floor PT recommending SNF. Patient/family preferring home with services presently. D/c in 24-48 hours [1] apixaban, 5 mg, oral, BID cefepime, 1 g, intravenous, q24h docusate sodium, 100 mg, oral, BID levothyroxine, 25 mcg, oral, q AM AC metoprolol succinate, 12.5 mg, oral, Daily perflutren lipid microsphere (DEFINITY) 0.39 mL in sodium chloride 0.9% 2.61 mL injection, 3 mL, intravenous, Once polyetheylene glycol, 17 g, oral, Daily thiamine, 100 mg, oral, Daily [2] sodium chloride, 125 mL/hr, Last Rate: 125 mL/hr (08/18/25 1432) [3] PRN medications: acetaminophen, ondansetron (ZOFRAN-ODT) disintegrating tablet OR ondansetron, oxyCODONE, senna * Bridget Garcia, PT - 08/18/2025 2:10 PM EST [place], [place] Acute Care PT TREATMENT 08/18/2025 Patient Information Eulalio Ruben 1945 80 y.o. Ambulation: Walking Assistance: Minimum assistance, Contact guard Device: Rollator Distance Ambulated (ft): (40 ft + 60 ft with rest with ROllator) PLOF: Level of [place]: Needs assistance with mobility (pt reports he amb short distances with ROllator, he also uses W/C at home) Lives With: (son and dtr in law, they both work. Per pt, sometimes they work at home) Receives Help From: Family Home Adaptive Equipment: Rollator, Wheelchair - manual, Bedside commode Home Living Comments: 2 level home wiht basement. he stays on first floor of the house with bathroom with 6 to 7 steps to enter with rail. Another entrance is thru garage with one step to enter DME Needs: PT Discharge Recommendation: detention facility placement Medical Diagnosis ICD-10-CM ICD-9-CM 1. Sepsis with acute renal failure, due to unspecified organism, unspecified acute renal failure type, unspecified whether septic shock present ([facility] [place], [facility] V28) A41.9 038.9 R65.20 995.92 N17.9 584.9 2. Urinary tract infection in male N39.0 599.0 3. Acute kidney injury ([facility] V24) N17.9 584.9 4. Atrial fib/flutter, transient ([facility] V24, [facility] V28) I48.91 427.31 Transthoracic echocardiogram (TTE) complete with PRN contrast, bubble, strain, and 3D order panel I48.92 427.32 Transthoracic echocardiogram (TTE) complete with PRN contrast, bubble, strain, and 3Dorder panel Rehabilitation Precautions/Restrictions Precautions Medical Precautions: Fall Risk Safety Interventions: Call pino within reach, Side rails up x2, Bed alarm, Chair alarm PT Session: PT Time Calculation PT Start Time: 1410 PT Stop Time: 1450 PT Time Calculation (min): 40 min SUBJECTIVE Pt reports when he walks with cane, he uses two canes at home. He uses Rollator at times at home. OBJECTIVE Vitals/Pain: Oxygen Therapy Oxygen Therapy: None (Room air) Pain Assessment Pain Assessment: 0-10 Pain Score: 0 - No pain General Assessments: Dynamic Standing Balance Dynamic Standing-Level of Assistance: Minimum assistance Dynamic Standing-Balance: Ambulation Dynamic Standing-Comments: fair + with RW Functional Assessments: Bed Mobility Sitting to Lying Assistance: Minimum assistance Lying to Sitting Assistance: Minimum assistance Bed Mobility Comments: pt sat @ EOB for few minutes Transfers Sit to Stand Assistance: Minimum assistance, Contact guard Chair/Bed to Chair/Bed Transfer Assistance: Contact guard Ambulation Walking Assistance: Minimum assistance, Contact guard Device: Rollator Distance Ambulated (ft): (40 ft + 60 ft with rest with ROllator) Comments: steady gait with Rollator. PT also tried him with cane with hand hold assist 30 ft Procedure/Treatment: Gait Training Gait Training Time Entry: 40 Gait Training Activity 1: pls see above for mobility. Pt likes to say too much and talk and needs VCs to stop so electrical laboratory technician can interpret. Pt reports that his bedroom is on second floor so he has togo upstairs. Then later stated he could stay downstairs with bed and bathroom. He also said his daughter watched him from above when he walked outside wiht cane. Pt returned to bed after gait. NUrse,Kitchenhand and MD were made aware of recommendation of rehab Education Education Documentation Mobility Training, taught by Bridget Garcia, PT at 08/18/2025 2:10 PM. Learner: Patient Readiness: Acceptance Method: Explanation Response: Verbalizes Understanding Comment: safe sit to stand, use walker for gait Education Comments No comments found. ASSESSMENT Pt needs assist of 1 for gait with walker or with cane. Better with walker. Recommend 24 hour assist if D/C to home. PT recommends rehab at this time as he has stairs to negotiate at home and for entrance. PT Assessment PT Assessment Results: Decreased strength, Decreased endurance, Impaired balance, Impaired gait, Decreased mobility Prognosis: Good Evaluation/Treatment Tolerance: Patient tolerated treatment well Medical Staff Made Aware: Yes Problems/Goals Goals: Encounter Problems Encounter Problems (Active) Template: Physical Therapy Problem: PT Short Term Goals Dates: Start: 08/16/25 Goal: PT STG 1 Patient will ambulate with RW 50 ft CGA Dates: Start: 08/16/25 Expected End: 08/30/25 Goal: PT STG 2 Patient will transfer sit<>stand safely Independently Dates: Start: 08/16/25 Expected End: 08/30/25 Encounter Problems (Resolved) There are no resolved problems. Equipment Equipment Received: Equipment Recommended: Rolling walker PLAN During acute care stay: PT Plan: Skilled PT PT Frequency: 2-5 days per week Treatment/Interventions: Functional transfer training, LE strengthening/ROM, Bed mobility, Gait training PT Discharge Recommendations: detention facility placement PT Time Entry: Gait Training Time Entry: 40 * Laura Underwood MD - 08/18/2025 8:32 AM EST Connected to patient's room via I-pad with help from locate technician; assistance much appreciated. Patient consented verbally to visit via Telehealth video conferencing modality. Patient educated asto likely differences between Telehealth care and face to face care. Patient informed of the risks and benefits of using Telehealth services and procedures and likely risks and benefits of using alternatives to Telehealth services. Patient informed of the right to refuse Telehealth services at any time without jeopardizing his/her right to future care, services or benefits. Patient was informed that he/she is being seen solely by Laura Underwood MD today via secure audio/visual connection in alocked virtual exam room. Persons present on patient's end: Patient, in-person electrical laboratory technician (Jessica), sitter Persons present on provider's end in [place]: Laura Underwood MD CHART REVIEWED, PATIENT INTERVIEWED. CHIEF COMPLAINT: SI Time spent on encounter: 10 min (5 min face to face, 5 min in chart review and documentation) Billing: [facility] HISTORY OF PRESENT ILLNESS Eulalio Miranda is a 80 y.o. B[place]udian-speaking male with no known previous psychiatric history and medical history significant for but not limited to CAD, HTN, pseudomonas UTI, aortic aneurysm, malnutrition, hypothyroidism, constipation, anemia of chronic disease and bladder cancer who was admitted for atrial fibrillation with RVR and EM. Psychiatry was consulted after the patient expressed suicidal ideations with plan. The patient states that he is doing better today than yesterday. He notes that he ended up eating well for dinner and slept well overnight. He is not feeling quite so low this morning, but his depression is still there. He is no longer suicidal and reports that those thou ghts went away overnight. REVIEW OF SYSTEMS CONSTITUTIONAL: The patient denies fevers, chills, sweats and body ache. HEENT: Denies [place], blurry vision, eye pain, tinnitus, vertigo, gingival bleeding, sore throat, neck or thyroid masses. RESPIRATORY: Denies cough, sputum, hemoptysis. CARDIAC: Denies chest pain, pressure, palpitations, irregular heartbeats. Denies lower extremity edema. GASTROINTESTINAL: Denies abdominal pain, changes in bowel habits or any bleeding on toilet paper. GENITOURINARY: Denies dysuria, hematuria, nocturia or frequency. NEUROLOGIC: Denies headaches, dizziness, syncope. MUSCULOSKELETAL: Negative for arthritis. Denies muscle weakness. No limitation in range of motion. VASCULAR: Denies claudication and cramping. ENDOCRINOLOGY: Denies heat or cold intolerance. HEMATOLOGY: Denies easy bleeding or blood transfusion. DERMATOLOGY: Denies changes in moles or pigmentation changes. Psychiatric ROS: Depression: See HPI. Ekaterina: The patient denies elevated/expansive mood, decreased need for sleep, grandiosity, pressuredspeech, flight of ideas, distractibility, increase in goal directed activity, and hypersexuality. Psychosis: The patient denies audio or visual hallucinations, delusions, thought broadcasting, thought insertion, delusions of reference, catatonia, or disorganized speech or behavior. Anxiety: The patient denies any excessive worry, restlessness, fatigue, poor concentration, irritability, muscle tension, or anxiety-related sleep changes. Panic: The patient denies any recent panic episodes. PTSD: The patient does not endorse any current s/s related to PTSD. OCD: The patient denies intrusive thoughts, repetitive behaviors, counting, checking, washing, symmetry, or grouping and ordering that take up more than 1 hour of the day. Eating Disorder: The patient denies feeling overweight, excessive dieting or exercise to lose weight, overuse of laxatives, binging/purging behaviors, and amenorrhea. MEDICAL HISTORY Non-psychiatric medical history: Medical History[1] Current medications: MEDSSCHEDULED[2] ALLERGIES: Current Allergies[3] MSE: Appearance: AOx4. Appears stated age, well groomed. Pleasant and cooperative. Adequate eye contact.No psychomotor agitation or retardation. No evidence of EPS. Muscle tone/station: WNL. Orientation: To person, place, time, and situation. Attention and Concentration: No deficits in attention and concentration. Speech: Normal rate, rhythm, volume, and tone. Mood: Better. Affect: Dysphoric with restricted range, mood congruent. No lability noted. Thought Process: Coherent, linear, logical, and goal-directed. No FOI or DAVID. No thought blocking. Thought Content: Denies suicidal/homicidal ideation. Denies auditory/visual hallucinations. No delusions. No paranoia. Perception/associations: Denies hallucinations, somatic complaints, or tactile disturbances Suicidal Ideations: Pt denies SI, intent, or plan. Low acute risk. Currently is future oriented, motivated for treatment, and compliant with medications. Homicidal Ideations: Pt denies HI, intent, or plan. Low acute risk. No history of violence. No access to firearms. Behavior: No abnormal behavior during interview. Fund of Knowledge: Appropriate for age and level of education Intellect/Memory: Estimated as average based on interview. Immediate, recent, and remote memory is grossly intact. Language: No deficits Judgment/Insight: fair at present. Musculoskeletal Exam: Movement: [x]normal []abnormal [-]dyskinesias [-]tremors [-]tics Station: [x]upright []hyperflexed/stooped []hyperextended Muscle strength [x]appears normal [-]appears abnormal Muscle tone: [x]normal [-]muscle rigidity LABS: Lab Results Component Value Date WBC 5.0 08/18/2025 HGB 8.9 (L) 08/18/2025 HCT 30.7 (L) 08/18/2025 PLT 205 08/18/2025 ALT 30 08/15/2025 AST 22 08/15/2025 NA 140 08/18/2025 K 4.4 08/18/2025 CL 114 (H) 08/18/2025 CREATININE 1.43 (H) 08/18/2025 BUN 14 08/18/2025 CO2 22 08/18/2025 TSH 5.80 (H) 08/15/2025 INR 1.0 08/15/2025 VITALS: BP: 154/50 (08/18 739) Heart Rate: 43 (08/18 739) Heart Rate Source: Monitor (08/15 1421) Temp: 36.4 ??C (97.5 ??F) (08/18 739) Temp Source: Temporal (08/18 739) SpO2: 100 % (08/18 739) ASSESSMENT: Eulalio Miranda is a 80 y.o. [place]ian-speaking male with no known previous psychiatric history and medical history significant for but not limited to CAD, HTN, pseudomonas UTI, aortic aneurysm, malnutrition, hypothyroidism, constipation, anemia of chronic disease and bladder cancer who was admitted for atrial fibrillation with RVR and EM. Psychiatry was consulted after the patient expressed suicidal ideations with plan. His suicidal ideations have now resolved. DSM-5 DIAGNOSIS: Suicidal ideations, resolved Alcohol use disorder, in early remission Depressive disorder vs adjustment disorder with depressed mood CAD, HTN, pseudomonas UTI, aortic aneurysm, malnutrition, hypothyroidism, constipation, anemia of chronic disease and bladder cancer Admitted for atrial fibrillation with RVR and EM TREATMENT PLAN: Pt has verbalized understanding and given consent/agreement with medications and plan offered. LEVEL OF CARE: Continue current level of treatment. RECOMMENDATIONS: Again offered initiation of an antidepressant, but the patient declines. He is not interested in any psychotropic medications at this time. SI has now resolved. Switch sitter from in-person to [employer]. Psychiatry will continue to follow. Medication Education: Risks, benefits, alternatives, and potential side effects were discussed withthe patient. Patient voiced understanding and agreed with medication regimen described above. LABS: Reviewed and discussed most recent labs results. MEDICATION CONTRACT: Patient agreed to take medication only as prescribed and acknowledges that services may be terminated if prescription abuse is observed. SAFETY PLAN: Patient is to alert team if symptoms worsen. Team will monitor for development of suicidal ideations or an acute medication reaction. - Call 911 or present to nearest Emergency Room in case of crisis / suicidal thoughts upon discharge. EDUCATION/CONSENT: Discussed and explained all diagnoses including differential diagnosis and treatment options. Discussed risks, benefits, potential side effects, contraindications, potential drug-drug interactions, alternatives to current medications and medication allergies as noted above. Discussed continuing to monitor for side effects and treatment efficacy prospectively and delineated patient's involvement and responsibility in monitoring for side effects and efficacy. July winslow expressed understanding of these recommendations. BARRIERS TO LEARNING: Patient demonstrates a readiness to learn. Patient verbalizes understanding and agrees to plan. No barriers to communication noted. MEDICATION RECONCILIATION: Medications were reviewed and reconciled with the patient. PREVENTATIVE RECOMMENDATIONS: Preventative Health Education Counseling: discussed proper diet/nutrition, exercise, and sleep hygiene. The patient was encouraged to avoid nicotine, alcohol and illicitdrugs at all times. The patient was made aware that records from the u/s can be sent to his/her PCP at any time that he/she requests. [1] Past Medical History: Diagnosis Date Bladder cancer ([facility] V24, [facility] V28) Nephrostomy present ([facility] V24, [facility] V28) [2] apixaban, 5 mg, oral, BID cefepime, 1 g, intravenous, q24h docusate sodium, 100 mg, oral, BID levothyroxine, 25 mcg, oral, q AM AC metoprolol succinate, 12.5 mg, oral, Daily perflutren lipid microsphere (DEFINITY) 0.39 mL in sodium chloride 0.9% 2.61 mL injection, 3 mL, intravenous, Once polyetheylene glycol, 17 g, oral, Daily thiamine, 100 mg, oral, Daily [3] Allergies Allergen Reactions Atorvastatin Calcium Rash Taxol [Paclitaxel] Pain Chest Pain, HTN, * J Luis Tello MD - 08/17/2025 5:29 PM EST Images from the original note were not included. CARMEN PROGRESS NOTE Date: 08/17/2025 Author: J Luis Tello MD Patient ID: Eulalio Miranda is a 80 y.o. male : 1945 MR#: [id number] SUBJECTIVE Follow up: generalized weakness, Afib RVR, UTI Events noted Patient verbalizing SI overnight. Suicide precautions initiated. 1:1 sitter placed AMN quality project manager [employer] [place] #[id number] utilized during my encounter. Confirms feeling depressed and SI thoughts Good appetite No fever/chills Allergies Atorvastatin calcium and Taxol [paclitaxel] Current Medications: MEDSSCHEDULED[1] MEDSCONTINUOUS[2] MEDSPRN[3] OBJECTIVE Vitals: 08/17/25 0450 08/17/25 0802 08/17/25 1203 08/17/25 1509 BP: (!) 163/60 (!) 156/62 (!) 162/57 (!) 131/49 BP Location: Right arm Right arm Patient Position: Lying Lying Pulse: 54 52 51 50 Resp: 16 18 16 Temp: 36.1 ??C (97 ??F) 36.2 ??C (97.2 ??F) 36.3 ??C (97.3 ??F) 36.2 ??C (97.1 ??F) TempSrc: Temporal Temporal SpO2: 100% 100% 100% 100% Weight: Height: Vital Signs: as documented above General: Laying in bed. Frail/chronically ill-appearing. No acute distress HEENT/Neck: Moist mucosa, no icterus, supple Thorax: No accessory muscles use. Clear anteriorly Cardiac: Regular. Abdomen: Not distended,+ bowel sounds, soft, nontender Extremities: No edema, no cyanosis, no calf tenderness Mental Status: Awake, alert, and oriented x3 Neurological: No localizing weakness. Gait not tested : Deferred Skin: Warm and dry, no obvious rash LABS HEMATOLOGY Lab Results Component Value Date WBC 5.1 08/17/2025 HGB 9.3 (L) 08/17/2025 HCT 32.3 (L) 08/17/2025 MCV 85.2 08/17/2025 PLT 222 08/17/2025 CHEMISTRY Lab Results Component Value Date GLUCOSE 85 08/17/2025 NA 141 08/17/2025 K 4.6 08/17/2025 CO2 23 08/17/2025 CL 113 (H) 08/17/2025 BUN 19 08/17/2025 CREATININE 1.51 (H) 08/17/2025 EGFR 47 (L) 08/17/2025 CALCIUM 7.9 (L) 08/17/2025 MG 2.0 08/17/2025 ANIONGAP 5 08/17/2025 Imaging: Transthoracic echocardiogram (TTE) complete with PRN contrast, bubble, strain, and 3D order panel Left Ventricle: Left ventricle cavity is mildly dilated. Wall thickness is normal. Systolic function is normal with an ejection fraction of 65-70%. There are no regional LV wall motion abnormalities. There is Grade II (moderate) diastolic dysfunction. Left Atrium: Left atrium cavity is mildly dilated. Left atrium volume index is mildly increased. Right Ventricle: Right ventricle cavity is dilated. Normal TAPSE (> 17 mm). Normal systolic excursion velocity by TDI (>9.5 cm/s). Right Atrium: Right atrium cavity is dilated. Aortic Valve: There is moderate regurgitation with a centrally directed jet. There is no significant stenosis. Mitral Valve: There is mild regurgitation. Aorta: The Sinus of Valsalva is (3.9 cm). The ascending aorta is (3.9 cm). No previous echocardiogram available for comparison. ASSESSMENT & PLAN Atrial fibrillation with RVR Secondary hypercoagulability due to atrial fibrillation Patient had documented atrial fibrillation with RVR at the time of admission. Shortly after rehydrated he converted back to a sinus rhythm. TTE as above. Presently sinus elisabeth and metoprolol being held -continue apixaban -discontinue metoprolol tartrate 25mg BID, start low dose metoprolol succinate 12.5 in AM, keep on telemetry for now Acute on chronic kidney injury CKD stage IIIa. Acute on chronic kidney injury probably due to state in setting of DORA inhibitor and tamsulosin. Appears patient has been on TMP/SMX recently which may have contributed to EM. Contrast-induced nephropathy potentially contributing as patient had CT scan with contrast earlier in the month. CT of theabdomen pelvis does not reveal any hydronephrosis or obstruction. - Continue IV fluids, hold DORA inhibitor - Follow renal function Lactic acidosis Probably due to hypoperfusion. Resolved with 1 L of IV fluids. Descending thoracic aortic aneurysm Known and has been followed by vascular surgeon Dr Wood. Updated CT on 07/26 showed some changes though the size of the aneurysm is approximately the same. Urgent follow-up was requested and patient has an appointment for 09/01. History of hypothyroidism Documented on a few visits. Not on thyroid replacement therapy. Interestingly TSH level on 08/15 waschecked twice: 15 and 5 - started on levothyroxine 25mcg and will need follow-up TFTs in 2 to 3 weeks. Constipation This has been an ongoing issue. Patient reports he does not feel any urge because he is not eating anything. Fecal burden noted on imaging. On daily MiraLAX and Colace UTI Urine analysis suspicious for UTI with large leukocytes and moderate bacteria. 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 Patient does have an indwelling stent. On IV cefepime - Isolation per protocol. -Follow renal function History of bladder cancer status post TURBT Patient has completed chemotherapy with Abraxane x 5 cycles and has completed radiation as of May 2025. Daughter reports patient due to have a follow-up PET/CT. Coronary artery disease Documented in past medical history. Patient does take a daily aspirin. He has been on statin in thepast but had an allergy to this. No further history known. Recent imaging showing mild coronary artery calcification and mild cardiomegaly. Malnutrition Physical deconditioning Megace was trialed but patient did not like the taste of that. It is documented that he consumes 2 ensures per day but daughter reports he is not taking in that much. Evaluated by physical therapy who is recommending home PT on discharge. - nutrition eval - activity as tolerated Suicidal ideation Depressed mood - recs from psychiatry noted/appreciated. Per psychiatry, patient meets criteria for Section 12 andcannot leave the hospital AMA. DISPOSITION Maintaining sinus rhythm. Awaiting urine cultures to guide antibiotic therapy. Now with SI and being evaluated for possible admission to a psychiatric unit. Anticipating another 24-48 hours in house [1] apixaban, 5 mg, oral, BID cefepime, 1 g, intravenous, q24h docusate sodium, 100 mg, oral, BID levothyroxine, 25 mcg, oral, q AM AC metoprolol tartrate, 25 mg, oral, BID perflutren lipid microsphere (DEFINITY) 0.39 mL in sodium chloride 0.9% 2.61 mL injection, 3 mL, intravenous, Once polyetheylene glycol, 17 g, oral, Daily [START ON 08/18/2025] thiamine, 100 mg, oral, Daily [2] sodium chloride, 125 mL/hr, Last Rate: 125 mL/hr (08/17/25 1705) [3] PRN medications: acetaminophen, ondansetron (ZOFRAN-ODT) disintegrating tablet OR ondansetron, oxyCODONE, senna * Ned Ashbyuma - 08/17/2025 11:15 AM EST SPIRITUAL CARE Date/Time:08/17/25 at 11:15 AM EST Type of Visit: Initial Visit and [employer] Bi Architect Rounding Reason for Visit: Spiritual/Emotional Support Time Spent: 10 Minutes Location: [address] [place] [address] Sacramental Encounters: Spiritual Distress Assessment: Spiritual Assessment/Distress Spiritual Care Assessment: Assessment: Eulalio, was awake, alert, lying down in bed resting at the time of visit. Bermudian speaking. No family present at the time. Provided supporting and comforting presence. Corinne judaism is Scientologist, prayed for recovery and good health. Intervention: NE Spiritual Care Interventions : provided support Outcomes: Plan of Care: Visit as needed *Reference: Spiritual Distress Assessment Tool: The SDAT is a clinical tool used by chaplains to identify unmet spiritual and emotional needs that can impact Goals of Care in the following categories: Spiritual Distress Assessment Legend Spiritual Needs Related Questions Meaning Are you having difficulties coping with what is happening to your now? Does your hospitalization have any repercussions on the way you live usually? Transcendence Do you have a particular judaism, corinne, or spirituality? Is your judaism/spirituality/corinne challenged by what is happening to you now? Values Do you think that the health professionals caring for you know you well enough? Do you feel that you are participating in the decisions made about your care? Psycho-Social Identity Do you have any worries or difficulties regarding your family or other persons close to you? Do you feel lonely? Do you have links to your corinne community? SCALE 0= no evidence of unmet spiritual needs 1= some evidence of unmet spiritual needs 2= substantial evidence of unmet spiritual needs 3= evidence of severe unmet spiritual needs * JULY Arellano - 08/16/2025 10:25 PM EST CROSS COVERAGE SITUATION: Patient has endorses suicidality to nursing EVALUATION: I was contacted by nursing this evening and informed that Eulalio has endorsed suicidal thoughtswith a plan to shoot himself He has been agitated this evening in particular and when nursing went for the evening medication pass, Eulalio specifically said he would shoot myself in the head 10 times Using the web designer developer, nursing attempted to clarify if he had a gun at home or access and he said I can get one, a friend owes me a favor He would not answer further questions for staff ASSESSMENT AND PLAN: Given the above statements made, nursing has expressed concern for patient safety Will order for a 1:1 sitter Eulalio can not leave the hospital against medical advice Should he request to leave, he must be seen by a medical provider to deem safety I will plan a consult order to psychiatry for further evaluation Reach out to me with further questions or concerns * J Luis Tello MD - 08/16/2025 6:05 PM EST Images from the original note were not included. CARMEN PROGRESS NOTE Date: 08/16/2025 Author: J Luis Tello MD Patient ID: Eulalio Miranda is a 80 y.o. male : 1945 MR#: [id number] SUBJECTIVE Follow up: generalized weakness, Afib RVR, UTI EMR reviewed. Events noted AMN quality project manager [place] #[id number] utilized during my encounter. Patient reporting feeling better compared to yesterday. Still feels generally weak. Able to participate with physical therapy earlier Fair appetite. Constipated w/o N/V No fever/chills No fevers, chest pain, or palpitations. Denies any urinary symptoms. Allergies Atorvastatin calcium and Taxol [paclitaxel] Current Medications: MEDSSCHEDULED[1] MEDSCONTINUOUS[2] MEDSPRN[3] OBJECTIVE Vitals: 08/16/25 0809 08/16/25 0815 08/16/25 1128 08/16/25 1516 BP: 120/50 (!) 127/42 (!) 140/49 (!) 123/42 BP Location: Right arm Right arm Right arm Patient Position: Lying Lying Lying Pulse: (!) 48 62 (!) 46 Resp: 14 14 Temp: 36.6 ??C (97.9 ??F) 36.5 ??C (97.7 ??F) 36.9 ??C (98.4 ??F) TempSrc: Oral Oral Oral SpO2: 100% 98% 100% Weight: 48.5 kg (106 lb 14.8 oz) Height: 1.7 m (66.93 ) Vital Signs: as documented above General: Laying in bed. Frail/chronically ill-appearing. No acute distress HEENT/Neck: Moist mucosa, no icterus, supple Thorax: No accessory muscles use. Clear anteriorly Cardiac: Regular. Abdomen: Not distended,+ bowel sounds, soft, nontender Extremities: No edema, no cyanosis, no calf tenderness Mental Status: Awake, alert, and oriented x3 Neurological: No localizing weakness. Gait not tested : Deferred Skin: Warm and dry, no obvious rash LABS HEMATOLOGY Lab Results Component Value Date WBC 5.3 08/16/2025 HGB 8.5 (L) 08/16/2025 HCT 29.6 (L) 08/16/2025 MCV 84.3 08/16/2025 PLT 247 08/16/2025 CHEMISTRY Lab Results Component Value Date GLUCOSE 84 08/16/2025 NA 140 08/16/2025 K 5.1 08/16/2025 CO2 24 08/16/2025 CL 111 (H) 08/16/2025 BUN 28 (H) 08/16/2025 CREATININE 1.81 (H) 08/16/2025 EGFR 38 (L) 08/16/2025 CALCIUM 8.2 (L) 08/16/2025 MG 2.3 08/16/2025 ANIONGAP 5 08/16/2025 Imaging: Transthoracic echocardiogram (TTE) complete with PRN contrast, bubble, strain, and 3D order panel Left Ventricle: Left ventricle cavity is mildly dilated. Wall thickness is normal. Systolic function is normal with an ejection fraction of 65-70%. There are no regional LV wall motion abnormalities. There is Grade II (moderate) diastolic dysfunction. Left Atrium: Left atrium cavity is mildly dilated. Left atrium volume index is mildly increased. Right Ventricle: Right ventricle cavity is dilated. Normal TAPSE (> 17 mm). Normal systolic excursion velocity by TDI (>9.5 cm/s). Right Atrium: Right atrium cavity is dilated. Aortic Valve: There is moderate regurgitation with a centrally directed jet. There is no significant stenosis. Mitral Valve: There is mild regurgitation. Aorta: The Sinus of Valsalva is (3.9 cm). The ascending aorta is (3.9 cm). No previous echocardiogram available for comparison. ASSESSMENT & PLAN Atrial fibrillation with RVR Secondary hypercoagulability due to atrial fibrillation Patient had documented atrial fibrillation with RVR at the time of admission. Shortly after once rehydrated he converted back to a sinus rhythm. TTE as above -Monitor on telemetry for now -On apixaban, continue metoprolol with holding parameters Acute on chronic kidney injury CKD stage IIIa. Acute on chronic kidney injury probably due to state in setting of DORA inhibitor and tamsulosin. Appears patient has been on TMP/SMX recently which may have contributed to EM. Contrast-induced nephropathy potentially contributing as patient had CT scan with contrast earlier in the month. CT of theabdomen pelvis does not reveal any hydronephrosis or obstruction. - Continue IV fluids, hold DORA inhibitor - Follow renal function Lactic acidosis Probably due to hypoperfusion. Resolved with 1 L of IV fluids. Descending thoracic aortic aneurysm Known and has been followed by vascular surgeon Dr Wood. Updated CT on 07/26 showed some changes though the size of the aneurysm is approximately the same. Urgent follow-up was requested and patient has an appointment for 09/01. History of hypothyroidism Documented on a few visits. Not on thyroid replacement therapy. Interestingly TSH level on 08/15 waschecked twice: 15 and 5 - May benefit with low-dose thyroid and follow-up TFTs in 2 to 3 weeks. Constipation This has been an ongoing issue. Patient reports he does not feel any urge because he is not eating anything. Fecal burden noted on imaging. On daily MiraLAX and Colace UTI Urine analysis suspicious for UTI with large leukocytes and moderate bacteria. 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 Patient does have an indwelling stent. On IV cefepime - Isolation per protocol. -Follow renal function History of bladder cancer status post TURBT Patient has completed chemotherapy with Abraxane x 5 cycles and has completed radiation as of May 2025. Daughter reports patient due to have a follow-up PET/CT. Coronary artery disease Documented in past medical history. Patient does take a daily aspirin. He has been on statin in thepast but had an allergy to this. No further history known. Recent imaging showing mild coronary artery calcification and mild cardiomegaly. Malnutrition Physical deconditioning Megace was trialed but patient did not like the taste of that. It is documented that he consumes 2 ensures per day but daughter reports he is not taking in that much. Evaluated by physical therapy who is recommending home PT on discharge. - nutrition eval - activity as tolerated DISPOSITION Some clinical improvement since admission. Maintaining sinus rhythm. Awaiting urine cultures to guide antibiotic therapy. Anticipating another 24-48 hours in house [1] apixaban, 5 mg, oral, BID cefepime, 1 g, intravenous, q24h docusate sodium, 100 mg, oral, BID metoprolol tartrate, 25 mg, oral, BID perflutren lipid microsphere (DEFINITY) 0.39 mL in sodium chloride 0.9% 2.61 mL injection, 3 mL, intravenous, Once polyetheylene glycol, 17 g, oral, Daily [2] sodium chloride, 125 mL/hr, Last Rate: 125 mL/hr (08/16/25 1636) [3] PRN medications: acetaminophen, ondansetron (ZOFRAN-ODT) disintegrating tablet OR ondansetron, oxyCODONE * Sarah Briceno RN - 08/16/2025 12:06 PM EST 08/16/25 1205 Initial Transition Plan Initial Transition Plan Home Health Care Back up Transition Plan Back up Transition plan Home Health Care Discharge Planning Living Arrangements Children Type of Residence Private residence Assistive Devices Eyeglasses;Walker;Cane Support Systems Children;Extended family;Immediate family Medication Coverage Has Med Coverage Under Insurance Plan Yes Medication Affordability No concerns related to payment for meds Informed Choice Informed Choice Given? Yes Transportation Transportation at discharge Family ICC met with pt and daughter Yamileth at bedside. Demographics confirmed. Pharmacy is [facility]. Pt resides in single level home with son and daughter in law that works from home. ICC discussed PT recommendation for rehab, declining referral at this time agreeable to [facility], referral placed. ICC provided list of private duty home care services at bedside. Family to transport home at d/c. ICC will continue to follow * Bridget Garcia, PT - 08/16/2025 10:20 AM EST [facility] ACUTE CARE PT EVALUATION Eulalio Miranda 1945 Ambulation: Walking Assistance: Minimum assistance Device: Rolling walker Distance Ambulated (ft): 15 PLOF: Level of [place]: Needs assistance with mobility (pt reports he amb short distances with ROllator, he also uses W/C at home) Lives With: (son and dtr in law, they both work. Per pt, sometimes they work at home) Receives Help From: Family Home Adaptive Equipment: Rollator, Wheelchair - manual, Bedside commode Home Living Comments: 2 level home wiht basement. he stays on first floor of the house with bathroom with 6 to 7 steps to enter with rail. Another entrance is thru garage with one step to enter DME Needs: PT Discharge Recommendation: detention facility placement Diagnosis: ICD-10-CM ICD-9-CM 1. Sepsis with acute renal failure, due to unspecified organism, unspecified acute renal failure type, unspecified whether septic shock present ([facility] V24, [facility] V28) A41.9 038.9 R65.20 995.92 N17.9 584.9 2. Urinary tract infection in male N39.0 599.0 3. Acute kidney injury (CMS/HCC V24) N17.9 584.9 4. Atrial fib/flutter, transient (CMS/HCC V24, CMS/HCC V28) I48.91 427.31 Transthoracic echocardiogram (TTE) complete with PRN contrast, bubble, strain, and 3D order panel I48.92 427.32 Transthoracic echocardiogram (TTE) complete with PRN contrast, bubble, strain, and 3Dorder panel Medical History[1] Surgical History[2] PT Received On: 08/16/2025 SUBJECTIVE Video Share[employer] Solutions Architect used: [employer] [id number]. Pt was very talkative. PT Time Calculation: PT Time Calculation PT Start Time: 1020 PT Stop Time: 1100 PT Time Calculation (min): 40 min OBJECTIVE Precautions: Precautions Medical Precautions: Fall Risk Safety Interventions: Call pino within reach, Side rails up x2, Bed alarm Cognition: Cognition Overall Cognitive Status: Within Functional Limits Arousal/Alertness: Appropriate responses to stimuli Orientation Level: Oriented X4 Following Commands: Follows one step commands without difficulty Safety Judgment: Decreased awareness of need for assistance, Decreased awareness of need for safety Vital Signs: Oxygen Therapy Oxygen Therapy: None (Room air) Pain Assessment: Pain Assessment: No/denies pain Pain Score: 0 - No pain Home Living: Home Living Lives With: (son and dtr in law, they both work. Per pt, sometimes they work at home) Home Adaptive Equipment: Rollator, Wheelchair - manual, Bedside commode Home Living Comments: 2 level home wiht basement. he stays on first floor of the house with bathroom with 6 to 7 steps to enter with rail. Another entrance is thru garage with one step to enter Prior Function: Prior Function Level of [place]: Needs assistance with mobility (pt reports he amb short distances with ROllator, he also uses W/C at home) Ambulation Status: Household ambulator Receives Help From: Family Indoor Mobility Assistance: Needed Some Help Stairs Assistance : Needed Some Help Prior Device Use: Rollator Functional Assessments: Static Standing Balance Static Standing-Level of Assistance: Minimum assistance Static Standing-Comment/Number of Minutes: fair to fair+ with RW Dynamic Standing Balance Dynamic Standing-Level of Assistance: Minimum assistance Dynamic Standing-Balance: Ambulation Dynamic Standing-Comments: fair to fair+ with RW Bed Mobility Rolling Left and Right Assistance: Minimum assistance Sitting to Lying Assistance: Minimum assistance Lying to Sitting Assistance: Minimum assistance Bed Mobility Comments: pt sat @ EOB for few minutes Transfers Sit to Stand Assistance: Minimum assistance Sit to Stand Deficit: Assist for lift off, Steadying, Verbal cueing Transfer Comments: pt marched in place with RW. Ambulation Walking Assistance: Minimum assistance Device: Rolling walker Distance Ambulated (ft): 15 Comments: pt with c/o mild dizziness during gait. Steady gait Extremity Assessments: RLE Assessment RLE Assessment: Within Functional Limits LLE Assessment LLE Assessment: Within Functional Limits Education: Education Documentation Mobility Training, taught by Bridget Garcia, PT at 08/16/2025 10:20 AM. Learner: Patient Readiness: Acceptance Method: Explanation Response: Verbalizes Understanding Comment: safe sit to stand, rehab vs home PT Education Comments No comments found. ASSESSMENT Pt needs assist of 1 for safe gait with RW. PT recommends assist for gait at home. Rec rehab if he does not have 24 hour supervision at home. If he has assist/supervision at home, then recommend homePT. PT Assessment: PT Assessment PT Assessment Results: Decreased strength, Decreased endurance, Impaired balance, Impaired gait, Decreased mobility Prognosis: Good Evaluation/Treatment Tolerance: Patient tolerated treatment well Medical Staff Made Aware: Yes PLAN PT Plan: During acute care stay: PT Plan: Skilled PT PT Frequency: 2-5 days per week PT Discharge Recommendations: detention facility placement Equipment Recommendations: walker Goals: Goals: Encounter Problems Encounter Problems (Active) Template: Physical Therapy Problem: PT Short Term Goals Dates: Start: 08/16/25 Goal: PT STG 1 Patient will ambulate with RW 50 ft CGA Dates: Start: 08/16/25 Expected End: 08/30/25 Goal: PT STG 2 Patient will transfer sit<>stand safely Independently Dates: Start: 08/16/25 Expected End: 08/30/25 Encounter Problems (Resolved) There are no resolved problems. PT Evaluation Time Entry G RHB Marcela PT Evaluation Time Entry PT Evaluation (Moderate) Time Entry: 40 [1] Past Medical History: Diagnosis Date Bladder cancer (CMS/HCC V24, CMS/HCC V28) Nephrostomy present (CMS/HCC V24, CMS/HCC V28) [2] Past Surgical History: Procedure Laterality Date BLADDER SURGERY CYSTOSCOPY * Cyndi Rose RN - 08/15/2025 5:26 PM EST ED RN HANDOFF (All [place] Below Must Be Completed) Reason/Diagnosis for Admission: EM, UTI - sepsis with acute renal failure Type of Admission: [] Medsurg, [x] Telemetry Already in a Hospital Bed: [] Yes / [x] No Room Considerations/Precautions (ex: fever, diarrhea, or any infectious concerns): [x] Yes / [] No Advertising Job Titles: [x] Yes / [] No If YES, Cardiac Rhythm: [x] NSR, [] SB, [] ST, [] A-FIB, [] A-Flutter, [] Pacemaker, [] 1st Degree HB, [] 2nd Degree HB, [] 3rd Degree HB Reason for Advertising Job Titles: a-fib 140s upon arrival to department VS: Visit Vitals BP 129/68 (BP Location: Left arm, Patient Position: Sitting) Pulse 74 Temp 37 ??C (98.6 ??F) (Oral) Resp 18 Ht 1.702 m (67 ) Wt 48.5 kg (107 lb) SpO2 91% BMI 16.76 kg/m?? Smoking Status Former BSA 1.55 m?? Current Mental Status: A/O x [x]4, []3, []2, []1 Current Ambulation Status: stand by 1x assist IV Access: [x] Yes / [] No Field IV present: [] Yes / [x] No Hx of Violence: [] Yes / [x] No / [] Unknown Fall Risk:[x] Yes / [] No Yellow Bracelet Applied [x] Yes / [] No Yellow Socks Applied [x] Yes / [] No Patient Belongings inventoried and BL completed: [x] Yes / [] No Patient belongings stored in the security closet: [] Yes (If Yes please supply Security bag #): [x] No Patient Medications stored in Pharmacy: [] Yes (If Yes please supply Medication Security bag #): [x] No ED Summary of Care: Weakness/not eating x 1 week and difficulty urinating, hx of bladder cancer wasslightly hypotensive at cancer center A-fib RVR - echo EM IVF Lactic acidosis - resolved with IVF Submitted by and Phone Extension: [phone] * Stefanie Vargas RN - 08/15/2025 10:16 AM EST Sent by dr. Tovar office for uti, increased weakness, poor appetite. Worsening since the . Having difficulty urinating. * Ej Dixon MD - 08/15/2025 10:13 AM ESTAssociated Order(s): Critical Care Emergency Medicine Note Patient Name: Eulalio Miranda Initial Evaluation: 08/15/2025 : 1945 Patient's PCP: Noemi Oliva MD Emergency Physician: Ej Dixon MD History of Present Illness Chief Complaint: Chief Complaint Patient presents with Weakness - Generalized HPI: 80 y.o. male has a past medical history of Bladder cancer (CMS/HCC V24, CMS/HCC V28) and Nephrostomy present (CMS/HCC V24, CMS/HCC V28). Presents for weakness and not eating enough for past several days to 1 week. Difficulty urinating. He has a history of varices and chemotherapy no nausea vomiting complains of diffuse abdominal pain.No nausea vomiting, but dyspnea on exertion. Chills extremely weakmess Daughter primary historian no hx of afib. No AC ROS: I have performed a ROS with the pertinent positives and negatives documented in the history ofpresent illness. Previous History Medical History[1] Surgical History[2] Social History[3] Family History[4] is allergic to atorvastatin calcium and taxol [paclitaxel]. Medications Ordered Prior to Encounter[5] Physical Exam ED Triage Vitals Temp Heart Rate Resp BP 08/15/25 1016 08/15/25 1016 08/15/25 1016 08/15/25 1016 36.3 ??C (97.3 ??F) 82 16 (!) 86/43 SpO2 Temp Source Heart Rate Source Patient Position 08/15/25 1037 08/15/25 1016 08/15/25 1037 08/15/25 1016 97 % Oral Monitor Sitting BP Location FiO2 (%) 08/15/25 1016 -- Left arm General: chronically ill appearing weak , borderline cachectic HEENT: PERRL, EOMI, external ears and nose appear unremarkable, airway is patent Neck: Supple, full range of motion, no meningismus, no JVD Chest: Clear to auscultation; no evidence of respiratory distress Circulatory: tachycardic irregular , no murmurs rubs or gallops Abdomen: Non-distended, diffuse tenderness Extremities: Normal ROM, No edema, ranging all extremities without difficulty Skin: cool decreased perfusion no rashes Neuro: Alert and oriented x 3. no motor or sensory deficits Psyche: Normal affect Results Labs Reviewed CBC AND DIFFERENTIAL Narrative: The following orders were created for panel order CBC and differential. Procedure Abnormality Status --------- ------ CBC auto differential[[id number]] Please view results for these tests on the individual orders. COMPREHENSIVE METABOLIC PANEL PROTHROMBIN TIME WITH INR ACTIVATED PARTIAL THROMBOPLASTIN TIME LACTATE, WITH REFLEX TROPONIN I HIGH SENSITIVITY TROPONIN I HIGH SENSITIVITY URINALYSIS WITH REFLEX MICROSCOPIC Narrative: The following orders were created for panel order Urinalysis with reflex microscopic. Procedure Abnormality Status --------- ------ Urinalysis with reflex ...[[id number]] Please view results for these tests on the individual orders. CBC WITH AUTO DIFFERENTIAL URINALYSIS WITH REFLEX MICROSCOPIC MAGNESIUM Abnormal Labs Reviewed - No abnormal labs to display CT Abdomen Pelvis wo Contrast (Results Pending) XR Chest 1 View (Results Pending) I have discussed the incidental/abnormal imaging and/or lab abnormalities with the patient and haveinstructed them the need for further evaluation and workup with their primary care doctor. I have provided the patient with a paper copy of the abnormality. The laboratory results, imaging results and other diagnostic exam results were reviewed in the EMR. EKG Interpretation Critical Care Time None ? Medical Decision Making Medications sodium chloride 0.9 % bolus 1,000 mL (has no administration in time range) sodium chloride 0.9 % bolus 1,000 mL (has no administration in time range) cefepime (MAXIPIME) 2 g in sterile water 20 mL IV syringe (has no administration in time range) ED Course as of 08/15/25 1511 Tue Aug 15, 2025 1055 Found to be in the rapid A-fib 147 bpm however I suspect this is related to his likely sepsis.Will treat empirically for sepsis fluid bolus Maxipime given his history of VRE. Pseudomonas. Wouldlike to get Eliquis. Will reassess if cardioversion necessary however this is likely due to underlying. Diffuse abdominal pain we will scan and ensure there is no retention. [JL] 1227 Comprehensive Metabolic Panel (CMP)(!) CMP shows signficant EM [JL] 1228 Hgb is stable 11.1 up from last. [JL] 1228 Lactic acid is elevated 2.2 [JL] 1228 HR is improved. After IV fluids [JL] 1229 IMPRESSION: There are bilateral nephroureteral stents in place. No acute abnormality. [JL] 1234 HR improvved to 70s [JL] 1420 IMPRESSION: FINDINGS/IMPRESSION: No consolidation or effusion. No congestive heart failure. [JL] 1420 Patient's A-fib resolved. [JL] 1457 UA consistent with UTI given hx. Will admit for Urosepsis and EM [JL] ED Course User Index [JL] Ej Dixon MD Clinical Impressions as of 08/15/25 1511 Sepsis with acute renal failure, due to unspecified organism, unspecified acute renal failure type,unspecified whether septic shock present ([facility] V24, [facility] V28) Urinary tract infection in male Acute kidney injury ([facility] V24) Procedures Critical Care Performed by: Ej Dixon MD Authorized by: Ej Dixon MD Critical care provider statement: Critical care time (minutes): 30 Total face to face critical care time (minutes): 30 Critical care was time spent personally by me on the following activities: Ordering and performing treatments and interventions, ordering and review of laboratory studies, re-evaluation of patient's condition and ordering and review of radiographic studies Face to face critical care was time spent personally by me on the following activities: Evaluation of patient's response to treatment I assumed direction of critical care for this patient from another provider in my specialty: no Comments: Patient required my immediate attention due to his A-fib with RVR. Presume this was to an underlying sepsis close given his symptoms. So we do not anticoagulate he was fluid resuscitated given empiric antibiotics based on past urine cultures. Found to have an acute EM. No urinary retention also has a moderate UTI. Heart rate gradually improved to normal sinus rhythm. Lactate was noted to be elevated confirming diagnosis of sepsis. Patient is admitted to hospital services mental status and overall appearance of improved Diagnosis No diagnosis found. Disposition Data Unavailable ED Prescriptions None Physician Attestation Ej Dixon MD 08/15/25 1055 [1] Past Medical History: Diagnosis Date Bladder cancer ([facility] V24, [facility] V28) Nephrostomy present ([facility] V24, [facility] V28) [2] Past Surgical History: Procedure Laterality Date BLADDER SURGERY CYSTOSCOPY [3] Social History Tobacco Use Smoking status: Former Current packs/day: 2.00 Types: Cigarettes Smokeless tobacco: Never Vaping Use Vaping status: Never Used Substance Use Topics Alcohol use: Not Currently Comment: Has not drank since October 2024 Drug use: Never [4] Family History Problem Relation Name Age of Onset Cancer Neg Hx [5] No current facility-administered medications on file prior to encounter. Current Outpatient Medications on File Prior to Encounter Medication Sig Dispense Refill aspirin 81 mg EC tablet Take 1 tablet (81 mg total) by mouth 1 (one) time each day. lisinopriL (PRINIVIL,ZESTRIL) 10 mg tablet Take 1 tablet (10 mg total) by mouth 1 (one) time each day. megestroL (MEGACE) 400 mg/10 mL (40 mg/mL) suspension Take 20 mL (800 mg total) by mouth 1 (one) time each day. Shake well just before you measure a dose. Measure with a special dose-measuring spoon or medicine cup, not with a regular table spoon. If you do not have a dose-measuring device, ask your pharmacist for one. 600 mL 1 metoprolol tartrate (LOPRESSOR) 25 mg tablet Take 1 tablet (25 mg total) by mouth 2 (two) times a day. oxyCODONE (ROXICODONE) 5 mg immediate release tablet Take 1 tablet (5 mg total) by mouth every 6 (six) hours if needed for severe pain. Partial fill allowed Max Daily Amount: 20 mg 120 tablet 0 phenazopyridine (PYRIDIUM) 200 mg tablet Take 1 tablet (200 mg total) by mouth every 8 (eight) hours if needed (urinary discomfort). 9 tablet 0 sucralfate (CARAFATE) 1 gram tablet Take 1 tablet (1 g total) by mouth 4 (four) times a day (beforemeals and nightly). 120 each 11 Ej Dixon MD 08/15/25 1512 documented in this encounter H&P Notes * JULY Klein - 08/15/2025 3:54 PM EST Images from the original note were not included. [facility] Please contact author [JULY Klein] via [email or web address]. Patient: Eulalio Miranda Admission Date/Time: 08/15/2025 10:22 AM : 1945 [80 y.o.] Patient's PCP: Noemi Oliva MD Attending Provider: Ej Dixon MD CHIEF COMPLAINT Weakness HISTORY OF PRESENT ILLNESS This is a 80-year-old gentleman with a past medical history of coronary artery disease, hypertension, Pseudomonas UTI, known nonocclusive descending thoracic aortic aneurysm, bladder cancer status post TURBT, he has completed radiation and 5 cycles of Abraxane therapy has been experiencing ongoing weight loss and failure to thrive presents today due to profound weakness. Patient was at a follow-up appointment with his oncologist. He has been followed closely due to ongoing weight loss and malnutrition. Normal his daughter is at bedside is providing most of the history. He lives at home with his son. He is becoming weaker every day. He complains of continuous chills, shaking, loss of appetite due to food not tasting good, recently experiencing shortness of breath with ambulation occasionalchest pain and palpitations. Today at the oncology appointment the patient was noted to have low blood pressure and was referred to the ER Upon arrival in the emergency department he was found to have a blood pressure of 86/43 with a heart rate of 145. EKG showed atrial fibrillation and the patient was placed on the phototypesetting equipment monitor. He was given a normal saline bolus and the patient spontaneously converted back to a normal sinus rhythm and blood pressures improved to 129/68. Patient is found to have a sodium of 133, potassium of 5 and a creatinine well above his baseline at 2.31. Lactic acid level was also elevated at 2.2. Patient to be admitted for new onset atrial fibrillation with RVR, hypotension and generalized failure to thrive. *During the medication reconciliation it is noted that patient was started on Bactrim DS, Flomax and Pyridium after an office visit with urology group of [facility]. Functional status prior to presentation: Minimal ambulation with rolling walker Review of Systems Review of Systems Constitutional: Positive for activity change, appetite change, chills and fatigue. Negative for fever. HENT: Positive for sore throat and trouble swallowing. Respiratory: Positive for shortness of breath. Cardiovascular: Positive for chest pain and palpitations. Gastrointestinal: Positive for abdominal pain and constipation. Endocrine: Positive for cold intolerance and polyuria. Genitourinary: Positive for difficulty urinating, dysuria and hematuria. Musculoskeletal: Positive for back pain. Neurological: Positive for weakness and light-headedness. Negative for syncope. Psychiatric/Behavioral: Positive for sleep disturbance. MEDICAL HISTORY Past Medical History Medical History[1] Stage II T2N0 bladder cancer status post TURBT completed radiation chemotherapy Severe malnutrition Coronary artery disease Hypertension Nonocclusive descending thoracic aortic aneurysm Acquired hypothyroidism Constipation Anemia of chronic disease Past Surgical History Surgical History[2] Social History reports that he has quit smoking. His smoking use included cigarettes. He has never used smokeless tobacco. He reports that he does not currently use alcohol. He reports that he does not use drugs. Family History family history is not on file. Allergies is allergic to atorvastatin calcium and taxol [paclitaxel]. Home Medications Medications Ordered Prior to Encounter[3] aspirin 81 mg EC tablet Take 1 tablet (81 mg total) by mouth 1 (one) time each day. lisinopriL (PRINIVIL,ZESTRIL) 10 mg tablet Take 1 tablet (10 mg total) by mouth 1 (one) time each day. megestroL (MEGACE) 400 mg/10 mL (40 mg/mL) suspension Take 20 mL (800 mg total) by mouth 1 (one) time each day. Shake well just before you measure a dose. Measure with a special dose-measuring spoon or medicine cup, not with a regular table spoon. If you do not have a dose-measuring device, ask your pharmacist for one. 600 mL 1 metoprolol tartrate (LOPRESSOR) 25 mg tablet Take 1 tablet (25 mg total) by mouth 2 (two) times a day. oxyCODONE (ROXICODONE) 5 mg immediate release tablet Take 1 tablet (5 mg total) by mouth every 6 (six) hours if needed for severe pain. Partial fill allowed Max Daily Amount: 20 mg 120 tablet 0 phenazopyridine (PYRIDIUM) 200 mg tablet Take 1 tablet (200 mg total) by mouth every 8 (eight) hours if needed (urinary discomfort). 9 tablet 0 sucralfate (CARAFATE) 1 gram tablet Take 1 tablet (1 g total) by mouth 4 (four) times a day (beforemeals and Flomax 0.4 mg p.o. nightly started on 08/12 Bactrim 800/161 tablet twice a day started on Saturday 08/11 OBJECTIVE Vitals Visit Vitals BP 129/68 (BP Location: Left arm, Patient Position: Sitting) Pulse 74 Temp 37 ??C (98.6 ??F) (Oral) Resp 18 Temp (24hrs), Av.7 ??C (98 ??F), Min:36.3 ??C (97.3 ??F), Max:37 ??C (98.6 ??F) Body mass index is 16.76 kg/m??. No results found for: PTWT , PTHT Physical Examination Physical Exam Constitutional: Appearance: Normal appearance. He is underweight. HENT: Head: Normocephalic and atraumatic. Mouth/Throat: Mouth: Mucous membranes are dry. Comments: No lesions noted Eyes: Extraocular Movements: Extraocular movements intact. Conjunctiva/sclera: Conjunctivae normal. Pupils: Pupils are equal, round, and reactive to light. Cardiovascular: Rate and Rhythm: Normal rate and regular rhythm. Pulmonary: Effort: Pulmonary effort is normal. No tachypnea. Breath sounds: Normal breath sounds. No wheezing, rhonchi or rales. Abdominal: General: Bowel sounds are normal. There is no distension. Palpations: Abdomen is soft. There is no mass. Tenderness: There is no abdominal tenderness. There is no guarding or rebound. Musculoskeletal: General: No swelling or tenderness. Normal range of motion. Cervical back: Normal range of motion. Skin: General: Skin is warm and dry. Neurological: General: No focal deficit present. Mental Status: He is alert and oriented to person, place, and time. Psychiatric: Mood and Affect: Mood normal. Behavior: Behavior normal. Behavior is cooperative. ECG: Atrial fibrillation with rapid ventricular response with premature ventricular or aberrantly conducted complexes ST depression, consider subendocardial injury Nonspecific T wave abnormality Abnormal ECG When compared with ECG of 08-JUN-2025 21:20, Atrial fibrillation has replaced Sinus rhythm Vent. rate has increased BY [address] now depressed in Anterior leads Nonspecific T wave abnormality has replaced inverted T waves in Lateral leads P Sinus rhythm with premature atrial complexes ST and T wave abnormality, consider lateral ischemia Prolongation of QT interval Abnormal ECG When compared with ECG of 20-APR-2025 12:54, Inverted T waves have replaced nonspecific T wave abnormality in Lateral leads Confirmed by Rohith ADLER YUFENG ([id number]) on 06/09/2025 2:30:34 PM LAB RESULTS (most recent) HEMATOLOGY Lab Results Component Value Date WBC 6.6 08/15/2025 HGB 11.1 (L) 08/15/2025 HCT 38.0 (L) 08/15/2025 MCV 81.9 08/15/2025 PLT 349 08/15/2025 CHEMISTRY Lab Results Component Value Date GLUCOSE 123 (H) 08/15/2025 NA 133 08/15/2025 K 5.0 08/15/2025 CO2 25 08/15/2025 CL 101 08/15/2025 BUN 35 (H) 08/15/2025 CREATININE 2.31 (H) 08/15/2025 EGFR 28 (L) 08/15/2025 CALCIUM 9.3 08/15/2025 MG 2.6 08/15/2025 ANIONGAP 7 08/15/2025 Radiology XR Chest 1 View Final Result FINDINGS/IMPRESSION: No consolidation or effusion. No congestive heart failure. -------- FINAL REPORT -------- Dictated By: Segundo Brown Dictated Date: 08/15/2025 13:49 ET Assigned Physician: Segundo Brown Reviewed and Electronically Signed By: Segundo Brown Signed Date: 08/15/2025 13:49 ET Workstation ID: [id number] Transcribed By: Self Edit Transcribed Date: 08/15/2025 13:[address] Abdomen Pelvis wo Contrast Final Result There are bilateral nephroureteral stents in place. No acute abnormality. -------- FINAL REPORT -------- Dictated By: Timothy Rose Dictated Date: 08/15/2025 11:19 ET Assigned Physician: Timothy Rose Reviewed and Electronically Signed By: Timothy Rose Signed Date: 08/15/2025 11:28 ET Workstation ID: [id number] Transcribed By: Self Edit Transcribed Date: 08/15/2025 11:19 ET ASSESSMENT & PLAN 80-year-old gentleman with a past medical history of coronary artery disease, hypertension, Pseudomonas/VRE UTI, known nonocclusive descending thoracic aortic aneurysm, bladder cancer status post TURBT, he has completed radiation and 5 cycles of Abraxane therapy has been experiencing ongoing weightloss and failure to thrive presents today due to profound weakness found to be in atrial fibrillation with RVR, hypotensive with EM and lactic acidosis. 1. Atrial fibrillation with RVR Patient has been experiencing intermittent palpitations due to profound weakness. Episodes are associated with shortness of breath and occasional chest pain in the left upper chest wall. Symptoms resolved with rest. Patient had documented atrial fibrillation with RVR at the time of admission. Shortly after once rehydrated he converted back to a sinus rhythm. Recommend checking echocardiogram to evaluate for any underlying valvular disease. Check TSH levels and ensure electrolytes are within normal limits. Patient's CHADS2 vascular score would be a 3 however given the issues with the thoracic aortic aneurysm hesitate to add any long-acting anticoagulant at this time. Continue workup. 2. EM Patient with baseline CKD stage IIIa. Creatinine appears to have been creeping up over the past fewmonths likely in response to dehydration from poor oral intake and ongoing DORA inhibitor use. This being said, last week he was prescribed Bactrim which may have contributed to his EM in addition todropping his pressures from the Flomax. In addition to this patient also had a CT angiogram earlierthis month with the use of contrast. Potentially with a degree of ATN. Hold Bactrim, DORA inhibitor and all other nephrotoxic medications. CT of the abdomen pelvis does not reveal any hydronephrosis or obstruction. Recommend strict I's and O's. IV fluid resuscitation. Keep MAP greater than 65 mmHg. 3. Lactic acidosis Suspect from hypoperfusion. Resolved with 1 L of IV fluids. 4. Severe malnutrition, BMI 16.7 Poor appetite begun when the initial diagnosis was made. Daughter reports he barely eats. Patient reporting food is just not tasting good. There is some discomfort upon swallowing he attributes to recently eating pineapple. He has been meeting with the oncology clinic. Megace was trialed but patient did not like the taste of that. It is documented that he consumes 2 ensures per day but daughter reports he is not taking in that much. 5. Descending thoracic aortic aneurysm Has been followed by Dr Wood. Updated CT on 07/26 showed some changes though the size of the aneurysm is approximately the same. Urgent follow-up was requested and patient has an appointment for 09/01. We will ask vascular to weigh in while he is here especially since we are discussing potential need for anticoagulation. 6. History of hypothyroidism ? Documented on a few visits. Check TSH. Patient does not have any prescription for levothyroxine on board. 7. Constipation This has been an ongoing issue. Patient reports he does not feel any urge because he is not eating anything. Fecal burden noted on imaging. Implement daily MiraLAX and Colace 8. UTI Urine analysis suspicious for UTI with large leukocytes and moderate bacteria. 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 Patient does have an indwelling stent. Will administer IV cefepime dosed based on current renal function. Await cultures. Monitor PVRs 9. History of bladder cancer status post TURBT Patient has completed chemotherapy with Abraxane x 5 cycles and has completed radiation as of May 2025. Daughter reports patient due to have a follow-up PET/CT. 10. Coronary artery disease Documented in past medical history. Patient does take a daily aspirin. He has been on statin in thepast but had an allergy to this. No further history known. Recent imaging showing mild coronary artery calcification and mild cardiomegaly. Today's interview took place with the assistance of the daughter Yamileth and hospital heart surgeon Cody at bedside Admission checklist [x] Code status: Discussed with patient with daughter present. Patient states he would be a DNR/DNI. Goals of care discussed and addressed with the assistance of [place]. Patient is very clear on hiswishes. [x] VTE Prophylaxis: Pneumatic compression boots only until seen by vascular [] Diet order on admission: Dietary Orders (From admission, onward) Start Ordered 08/15/25 1513 Adult diet [facility]; General; Regular Diet effective now Question Answer Comment Location [facility] Diet Type (req) General General Diet Regular 08/15/25 1514 [x] Medication reconciliation Health Care proxy with Phone number Cheryl Miranda [phone] Daughter Yamileth [phone] son Gregory [phone] Case discussed with attending [1] Past Medical History: Diagnosis Date Bladder cancer ([facility] V24, [facility] V28) Nephrostomy present ([facility] V24, [facility] V28) [2] Past Surgical History: Procedure Laterality Date BLADDER SURGERY CYSTOSCOPY [3] No current facility-administered medications on file prior to encounter. Current Outpatient Medications on File Prior to Encounter Medication Sig Dispense Refill aspirin 81 mg EC tablet Take 1 tablet (81 mg total) by mouth 1 (one) time each day. lisinopriL (PRINIVIL,ZESTRIL) 10 mg tablet Take 1 tablet (10 mg total) by mouth 1 (one) time each day. megestroL (MEGACE) 400 mg/10 mL (40 mg/mL) suspension Take 20 mL (800 mg total) by mouth 1 (one) time each day. Shake well just before you measure a dose. Measure with a special dose-measuring spoon or medicine cup, not with a regular table spoon. If you do not have a dose-measuring device, ask your pharmacist for one. 600 mL 1 metoprolol tartrate (LOPRESSOR) 25 mg tablet Take 1 tablet (25 mg total) by mouth 2 (two) times a day. oxyCODONE (ROXICODONE) 5 mg immediate release tablet Take 1 tablet (5 mg total) by mouth every 6 (six) hours if needed for severe pain. Partial fill allowed Max Daily Amount: 20 mg 120 tablet 0 phenazopyridine (PYRIDIUM) 200 mg tablet Take 1 tablet (200 mg total) by mouth every 8 (eight) hours if needed (urinary discomfort). 9 tablet 0 sucralfate (CARAFATE) 1 gram tablet Take 1 tablet (1 g total) by mouth 4 (four) times a day (beforemeals and nightly). 120 each 11 Cosigned by Keon Chen MD at 08/15/2025 5:26 PM EST Associated attestation - Keon Chen MD - 08/15/2025 5:26 PM EST This is a split/shared visit with JULY Klein. I personally performed the medical decision making (MDM) for the care of this patient on 08/15/25 as documented below I have personally seen and examined this patient at bedside. I have reviewed and interpreted his medical records, vital signs, labs and radiology data. I discussed case with Reshma Og and I agree with physical exam assessment plan as outlined in her note. This is a 80-year-old male with coronary artery disease as well as severe peripheral vascular disease history of bladder cancer with recurrent UTIs including VRE Pseudomonas. He has thoracic aortic aneurysm currently presenting with weight loss and failure to thrive profound weakness acute kidney injury hypovolemia. He appears to have atrial fibrillation with rapid ventricular response. I agree with admission to the hospital and rate control with beta- shena as well as IV hydration. Check TSH levels. He is now in sinus rhythm. His [id number] score is a 4. He should be anticoagulated and I will start him on Eliquis. Acute on chronic renal disease likely because of dehydration and hypovolemia as well as ongoing ACEinhibitor use. I expect to improve with gentle hydration. Bactrim in addition is contributing to elevation of his creatinine. Avoid nephrotoxic medications and hold Bactrim. There is no obstruction on the CAT scan which I have personally reviewed. Chronic management as below Keon Chen MD 08/15/25 5:23 PM EST documented in this encounter Consult Notes * Mary Ellen Rodas, KIMBERLEY - 08/17/2025 3:20 PM ESTAssociated Order(s): IP CONSULT TO NUTRITION SERVICES 08/17/2025 @ 3:34 PM EST Nutrition Consult Note/Nutrition Assessment [employer] Services: Language: Bermudian video electrical laboratory technician Ryland # [id number] utilized for nutrition interview. Reason for RD Intervention: Assessment Type: Provider Consult Reason for Assessment: Other (Comment) (supplements) Anthropometrics: Height: 170 cm (66.93 ) Weight: 48.5 kg (106 lb 14.8 oz) BMI (Calculated): 16.8 BMI Class: Underweight UBW (lbs): (based on EPIC records, weight had been 123 lbs in February.) Recent Weight Change: (loss of 13.8% over 6 months) Current Diet and Supplements: Dietary Orders (From admission, onward) Start Ordered 08/17/25 1434 Dietary nutrition supplements Two times daily (BID); [facility]; Clear Liquid/ High Protein Supplement Continuous Comments: Vary flavors Question Answer Comment Frequency Two times daily (BID) Location [facility] Supplements Clear Liquid/ High Protein Supplement 08/17/25 1434 08/17/25 1434 Dietary nutrition supplements Lunch; [facility]; Standard Oral Supplement Continuous Comments: vanilla Question Answer Comment Frequency Lunch Location [facility] Supplements Standard Oral Supplement 08/17/25 1434 08/15/25 1513 Adult diet [facility]; General; Regular Diet effective now Question Answer Comment Location [facility] Diet Type (req) General General Diet Regular 08/15/25 1514 History of presenting illness: Patient is a 80 y.o. male with a history of Medical History[1] Surgical History[2] admitted 08/15/2025 with Sepsis with acute renal failure, due to unspecified organism,unspecified acute renal failure type, unspecified whether septic shock present (CMS/HCC V24, [facility] V28). Food/Nutrition History: Self-selected diet(s) followed: Pt reports PO has been less than 50% of usual for more than one month. States some days he may only consume a piece of bread. Denies food allergies. States he has no problems chewing or swallowing. Reports he has a liquid vitamin but on further interview it seems he is referring to Ensure clear suppplement provided by the Oncology Center. Pt reports constipation has limited PO, ate more today after having a BM. Pt states he had a pill to help with my appetite and is requesting to resume it. Appetite JOURNALISM INTERN: Poor Intake JOURNALISM INTERN: Decreased Social Influencers of Health & Nutrition - Hunger Vital Signs: Within the past 12 months we worried whether our food would run out before we got money to buy more: Patient declined Within the past 12 months the food we bought just didn't last and we didn't have money to get more: Patient declined Who obtained answers? Hunger vital signs completed by other discipline. Assistance: Unable to determine at this time Weight History: Wt Readings from Last 10 Encounters: 08/16/25 48.5 kg (106 lb 14.8 oz) 08/07/25 45.6 kg (100 lb 9.6 oz) 07/18/25 49.7 kg (109 lb 9.6 oz) 07/18/25 47.2 kg (104 lb) 06/20/25 51.7 kg (114 lb) 06/08/25 54.9 kg (121 lb) 06/01/25 54.7 kg (120 lb 9.6 oz) 05/30/25 53.5 kg (118 lb) 05/25/25 56.2 kg (124 lb) 05/18/25 55.3 kg (122 lb) Subjective Assessment: Pt presents with acute on chronic kidney injury, atrial fibrillation, lactic acidosis, constipation, UTI. Consult received for supplements. Renal labs improving. Pt willing to trial a variety of supplements. Also requesting to resume pill for his appetite. Nutrition-Related Lab Values: Results from last 7 days Lab Units 08/17/25 0524 08/16/25 0517 08/15/25 1053 SODIUM mmol/L 141 < > 133 POTASSIUM mmol/L 4.6 < > 5.0 MAGNESIUM mg/dL 2.0 < > 2.6 CHLORIDE mmol/L 113* < > 101 CO2 mmol/L 23 < > 25 BUN mg/dL 19 < > 35* CREATININE mg/dL 1.51* < > 2.31* EGFR mL/min/1.73m2 47* < > 28* CALCIUM mg/dL 7.9* < > 9.3 BILIRUBIN TOTAL mg/dL -- -- 0.4 ALK PHOS unit/L -- -- 138* ALT unit/L -- -- 30 AST unit/L -- -- 22 GLUCOSE mg/dL 85 < > 123* WBC AUTO K/mcL 5.1 < > 6.6 < > = values in this interval not displayed. Lab Results Component Value Date LIPASE 06/08/2025 Medications: MEDSSCHEDULED[3] CONTINUOUS: MEDSCONTINUOUS[4] MEDSPRN[5] Height: 170 cm (66.93 ) Temp: 36.2 ??C (97.1 ??F) Food/Nutrition-Current Status: Intake Type: P.O. Current Diet Status: Appropriate Appetite: Other (Comment) (improved at lunch today) Intake Amount (%): Unable to Assess (no percentage record listed, pt consumed about 80% of lunch today based on observation.) Intake Assessment: Other (Comment) (overall inadequate, improved today) Main IVF: NS Main IVF Rate (mL/hr): 125 Nutrition Focused Physical Findings: Overall Appearance: Pt appears comfortable in bed. Digestive System (Mouth to Rectum): Appetite change, Constipation Nerves and Cognition: Alert, Oriented Skin: old wound noted Fluid Accumulation/Edema: Other (Comment) (not observed on exam) Loss of Fat Location: Orbital, Buccal, Triceps, Ribs Loss of Fat Amt-Orbital: Mild Loss of Fat Amt-Buccal: Moderate Loss of Fat Amt-Triceps: Moderate Loss of Fat Amt-Ribs: Mild Loss of Muscle Location: Temples, Clavicle, Shoulders, Interosseous, Scapula, Thigh, Calf Loss of Muscle Amt-Temples: Moderate Loss of Muscle Amt-Clavicle: Moderate Loss of Muscle Amt-Shoulders: Mild Loss of Muscle Amt-Inter Musc: Moderate Loss of Muscle Amt-Scapula: (limited exam due to pt positioning) Loss of Muscle Amt-Thigh: Severe Loss of Muscle Amt-Calf: Severe Nutrition Diagnosis: Code Type: Severe-Chronic (E43) Severe-Chronic Criteria: Weight Loss >10%/6mos, Energy Intake <75%/1mo, Severe Muscle Mass Depletion Status: New Diagnosis: Malnutrition (severe chronic) Etiology: Increased energy needs, Changes in taste and appetite or preference (in the setting of chronic illness, (CKD, recent treatment for bladder cancer)) Symptoms: as evidenced by report of oral intake less than 50% of usual for more than one month. 13.8% weight loss over 6 months, severe depletino of muscle mass (calf,thigh) Nutrition Interventions: Medical Food Supplement Medical Food Supplement(s): (Ensure clear BID, ensure plus high protein daily) -for inadequate intake, thiamine daily for 7 days, if PO less than 75% on follow up add multivitamin daily Nutrition Education Regular diet. Pt recently met with RD at the oncology center (08/07/25) and had diet education for improving oral intake. Supplements provided to pt at home via oncology center as they are not covered by pt's insurance. Goals: Patient will consume greater than or equal to 75% meals., Patient will consume ONS., Improvement inrenal labs., Electrolytes within normal range., Minimize risk of refeeding syndrome., Maintain weight., Stooling appropriately., and Maintain skin integrity. Coordination of Patient Care: Care plan discussed with patient/family. and Discussed with provider(s) via [employer] Secure Chat/Haiku. Monitoring/Evaluation: Fluid/Beverage Intake, Food Intake, Medical Food Supp/Oral Nutrition Supp, Weight, Renal/Electrolyte Profile, Gastrointestinal Profile Follow Up: Nutrition Priority Level: High Nutritional Discharge Recommendations: Continue with small frequent meals, oral supplements RD remains available and will continue to follow. Signature: Mary Ellen Rodas RD [1] Past Medical History: Diagnosis Date Bladder cancer (CMS/HCC V24, CMS/HCC V28) Nephrostomy present (CMS/HCC V24, CMS/HCC V28) [2] Past Surgical History: Procedure Laterality Date BLADDER SURGERY CYSTOSCOPY [3] apixaban, 5 mg, oral, BID cefepime, 1 g, intravenous, q24h docusate sodium, 100 mg, oral, BID levothyroxine, 25 mcg, oral, q AM AC metoprolol tartrate, 25 mg, oral, BID perflutren lipid microsphere (DEFINITY) 0.39 mL in sodium chloride 0.9% 2.61 mL injection, 3 mL, intravenous, Once polyetheylene glycol, 17 g, oral, Daily [4] sodium chloride, 125 mL/hr, Last Rate: 125 mL/hr (08/17/25 0525) [5] PRN medications: acetaminophen, ondansetron (ZOFRAN-ODT) disintegrating tablet OR ondansetron, oxyCODONE, senna * Laura Underwood MD - 08/17/2025 1:21 PM ESTAssociated Order(s): IP CONSULT TO PSYCHIATRY Connected to patient's room via I-pad with help from locate technician; assistance much appreciated. Patient consented verbally to visit via Telehealth video conferencing modality. Patient educated asto likely differences between Telehealth care and face to face care. Patient informed of the risks and benefits of using Telehealth services and procedures and likely risks and benefits of using alternatives to Telehealth services. Patient informed of the right to refuse Telehealth services at any time without jeopardizing his/her right to future care, services or benefits. Patient was informed that he/she is being seen solely by Laura Underwood MD today via secure audio/visual connection in alocked virtual exam room. Persons present on patient's end: Patient, in-person electrical laboratory technician (Jessica), sitter Persons present on provider's end in [place]: Laura Underwood MD CHART REVIEWED, PATIENT INTERVIEWED. CHIEF COMPLAINT: Suicidal ideations Time spent on encounter: 40 min (27 min face to face, 13 min in chart review and documentation) Billing: [facility] HISTORY OF PRESENT ILLNESS Eulalio Miranda is a 80 y.o. Bermudian-speaking male with no known previous psychiatric history and medical history significant for but not limited to CAD, HTN, pseudomonas UTI, aortic aneurysm, malnutrition, hypothyroidism, constipation, anemia of chronic disease and bladder cancer who was admitted for atrial fibrillation with RVR and EM. Psychiatry was consulted after the patient expressed suicidal ideations with plan. The patient states that he did make suicidal statements and that he stands by them. He reports being tired of life and tired of fighting, and he wants his life to end. He states, That's the best way out, and he reports that if he killed himself he wouldn't have to worry about his problems anymore. He has thought about suicide in the past but has never actually made asuicide attempt. He doesn't own a gun but notes that it would be very easy for him to get one. He isn't sure if he is depressed or not. He does admit that his mood is low at present, and he doesn't feel like doing anything. He reiterates that he is just tired of life. He denies feeling anxious. REVIEW OF SYSTEMS CONSTITUTIONAL: The patient denies fevers, chills, sweats and body ache. HEENT: Denies R[place], blurry vision, eye pain, tinnitus, vertigo, gingival bleeding, sore throat, neck or thyroid masses. RESPIRATORY: Denies cough, sputum, hemoptysis. CARDIAC: Denies chest pain, pressure, palpitations, irregular heartbeats. Denies lower extremity edema. GASTROINTESTINAL: Denies abdominal pain, changes in bowel habits or any bleeding on toilet paper. GENITOURINARY: Denies dysuria, hematuria, nocturia or frequency. NEUROLOGIC: Denies headaches, dizziness, syncope. MUSCULOSKELETAL: Negative for arthritis. Denies muscle weakness. No limitation in range of motion. VASCULAR: Denies claudication and cramping. ENDOCRINOLOGY: Denies heat or cold intolerance. HEMATOLOGY: Denies easy bleeding or blood transfusion. DERMATOLOGY: Denies changes in moles or pigmentation changes. Psychiatric ROS: Depression: See HPI. Ekaterina: The patient denies elevated/expansive mood, decreased need for sleep, grandiosity, pressuredspeech, flight of ideas, distractibility, increase in goal directed activity, and hypersexuality. Psychosis: The patient denies audio or visual hallucinations, delusions, thought broadcasting, thought insertion, delusions of reference, catatonia, or disorganized speech or behavior. Anxiety: The patient denies any excessive worry, restlessness, fatigue, poor concentration, irritability, muscle tension, or anxiety-related sleep changes. Panic: The patient denies any recent panic episodes. PTSD: The patient does not endorse any current s/s related to PTSD. OCD: The patient denies intrusive thoughts, repetitive behaviors, counting, checking, washing, symmetry, or grouping and ordering that take up more than 1 hour of the day. Eating Disorder: The patient denies feeling overweight, excessive dieting or exercise to lose weight, overuse of laxatives, binging/purging behaviors, and amenorrhea. SOCIAL HISTORY : The patient was born in [place] and came to the [facility] in the [facility]. He was raised by a relative and has siblings that he did not grow up with. He dropped out of and never got a GED. Marital Status: . He has 5 adult children. Nondenominational: None Housing: Lives in a house with his son and DIL. 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 Legal: Denies any h/o legal issues. Trauma: Denies any h/o trauma. PSYCHIATRIC HISTORY Diagnosis: No previous psychiatric history. Outpatient treatment: The patient is not currently linked with any outpatient services. Residential treatment: Denies any h/o residential admissions. Inpatient admissions: Denies any h/o psychiatric admissions to hospital. Suicidal self-directed violence: Denies any h/o suicide attempts. Non-suicidal self-directed violence: Denies any h/o self-harming behaviors. Violence history: Denies any h/o violence. Psychotropic medication trials: None SUBSTANCE USE HISTORY Alcohol: Admits to alcohol use disorder in the past; quit drinking in October 2024. Prior to quitting, he was drinking a lot, - both beer and rum. Illicit Substances: Denies any current or past illicit drug use. Denies any h/o IVDU. Nicotine: Denies any current use. He quit smoking over 20 years ago. Caffeine: Drinks coffee - usually one cup per day. MEDICAL HISTORY Non-psychiatric medical history: Medical History[1] Current medications: MEDSSCHEDULED[2] ALLERGIES: Current Allergies[3] FAMILY HISTORY: Family History[4] [place] at age 25 - son MSE: Appearance: AOx4. Appears stated age, well groomed. Irritable but cooperative. Adequate eye contact. No psychomotor agitation or retardation. No evidence of EPS. Muscle tone/station: WNL. Orientation: To person, place, time, and situation. Attention and Concentration: No deficits in attention and concentration. Speech: Normal rate, rhythm, volume, and tone. Mood: I don't know. Affect: Tearful and dysphoric with restricted range, mood congruent. No lability noted. Thought Process: Coherent, linear, logical, and goal-directed. No FOI or DAVID. No thought blocking. Thought Content: SI with plan and intent, as above. Denies homicidal ideation. Denies auditory/visual hallucinations. No delusions. No paranoia. Perception/associations: Denies hallucinations, somatic complaints, or tactile disturbances Suicidal Ideations: SI with plan and intent, as above. Homicidal Ideations: Pt denies HI, intent, or plan. Low acute risk. No history of violence. No access to firearms. Behavior: No abnormal behavior during interview. Fund of Knowledge: Appropriate for age and level of education Intellect/Memory: Estimated as average based on interview. Immediate, recent, and remote memory is grossly intact. Language: No deficits Judgment/Insight: limited/poor Musculoskeletal Exam: Movement: [x]normal []abnormal [-]dyskinesias [-]tremors [-]tics Station: [x]upright []hyperflexed/stooped []hyperextended Muscle strength [x]appears normal [-]appears abnormal Muscle tone: [x]normal [-]muscle rigidity LABS: No results displayed because visit has over 200 results. Lab Requisition on 08/10/2025 Component Date Value Ref Range Status Culture, Bacterial ID and Sensitiv* 08/10/2025 Pseudomonas aeruginosa (A) Final Comment: The organism value for this result has been updated. These results have been appended to the previously preliminary verified report. This is an edited result. Previous organism was Gram negative bacilli on 08/12/2025 at 1041 EDT. Culture, Bacterial ID and Sensitiv* 08/10/2025 Vancomycin resistant Enterococcus faecium (A) Final Comment: The organism value for this result has been updated. These results have been appended to the previously preliminary verified report. This is an edited result. Previous organism was Enterococcus species on 08/12/2025 at 1041 EDT. VITALS: BP: 156/62 (08/17 0802) Heart Rate: 52 (08/17 0802) Heart Rate Source: Monitor (08/15 1421) Temp: 36.2 ??C (97.2 ??F) (08/17 802) Temp Source: Temporal (08/17 802) SpO2: 100 % (08/17 802) ASSESSMENT: Eulalio Miranda is a 80 y.o. Bermudian-speaking male with no known previous psychiatric history and medical history significant for but not limited to CAD, HTN, pseudomonas UTI, aortic aneurysm, malnutrition, hypothyroidism, constipation, anemia of chronic disease and bladder cancer who was admitted for atrial fibrillation with RVR and EM. Psychiatry was consulted after the patient expressed suicidal ideations with plan. DSM-5 DIAGNOSIS: Suicidal ideations Alcohol use disorder, in early remission Depressive disorder vs adjustment disorder with depressed mood CAD, HTN, pseudomonas UTI, aortic aneurysm, malnutrition, hypothyroidism, constipation, anemia of chronic disease and bladder cancer Admitted for atrial fibrillation with RVR and EM TREATMENT PLAN: Pt has verbalized understanding and given consent/agreement with medications and plan offered. LEVEL OF CARE: Continue current level of treatment. RECOMMENDATIONS: Offered initiation of an antidepressant, but the patient declines. He is not interested in any psychotropic medications. The patient meets criteria for Section 12 and cannot leave the hospital AMA. Continue sitter for safety. Please alert the u/s once the patient has been medically cleared. At that time, will ask the behavioral health director to evaluate the patient for possible admission to a psychiatric unit. Medication Education: Risks, benefits, alternatives, and potential side effects were discussed withthe patient. Patient voiced understanding and agreed with medication regimen described above. LABS: Reviewed and discussed most recent labs results. MEDICATION CONTRACT: Patient agreed to take medication only as prescribed and acknowledges that services may be terminated if prescription abuse is observed. SAFETY PLAN: Patient is to alert team if symptoms worsen. Team will monitor for development of suicidal ideations or an acute medication reaction. - Call 911 or present to nearest Emergency Room in case of crisis / suicidal thoughts upon discharge. EDUCATION/CONSENT: Discussed and explained all diagnoses including differential diagnosis and treatment options. Discussed risks, benefits, potential side effects, contraindications, potential drug-drug interactions, alternatives to current medications and medication allergies as noted above. Discussed continuing to monitor for side effects and treatment efficacy prospectively and delineated patient's involvement and responsibility in monitoring for side effects and efficacy. July winslow expressed understanding of these recommendations. BARRIERS TO LEARNING: Patient demonstrates a readiness to learn. Patient verbalizes understanding and agrees to plan. No barriers to communication noted. MEDICATION RECONCILIATION: Medications were reviewed and reconciled with the patient. PREVENTATIVE RECOMMENDATIONS: Preventative Health Education Counseling: discussed proper diet/nutrition, exercise, and sleep hygiene. The patient was encouraged to avoid nicotine, alcohol and illicitdrugs at all times. The patient was made aware that records from the u/s can be sent to his/her PCP at any time that he/she requests. [1] Past Medical History: Diagnosis Date Bladder cancer ([facility] V24, [facility] V28) Nephrostomy present ([facility] V24, [facility] V28) [2] apixaban, 5 mg, oral, BID cefepime, 1 g, intravenous, q24h docusate sodium, 100 mg, oral, BID levothyroxine, 25 mcg, oral, q AM AC metoprolol tartrate, 25 mg, oral, BID perflutren lipid microsphere (DEFINITY) 0.39 mL in sodium chloride 0.9% 2.61 mL injection, 3 mL, intravenous, Once polyetheylene glycol, 17 g, oral, Daily [3] Allergies Allergen Reactions Atorvastatin Calcium Rash Taxol [Paclitaxel] Pain Chest Pain, HTN, [4] Family History Problem Relation Name Age of Onset Cancer Neg Hx * Williams Wood MD - 08/16/2025 8:48 AM ESTAssociated Order(s): IP CONSULT TO VASCULAR SURGERY Images from the original note were not included. VASCULAR SURGERY CONSULTATION PATIENT: Eulalio Miranda ENCOUNTER: 08/17/2025 EMRN: [id number] : 1945 PCP: Noemi Oliva MD CHIEF COMPLAINT: Weakness - Generalized HPI: Patient is a 80 y.o. Bermudian speaking male with history of CAD, hypertension, bladder cancer s/p TURBT, left ureteral stent replacement and nephrostomy tube, and further history noted below [facility] ED on 04[facility] for evaluation of right flank pain and dark, foul smelling output from nephrostomy tube. In the ER, patient had temp of 100.4, BP 140/56, HR 72 and O2 sat 97% on room air. Labs revealed WBC count 8.0, H&H 8.8 [address] Creatinine 2.02. CT abdomen/pelvis was performed which revealed right nephrostomy tube with severe hydronephrosis without obstruction mass orcalculus, mild left hydroureter, additional findings noted below. Vascular surgery consulted for incidental finding of non-occlusive descending thoracic aortic dissection which is presumably chronic with a 5 cm descending thoracic aortic aneurysm. Patient denies chest pain, back pain. Discussed with Dr. Wood. No vascular surgery intervention warranted at this time. Recommend repeat CTA chest in3 months with follow up in vascular surgery office once imaging has been completed. Patient missed his follow-up appointment however underwent CTA of the chest on 07/26/2025. He was readmitted on 08/15/2025 through the [facility] ED with generalized weakness, A-fib with RVR and UTI. He denies any chest or back pain. He is companied by his daughter who is acting as a quality project manager. Patient is a former smoker, quit >30 years ago. He denies any prior vascular procedures. Medical History[1] Surgical History[2] Current Medications[3] Allergies[4] Social History Tobacco Use Smoking status: Former Current packs/day: 2.00 Types: Cigarettes Smokeless tobacco: Never Substance Use Topics Alcohol use: Not Currently Comment: Has not drank since October 2024 Family History[5] ROS: GENERAL: No malaise, significant weight loss or fever NECK: No lumps, goiter, pain or significant neck swelling RESPIRATORY: No cough, wheezing or shortness of breath CARDIAC: No chest pain or palpitations GI: No abdominal discomfort MUSCULOSKELETAL: SEE HPI SKIN: No lesions, rash or itching NEURO: No persistent headache, syncope, seizures, weakness or numbness VASCULAR: SEE HPI Objective No intake/output data recorded. I/O last 3 completed shifts: In: 1210 (24.9 mL/kg) [P.O.:1200; IV Piggyback:10] Out: 1620 (33.4 mL/kg) [Urine:1620 (0.9 mL/kg/hr)] Weight: 48.5 kg Vitals: 08/16/25 1952 08/16/25 2309 08/17/25 0450 08/17/25 0802 BP: (!) 119/48 (!) 140/52 (!) 163/60 (!) 156/62 BP Location: Right arm Right arm Patient Position: Lying Lying Pulse: 50 (!) 46 54 52 Resp: 18 16 Temp: 36.3 ??C (97.3 ??F) 36.4 ??C (97.6 ??F) 36.1 ??C (97 ??F) 36.2 ??C (97.2 ??F) TempSrc: Temporal Temporal SpO2: 100% 100% 100% 100% Weight: Height: General: Alert and oriented x 3, no acute distress, well-nourished HEENT: Normocephalic atraumatic Neck: No JVD, no carotid bruit, carotid pulses present Chest: Respiratory effort normal Cardiac: Regular rate rhythm Abdomen: Soft, nontender, nondistended, no widened aortic pulse Extremities: -Right upper extremity: 2+ radial artery pulses palpable. -Left upper extremity: 2+ radial artery pulses palpable. -Right lower extremity: 2+ femoral artery and PT pulses palpable. No ulcers or gangrene. -Left lower extremity: 2+ femoral artery and PT pulses palpable. No ulcers or gangrene. Integumentary: No wounds Lymphatics: No lymphadenopathy Neuro: Grossly intact RESULTS: CBC Lab Results Component Value Date WBC 5.1 08/17/2025 HGB 9.3 (L) 08/17/2025 HCT 32.3 (L) 08/17/2025 MCV 85.2 08/17/2025 PLT 222 08/17/2025 LYMPHOPCT 16.8 08/17/2025 MONOPCT 9.0 08/17/2025 EOSPCT 5.5 08/17/2025 Electrolytes Lab Results Component Value Date NA 141 08/17/2025 K 4.6 08/17/2025 CL 113 (H) 08/17/2025 BUN 19 08/17/2025 CREATININE 1.51 (H) 08/17/2025 EGFR 47 (L) 08/17/2025 GLUCOSE 85 08/17/2025 CALCIUM 7.9 (L) 08/17/2025 Lab Results Component Value Date MG 2.0 08/17/2025 IMAGING: Eulalio Miranda Procedures: CT Angio Chest wo and/or w Contrast Accession Number: [id number] Date of Study: 07/26/2025 Ordering Provider: JULY Thomas Clinical Indications: Thoracic aortic aneurysm (TAA), follow up Reading Physicians Performing Staff Radiology: Colby Rahman MD Tech: Jo Rangel Shank Taper: Sb Bates Patient Information Patient Name Eulalio Miranda Legal Sex Male (80 y.o.) PACS Images Show images for CT Angio Chest wo and/or w Contrast Diagnosis Priority: Routine Thoracic aortic aneurysm without rupture, unspecified part ([facility] V24) [I71.20 (ICD-10-CM)] Performing Physician Performing Physician/Midlevel: None Interpretation Summary PROCEDURE: CT pulmonary angiogram. HISTORY: Thoracic aortic aneurysm (TAA), follow up. TECHNIQUE: CT of the chest with intravenous contrast administration with pulmonary angiogram protocol. Coronal and sagittal reformats and MIP reconstructions were created. Dose length product: 336 mGy-cm. Contrast dose: 90 mL ISOVUE-370. COMPARISON: FINDINGS: LUNGS/PLEURA: Small amount of aspirated debris in the trachea near the thoracic inlet. Mild centrilobular edema. Patchy groundglass opacities in the left lower lobe and mild interstitial scarring at both bases. Stable 4 mm right middle lobe nodule, series 3 image 128. Stable 5 mm lateral right lower lobe juxtapleural nodule, series 3 image 130. Previously demonstrated small bilateral pleural effusions have resolved. MEDIASTINUM/ROMÁN: No mass or lymphadenopathy. VASCULATURE: Normal caliber pulmonary arteries. No pulmonary embolism. Standard three-vessel aorticarch. Multifocal hard and soft plaque throughout the aorta and great vessels. Ascending aorta measures 3.5 cm in diameter. There is fusiform dilatation of the lower descending thoracic and upper abdominal aorta, measuring up to 4.9 x 4.1 cm in diameter. Aortic caliber is unchanged compared with thenoncontrast study on 02/19/2025. There are thin irregular irregular webs in the anterior aortic lumen just above the level of maximal aortic dilatation. CARDIAC: Mild cardiomegaly. Mild coronary artery calcification. CHEST WALL: No axillary or supraclavicular lymphadenopathy. LIMITED ABDOMEN: Evaluation limited by motion. There are partially visible bilateral double-J nephroureteral stents. Visualized portions of the stents appear well-positioned. Moderately distended gallbladder. Multifocal atherosclerotic calcifications.. BONES: Mild degenerative changes of the spine and shoulders. Thin syndesmophytes raise the possibility of ankylosing spondylitis. Stable mild anterior wedging of the T7 vertebral body. IMPRESSION: Stable fusiform dilatation of the lower descending thoracic and upper abdominal aorta. There are thin irregular webs in the anterior aortic lumen just above the level of maximal dilatation which are not apparent on the comparison noncontrast CT. -------- FINAL REPORT -------- Dictated By: Colby Rahman Dictated Date: 08/03/2025 10:03 ET Assigned Physician: Colby Rahman Reviewed and Electronically Signed By: Colby Rahman Signed Date: 08/03/2025 10:32 ET Workstation ID: [id number] Transcribed By: Self Edit Transcribed Date: 08/03/2025 10:03 ET 08/15/25 TRANSTHORACIC ECHOCARDIOGRAM (TTE) COMPLETE (CONTRAST/BUBBLE/3D PRN) 08/16/2025 08/16/2025 Interpretation Summary Left Ventricle: Left ventricle cavity is mildly dilated. Wall thickness is normal. Systolic function is normal with an ejection fraction of 65-70%. There are no regional LV wall motion abnormalities.There is Grade II (moderate) diastolic dysfunction. Left Atrium: Left atrium cavity is mildly dilated. Left atrium volume index is mildly increased. Right Ventricle: Right ventricle cavity is dilated. Normal TAPSE (> 17 mm). Normal systolic excursion velocity by TDI (>9.5 cm/s). Right Atrium: Right atrium cavity is dilated. Aortic Valve: There is moderate regurgitation with a centrally directed jet. There is no significant stenosis. Mitral Valve: There is mild regurgitation. Aorta: The Sinus of Valsalva is (3.9 cm). The ascending aorta is (3.9 cm). No previous echocardiogram available for comparison. Signed by: Kelby Barajas MD on 08/16/2025 11:[address] Abdomen Pelvis wo Contrast ( (Order [id number]) Status: Final result PACS Images Show images for CT Abdomen Pelvis wo Contrast Study Result Narrative & Impression EXAMINATION: CT ABDOMEN/PELVIS WITHOUT IV CONTRAST CLINICAL INFORMATION: Abdomen pain. History of prostate cancer COMPARISON: Portions of previous 04/25/25 TECHNIQUE: Multidetector CT. Helical examination of the abdomen and pelvis. Imaging performed without IV contrast. Reformatting in the coronal and sagittal planes. DLP: 309 mGy-cm Dose optimization was performed including the use of low-dose iterative reconstruction technique with automatic exposure control based on patient size. Type of contrast: None Volume of IV contrast: None Volume of contrast discarded: 0 mL FINDINGS: Digital candy decorator demonstrates bilateral nephroureteral stents. LIVER: The liver is normal in size, shape, and attenuation. No focal hepatic lesion or biliary ductal dilatation is present. No additional liver findings. BILIARY TRACT: There is no opaque gallstone. There is mild prominence of the extrahepatic biliary tree without an opaque duct calculus. This appears similar to previous. SPLEEN: Normal size. No focal lesion. PANCREAS: No suspicious abnormality. ADRENAL GLANDS: No suspicious abnormality. KIDNEYS: The right kidney measures approximately 7.1 cm. The left kidney measures at least 9.5 cm. The upper aspect of the stent is coiled in the region of the collecting system on each side. The stents traverse the ureter on each side. The distal aspect of the stents are within the urinary bladder. There is no significant dilation of the urinary collecting system. No large renal mass or calculus. URINARY BLADDER: The bladder is not well distended. The bladder wall is thickened. PELVIC VISCERA: No suspicious abnormality. Calcifications in the region of the vas deferens can be seen with diabetes. GASTROINTESTINAL TRACT: Large amount of fecal residue throughout the colon. No localized area of colonic wall thickening. No localized fat stranding. The stomach is not distended. I suspect a duodenal diverticulum. No evidence of pneumoperitoneum. ABDOMINAL WALL: No significant hernia is appreciated. LYMPHOVASCULAR STRUCTURES AND FLUID: There are extensive arterial calcifications. There are no enlarged lymph nodes. There is no significant free intraperitoneal fluid. The uppermost images demonstrate dilation of the descending thoracic aorta which measures at least 4.6 cm. This measured approximately 4.2 cm on 04/25/25. VISUALIZED LOWER CHEST: There is a nodule in the periphery of the left lower lung (3/1). This is not significantly changed since 04/25/25. Probable gynecomastia. MUSCULOSKELETAL: No acute or suspicious osseous abnormality. IMPRESSION: There are bilateral nephroureteral stents in place. No acute abnormality. -------- FINAL REPORT -------- Dictated By: Timothy Rose Dictated Date: 08/15/2025 11:19 ET Assigned Physician: Timothy Rose Reviewed and Electronically Signed By: Timothy Rose Signed Date: 08/15/2025 11:28 ET Workstation ID: [id number] Transcribed By: Self Edit Transcribed Date: 08/15/2025 11:19 ET I have personally reviewed all the reports and images. ASSESSMENT: 1. Sepsis with acute renal failure, due to unspecified organism, unspecified acute renal failure type, unspecified whether septic shock present (CMS/HCC V24, CMS/HCC V28) 2. Urinary tract infection in male 3. Acute kidney injury (CMS/HCC V24) 4. Atrial fib/flutter, transient (CMS/HCC V24, CMS/HCC V28) RECOMMENDATIONS: 80 y.o. 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 Patient denies chest pain, back pain. All findings on updated CTA are stable. No vascular surgery intervention warranted at this time. Recommend repeat CTA chest in 6 months to 1 year with follow up in vascular surgery office once imaging has been completed. All findings were discussed at length with the patient and his daughter at length. All questions were answered to their satisfaction. I spent 45 minutes in an encounter with this patient, including time spent with patient, chart review, reviewing diagnostic studies, and documentation. High complexity decision making. [1] Past Medical History: Diagnosis Date Bladder cancer (CMS/HCC V24, CMS/HCC V28) Nephrostomy present (CMS/HCC V24, CMS/HCC V28) [2] Past Surgical History: Procedure Laterality Date BLADDER SURGERY CYSTOSCOPY [3] Current Facility-Administered Medications Medication Dose Route Frequency Provider Last Rate Last Admin acetaminophen (TYLENOL) tablet 650 mg 650 mg oral q6h PRN JULY Klein apixaban (ELIQUIS) tablet 5 mg 5 mg oral BID Keon Chen MD cefepime (MAXIPIME) 1 g in sterile water 10 mL IV syringe 1 g intravenous q24h JULY Klein 1 g at 08/17/25 0843 docusate sodium (COLACE) capsule 100 mg 100 mg oral BID JULY Klein 100 mg at 08/17/25 0842 levothyroxine (SYNTHROID, LEVOTHROID) tablet 25 mcg 25 mcg oral q AM AC J Luis Tello MD 25 mcg at 08/17/25 0842 metoprolol tartrate (LOPRESSOR) tablet 25 mg 25 mg oral BID JULY Klein 25 mg at 08/15/25 2130 ondansetron ODT (ZOFRAN-ODT) disintegrating tablet 4 mg 4 mg oral q8h PRN JULY Klein Or ondansetron (PF) (ZOFRAN) injection 4 mg 4 mg intravenous q8h PRN JULY Klein oxyCODONE (ROXICODONE) immediate release tablet 5 mg 5 mg oral q6h PRN JULY Klein 5 mg at 08/15/252144 perflutren lipid microsphere (DEFINITY) 0.39 mL in sodium chloride 0.9% 2.61 mL injection 3 mL intravenous Once Kelby Barajas MD polyethylene glycol (MIRALAX) packet 17 g 17 g oral Daily JULY Klein 17 g at 08/17/25 0842 senna (SENOKOT) tablet 17.2 mg 2 tablet oral Nightly PRN JULY Botello 17.2 mg at 08/16/25 214 sodium chloride 0.9 % infusion 125 mL/hr intravenous Continuous JULY Klein 125 mL/hr at110/17/24 0525 125 mL/hr at 08/17/25 0525 [4] Allergies Allergen Reactions Atorvastatin Calcium Rash Taxol [Paclitaxel] Pain Chest Pain, HTN, [5] Family History Problem Relation Name Age of Onset Cancer Neg Hx documented in this encounter Miscellaneous Notes * ED Bed Hold Note - Christina Espino RN - 08/15/2025 10:22 AM EST Bed: RD-13 Expected date: 08/15/25 Expected time: Means of arrival: Comments: Expect from dr lott documented in this encounter Plan of Treatment Upcoming Encounters Date Type Department Care Team (Late st Contact Info) Description 09/01/2025 10:00 AM EST Consult Vascular Surgery - [place] [address] [place] [address] Williams Wood MD [address] [place] [phone] Scheduled Referrals Name Type Priority Associated Diagnoses Orde r Schedule Ambulatory referral to Home Health Outpatient Referral Routine Physical deconditioning 1 Occurrences starting 08/20/2025 until 08/20/2026 documented as of this encounter Procedures Procedure Name Priority Date/Time Associated Diagnosis Comments ECG ANNOTATED 08/21/2025 EXTRA TUBES Routine 08/20/2025 5:52 AM EST LAVENDER - EDTA Routine 08/20/2025 5:52 AM EST MAGNESIUM Routine 08/20/2025 5:52 AM EST BASIC METABOLIC PANEL Routine 08/20/2025 5:52 AM EST CBC WITH AUTO DIFFERENTIAL Routine 08/18/2025 6:37 AM EST CBC AND DIFFERENTIAL Routine 08/18/2025 6:37 AM EST MAGNESIUM Timed 08/18/2025 6:37 AM EST BASIC METABOLIC PANEL Routine 08/18/2025 6:37 AM EST CBC WITH AUTO DIFFERENTIAL Routine 08/17/2025 5:24 AM EST CBC AND DIFFERENTIAL Routine 08/17/2025 5:24 AM EST MAGNESIUM Timed 08/17/2025 5:24 AM EST BASIC METABOLIC PANEL Routine 08/17/2025 5:24 AM EST TRANSTHORACIC ECHOCARDIOGRAM (TTE) COMPLETE W/ CONTRAST Routine 08/16/2025 8:09 AM EST Atrial fib/flutter, transient (CMS/HCC V24, CMS/HCC V28) CBC WITH AUTO DIFFERENTIAL Routine 08/16/2025 5:17 AM EST CBC AND DIFFERENTIAL Routine 08/16/2025 5:17 AM EST MAGNESIUM Timed 08/16/2025 5:17 AM EST BASIC METABOLIC PANEL Routine 08/16/2025 5:17 AM EST THYROID STIMULATING HORMONE WITH REFLEX TO FREE T4 AND FREE T3 Routine 08/15/2025 5:13 PM EST FREE THYROXINE WITH REFLEX TO FREE TRIIODOTHYRONINE Routine 08/15/2025 5:13 PM EST CULTURE BLOOD STAT 08/15/2025 5:13 PM EST TRIIODOTHYRONINE FREE Routine 08/15/2025 5:13 PM EST CULTURE BLOOD STAT 08/15/2025 5:10 PM EST LACTATE, WITH REFLEX Timed 08/15/2025 2:35 PM EST URINALYSIS WITH REFLEX MICROSCOPIC STAT 08/15/2025 1:41 PM EST SERNA URINE CULTURE TUBE Routine 08/15/20 1:41 PM EST URINALYSIS WITH REFLEX MICROSCOPIC STAT 08/15/2025 1:41 PM EST EXTRA TUBES Routine 08/15/2025 1:41 PM EST YELLOW URINE NO ADDITIVE Routine 08/15/2025 1:41 PM EST CULTURE URINE STAT 08/15/2025 1:41 PM EST ECG 12-LEAD STAT 08/15/2025 12:59 PM EST XR CHEST 1 VIEW STAT 08/15/2025 12:56 PM EST TROPONIN I HIGH SENSITIVITY Timed 08/15/2025 11:[address] ABDOMEN PELVIS WO CONTRAST STAT 08/15/2025 11:02 AM EST LACTATE, WITH REFLEX STAT 08/15/2025 10:53 AM EST TROPONIN I HIGH SENSITIVITY Timed 08/15/2025 10:53 AM EST THYROID STIMULATING HORMONE WITH REFLEX TO FREE T4 AND FREE T3 Add-On 08/15/2025 10:53 AM EST FREE THYROXINE WITH REFLEX TO FREE TRIIODOTHYRONINE Routine 08/15/2025 10:53 AM EST CBC WITH AUTO DIFFERENTIAL STAT 08/15/2025 10:53 AM EST ACTIVATED PARTIAL THROMBOPLASTIN TIME STAT 08/15/2025 10:53 AM EST PROTHROMBIN TIME WITH INR STAT 08/15/2025 10:53 AM EST CBC AND DIFFERENTIAL STAT 08/15/2025 10:53 AM EST TRIIODOTHYRONINE FREE Routine 08/15/2025 10:53 AM EST MAGNESIUM STAT Add-on 08/15/2025 10:53 AM EST COMPREHENSIVE METABOLIC PANEL STAT 08/15/2025 10:53 AM EST ECG 12-LEAD STAT 08/15/2025 10:27 AM EST [facility] 30-74 MINUTES Routine 08/15/2025 10:13 AM EST documented in this encounter Results * ECG-Annotated (08/21/2025) us Provider Onbase MD ECG ORDERABLES Final Result * Lavender tube (08/20/2025 5:52 AM EST) Extra Tube Hold for add-ons. 08/20/2025 8:01 AM EST [facility] Comment:Auto resulted. Blood Venous blood specimen / Unknown Venipuncture / Unknown 08/20/2025 5:52 AM EST 08/20/2025 6:11 AM EST J Luis Tello MD LAB BLOOD ORDERABLES Final Re sult Performing Organization Address [facility] [address]/ZIP Co de Phone Number [facility] [address] [place] [address], [place] [phone] * (ABNORMAL) Magnesium (08/20/2025 5:52 AM EST) Magnesium 1.6(L) 1.9 - 2.6 mg/dL LAB CHEMISTRY METHOD 08/20/2025 7:11 AM EST [facility] Blood Venous blood specimen / Unknown Venipuncture / Unknown 08/20/2025 5:52 AM EST 08/20/2025 6:09 AM EST J Luis Tello MD LAB BLOOD ORDERABLES Final Re sult [facility] [address] [place] [address], [place] [phone] * (ABNORMAL) Basic metabolic panel (08/20/2025 5:52 AM EST) Sodium 141 133 - 145 mmol/L LAB CHEMISTRY METHOD 08/20/2025 7:11 AM [facility] Potassium 4.2 3.5 - 5.5 mmol/L LAB CHEMISTRY METHOD 08/20/2025 7:11 AM [facility] Chloride 115(H) 96 - 110 mmol/L LAB CHEMISTRY METHOD 08/20/2025 7:11 AM [facility] CO2 22 21 - 32 mmol/L LAB CHEMISTRY METHOD 08/20/2025 7:11 AM [facility] Anion Gap 4 3 - 11 LAB CHEMISTRY METHOD 08/20/2025 7:11 AM [facility] Glucose 88 70 - 100 mg/dL LAB CHEMISTRY METHOD 08/20/2025 7:11 AM [facility] BUN 10 5 - 25 mg/dL LAB CHEMISTRY METHOD 08/20/2025 7:11 AM [facility] Creatinine 1.14 0.70 - 1.30 mg/dL LAB CHEMISTRY METHOD 08/20/2025 7:11 AM [facility] eGFR 66 >=60 mL/min/1. 73m2 LAB CHEMISTRY METHOD 08/20/2025 7:11 AM [facility] Comment:Calculation based on the Chronic Kidney Disease Epidemiology Collaboration (CKD-EPI) equation refit without adjustment for race. BUN/Creatinine Ratio 8.8 LAB CHEMISTRY METHOD 08/20/2025 7:11 AM [facility] Calcium 7.5(L) 8.5 - 10.5 mg/dL LAB CHEMISTRY METHOD 08/20/2025 7:11 AM [facility] Blood Venous blood specimen / Unknown Venipuncture / Unknown 08/20/2025 5:52 AM EST 08/20/2025 6:09 AM EST us J Luis Tello MD LAB BLOOD ORDERABLES Final Re sult [facility] [address] [place] [address], [place] [phone] * (ABNORMAL) CBC auto differential (08/18/2025 6:37 AM EST) WBC 5.0 4.8 - 10.8 K/mcL LAB HEMETOLOGY METHOD 08/18/2025 7:29 AM [facility] RBC 3.60(L) 4.50 - 5.50 M/mcL LAB HEMETOLOGY METHOD 08/18/2025 7:29 AM [facility] Hemoglobin 8.9(L) 13.5 - 17.5 g/dL LAB HEMETOLOGY METHOD 08/18/2025 7:29 AM [facility] Hematocrit 30.7(L) 42.0 - 54.0 % LAB HEMETOLOGY METHOD 08/18/2025 7:29 AM [facility] MCV 84.3 79.0 - 98.0 FL LAB HEMETOLOGY METHOD 08/18/2025 7:29 AM [facility] MCH 24.5(L) 27.0 - 32.0 pcg LAB HEMETOLOGY METHOD 08/18/2025 7:29 AM [facility] MCHC 29.0(L) 32.0 - 37.0 g/dL LAB HEMETOLOGY METHOD 08/18/2025 7:29 AM [facility] RDW 17.1(H) 11.0 - 15.0 % LAB HEMETOLOGY METHOD 08/18/2025 7:29 AM [facility] Platelets 205 130 - 400 K/mcL LAB HEMETOLOGY METHOD 08/18/2025 7:29 AM [facility] MPV 9.9 7.0 - 11.0 FL LAB HEMETOLOGY METHOD 08/18/2025 7:29 AM [facility] NRBC 0.0 <1.0 % LAB HEMETOLOGY METHOD 08/18/2025 7:29 AM [facility] NRBC Absolute 0.00 <0.10 K/mcL LAB HEMETOLOGY METHOD 08/18/2025 7:29 AM [facility] Neutrophils Relative 64.4 % LAB HEMETOLOGY METHOD 08/18/2025 7:29 AM [facility] Lymphocytes Relative 19.8 % LAB HEMETOLOGY METHOD 08/18/2025 7:29 AM [facility] Monocytes Relative 8.7 % LAB HEMETOLOGY METHOD 08/18/2025 7:29 AM [facility] Eosinophils Relative 6.3 % LAB HEMETOLOGY METHOD 08/18/2025 7:29 AM [facility] Basophils Relative 0.4 % LAB HEMETOLOGY METHOD 08/18/2025 7:29 AM [facility] Immature Granulocytes Relative 0.4 % LAB HEMETOLOGY METHOD 08/18/2025 7:29 AM [facility] Neutrophils Absolute 3.20 1.50 - 7.00 K/mcL LAB HEMETOLOGY METHOD 08/18/2025 7:29 AM [facility] Lymphocytes Absolute 0.98(L) 1.00 - 5.00 K/mcL LAB HEMETOLOGY METHOD 08/18/2025 7:29 AM [facility] Monocytes Absolute 0.43 0.20 - 1.00 K/mcL LAB HEMETOLOGY METHOD 08/18/2025 7:29 AM [facility] Eosinophils Absolute 0.31 0.00 - 0.50 K/mcL LAB HEMETOLOGY METHOD 08/18/2025 7:29 AM [facility] Basophils Absolute 0.02 0.00 - 0.20 K/[facility] LAB HEMETOLOGY METHOD 08/18/2025 7:29 AM EST [facility] Immature Granulocytes Absolute 0.02 0.00 - 0.03 K/[facility] HEMETOLOGY METHOD 08/18/2025 7:29 AM EST [facility] Blood Venous blood specimen / Unknown Venipuncture / Unknown 08/18/2025 6:37 AM EST 08/18/2025 7:14 AM EST [facility] BLOOD ORDERABLES Final Result Performing Organization Address City/[facility] [address]/ZIP Co de Phone Number [facility] [address] [place] [address], [place] [phone] * Magnesium (08/18/2025 6:37 AM EST) Pathologist [facility] Magnesium 1.9 1.9 - 2.6 mg/dL LAB CHEMISTRY METHOD 08/18/2025 7:47 AM EST [facility] Blood Venous blood specimen / Unknown Venipuncture / Unknown 08/18/2025 6:37 AM EST 08/18/2025 7:14 AM EST Marilee Og [place] LAB BLOOD ORDERABLES Final Result Performing Organization Address City/[facility] [address]/ZIP Co de Phone Number [facility] [address] [place] [address], [place] [phone] * (ABNORMAL) Basic metabolic panel (08/18/2025 6:37 AM EST) Sodium 140 133 - 145 mmol/L LAB CHEMISTRY METHOD 08/18/2025 7:47 AM EST [facility] Potassium 4.4 3.5 - 5.5 mmol/L LAB CHEMISTRY METHOD 08/18/2025 7:47 AM EST [facility] Chloride 114(H) 96 - 110 mmol/L LAB CHEMISTRY METHOD 08/18/2025 7:47 AM [facility] CO2 22 21 - 32 mmol/L LAB CHEMISTRY METHOD 08/18/2025 7:47 AM [facility] Anion Gap 4 3 - 11 LAB CHEMISTRY METHOD 08/18/2025 7:47 AM [facility] Glucose 84 70 - 100 mg/dL LAB CHEMISTRY METHOD 08/18/2025 7:47 AM [facility] BUN 14 5 - 25 mg/dL LAB CHEMISTRY METHOD 08/18/2025 7:47 AM [facility] Creatinine 1.43(H) 0.70 - 1.30 mg/dL LAB CHEMISTRY METHOD 08/18/2025 7:47 AM [facility] eGFR 50(L) >=60 mL/min/1. 73m2 LAB CHEMISTRY METHOD 08/18/2025 7:47 AM [facility] Comment:Calculation based on the Chronic Kidney Disease Epidemiology Collaboration (CKD-EPI) equation refit without adjustment for race. BUN/Creatinine Ratio 9.8 LAB CHEMISTRY METHOD 08/18/2025 7:47 AM [facility] Calcium 7.7(L) 8.5 - 10.5 mg/dL LAB CHEMISTRY METHOD 08/18/2025 7:47 AM [facility] Blood Venous blood specimen / Unknown Venipuncture / Unknown 08/18/2025 6:37 AM EST 08/18/2025 7:14 AM EST us Marilee MCDOWELL LAB BLOOD ORDERABLES Final Result [facility] [address] [place] [address], * (ABNORMAL) CBC auto differential (08/17/2025 5:24 AM EST) WBC 5.1 4.8 - 10.8 K/mcL LAB HEMETOLOGY METHOD 08/17/2025 7:03 AM [facility] RBC 3.80(L) 4.50 - 5.50 M/mcL LAB HEMETOLOGY METHOD 08/17/2025 7:03 AM [facility] Hemoglobin 9.3(L) 13.5 - 17.5 g/dL LAB HEMETOLOGY METHOD 08/17/2025 7:03 AM [facility] Hematocrit 32.3(L) 42.0 - 54.0 % LAB HEMETOLOGY METHOD 08/17/2025 7:03 AM [facility] MCV 85.2 79.0 - 98.0 FL LAB HEMETOLOGY METHOD 08/17/2025 7:03 AM [facility] MCH 24.5(L) 27.0 - 32.0 pcg LAB HEMETOLOGY METHOD 08/17/2025 7:03 AM [facility] MCHC 28.8(L) 32.0 - 37.0 g/dL LAB HEMETOLOGY METHOD 08/17/2025 7:03 AM [facility] RDW 16.9(H) 11.0 - 15.0 % LAB HEMETOLOGY METHOD 08/17/2025 7:03 AM [facility] Platelets 222 130 - 400 K/mcL LAB HEMETOLOGY METHOD 08/17/2025 7:03 AM [facility] MPV 10.3 7.0 - 11.0 FL LAB HEMETOLOGY METHOD 08/17/2025 7:03 AM [facility] NRBC 0.0 <1.0 % LAB HEMETOLOGY METHOD 08/17/2025 7:03 AM [facility] NRBC Absolute 0.00 <0.10 K/mcL LAB HEMETOLOGY METHOD 08/17/2025 7:03 AM [facility] Neutrophils Relative 67.7 % LAB HEMETOLOGY METHOD 08/17/2025 7:03 AM [facility] Lymphocytes Relative 16.8 % LAB HEMETOLOGY METHOD 08/17/2025 7:03 AM [facility] Monocytes Relative 9.0 % LAB HEMETOLOGY METHOD 08/17/2025 7:03 AM [facility] Eosinophils Relative 5.5 % LAB HEMETOLOGY METHOD 08/17/2025 7:03 AM [facility] Basophils Relative 0.8 % LAB HEMETOLOGY METHOD 08/17/2025 7:03 AM [facility] Immature Granulocytes Relative 0.2 % LAB HEMETOLOGY METHOD 08/17/2025 7:03 AM [facility] Neutrophils Absolute 3.48 1.50 - 7.00 K/mcL LAB HEMETOLOGY METHOD 08/17/2025 7:03 AM [facility] Lymphocytes Absolute 0.86(L) 1.00 - 5.00 K/mcL LAB HEMETOLOGY METHOD 08/17/2025 7:03 AM [facility] Monocytes Absolute 0.46 0.20 - 1.00 K/mcL LAB HEMETOLOGY METHOD 08/17/2025 7:03 AM [facility] Eosinophils Absolute 0.28 0.00 - 0.50 K/mcL LAB HEMETOLOGY METHOD 08/17/2025 7:03 AM [facility] Basophils Absolute 0.04 0.00 - 0.20 K/mcL LAB HEMETOLOGY METHOD 08/17/2025 7:03 AM [facility] Immature Granulocytes Absolute 0.01 0.00 - 0.03 K/mcL LAB HEMETOLOGY METHOD 08/17/2025 7:03 AM [facility] Blood Venous blood specimen / Unknown Venipuncture / Unknown 08/17/2025 5:24 AM EST 08/17/2025 6:34 AM EST Marilee MCDOWELL LAB BLOOD ORDERABLES Final Result [facility] [address] [place] [address], [place] [phone] * Magnesium (08/17/2025 5:24 AM EST) Magnesium 2.0 1.9 - 2.6 mg/dL LAB CHEMISTRY METHOD 08/17/2025 7:29 AM [facility] Blood Venous blood specimen / Unknown Venipuncture / Unknown 08/17/2025 5:24 AM EST 08/17/2025 6:34 AM EST Marilee MCDOWELL LAB BLOOD ORDERABLES Final Result Performing Organization Address [facility] [address]/ZIP Co de Phone Number [facility] [address] [place] [address], [place] [phone] * (ABNORMAL) Basic metabolic panel (08/17/2025 5:24 AM EST) Pathologist [facility] Sodium 141 133 - 145 mmol/L LAB CHEMISTRY METHOD 08/17/2025 7:29 AM [facility] Potassium 4.6 3.5 - 5.5 mmol/L LAB CHEMISTRY METHOD 08/17/2025 7:29 AM [facility] Chloride 113(H) 96 - 110 mmol/L LAB CHEMISTRY METHOD 08/17/2025 7:29 AM [facility] CO2 23 21 - 32 mmol/L LAB CHEMISTRY METHOD 08/17/2025 7:29 AM [facility] Anion Gap 5 3 - 11 LAB CHEMISTRY METHOD 08/17/2025 7:29 AM [facility] Glucose 85 70 - 100 mg/dL LAB CHEMISTRY METHOD 08/17/2025 7:29 AM [facility] BUN 19 5 - 25 mg/dL LAB CHEMISTRY METHOD 08/17/2025 7:29 AM [facility] Creatinine 1.51(H) 0.70 - 1.30 mg/dL LAB CHEMISTRY METHOD 08/17/2025 7:29 AM [facility] eGFR 47(L) >=60 mL/min/1. 73m2 LAB CHEMISTRY METHOD 08/17/2025 7:29 AM [facility] Comment:Calculation based on the Chronic Kidney Disease Epidemiology Collaboration (CKD-EPI) equation refit without adjustment for race. BUN/Creatinine Ratio 12.6 LAB CHEMISTRY METHOD 08/17/2025 7:29 AM [facility] Calcium 7.9(L) 8.5 - 10.5 mg/dL LAB CHEMISTRY METHOD 08/17/2025 7:29 AM [facility] Blood Venous blood specimen / Unknown Venipuncture / Unknown 08/17/2025 5:24 AM EST 08/17/2025 6:34 AM EST Marilee MCDOWELL LAB BLOOD ORDERABLES Final Result [facility] [address] [place] [address], * (ABNORMAL) TRANSTHORACIC ECHOCARDIOGRAM (TTE) COMPLETE W/ CONTRAST (08/16/2025 8:09 AM EST) BSA 1.51 m2 CV PACS LV EDV (A2C) 111 mL CV PACS LV EDV (A4C) 121 mL CV PACS LV Diastolic Volume (BP) 116 62 - 150 mL CV PACS LV ESV (A2C) 36 mL CV PACS LV ESV (A4C) 41 mL CV PACS LV Systolic Volume (BP) 38 21 - 61 mL CV PACS IVSD 0.7 0.6 - 1.0 cm CV PACS LVIDD 4.9 4.2 - 5.8 cm CV PACS LVIDS 2.9 2.5 - 4.0 cm CV PACS LVOT Diameter 2.0 cm CV PACS LVOT Mean [place] 0.6 m/s CV PACS LVOT Mean Grad 1 mmHg CV PACS LVOT Peak VTI 25.3 cm CV PACS LVOT Peak [place] 0.9 m/s CV PACS LVOT Peak Gradient 3 mmHg CV PACS LVPWD 0.9 0.6 - 1.0 cm CV PACS MV E' Tissue Velocity Lateral 8 cm/s CV PACS MV E' Tissue Velocity Septal 6 cm/s CV PACS Ejection Fraction (A2C) 67 % CV PACS Ejection Fraction (A4C) 66 % CV PACS Ejection Fraction (BP) 67 % CV PACS LVOT Area 3.1 cm2 CV PACS LVOT Stroke Volume 79 mL CV PACS Left Atrium Minor [place] 5.8 cm CV PACS Left Atrium Major [place] 6.7 cm CV PACS LA Area Sys (A2C) 20 cm2 CV PACS LA Area Sys (A4C) 22 cm2 CV PACS LA Volume (BP) 62 mL CV PACS RA Area 21.5 cm2 CV PACS RA 2D Volume 64 mL CV PACS AV Regurgitation PHT 810 ms CV PACS AV Regurgitation PHT 721 ms CV PACS AV Regurgitation PHT 752 ms CV PACS AV Regurgitation PHT 772 ms CV PACS AV Regurgitation PHT 663 ms CV PACS AR Max Velocity 3.9 m/s CV PACS AV Regurgitant Volume 59 mmHg CV PACS AV Peak [place] 1.1 m/s CV PACS AV Peak Gradient 5 mmHg CV PACS AV Mean Gradient 3 mmHg CV PACS Ao VTI 29.3 cm CV PACS AV Area Continuity Equation 2.7 cm2 CV PACS AV Area Peak Velocity 2.6 cm2 CV PACS Aortic Sinus Valsalva 3.9 cm CV PACS Ascending Aorta 3.9 cm CV PACS IVC Proximal 2.0 cm CV PACS MV Deceleration [place] 2.3 m/s2 CV PACS E Wave Deceleration Time 278(A) 119 - 242 ms CV PACS MV PHT 81 ms CV PACS MV Peak A [place] 0.56 m/s CV PACS MV Peak E [place] 0.65 m/s CV PACS MV Area PHT 2.7 cm2 CV PACS KS End Max Velocity 1.0 m/s CV PACS PA End Diastolic Pressure 4 mmHg CV PACS PV Acceleration Time 121 ms CV PACS PV Acceleration Time 121 ms CV PACS RV Diastolic Basal Dimension 4.5(A) 2.5 - 4.1 cm CV PACS RV S' 15 cm/s CV PACS TAPSE 21 mm CV PACS TR Peak Velocity 2.10 m/s CV PACS TR Peak Gradient 18 mmHg CV PACS LV ESV Index (A4C) 26 mL/m2 CV PACS LV EDV Index (A4C) 78 mL/m2 CV PACS E/E' Ratio Septal 11 CV PACS E/E' Ratio Averaged 9 CV PACS LVOT Stroke Index 51 mL/m2 CV PACS Relative Wall Thickness ratio 0.37 CV PACS LVOT:AV VTI Index 0.86 CV PACS FS 41 % CV PACS LV Mass 2D 131 g CV PACS Ascending Aorta Index 2.52 cm/m2 CV PACS LVOT flow 188 mL/s CV PACS RA 2D Volume Index 41 mL/m2 CV PACS NICOLA Index (VTI) 1.75 cm2/m2 CV PACS NICOLA Index (Pk [place]) 1.68 cm2/m2 CV PACS LVIDD Index 3.16 cm/m2 CV PACS LVIDS Index 1.87 cm/m2 CV PACS AV Velocity Ratio 0.82 CV PACS E/A Ratio 1.2 CV PACS E/E' Ratio Lateral 8 CV PACS LV Systolic Volume Index (BP) 25 mL/m2 CV PACS LV Diastolic Volume Index (BP) 75 mL/m2 CV PACS LA Volume Index (BP) 40 mL/m2 CV PACS LV Mass Index 2D 85 g/m2 CV PACS LV EDV Index (A2C) 72 mL/m2 CV PACS LV ESV Index (A2C) 23 mL/m2 CV PACS Right Ventricular Peak Systolic Pressure 21 mmHg CV PACS Est. RA Pressure 3 mmHg CV PACS Anatomical Region Laterality Modality Ultrasound Narrative 08/16/2025 11:48 AM EST Left Ventricle: Left ventricle cavity is mildly dilated. Wall thickness is normal. Systolic function is normal with an ejection fraction of 65-70%. There are no regional LV wall motion abnormalities. There is Grade II (moderate) diastolic dysfunction. Left Atrium: Left atrium cavity is mildly dilated. Left atrium volume index is mildly increased. Right Ventricle: Right ventricle cavity is dilated. Normal TAPSE (> 17 mm). Normal systolic excursion velocity by TDI (>9.5 cm/s). Right Atrium: Right atrium cavity is dilated. Aortic Valve: There is moderate regurgitation with a centrally directed jet. There is no significant stenosis. Mitral Valve: There is mild regurgitation. Aorta: The Sinus of Valsalva is (3.9 cm). The ascending aorta is (3.9 cm). No previous echocardiogram available for comparison. Left Ventricle Left ventricle cavity is mildly dilated. Wall thickness is normal. Systolic function is normal with an ejection fraction of 65-70%. There are no regional LV wall motion abnormalities. There is Grade II (moderate) diastolic dysfunction. Right Ventricle Right ventricle cavity is dilated. Normal TAPSE (> 17 mm). Normal systolic excursion velocity by TDI (>9.5 cm/s). Left Atrium Left atrium cavity is mildly dilated. Left atrium volume index is mildly increased. Right Atrium Right atrium cavity is dilated. IVC/SVC Inferior vena cava structure is normal. RA pressures is estimated to be 3 mmHg (IVC diameter <21 mm and decreases >50% during inspiration). Mitral Valve Mitral valve structure is normal. There is mild regurgitation. There is no evidence of mitral valve stenosis. Tricuspid Valve Tricuspid valve structure is normal. There is mild regurgitation. There is no evidence of tricuspid valve stenosis. Aortic Valve The aortic valve is trileaflet. There is moderate regurgitation with a centrally directed jet. There is no significant stenosis. Pulmonic Valve Visualized portions of the pulmonic valve appear normal. There is mild pulmonic valve regurgitation. There is no evidence of pulmonic valve stenosis. Ascending Aorta The Sinus of Valsalva is (3.9 cm). The ascending aorta is (3.9 cm). Pericardium Pericardium appears normal. There is no pericardial effusion. Study Details Overall the study quality was adequate. Definity contrast was given to enhance imaging. Study was difficult due to: patient body habitus. Wall Scoring Baseline Score Index: 1.00 The left ventricular wall motion is normal. us Marilee MCDOWELL CV ECHO PROCEDURES Final R esult * (ABNORMAL) CBC auto differential (08/16/2025 5:17 AM EST) WBC 5.3 4.8 - 10.8 K/mcL LAB HEMETOLOGY METHOD 08/16/2025 6:41 AM [facility] RBC 3.50(L) 4.50 - 5.50 M/mcL LAB HEMETOLOGY METHOD 08/16/2025 6:41 AM [facility] Hemoglobin 8.5(L) 13.5 - 17.5 g/dL LAB HEMETOLOGY METHOD 08/16/2025 6:41 AM [facility] Hematocrit 29.6(L) 42.0 - 54.0 % LAB HEMETOLOGY METHOD 08/16/2025 6:41 AM [facility] MCV 84.3 79.0 - 98.0 FL LAB HEMETOLOGY METHOD 08/16/2025 6:41 AM [facility] MCH 24.2(L) 27.0 - 32.0 pcg LAB HEMETOLOGY METHOD 08/16/2025 6:41 AM [facility] MCHC 28.7(L) 32.0 - 37.0 g/dL LAB HEMETOLOGY METHOD 08/16/2025 6:41 AM [facility] RDW 16.9(H) 11.0 - 15.0 % LAB HEMETOLOGY METHOD 08/16/2025 6:41 AM [facility] Platelets 247 130 - 400 K/mcL LAB HEMETOLOGY METHOD 08/16/2025 6:41 AM [facility] MPV 10.4 7.0 - 11.0 FL LAB HEMETOLOGY METHOD 08/16/2025 6:41 AM [facility] NRBC 0.0 <1.0 % LAB HEMETOLOGY METHOD 08/16/2025 6:41 AM [facility] NRBC Absolute 0.00 <0.10 K/mcL LAB HEMETOLOGY METHOD 08/16/2025 6:41 AM [facility] Neutrophils Relative 69.0 % LAB HEMETOLOGY METHOD 08/16/2025 6:41 AM [facility] Lymphocytes Relative 14.8 % LAB HEMETOLOGY METHOD 08/16/2025 6:41 AM [facility] Monocytes Relative 10.6 % LAB HEMETOLOGY METHOD 08/16/2025 6:41 AM [facility] Eosinophils Relative 4.4 % LAB HEMETOLOGY METHOD 08/16/2025 6:41 AM [facility] Basophils Relative 0.8 % LAB HEMETOLOGY METHOD 08/16/2025 6:41 AM [facility] Immature Granulocytes Relative 0.4 % LAB HEMETOLOGY METHOD 08/16/2025 6:41 AM [facility] Neutrophils Absolute 3.64 1.50 - 7.00 K/mcL LAB HEMETOLOGY METHOD 08/16/2025 6:41 AM [facility] Lymphocytes Absolute 0.78(L) 1.00 - 5.00 K/mcL LAB HEMETOLOGY METHOD 08/16/2025 6:41 AM [facility] Monocytes Absolute 0.56 0.20 - 1.00 K/mcL LAB HEMETOLOGY METHOD 08/16/2025 6:41 AM [facility] Eosinophils Absolute 0.23 0.00 - 0.50 K/mcL LAB HEMETOLOGY METHOD 08/16/2025 6:41 AM [facility] Basophils Absolute 0.04 0.00 - 0.20 K/mcL LAB HEMETOLOGY METHOD 08/16/2025 6:41 AM [facility] Immature Granulocytes Absolute 0.02 0.00 - 0.03 K/mcL LAB HEMETOLOGY METHOD 08/16/2025 6:41 AM [facility] Blood Venous blood specimen / Unknown Venipuncture / Unknown 08/16/2025 5:17 AM EST 08/16/2025 6:19 AM EST Marilee MCDOWELL LAB BLOOD ORDERABLES Final Result Performing Organization Address City/[facility] [address]/ZIP Co de Phone Number [facility] [address] [place] [address], * Magnesium (08/16/2025 5:17 AM EST) Magnesium 2.3 1.9 - 2.6 mg/dL LAB CHEMISTRY METHOD 08/16/2025 7:10 AM [facility] Blood Venous blood specimen / Unknown Venipuncture / Unknown 08/16/2025 5:17 AM EST 08/16/2025 6:19 AM EST aMrilee MCDOWELL LAB BLOOD ORDERABLES Final Result Performing Organization Address [facility] [address]/ZIP Co de Phone Number [facility] [address] [place] [address], * (ABNORMAL) Basic metabolic panel (08/16/2025 5:17 AM EST) Pathologist [facility] Sodium 140 133 - 145 mmol/L LAB CHEMISTRY METHOD 08/16/2025 7:10 AM [facility] Potassium 5.1 3.5 - 5.5 mmol/L LAB CHEMISTRY METHOD 08/16/2025 7:10 AM [facility] Chloride 111(H) 96 - 110 mmol/L LAB CHEMISTRY METHOD 08/16/2025 7:10 AM [facility] CO2 24 21 - 32 mmol/L LAB CHEMISTRY METHOD 08/16/2025 7:10 AM [facility] Anion Gap 5 3 - 11 LAB CHEMISTRY METHOD 08/16/2025 7:10 AM [facility] Glucose 84 70 - 100 mg/dL LAB CHEMISTRY METHOD 08/16/2025 7:10 AM [facility] BUN 28(H) 5 - 25 mg/dL LAB CHEMISTRY METHOD 08/16/2025 7:10 AM [facility] Creatinine 1.81(H) 0.70 - 1.30 mg/dL LAB CHEMISTRY METHOD 08/16/2025 7:10 AM EST [facility] eGFR 38(L) >=60 mL/min/1. 73m2 LAB CHEMISTRY METHOD 08/16/2025 7:10 AM [facility] Comment:Calculation based on the Chronic Kidney Disease Epidemiology Collaboration (CKD-EPI) equation refit without adjustment for race. BUN/Creatinine Ratio 15.5 LAB CHEMISTRY METHOD 08/16/2025 7:10 AM [facility] Calcium 8.2(L) 8.5 - 10.5 mg/dL LAB CHEMISTRY METHOD 08/16/2025 7:10 AM [facility] Blood Venous blood specimen / Unknown Venipuncture / Unknown 08/16/2025 5:17 AM EST 08/16/2025 6:19 AM EST us Marilee MCDOWELL LAB BLOOD ORDERABLES Final Result [facility] [address] [place] [address], [place] [phone] * (ABNORMAL) Triiodothyronine free (08/15/2025 5:13 PM EST) T3, Free 207(L) 230 - 420 pcg/dL LAB CHEMISTRY METHOD 08/15/2025 10:03 PM EST [facility] Blood Venous blood specimen / Unknown Venipuncture / Unknown 08/15/2025 5:13 PM EST 08/15/2025 5:19 PM EST Marilee MCDOWELL LAB BLOOD ORDERABLES Final Result [facility] [address] [place] [address], [place] [phone] * Free thyroxine with reflex to free triiodothyronine (08/15/2025 5:13 PM EST) Free T4 0.78 0.70 - 1.80 ng/dL LAB CHEMISTRY METHOD 08/15/2025 7:35 PM EST [facility] Blood Venous blood specimen / Unknown Venipuncture / Unknown 08/15/2025 5:13 PM EST 08/15/2025 5:19 PM EST Marilee Og [facility] LAB BLOOD ORDERABLES Final Result Performing Organization Address [facility] [address]/ZIP Co de Phone Number [facility] [address] [place] [address], [place] [phone] * (ABNORMAL) Thyroid stimulating hormone with reflex to free t4 and free t3 (08/15/2025 5:13 PM EST) Pathologist [facility] TSH 5.80(H) 0.40 - 4.00 mcIU/mL LAB CHEMISTRY METHOD 08/15/2025 6:04 PM EST [facility] Blood Venous blood specimen / Unknown Venipuncture / Unknown 08/15/2025 5:13 PM EST 08/15/2025 5:19 PM EST us Marilee MCDOWELL LAB BLOOD ORDERABLES Final Result Performing Organization Address City/[facility] [address]/ZIP Co de Phone Number [facility] [address] [place] [address], [place] [phone] * Culture blood (08/15/2025 5:13 PM EST) Pathologist [facility] Culture, Blood No growth at 5 days 08/20/2025 6:01 PM EST [facility] Blood Venous blood specimen / Unknown Venipuncture / Unknown 08/15/2025 5:13 PM EST 08/15/2025 5:19 PM EST Marilee MCDOWELL LAB MICROBIOLOGY - GENERAL ORDERABLES Final Result Performing Organization Address [facility] [address]/[facility] Co de Phone Number [facility] [address] [place] [address], * Culture blood (08/15/2025 5:10 PM EST) Culture, Blood No growth at 5 days 08/20/2025 6:01 PM EST [facility] Blood Venous blood specimen / Unknown Venipuncture / Unknown 08/15/2025 5:10 PM EST 08/15/2025 5:19 PM EST Marilee MCDOWELL LAB MICROBIOLOGY - GENERAL ORDERABLES Final Result Performing Organization Address [facility] [address]/[facility] Co de Phone Number [facility] [address] [place] [address], * Lactate, with reflex (08/15/2025 2:35 PM EST) Pathologist [facility] LACTIC ACID 1.9 0.4 - 2.0 mmol/L LAB CHEMISTRY METHOD 08/15/2025 3:36 PM EST [facility] Blood Venous blood specimen / Unknown Venipuncture / Unknown 08/15/2025 2:35 PM EST 08/15/2025 3:00 PM EST Ej Dixon MD LAB BLOOD ORDERABLES Final Result Performing Organization Address [facility] [address]/[facility] Co de Phone Number [facility] [address] [place] [address], * Culture urine (08/15/2025 1:41 PM EST) Culture, Urine <10,000 CFU/mL gram positive cocci, insignificant count, no further workup 08/18/2025 11:22 AM EST [facility] Urine Urine specimen from urethra / Unknown 08/15/2025 1:41 PM EST 08/16/2025 7:58 AM EST J Luis Tello MD LAB MICROBIOLOGY - GENERAL OR DERABLES Final Result Performing Organization Address [facility] [address]/ZIP Co de Phone Number [facility] [address] [place] [address], [place] [phone] * Yellow urine no additive (08/15/2025 1:41 PM EST) Extra Tube Hold for add-ons. 08/15/2025 3:01 PM EST [facility] Comment:Auto resulted. Urine Urine specimen obtained by clean catch procedure / Unknown 08/15/2025 1:41 PM EST 08/15/2025 1:58 PM EST Ej Dixon MD LAB URINE ORDERABLES Final Result Performing Organization Address [facility] Co de Phone Number [facility] [address] [place] [address], [place] [phone] * Serna urine culture tube (08/15/2025 1:41 PM EST) Extra Tube Hold for add-ons. 08/15/2025 3:01 PM EST [facility] Comment:Auto resulted. Urine Urine specimen obtained by clean catch procedure / Unknown 08/15/2025 1:41 PM EST 08/15/2025 1:58 PM EST Ej Dixon MD LAB URINE ORDERABLES Final Result Performing Organization Address [facility] [address]/[facility] Co de Phone Number [facility] [address] [place] [address], [place] [phone] * (ABNORMAL) Urinalysis with reflex microscopic (08/15/2025 1:41 PM EST) Specific [place] Urine 1.014 1.003 - 1.030 LAB URINALYSIS - AUTOMATED METHOD 08/15/2025 2:56 PM [facility] pH, Urine 6.0 5.0 - 8.0 pH LAB URINALYSIS - AUTOMATED METHOD 08/15/2025 2:56 PM [facility] Leukocytes, Urine Large(A) Negative LAB URINALYSIS - AUTOMATED METHOD 08/15/2025 2:56 PM [facility] Nitrite, Urine Positive(A) Negative LAB URINALYSIS - AUTOMATED METHOD 08/15/2025 2:56 PM [facility] Protein, Urine 100(A) <=Trace mg/dL LAB URINALYSIS - AUTOMATED METHOD 08/15/2025 2:56 PM [facility] Glucose, Urine Negative Negative mg/dL LAB URINALYSIS - AUTOMATED METHOD 08/15/2025 2:56 PM [facility] Ketones, Urine Negative Negative mg/dL LAB URINALYSIS - AUTOMATED METHOD 08/15/2025 2:56 PM [facility] Urobilinogen , Urine 1.0 0.2 - 1.0 mg/dL LAB URINALYSIS - AUTOMATED METHOD 08/15/2025 2:56 PM [facility] Bilirubin, Urine Negative Negative LAB URINALYSIS - AUTOMATED METHOD 08/15/2025 2:56 PM [facility] Blood, Urine Large(A) Negative LAB URINALYSIS - AUTOMATED METHOD 08/15/2025 2:56 PM [facility] RBC, Urine 50.0(H) 0 - 4 /HPF LAB URINALYSIS - AUTOMATED METHOD 08/15/2025 2:56 PM [facility] WBC, Urine 73.1(H) 0 - 4 /HPF LAB URINALYSIS - AUTOMATED METHOD 08/15/2025 2:56 PM [facility] Squamous Epithelial, Urine 68(H) 0 - 60 /LPF LAB URINALYSIS - AUTOMATED METHOD 08/15/2025 2:56 PM [facility] Bacteria, Urine Moderate(A) Negative /HPF LAB URINALYSIS - AUTOMATED METHOD 08/15/2025 2:56 PM EST [facility] Hyaline Casts, Urine 1.6 0 - 3 /LPF LAB URINALYSIS - AUTOMATED METHOD 08/15/2025 2:56 PM EST [facility] Other Casts, Urine 2-5 FINE GRANULAR /LPF LAB URINALYSIS - AUTOMATED METHOD 08/15/2025 2:56 PM EST [facility] Urine Urine specimen obtained by clean catch procedure / Unknown Non-blood Collection / Unknown 08/15/2025 1:41 PM EST 08/15/2025 1:57 PM EST Ej Dixon MD LAB URINE ORDERABLES Final Result [facility] [address] [place] [address], [place] [phone] * ECG 12 lead (08/15/2025 12:59 PM EST) Ventricular Rate ECG 85 BPM [facility] Atrial Rate 85 BPM GEMUSE P-R Interval 150 ms GEMUSE QRS Duration 70 ms GEMUSE Q-T Interval 382 ms GEMUSE QTc 454 ms GEMUSE P Wave [place] 33 degrees GEMUSE R [place] -29 degrees GEMUSE T [place] 10 degrees GEMUSE ECG Interpretation Normal sinus rhythm Normal ECG When compared with ECG of 15-AUG-2025 10:27, (unconfirmed) Sinus rhythm has replaced Atrial fibrillation Vent. rate has decreased BY [address] no longer depressed in Lateral leads Nonspecific T wave abnormality, improved in Lateral leads Confirmed by KELBY BARAJAS ([id number]) on 08/15/2025 7:55:18 PM [facility] 08/15/2025 12:5 9 PM EST 08/15/2025 7:55 PM EST Ej Dixon MD ECG ORDERABLES Final Resul t GEM[facility] * XR Chest 1 View (08/15/2025 12:56 PM EST) Anatomical Region Laterality Modality Body Radiographic Laney ging 08/15/2025 1:49 PM EST Impressions 08/15/2025 1:49 PM EST FINDINGS/IMPRESSION: No consolidation or effusion. No congestive heart failure. -------- FINAL REPORT -------- Dictated By: Segundo Brown Dictated Date: 08/15/2025 13:49 ET Assigned Physician: Segundo Brown Reviewed and Electronically Signed By: Segundo Brown Signed Date: 08/15/2025 13:49 ET Workstation ID: [id number] Transcribed By: Self Edit Transcribed Date: 08/15/2025 13:49 ET Narrative 08/15/2025 1:49 PM EST XR CHEST 1 VIEW INDICATION: general weakness TECHNIQUE: XR CHEST 1 VIEW COMPARISON: None Procedure Note Segundo Brown MD - 08/15/2025 XR CHEST 1 VIEW INDICATION: general weakness TECHNIQUE: XR CHEST 1 VIEW COMPARISON: None IMPRESSION: FINDINGS/IMPRESSION: No consolidation or effusion. No congestive heartfailure. -------- FINAL REPORT -------- Dictated By: Segundo Brown Dictated Date: 08/15/2025 13:49 ET Assigned Physician: Segundo Brown Reviewed and Electronically Signed By: Segundo Brown Signed Date: 08/15/2025 13:49 ET Workstation ID: [id number] Transcribed By: Self Edit Transcribed Date: 08/15/2025 13:49 ET us Ej Dixon MD IMG XR PROCEDURES Final Res ult * Troponin I high sensitivity (08/15/2025 11:52 AM EST) High Sensitivity Troponin I 12 <=79 ng/L LAB CHEMISTRY METHOD 08/15/2025 12:36 PM EST [facility] Blood Venous blood specimen / Unknown Venipuncture / Unknown 08/15/2025 11:52 AM EST 08/15/2025 12:04 PM EST N[facility]ative [facility] - 08/15/2025 12:36 PM EST High levels of biotin in samples may falsely decrease hsTroponin values. Use caution when interpreting hsTroponin results in patients taking biotin who exhibit renal impairment (eGFR <60) or in patients taking more than 20 mg/day of biotin. us Ej Dixon MD LAB BLOOD ORDERABLES Final Result [facility] [place] [facility] [address] [place] [address], [place] [phone] * CT Abdomen Pelvis wo Contrast (08/15/2025 11:02 AM EST) Anatomical Region Laterality Modality Body Computed Tomogra phy 08/15/2025 11:1 9 AM EST Impressions 08/15/2025 11:28 AM EST There are bilateral nephroureteral stents in place. No acute abnormality. -------- FINAL REPORT -------- Dictated By: Timothy Rose Dictated Date: 08/15/2025 11:19 ET Assigned Physician: Timothy Rose Reviewed and Electronically Signed By: Timothy Rose Signed Date: 08/15/2025 11:28 ET Workstation ID: [id number] Transcribed By: Self Edit Transcribed Date: 08/15/2025 11:19 ET Narrative 08/15/2025 11:28 AM EST EXAMINATION: CT ABDOMEN/PELVIS WITHOUT IV CONTRAST CLINICAL INFORMATION: Abdomen pain. History of prostate cancer COMPARISON: Portions of previous 04/25/25 TECHNIQUE: Multidetector CT. Helical examination of the abdomen and pelvis. Imaging performed without IV contrast. Reformatting in the coronal and sagittal planes. DLP: 309 mGy-cm Dose optimization was performed including the use of low-dose iterative reconstruction technique with automatic exposure control based on patient size. Type of contrast: None Volume of IV contrast: None Volume of contrast discarded: 0 mL FINDINGS: Digital candy decorator demonstrates bilateral nephroureteral stents. LIVER: The liver is normal in size, shape, and attenuation. No focal hepatic lesion or biliary ductal dilatation is present. No additional liver findings. BILIARY TRACT: There is no opaque gallstone. There is mild prominence of the extrahepatic biliary tree without an opaque duct calculus. This appears similar to previous. SPLEEN: Normal size. No focal lesion. PANCREAS: No suspicious abnormality. ADRENAL GLANDS: No suspicious abnormality. KIDNEYS: The right kidney measures approximately 7.1 cm. The left kidney measures at least 9.5 cm. The upper aspect of the stent is coiled in the region of the collecting system on each side. The stents traverse the ureter on each side. The distal aspect of the stents are within the urinary bladder. There is no significant dilation of the urinary collecting system. No large renal mass or calculus. URINARY BLADDER: The bladder is not well distended. The bladder wall is thickened. PELVIC VISCERA: No suspicious abnormality. Calcifications in the region of the vas deferens can be seen with diabetes. GASTROINTESTINAL TRACT: Large amount of fecal residue throughout the colon. No localized area of colonic wall thickening. No localized fat stranding. The stomach is not distended. I suspect a duodenal diverticulum. No evidence of pneumoperitoneum. ABDOMINAL WALL: No significant hernia is appreciated. LYMPHOVASCULAR STRUCTURES AND FLUID: There are extensive arterial calcifications. There are no enlarged lymph nodes. There is no significant free intraperitoneal fluid. The uppermost images demonstrate dilation of the descending thoracic aorta which measures at least 4.6 cm. This measured approximately 4.2 cm on 04/25/25. VISUALIZED LOWER CHEST: There is a nodule in the periphery of the left lower lung (3/1). This is not significantly changed since 04/25/25. Probable gynecomastia. MUSCULOSKELETAL: No acute or suspicious osseous abnormality. Procedure Note Timothy Rose MD - 08/15/2025 EXAMINATION: CT ABDOMEN/PELVIS WITHOUT IV CONTRAST CLINICAL INFORMATION: Abdomen pain. History of prostate cancer COMPARISON: Portions of previous 04/25/25 TECHNIQUE: Multidetector CT. Helical examination of the abdomen and pelvis. Imaging performed without IV contrast. Reformatting in the coronal and sagittal planes. DLP: 309 mGy-cm Dose optimization was performed including the use of low-dose iterativereconstruction technique with automatic exposure control based on patientsize. Type of contrast: None Volume of IV contrast: None Volume of contrast discarded: 0 mL FINDINGS: Digital candy decorator demonstrates bilateral nephroureteral stents. LIVER: The liver is normal in size, shape, and attenuation. No focalhepatic lesion or biliary ductal dilatation is present. No additionalliver findings. BILIARY TRACT: There is no opaque gallstone. There is mild prominence ofthe extrahepatic biliary tree without an opaque duct calculus. Thisappears similar to previous. SPLEEN: Normal size. No focal lesion. PANCREAS: No suspicious abnormality. ADRENAL GLANDS: No suspicious abnormality. KIDNEYS: The right kidney measures approximately 7.1 cm. The left kidneymeasures at least 9.5 cm. The upper aspect of the stent is coiled in the region of the collectingsystem on each side. The stents traverse the ureter on each side. Thedistal aspect of the stents are within the urinary bladder. There is nosignificant dilation of the urinary collecting system. No large renal massor calculus. URINARY BLADDER: The bladder is not well distended. The bladder wall isthickened. PELVIC VISCERA: No suspicious abnormality. Calcifications in the regionof the vas deferens can be seen with diabetes. GASTROINTESTINAL TRACT: Large amount of fecal residue throughout thecolon. No localized area of colonic wall thickening. No localized fatstranding. The stomach is not distended. I suspect a duodenal diverticulum. No evidence of pneumoperitoneum. ABDOMINAL WALL: No significant hernia is appreciated. LYMPHOVASCULAR STRUCTURES AND FLUID: There are extensive arterialcalcifications. There are no enlarged lymph nodes. There is no significantfree intraperitoneal fluid. The uppermost images demonstrate dilation of the descending thoracic aortawhich measures at least 4.6 cm. This measured approximately 4.2 cm on04/25/25. VISUALIZED LOWER CHEST: There is a nodule in the periphery of the leftlower lung (3/1). This is not significantly changed since 04/25/25.Probable gynecomastia. MUSCULOSKELETAL: No acute or suspicious osseous abnormality. IMPRESSION: There are bilateral nephroureteral stents in place. No acute abnormality. -------- FINAL REPORT -------- Dictated By: Timothy Rose Dictated Date: 08/15/2025 11:19 ET Assigned Physician: Timothy Rose Reviewed and Electronically Signed By: Timothy Rose Signed Date: 08/15/2025 11:28 ET Workstation ID: [id number] Transcribed By: Self Edit Transcribed Date: 08/15/2025 11:19 ET Ej Dixon MD IMG CT PROCEDURES Final Res ult * (ABNORMAL) Triiodothyronine free (08/15/2025 10:53 AM EST) T3, Free 226(L) 230 - 420 pcg/dL LAB CHEMISTRY METHOD 08/16/2025 12:13 AM EST [facility] Blood Venous blood specimen / Unknown Venipuncture / Unknown 08/15/2025 10:53 AM EST 08/15/2025 11:16 AM EST Marilee MCDOWELL LAB BLOOD ORDERABLES Final Result Performing Organization Address [facility] [address]/ZIP Co de Phone Number [facility] [address] [place] [address], [place] [phone] * Free thyroxine with reflex to free triiodothyronine (08/15/2025 10:53 AM EST) Free T4 0.82 0.70 - 1.80 ng/dL LAB CHEMISTRY METHOD 08/15/2025 11:32 PM EST [facility] Blood Venous blood specimen / Unknown Venipuncture / Unknown 08/15/2025 10:53 AM EST 08/15/2025 11:16 AM EST Marilee MCDOWELL LAB BLOOD ORDERABLES Final Result [facility] [address] [place] [address], [place] [phone] * (ABNORMAL) Thyroid stimulating hormone with reflex to free t4 and free t3 (08/15/2025 10:53 AM EST) TSH 15.78(H) 0.40 - 4.00 mcIU/mL LAB CHEMISTRY METHOD 08/15/2025 10:54 PM EST [facility] Blood Venous blood specimen / Unknown Venipuncture / Unknown 08/15/2025 10:53 AM EST 08/15/2025 11:16 AM EST Marilee MCDOWELL LAB BLOOD ORDERABLES Final Result Performing Organization Address City/[facility] [address]/ZIP Co de Phone Number [facility] [address] [place] [address], [place] [phone] * Magnesium (08/15/2025 10:53 AM EST) [facility] Magnesium 2.6 1.9 - 2.6 mg/dL LAB CHEMISTRY METHOD 08/15/2025 11:55 AM EST [facility] Blood Venous blood specimen / Unknown Venipuncture / Unknown 08/15/2025 10:53 AM EST 08/15/2025 11:16 AM EST Ej Dixon MD LAB BLOOD ORDERABLES Final Result Performing Organization Address City/[facility] [address]/ZIP Co de Phone Number [facility] [address] [place] [address], [place] [phone] * (ABNORMAL) CBC auto differential (08/15/2025 10:53 AM EST) [facility] WBC 6.6 4.8 - 10.8 K/mcL LAB HEMETOLOGY METHOD 08/15/2025 11:50 AM EST [facility] RBC 4.60 4.50 - 5.50 M/mcL LAB HEMETOLOGY METHOD 08/15/2025 11:50 AM [facility] Hemoglobin 11.1(L) 13.5 - 17.5 g/dL LAB HEMETOLOGY METHOD 08/15/2025 11:50 AM [facility] Hematocrit 38.0(L) 42.0 - 54.0 % LAB HEMETOLOGY METHOD 08/15/2025 11:50 AM [facility] MCV 81.9 79.0 - 98.0 FL LAB HEMETOLOGY METHOD 08/15/2025 11:50 AM [facility] MCH 23.9(L) 27.0 - 32.0 pcg LAB HEMETOLOGY METHOD 08/15/2025 11:50 AM [facility] MCHC 29.2(L) 32.0 - 37.0 g/dL LAB HEMETOLOGY METHOD 08/15/2025 11:50 AM [facility] RDW 16.9(H) 11.0 - 15.0 % LAB HEMETOLOGY METHOD 08/15/2025 11:50 AM [facility] Platelets 349 130 - 400 K/mcL LAB HEMETOLOGY METHOD 08/15/2025 11:50 AM [facility] MPV 10.1 7.0 - 11.0 FL LAB HEMETOLOGY METHOD 08/15/2025 11:50 AM [facility] NRBC 0.0 <1.0 % LAB HEMETOLOGY METHOD 08/15/2025 11:50 AM [facility] NRBC Absolute 0.00 <0.10 K/mcL LAB HEMETOLOGY METHOD 08/15/2025 11:50 AM [facility] Neutrophils Relative 77.5 % LAB HEMETOLOGY METHOD 08/15/2025 11:50 AM [facility] Lymphocytes Relative 10.9 % LAB HEMETOLOGY METHOD 08/15/2025 11:50 AM [facility] Monocytes Relative 7.6 % LAB HEMETOLOGY METHOD 08/15/2025 11:50 AM [facility] Eosinophils Relative 3.0 % LAB HEMETOLOGY METHOD 08/15/2025 11:50 AM [facility] Basophils Relative 0.5 % LAB HEMETOLOGY METHOD 08/15/2025 11:50 AM [facility] Immature Granulocytes Relative 0.5 % LAB HEMETOLOGY METHOD 08/15/2025 11:50 AM EST [facility] Neutrophils Absolute 5.12 1.50 - 7.00 K/mcL LAB HEMETOLOGY METHOD 08/15/2025 11:50 AM EST [facility] Lymphocytes Absolute 0.72(L) 1.00 - 5.00 K/mcL LAB HEMETOLOGY METHOD 08/15/2025 11:50 AM EST [facility] Monocytes Absolute 0.50 0.20 - 1.00 K/mcL LAB HEMETOLOGY METHOD 08/15/2025 11:50 AM EST [facility] Eosinophils Absolute 0.20 0.00 - 0.50 K/mcL LAB HEMETOLOGY METHOD 08/15/2025 11:50 AM EST [facility] Basophils Absolute 0.03 0.00 - 0.20 K/mcL LAB HEMETOLOGY METHOD 08/15/2025 11:50 AM [facility] Immature Granulocytes Absolute 0.03 0.00 - 0.03 K/mcL LAB HEMETOLOGY METHOD 08/15/2025 11:50 AM EST [facility] Blood Venous blood specimen / Unknown Venipuncture / Unknown 08/15/2025 10:53 AM EST 08/15/2025 11:16 AM EST us Ej Dixon MD LAB BLOOD ORDERABLES Final Result [facility] [address] [place] [address], * Troponin I high sensitivity (08/15/2025 10:53 AM EST) Pathologist [facility] High Sensitivity Troponin I 12 <=79 ng/L LAB CHEMISTRY METHOD 08/15/2025 11:47 AM EST [facility] Blood Venous blood specimen / Unknown Venipuncture / Unknown 08/15/2025 10:53 AM EST 08/15/2025 11:16 AM EST Narrative [facility] - 08/15/2025 11:47 AM EST High levels of biotin in samples may falsely decrease hsTroponin values. Use caution when interpreting hsTroponin results in patients taking biotin who exhibit renal impairment (eGFR <60) or in patients taking more than 20 mg/day of biotin. us Ej Dixon MD LAB BLOOD ORDERABLES Final Result Performing Organization Address [facility] [address]/[facility] de Phone Number [facility] [address] [place] [address], [place] [phone] * (ABNORMAL) Lactate, with reflex (08/15/2025 10:53 AM EST) LACTIC ACID 2.2(H) 0.4 - 2.0 mmol/L LAB CHEMISTRY METHOD 08/15/2025 12:00 PM EST [facility] Blood Venous blood specimen / Unknown Venipuncture / Unknown 08/15/2025 10:53 AM EST 08/15/2025 11:14 AM EST us Ej Dixon MD LAB BLOOD ORDERABLES Final Result Performing Organization Address [facility] de Phone Number [facility] [address] [place] [address], [place] [phone] * APTT (08/15/2025 10:53 AM EST) aPTT 33.4 24.1 - 39.3 sec LAB COAGULATION METHOD 08/15/2025 11:31 AM EST [facility] Blood Venous blood specimen / Unknown Venipuncture / Unknown 08/15/2025 10:53 AM EST 08/15/2025 11:16 AM EST us Ej Dixon MD LAB BLOOD ORDERABLES Final Result Performing Organization Address [facility] [address]/[facility] de Phone Number [facility] [address] [place] [address], [place] [phone] * Protime-INR (08/15/2025 10:53 AM EST) Pathologist [facility] Protime 12.7 10.6 - 13.9 sec LAB COAGULATION METHOD 08/15/2025 11:31 AM EST [facility] INR 1.0 LAB COAGULATION METHOD 08/15/2025 11:31 AM [facility] Blood Venous blood specimen / Unknown Venipuncture / Unknown 08/15/2025 10:53 AM EST 08/15/2025 11:16 AM EST Ej Dixon MD LAB BLOOD ORDERABLES Final Result [facility] [address] [place] [address], [place] [phone] * (ABNORMAL) Comprehensive Metabolic Panel (CMP) (08/15/2025 10:53 AM EST) [facility] Sodium 133 133 - 145 mmol/L LAB CHEMISTRY METHOD 08/15/2025 12:02 PM [facility] Potassium 5.0 3.5 - 5.5 mmol/L LAB CHEMISTRY METHOD 08/15/2025 12:02 PM [facility] Chloride 101 96 - 110 mmol/L LAB CHEMISTRY METHOD 08/15/2025 12:02 PM [facility] CO2 25 21 - 32 mmol/L LAB CHEMISTRY METHOD 08/15/2025 12:02 PM [facility] Anion Gap 7 3 - 11 LAB CHEMISTRY METHOD 08/15/2025 12:02 PM [facility] Glucose 123(H) 70 - 100 mg/dL LAB CHEMISTRY METHOD 08/15/2025 12:02 PM [facility] BUN 35(H) 5 - 25 mg/dL LAB CHEMISTRY METHOD 08/15/2025 12:02 PM [facility] Creatinine 2.31(H) 0.70 - 1.30 mg/dL LAB CHEMISTRY METHOD 08/15/2025 12:02 PM [facility] eGFR 28(L) >=60 mL/min/1. 73m2 LAB CHEMISTRY METHOD 08/15/2025 12:02 PM [facility] Comment:Calculation based on the Chronic Kidney Disease Epidemiology Collaboration (CKD-EPI) equation refit without adjustment for race. BUN/Creatinine Ratio 15.2 LAB CHEMISTRY METHOD 08/15/2025 12:02 PM [facility] Calcium 9.3 8.5 - 10.5 mg/dL LAB CHEMISTRY METHOD 08/15/2025 12:02 PM [facility] AST (SGOT) 22 10 - 42 unit/L LAB CHEMISTRY METHOD 08/15/2025 12:02 PM [facility] ALT (SGPT) 30 10 - 60 unit/L LAB CHEMISTRY METHOD 08/15/2025 12:02 PM [facility] Alkaline Phosphatase 138(H) 42 - 121 unit/L LAB CHEMISTRY METHOD 08/15/2025 12:02 PM [facility] Total Protein 8.7(H) 6.0 - 8.0 g/dL LAB CHEMISTRY METHOD 08/15/2025 12:02 PM [facility] Albumin 2.8(L) 3.2 - 5.0 g/dL LAB CHEMISTRY METHOD 08/15/2025 12:02 PM [facility] Total Bilirubin 0.4 0.0 - 1.4 mg/dL LAB CHEMISTRY METHOD 08/15/2025 12:02 PM [facility] Blood Venous blood specimen / Unknown Venipuncture / Unknown 08/15/2025 10:53 AM EST 08/15/2025 11:16 AM EST Ej Dixon MD LAB BLOOD ORDERABLES Final Result Performing Organization Address City/State/[facility] Co de Phone Number [facility] [address] [place] [address], * ECG 12 lead (08/15/2025 10:27 AM EST) Ventricular Rate ECG 147 BPM GEMUSE QRS Duration 74 ms GEMUSE Q-T Interval 288 ms GEMUSE QTc 450 ms GEMUSE R [place] -10 degrees GEMUSE T [place] -70 degrees GEMUSE ECG Interpretation Atrial fibrillation with rapid ventricular response with premature ventricular or aberrantly conducted complexes ST depression, consider subendocardial injury Nonspecific T wave abnormality Abnormal ECG When compared with ECG of 08-JUN-2025 21:20, Atrial fibrillation has replaced Sinus rhythm Vent. rate has increased BY [address] now depressed in Anterior leads Nonspecific T wave abnormality has replaced inverted T waves in Lateral leads Confirmed by KELBY BARAJAS ([id number]) on 08/15/2025 7:53:29 PM GEM[facility] 08/15/2025 10:2 7 AM EST 08/15/2025 7:53 PM EST us Ej Dixon MD ECG ORDERABLES Final Resul t Performing Organization Address [facility] [address]/[facility] Co de Phone Number G[facility] * [place] [facility] 30-74 MINUTES (08/15/2025 10:13 AM EST) Narrative Ej Dixon MD - 08/15/2025 10:13 AM EST Ej Dixon MD 08/15/2025 3:12 PM Critical Care Performed by: Ej Dixon MD Authorized by: Ej Dixon MD Critical care provider statement: Critical care time (minutes): 30 Total face to face critical care time (minutes): 30 Critical care was time spent personally by me on the following activities: Ordering and performing treatments and interventions, ordering and review of laboratory studies, re-evaluation of patient's condition and ordering and review of radiographic studies Face to face critical care was time spent personally by me on the following activities: Evaluation of patient's response to treatment I assumed direction of critical care for this patient from another provider in my specialty: no Comments: Patient required my immediate attention due to his A-fib with RVR. Presume this was to an underlying sepsis close given his symptoms. So we do not anticoagulate he was fluid resuscitated given empiric antibiotics based on past urine cultures. Found to have an acute EM. No urinary retention also has a moderate UTI. Heart rate gradually improved to normal sinus rhythm. Lactate was noted to be elevated confirming diagnosis of sepsis. Patient is admitted to hospital services mental status and overall appearance of improved us Ej Dixon MD IN CLINIC/BEDSIDE ORDERABLE S Final Result documented in this encounter Visit Diagnoses Diagnosis Sepsis with acute renal failure, due to unspecified organism, unspecified acute renal failure type, unspecified whether septic shock present ([facility] V24, [facility] V28)- Primary Sepsis with acute renal failure, due to unspecified organism, unspecified acute renal failure type, unspecified whether septic shock present ([facility] V24, [facility] V28) Urinary tract infection in male Acute kidney injury ([facility] V24) Atrial fib/flutter, transient ([facility] V24, [facility] V28) Physical deconditioning Muscular wasting and disuse atrophy, not elsewhere classified documented in this encounter Admitting Diagnoses Diagnosis Sepsis with acute renal failure, due to unspecified organism, unspecified acute renal failure type, unspecified whether septic shock present ([facility] V24, [facility] V28) documented in this encounter Administered Medications Inactive Administered Medications - up to 3 most recent administrations Medication Order MAR Action Action Date Dose Rate Site acetaminophen (TYLENOL) tablet 650 mg 650 mg, oral, Every 6 hours PRN, mild pain, headaches, fever - temperature GREATER than 38 C (100.4 F), Starting on Thu08/15/25 at 1633 Given 08/19/2025 9:32 PM EST 650 mg Given 08/18/2025 6:25 AM EST 650 mg Given 08/17/2025 8:21 PM EST 650 mg apixaban (ELIQUIS) tablet 5 mg 5 mg, oral, 2 times daily, First dose on Thu08/15/25 at 2100, Indication: Atrial Fibrillation Given 08/20/2025 8:35 AM EST 5 mg Given 08/19/2025 9:32 PM EST 5 mg Given 08/19/2025 8:41 AM EST 5 mg cefepime (MAXIPIME) 1 g in sterile water 10 mL IV syringe 1 g, intravenous, Administer over 5 Minutes, Every 24 hours, First dose on Thu08/16/25 at 0900, For 7 days, Indication: Urinary Tract/Genitourinary Given 08/20/2025 8:36 AM EST 1 g Given 08/19/2025 8:40 AM EST 1 g Given 08/18/2025 9:21 AM EST 1 g cefepime (MAXIPIME) 2 g in sterile water 20 mL IV syringe 2 g, intravenous, Administer over 5 Minutes, Once, On Thu08/15/25 at 1100, For 1 dose, Indication: Urinary Tract/Genitourinary Given 08/15/2025 11:29 AM EST 2 g docusate sodium (COLACE) capsule 100 mg 100 mg, oral, 2 times daily, First dose on Thu08/15/25 at 2100 Given 08/20/2025 8:36 AM EST 100 mg Given 08/19/2025 9:32 PM EST 100 mg Given 08/19/2025 8:41 AM EST 100 mg levothyroxine (SYNTHROID, LEVOTHROID) tablet 25 mcg 25 mcg, oral, Every morning before breakfast, First dose on [place] 08/17/25 at 0700, ORAL ROUTE: take on an empty stomach and separate from other medications. ENTERAL TUBE ROUTE: If newly initiated enteral nutrition duration is over 5 days, hold enteral nutrition 1 hour before and after drug administration, per ASPEN guidelines. Given 08/20/2025 6:04 AM EST 25 mcg Given 08/19/2025 6:11 AM EST 25 mcg Given 08/18/2025 6:25 AM EST 25 mcg magnesium sulfate 2 gram/50 mL (4 %) IVPB 2 g 2 g, intravenous, at 25 mL/hr, Administer over 2 Hours, Once, On 08/20/25 at 0830, For 1 dose New Bag 08/20/2025 8:47 AM EST 2 g 25 mL/hr megestroL (MEGACE) tablet 80 mg 80 mg, oral, 4 times daily with meals and nightly, First dose on 08/19/25 at 1230, Antineoplastic Hazardous Medication Intact: - Single pair of ASTM standard [id number] certified gloves - Eye/face protection if vomit or potential to spit up Manipulated: - Double pair of ASTM standard [id number] certified gloves - Eye/face protection if vomit or potential to spit up - Staff at reproductive risk must also wear a hazardous gown - Crushing must be performed in sealed closed pouch - Splitting/cutting should be performed by pharmacy, if possible Given 08/20/2025 11:22 AM EST 80 mg Given 08/20/2025 8:36 AM EST 80 mg Given 08/19/2025 9:32 PM EST 80 mg metoprolol succinate (TOPROL-XL) 24 Hour tablet 12.5 mg 12.5 mg, oral, Daily, First dose on Thu08/18/25 at 0900, Hold for SBP < 100 and/or HR < 55 Do not crush or chew. Given 08/19/2025 8:41 AM EST 12.5 mg metoprolol tartrate (LOPRESSOR) tablet 25 mg 25 mg, oral, 2 times daily, First dose on Thu08/15/25 at 2100, Hold for SBP<100 or HR<60 Given 08/15/2025 9:30 PM EST 25 mg ondansetron (PF) (ZOFRAN) injection 4 mg 4 mg, intravenous, Every 8 hours PRN, vomiting, nausea, Starting on Thu08/15/25 at 1514, -ONLY give IV if patient is unable to take orally. -If inadequate response within 30 minutes, proceed to next-line agent or contact provider if no further options ordered. ondansetron ODT (ZOFRAN-ODT) disintegrating tablet 4 mg 4 mg, oral, Every 8 hours PRN, vomiting, nausea, Starting on Thu08/15/25 at 1514, -Give IV if patient is unable to take orally. -If inadequate response within 30 minutes, proceed to next-line agent or contact provider if no further options ordered. For ODT tablets: -Do not remove from blister pack until just before administering. -Patient should allow tablet to dissolve on tongue. oxyCODONE (ROXICODONE) immediate release tablet 5 mg 5 mg, oral, Every 6 hours PRN, severe pain, Starting on Thu08/15/25 at 1637 Given 08/20/2025 8:47 AM EST 5 mg Given 08/15/2025 9:45 PM EST 5 mg perflutren lipid microsphere (DEFINITY) 1.3 mL in sodium chloride 0.9% 8.7 mL injection 10 mL, intravenous, Administer over 10 Minutes, Once in imaging, Starting on Thu08/15/25 at 1637, For 1 dose, CV Medication Orders Given 08/16/2025 8:11 AM EST 3 mL polyethylene glycol (MIRALAX) packet 17 g 17 g, oral, Daily, First dose on Thu08/15/25 at 1515, Bowel Regimen - for prevention of constipation Given 08/20/2025 8:35 AM EST 17 g Given 08/19/2025 8:41 AM EST 17 g Given 08/17/2025 8:42 AM EST 17 g senna (SENOKOT) tablet 17.2 mg 17.2 mg (2 tablet), oral, Nightly PRN, constipation, Starting on Thu08/16/25 at 204 Given 08/16/2025 9:47 PM EST 17.2 mg sodium chloride 0.9 % bolus 1,000 mL 1,000 mL, intravenous, at 1,000 mL/hr, Administer over 1 Hours, Once, On Thu08/15/25 at 1034, For 1 dose New Bag 08/15/2025 11:28 AM EST 1,000 mL 1000 mL/hr sodium chloride 0.9 % bolus 1,000 mL 1,000 mL, intravenous, at 1,000 mL/hr, Administer over 1 Hours, Once, On Thu08/15/25 at 1044, For 1 dose New Bag 08/15/2025 2:15 PM EST 1,000 mL 1000 mL/hr sodium chloride 0.9 % infusion 125 mL/hr, intravenous, Continuous, Starting on Thu08/15/25 at 1515 New Bag 08/20/2025 8:37 AM EST 125 mL/hr 125 mL/hr Rate/Dose Change 08/19/2025 12:00 PM EST 125 mL/hr 125 mL /hr Rate/Dose Verify 08/19/2025 9:00 AM EST 125 mL/hr 125 mL/ hr thiamine (VITAMIN B-1) tablet 100 mg 100 mg, oral, Daily, First dose on Thu08/18/25 at 0900, For 7 doses Given 08/20/2025 8:36 AM EST 100 mg Given 08/19/2025 8:41 AM EST 100 mg Given 08/18/2025 9:20 AM EST 100 mg documented in this encounter Discontinued Medications Medication Sig Discontinue Reason Start Date End Da te metoprolol tartrate (LOPRESSOR) 25 mg tablet Take 1 tablet (25 mg total) by mouth 2 (two) times a day. Stop Taking at Discharge 08/20/2025 lisinopriL (PRINIVIL,ZESTRIL) 10 mg tablet Take 1 tablet (10 mg total) by mouth 1 (one) time each day. Stop Taking at Discharge 08/20/2025 phenazopyridine (PYRIDIUM) 200 mg tablet Take 1 tablet (200 mg total) by mouth every 8 (eight) hours if needed (urinary discomfort). Stop Taking at Discharge 2025 08/20/2025 megestroL (MEGACE) 400 mg/10 mL (40 mg/mL) suspension Take 20 mL (800 mg total) by mouth 1 (one) time each day. Shake well just before you measure a dose. Measure with a special dose-measuring spoon or medicine cup, not with a regular table spoon. If you do not have a dose-measuring device, ask your pharmacist for one. Stop Taking at Discharge 07/18/2025 08/20/2025 sulfamethoxazole-trim ethoprim (BACTRIM DS,SEPTRA DS) 800-160 mg per tablet Take 1 tablet by mouth 2 (two) times a day. Stop Taking at Discharge 08/20/2025 documented as of this encounter Historical Medications * This list may reflect changes made after this encounter. tamsulosin (FLOMAX) 0.4 mg 24 hr capsule Take 1 capsule (0.4 mg total) by mouth 1 (one) time each day with breakfast. Capsules should be taken 30 minutes following the same meal each day. sulfamethoxazole -trimethoprim (BACTRIM DS,SEPTRA DS) 800-160 mg per tablet Take 1 tablet by mouth 2 (two) times a day. added in this encounter Active and Recently Administered Medications Times are shown in EST. Scheduled Medication Order 08/18/2025 08/19/2025 08/20/2025 apixaban (ELIQUIS) tablet 5 mg 5 mg, oral, 2 times daily, First dose on Thu08/15/25 at 2100, Indication: Atrial Fibrillation 0919 (Given - Provider: Edith Prajapati, RN)2006 (Given - Provider: Abhishek Lorenz, XOCHITL) 840 (Given - Provider: Елена Ca, XOCHITL)2131 (Given - Provider: Kathryn Salas, XOCHITL) 0835 (Given - Provider: Fe Mayo, RN) cefepime (MAXIPIME) 1 g in sterile water 10 mL IV syringe 1 g, intravenous, Administer over 5 Minutes, Every 24 hours, First dose on Thu08/16/25 at 0900, For 7 days, Indication: Urinary Tract/Genitourinary 0921 (Given - Provider: Edith Prajapati RN) 40 (Given - Provider: Елена Ca, RN) 0836 (Given - Provider: Fe Mayo, XOCHITL) docusate sodium (COLACE) capsule 100 mg 100 mg, oral, 2 times daily, First dose on Thu08/15/25 at 2100 0931 (Not Given - Provider: Edith Prajapati RN - Reason: Patient/Resident/Age nt refused - education provided )2006 (Given - Provider: Abhishek Lorenz RN) 840 (Given - Provider: Елена Ca, XOCHITL)2131 (Given - Provider: Kathryn Salas, XOCHITL) 0836 (Given - Provider: Fe Mayo, XOCHITL) levothyroxine (SYNTHROID, LEVOTHROID) tablet 25 mcg 25 mcg, oral, Every morning before breakfast, First dose on [place] 08/17/25 at 0700, ORAL ROUTE: take on an empty stomach and separate from other medications. ENTERAL TUBE ROUTE: If newly initiated enteral nutrition duration is over 5 days, hold enteral nutrition 1 hour before and after drug administration, per ASPEN guidelines. 0625 (Given - Provider: Mello Pedraza RN) 0611 (Given - Provider: Abhishek Lorenz, XOCHITL) 0604 (Given - Provider: Kathryn Salas, XOCHITL) magnesium sulfate 2 gram/50 mL (4 %) IVPB 2 g (COMPLETED) 2 g, intravenous, at 25 mL/hr, Administer over 2 Hours, Once, On Thu08/20/25 at 0830, For 1 dose 0847 (New Bag - Provider: Fe Mayo, XOCHITL)1018 (Stopped - Provider: Fe Mayo, XOCHITL) megestroL (MEGACE) tablet 80 mg 80 mg, oral, 4 times daily with meals and nightly, First dose on Thu08/19/25 at 1230, Antineoplastic Hazardous Medication Intact: - Single pair of ASTM standard [id number] certified gloves - Eye/face protection if vomit or potential to spit up Manipulated: - Double pair of ASTM standard [id number] certified gloves - Eye/face protection if vomit or potential to spit up - Staff at reproductive risk must also wear a hazardous gown - Crushing must be performed in sealed closed pouch - Splitting/cutting should be performed by pharmacy, if possible 1416 (Given - Provider: Елена Ca RN)1655 (Given - Provider: Елена Ca RN)2132 (Given - Provider: Kathryn Salas RN) 0836 (Given - Provider: Fe Mayo RN)1122 (Given - Provider: Fe Mayo RN)1700 (Canceled Entry - Provider: Automatic Discharge Provider - Comment: Automatically canceled at discontinue of medication order) metoprolol succinate (TOPROL-XL) 24 Hour tablet 12.5 mg 12.5 mg, oral, Daily, First dose on Thu08/18/25 at 0900, Hold for SBP < 100 and/or HR < 55 Do not crush or chew. 0931 (Not Given - Provider: Edith Prajapati RN - Reason: See Provider Order) 0841 (Given - Provider: Елена Ca RN) 0837 (Not Given - Provider: Fe Mayo RN - Reason: Other - Comment: heart rate 54) perflutren lipid microsphere (DEFINITY) 0.39 mL in sodium chloride 0.9% 2.61 mL injection 3 mL, intravenous, Administer over 10 Minutes, Once, On Thu08/16/25 at 0830, For 1 dose polyethylene glycol (MIRALAX) packet 17 g 17 g, oral, Daily, First dose on Thu08/15/25 at 1515, Bowel Regimen - for prevention of constipation 0919 (Not Given - Provider: Edith Prajapati RN - Reason: Patient/Resident/Age nt refused - education provided ) 0841 (Given - Provider: Елена Ca RN) 0835 (Given - Provider: Fe Mayo RN) thiamine (VITAMIN B-1) tablet 100 mg 100 mg, oral, Daily, First dose on Thu08/18/25 at 0900, For 7 doses 0920 (Given - Provider: Edith Prajapati RN) 0841 (Given - Provider: Елена Ca RN) 0836 (Given - Provider: Fe Mayo RN) Continuous Medication Order 08/18/2025 08/19/2025 08/20/2025 sodium chloride 0.9 % infusion (CANCELED) 125 mL/hr, intravenous, Continuous, Starting on Thu08/15/25 at 1515 0510 (New Bag - Provider: Mello Pedraza, RN)1432 (New Bag - Provider: Edith Prajapati RN)2212 (New Bag - Provider: Abhishek Lorenz RN) 0900 (Rate/Dose Verify - Provider: Елена Ca RN)1200 (Rate/Dose Change - Provider: Елена Ca, XOCHITL) 0837 (New Bag - Provider: Fe Mayo RN)0853 (Stopped - Provider: Fe Mayo RN - Comment: [Order ends at this time. Document the following action when infusion is complete: Stopped]) PRN Medication Order 08/18/2025 08/19/2025 08/20/2025 acetaminophen (TYLENOL) tablet 650 mg 650 mg, oral, Every 6 hours PRN, mild pain, headaches, fever - temperature GREATER than 38 C (100.4 F), Starting on Thu08/15/25 at 1633 0625 (Given - Provider: Mello Pedraza RN) 2132 (Given - Provider: Kathryn Salas RN) ondansetron (PF) (ZOFRAN) injection 4 mg(Linked Group 1) 4 mg, intravenous, Every 8 hours PRN, vomiting, nausea, Starting on Thu08/15/25 at 1514, -ONLY give IV if patient is unable to take orally. -If inadequate response within 30 minutes, proceed to next-line agent or contact provider if no further options ordered. ondansetron ODT (ZOFRAN-ODT) disintegrating tablet 4 mg(Linked Group 1) 4 mg, oral, Every 8 hours PRN, vomiting, nausea, Starting on Thu08/15/25 at 1514, -Give IV if patient is unable to take orally. -If inadequate response within 30 minutes, proceed to next-line agent or contact provider if no further options ordered. For ODT tablets: -Do not remove from blister pack until just before administering. -Patient should allow tablet to dissolve on tongue. oxyCODONE (ROXICODONE) immediate release tablet 5 mg 5 mg, oral, Every 6 hours PRN, severe pain, Starting on Thu08/15/25 at 1637 0847 (Given - Provider: Fe Mayo RN) senna (SENOKOT) tablet 17.2 mg 17.2 mg (2 tablet), oral, Nightly PRN, constipation, Starting on Thu08/16/25 at 2049 Linked Groups Order Group 1: ondansetron ODT (ZOFRAN-ODT) disintegrating tablet 4 mgJump to med 4 mg, oral, Every 8 hours PRN, vomiting, nausea, Starting on Thu08/15/25 at 1514, -Give IV if patient is unable to take orally. -If inadequate response within 30 minutes, proceed to next-line agent or contact provider if no further options ordered. For ODT tablets: -Do not remove from blister pack until just before administering. -Patient should allow tablet to dissolve on tongue. Or ondansetron (PF) (ZOFRAN) injection 4 mgJump to med 4 mg, intravenous, Every 8 hours PRN, vomiting, nausea, Starting on Thu08/15/25 at 1514, -ONLY give IV if patient is unable to take orally. -If inadequate response within 30 minutes, proceed to next-line agent or contact provider if no further options ordered. documented in this encounter Orders Medications Ordered That Biju ht Not Have Been Administered Count Last Ordered Date First Ordered Date perflutren lipid microsphere (DEFINITY) 0.39 mL in sodium chloride 0.9% 2.61 mL injection 1 08/16/2025 aspirin EC tablet 81 mg 1 08/15/2025 heparin (UFH) injection 5,000 Units 1 08/15 ondansetron (PF) (ZOFRAN) injection 4 mg 1 08/15/2025 ondansetron ODT (ZOFRAN-ODT) disintegrating tablet 4 mg 1 08/15/2025 Nursing Count Last Ordered Date First Orde red Date BLADDER SCAN 1 08/15/2025 Consult Count Last Ordered Date First Orde red Date IP CONSULT TO PSYCHIATRY 1 08/17/2025 IP CONSULT TO SOCIAL WORK 1 08/17/2025 IP CONSULT TO NUTRITION SERVICES 1 08/16/20 IP CONSULT TO VASCULAR SURGERY 1 08/15/2025 Isolation Count Last Ordered Date First Orde red Date INITIATE CONTACT ISOLATION 1 08/15/2025 Admission Count Last Ordered Date First Orde red Date ADMIT TO INPATIENT 1 08/15/2025 Transfer Count Last Ordered Date First Orde red Date TRANSFER PATIENT TO NEW UNIT 1 08/18/2025 ED TO FLOOR BED REQUEST 1 08/15/2025 Discharge Count Last Ordered Date First Orde red Date DISCHARGE PATIENT 1 08/20/2025 documented in this encounter Additional Health Concerns 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
--- NOTE | 2025-08-24 09:51 | A.OFFPC_ITS ---
Vital Signs 08/24/25 09:52 Height 5 ft 3 in Weight 106 lb 4.205 oz BMI 18.8 BP 108/62 Blood Pressure Location Lt brachial Position Sitting Pulse 66 Pulse Source Pulse Oximeter Temp 97.1 F Temp Source Temporal Artery Scan Pulse Oximetry (%) 93 Oxygen Delivery Method Room Air Intake Visit Reasons: [facility] 08/20 Acute renal failure Belt Notcher Required: No Accompanied by: Son Allergies atorvastatin Allergy (Intermediate, Verified 08/24/25 10:04) Rash oxycodone (From Percocet) Adverse Reaction (Intermediate, Verified 08/24/25 10:04) itchy skin Medication List - Last Reconciled 08/24/25 by Noemi Oliva MD apixaban (Eliquis) 5 mg PO BID aspirin (Adult Aspirin Regimen) 81 mg PO DAILY 90 days fosfomycin tromethamine 1 packet PO Q OTHER DAY lisinopril 10 mg PO DAILY 90 days megestrol 800 mg PO DAILY metoprolol tartrate 25 mg PO BID 90 days tamsulosin 0.4 mg PO BEDTIME Tobacco use date assessed: 08/24/25 Fall risk assessment: 2 + Falls in past year Last assessed Fall Risk: 08/24/25 Dental Screening Dental Screen Date: 08/24/25 Did you have a dental visit in the last 12 months?: No Did you have a dental problem in the last 6 months where you did not have access to dental care?: No Was dental information given to patient?: No HPI HPI Comments History of Present Illness Details The patient is a 80-year-old male presenting for a follow-up after a recent hospitalization. He was admitted to the hospital on August 15 for pyelonephritis and acute kidney injury. His last renal function test was normal. He developed atrial fibrillation with RVR while hospitalized and was placed on chronic anticoagulation. The patient has a history of bladder cancer, which was diagnosed in February of this year, and he completed chemotherapy and radiation. He also has a history of low hemoglobin, which is thought to be related to his chronic conditions. He reports chronic chills, a complaint he has had for years. His medication allergies include atorvastatin, which causes a rash, and Percocet. He is currently taking baby aspirin, metoprolol, and tamsulosin. He is unable to afford his prescriptions for Eliquis and Fosfomycin. He is also taking thiamine. The patient reports a history of depression and is not currently taking any medication for it. It is noted that he may have previously taken thyroid medication, but this is unconfirmed. [facility] Medical History (Updated 08/24/25 @ 11:57 by Noemi Oliva MD) Anemia Decrease in appetite Alcoholic liver disease Dyslipidemia Former smoker Essential hypertension Surgical History History of hernia surgery Family History Mother No problems noted. Father No problems noted. Social History (Updated 08/24/25 @ 10:11 by Noemi Oliva MD) Household Members: Children Housing: House Housing Other:: lives with son Are you a primary customer care coordinator to a significant other at home: No Do you presently have visiting nurse or other home services: No Alcohol intake: former Patient Tobacco Use Status: Former Tobacco user Tobacco use type: Cigarette e-Cigarette/Vaping Use: Never Used Second Hand Smoke Exposure: No service: No Current occupational status: retired Cognitive needs: No Hearing needs: No Vision needs: No Questionnaire PHQ-9 Over the last 2 weeks, how often have you been bothered by any of the following problems? 1. Little interest or pleasure in doing things: not at all 2. Feeling down, depressed, or hopeless: several days 3. Trouble falling or staying asleep, or sleeping too much: not at all 4. Feeling tired or having little energy: several days 5. Poor appetite or overeating: several days 6. Feeling bad about yourself - or that you are a failure or have let yourself or your family down: several days 7. Trouble concentrating on things, such as reading the newspaper or watching television: several days 8. Moving or speaking so slowly that other people could have noticed. Or the opposite - being so fidgety or restless that you have been moving around a lot more than usual: several days 9. Thoughts that you would be better off or of hurting yourself in some way: not at all Total score: 6 Depression Screening Interpretation: Positive Depression Screening Follow-up: Existing condition, New Medication prescribed and Follow-up Visit Requested Depression Screening Done: Yes 92886 - PHQ-9 Billing: Yes Source: Developed by Drs. Joseph Bourgeois, Veronica Fiore, Kenyon Barbosa and colleagues, with an educational chico from [employer]. Thrive Questionnaire Date Thrive assessed: 08/24/25 I am a: Patient What is your living situation today?: I have a steady place to live Within the past 12 months, did the food you bought not last and you didn't have the money to get more?: Never true Within the past 12 months, did you worry whether your food would run out before you got money to buy more?: Never true Do you have trouble paying for medicines?: No Do you have trouble getting transportation to medical appointments?: No Do you have trouble paying your heating and electricity bill?: No Do you have trouble taking care of your child, family member or friend?: No Do you have trouble with day-to-day activities such as bathing, preparing meals, shopping, managing finances, etc.?: No Are you currently unemployed and looking for a job?: No Are you interested in more education?: No Please select the resources that you would like help with: None THRIVE Score: 0 AUDIT C Alcohol Use Questionnaire (AUDIT-C) 1. How often do you have a drink containing alcohol?: Never 3. How often do you have six or more drinks on one occasion?: Never Total Score: 0 Score Reviewed/Action Taken: No DUNIA-7 AMB Questionnaire DUNIA-7 Date DUNIA - 7 assessed: 08/24/25 Feeling nervous, anxious, or on edge: 1 = Several days Not being able to stop or control worryin = Not at all Worrying too much about different things: 1 = Several days Trouble relaxin = Several days Being so restless that it is hard to sit still: 0 = Not at all Becoming easily annoyed or irritable: 1 = Several days Feeling afraid as if something awful might happen: 0 = Not at all Total DUNIA-7 score (0-4 normal; 5-9 mild; 10-14 moderate; 15-21 severe): 4 Source: Developed by Drs. Joseph Bourgeois, Kenyon Tucker and colleagues, with an educational chico from [employer]. DUNIA-7 Assessment Billing DUNIA-7 Assessment Tool: DUNIA-7 Assessment 91856 Review of Systems Const All systems reviewed & are unremarkable except as noted in HPI and below Card Denies chest pain at rest, Denies chest pain with activity, Denies edema, Denies irregular heart rhythm, Denies claudication, Denies dyspnea, Denies dyspnea on exertion, Denies orthopnea, Denies paroxysmal nocturnal dyspnea and Denies slow heart rate Resp Denies cough, Denies dyspnea and Denies dyspnea on exertion Physical exam (Primary Care) Vital Signs: Last Vital Signs Temp 97.1 F 08/24/25 09:52 Pulse 66 08/24/25 09:52 BP 108/62 08/24/25 09:52 Pulse Ox 93 08/24/25 09:52 Oxygen Delivery Method Room Air 08/24/25 09:52 BMI result Body Mass Index 18.8 Tobacco/Smoking Status: Tobacco use Status Tobacco use date assessed 08/24/25 08/24/25 10:01 Patient Tobacco Use Status Former Tobacco user 08/24/25 10:11 Tobacco use type Cigarette 08/24/25 10:11 e-Cigarette/Vaping Use Never Used 08/24/25 10:11 PHQ-9: PHQ-9 Score PHQ-9: Total score 6 08/24/25 10:08 Depression Screening Interpretation: Positive Depression Screening Follow-up: Existing condition, New Medication prescribed and Follow-up Visit Requested Thrive Assessment: Date of Thrive Assessment Date Thrive assessed 08/24/25 08/24/25 10:01 Resp Effort & Inspection: normal respiratory effort Auscultation: clear to auscultation bilaterally Cardio Jugular venous distension: no JVD Rate: regular rate Rhythm: regular rhythm Heart sounds: S1 normal heart sound present and S2 normal heart sound present Extrem General: Yes full ROM Coding Level of Care Code Est Pt Level 4 (07296) Complex EM visit Add On G2211 Diagnoses Mild major depression F32.0 Essential hypertension I10 Anemia D64.9 Atrial fibrillation I48.91 Bladder cancer C67.9 Additional Codes DUNIA-7 Assessment Billing - DUNIA-7 Assessment Tool: DUNIA-7 Assessment 57364 ([id number]) PHQ-9 - 75778 - PHQ-9 Billing: Yes ([id number]) Time Spent (min) 25 Assessment & Plan Assessment & Plan (1) Mild major depression: Code(s): F32.0 - Major depressive disorder, single episode, mild Category: Medical (2) Essential hypertension: Code(s): I10 - Essential (primary) hypertension Category: Medical (3) Anemia: Code(s): D64.9 - Anemia, unspecified Category: Medical (4) Atrial fibrillation: Code(s): I48.91 - Unspecified atrial fibrillation Category: Medical (5) Bladder cancer: Code(s): C67.9 - Malignant neoplasm of bladder, unspecified Category: Medical Plan Plan 1. Encounter for follow-up examination after completed treatment for conditions other than malignant neoplasm Z09 The patient presented for a follow-up after a August hospitalization for pyelonephritis and acute kidney injury. The patient's last renal function test was normal, but new labs, including renal function and A1c, will be ordered to reassess. An EKG will also be performed. 2. Essential hypertension Continue antihypertensives. Blood pressure goal is equal or less than 130/80. 3. Atrial fibrillation Referred to cardiology. Change Eliquis to Xarelto to see if it is more affordable. 4. Anemia Monitor hemoglobin and hematocrit. Medications: New thiamine HCl (vitamin B1) 100 mg PO DAILY 90 tabs 1RF 90 days rivaroxaban (Xarelto) must administer with evening meal 20 mg PO DAILY 90 tabs 1RF 90 days
[2025-08-24 09:52] VITALS: BP 108/62; PULSE 66; TEMP 36.2; O2SAT 93; BMI 18.8
--- OUTSIDE RECORDS SUMMARY | 2025-08-24 11:25 | XMS_ITS | Encounter Summary ---
Author Organization [facility] Address [address] [place] [address] Care Team Providers Care Music Sound Light Technician Name Role Phone Noemi Oliva MD Primary Care Provider [phone] Encounter Details Date Type Department Care Team (Late st Contact Info) Description 08/11/2025 Lab Requisition [facility] - Main Lab [address] [facility] [place] [phone] Mook Chinchilla PA [address] [facility] [address] [place] [address] Pyuria Social History Tobacco Use Types Packs/Day Years [...] got money to buy more. Patient declined Within the past 12 months th e food we bought just didn't last and we didn't have money to get more. Patient declined 01/2025 Dependent Care Answer Date Recorded Do you need help finding or paying for care for your loved ones. For example, child abuse worker or elderly care for an older adult? [...] 2:41 PM EDT Cipriano Rene RN * Are you blind or do [...] EDT Doles, As wendi Mauro RN * Because of [...] wendi Mauro RN documented in this encounter Plan of Treatment Upcoming Encounters Date Type Department Care Team (Late st Contact Info) Description 09/01/2025 10:00 AM EST Consult Vascular Surgery - [place] [address] [facility] [address] [place] [phone] Williams Wood MD [address] [place] [phone] documented as of this encounter Procedures Procedure Name Priority Date/Time Associated Diagnosis Comments BACTERIAL IDENTIFICATION AND SUSCEPTIBILITY, AEROBIC Routine 08/10/2025 12:00 AM EDT Pyuria documented in this encounter Results * (ABNORMAL) Baterial identification and susceptibility, aerobic (08/10/2025 12:00 AM EDT) Culture, Bacterial ID and Sensitivity Pseudomonas aeruginosa(A) JEROME 08/13/2025 8:[address] [facility] Comment: The organism value for this result has been updated. These results have been appended to the previously preliminary verified report. This is an edited result. Previous organism was Gram negative bacilli on 08/12/2025 at 1041 EDT. Culture, Bacterial ID and Sensitivity Vancomycin resistant Enterococcus faecium(A) JEROME 08/13/2025 8:00 AM EST [facility] Comment: The organism value for this result has been updated. These results have been appended to the previously preliminary verified report. This is an edited result. Previous organism was Enterococcus species on 08/12/2025 at 1041 EDT. Urine Urine specimen from urethra / Unknown 08/10/2025 08/11/2025 10:14 AM EDT Narrative Organism Antibiotic Method Susceptibility Pseudomonas aeruginosa Piperacillin/Tazobactam JEROME <=4 ug/ml: Susceptible Pseudomonas aeruginosa Ceftazidime JEROME <=0.5 ug/ml: Susceptible Pseudomonas aeruginosa Cefepime JEROME <=0.12 ug/ml: Susceptible Pseudomonas aeruginosa Meropenem JEROME <=0.25 ug/ml: Susceptible Pseudomonas aeruginosa Amikacin JEROME <=1 ug/ml: Susceptible Pseudomonas aeruginosa Ciprofloxacin JEROME <=0.06 ug/ml: Susceptible Pseudomonas aeruginosa Levofloxacin JEROME <=0.12 ug/ml: Susceptible Vancomycin resistant Enterococcus faecium Benzylpenicillin JEROME >=64 ug/ml: Resistant Vancomycin resistant Enterococcus faecium Ampicillin JEROME >=32 ug/ml: Resistant Vancomycin resistant Enterococcus faecium Ciprofloxacin JEROME >=8 ug/ml: Resistant Vancomycin resistant Enterococcus faecium Levofloxacin JEROME >=8 ug/ml: Resistant Vancomycin resistant Enterococcus faecium Quinupristin/Dalfopristin JEROME 0.5 ug/ml: Susceptible Vancomycin resistant Enterococcus faecium Linezolid JEROME 2 ug/ml: Susceptible Vancomycin resistant Enterococcus faecium Vancomycin JEROME >=32 ug/ml: Resistant Vancomycin resistant Enterococcus faecium Tetracycline JEROME >=16 ug/ml: Resistant Vancomycin resistant Enterococcus faecium Nitrofurantoin JEROME 32 ug/ml: Susceptible us Mook [facility] MICROBIOLOGY - GENERAL ORDER GABRIEL Final Result 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
--- OUTSIDE RECORDS SUMMARY | 2025-08-24 11:25 | XMS_ITS ---
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 Acute pyelonephritis 04/25/2025 Arteriosclerosis of coronary artery 04/20/2025 Benign hypertension 04/20/2025 Gastroesophageal reflux disease 04/20/2025 Harmful use of alcohol 04/20/2025 Hyperlipidemia 04/20/2025 Multiple pulmonary nodules 04/20/2025 Malignant neoplasm of overla pping sites of bladder ([facility] V24, [facility] V28) 02/25/2025 Cancer Staging:Clinical stage from 03/30/2025:Stage II(cT2, cN0, cM0) - Signed by Sheridan Sandoval MD on 03/30/2025 Hematuria 02/14/2025 Current Treatment and Therapy Plans Albumin-bound PACLitaxel concurrent with radiation* Plan Start Date:05/04/2025 Plan Provider:Yohannes Woody MD Linked Problems Malignant neoplasm of overla pping sites of bladder ([facility] V24, [facility] V28)Acquired autoimmune hypothyroidism Treatment Medications Current Day [...]
--- OUTSIDE RECORDS SUMMARY | 2025-08-24 11:25 | XMS_ITS | Patient Health Record ---
Author Organization [facility] Address [address] [facility] [address] [place] [address] Care Team Providers Care Quarter Inspector Name Role Phone Noemi Schwartz Primary Care [...] [place] [address] [place] [phone] [id number] Eulalio Miranda Self - patient is the insured Medical (General) History Medical History History ICD Code Dyslipidemia Essential hypertension Former smoker Surgical History Surgery Date(Month/Year) Hernia surgery
--- OUTSIDE RECORDS SUMMARY | 2025-08-24 11:25 | XMS_ITS | Encounter Summary ---
Author Organization [facility] Address [address] [place] [address] Care Team Providers Care Modular Home Crew Member Name Role Phone Noemi Oliva MD Primary Care Provider [phone] Encounter Details Date Type Department Care Team (Late st Contact Info) Description 08/03/2025 Results Follow-Up Vascular Surgery - [place] [address] [facility] [address] [place] [address] Aubree Lockett PA [address] [facility] [address] [place] [address] Social History Tobacco Use Types Packs/Day Years [...] EDT Doles, As wendi Mauro RN * Are you [...] PM EDT Doles, As wendi Mauro RN documented as of this encounter Mental Status * Because of a physical, mental, or emotional condition, do you have serious difficulty concentrating, remembering, or making decisions? 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
--- OUTSIDE RECORDS SUMMARY | 2025-08-24 11:26 | XMS_ITS | Clinical Summary ---
Author Organization [facility] Address [address] [place] [address] Care Team Providers Care Reading Professor Name Role Phone Unavailable Primary Care Provider [...] Drug Screen 10/12/2024 Depression Annual Screen 10/12/2024 [id number] (3 - 2024- season) 2025 021, 01/16/2021 Imm-Influenza (#1) 2025 Insurance [place]ARE - [place]
--- OUTSIDE RECORDS SUMMARY | 2025-08-24 11:26 | XMS_ITS | Clinical Summary ---
Author Organization [facility] Address [address] [place] [address] Phone Care Team Providers Care Rac Specialist Name Role Phone Noemi Oliva MD Primary Care Provider [phone] Allergies Active Allergy Reactions Criticality Noted Date Comments Atorvastatin Calcium Rash High 03/30/2025 Paclitaxel Pain High 04/20/2025 Chest Pain, HTN, Medications aspirin 81 mg EC tablet Take 1 tablet (81 mg total) by mouth 1 (one) time each day. Active sucralfate (CARAFATE) 1 gram tablet Take 1 tablet (1 g total) by mouth 4 (four) times a day (before meals and nightly). 120 each 5 06/08/20 26 Active oxyCODONE (ROXICODONE) 5 mg immediate release tablet Take 1 tablet (5 mg total) by mouth every 6 (six) hours if needed for severe pain. Partial fill allowed Max Daily Amount: 20 mg 120 tablet 5 Active tamsulosin (FLOMAX) 0.4 mg 24 hr capsule Take 1 capsule (0.4 mg total) by mouth 1 (one) time each day with breakfast. Capsules should be taken 30 minutes following the same meal each day. Active megestroL (MEGACE) 40 mg tablet Take 2 tablets (80 mg total) by mouth 4 (four) times a day (with meals and nightly) 240 tablet 5 08/20/20 26 Active apixaban (ELIQUIS) 5 mg tablet Take 1 tablet (5 mg total) by mouth 2 (two) times a day. 60 each 5 Active levothyroxine (SYNTHROID, LEVOTHROID) 25 mcg tablet Take 1 tablet (25 mcg total) by mouth 1 (one) time each day before breakfast. 30 each 11 5 08/21/20 26 Active metoprolol succinate (TOPROL-XL) 25 mg 24 hr tablet Take 0.5 tablets (12.5 mg total) by mouth 1 (one) time each day. Do not crush or chew. 15 each 5 08/21/20 26 Active senna (SENOKOT) 8.6 mg tablet Take 2 tablets (17.2 mg total) by mouth at bedtime as needed for constipation. 60 tablet 5 09/19/20 25 Active thiamine (VITAMIN B-1) 100 mg tablet Take 1 tablet (100 mg total) by mouth 1 (one) time each day for 4 doses. 4 tablet 5 08/25/20 25 Active lisinopriL (PRINIVIL,ZEST RIL) 5 mg tablet Take 1 tablet (5 mg total) by mouth 1 (one) time each day. 30 each 5 02/18/20 26 Active metoprolol tartrate (LOPRESSOR) 25 mg tablet Take 1 tablet (25 mg total) by mouth 2 (two) times a day. 08/20/20 Discontinu ed(Stop Taking at Discharge) lisinopriL (PRINIVIL,ZEST RIL) 10 mg tablet Take 1 tablet (10 mg total) by mouth 1 (one) time each day. 08/20/20 25 Discontinu ed(Stop Taking at Discharge) phenazopyridin e (PYRIDIUM) 200 mg tablet Take 1 tablet (200 mg total) by mouth every 8 (eight) hours if needed (urinary discomfort). 9 tablet 5 08/20/20 25 Discontinu ed(Stop Taking at Discharge) megestroL (MEGACE) 400 mg/10 mL (40 mg/mL) suspension Take 20 mL (800 mg total) by mouth 1 (one) time each day. Shake well just before you measure a dose. Measure with a special dose-measuring spoon or medicine cup, not with a regular table spoon. If you do not have a dose-measuring device, ask your pharmacist for one. 600 mL 1 08/20/20 Discontinu ed(Stop Taking at Discharge) sulfamethoxazo le-trimethopri m (BACTRIM DS,SEPTRA DS) 800-160 mg per tablet Take 1 tablet by mouth 2 (two) times a day. 08/20/20 Discontinu ed(Stop Taking at Discharge) Active Problems Problem Noted Date Diagnosed Date Sepsis with acute renal fail ure, due to unspecified organism, unspecified acute renal failure type, unspecified whether septic shock present ([facility] V24, [facility] V28) 08/15/2025 Acquired autoimmune hypothyroidism 05/03/2025 Acute pyelonephritis 04/25/2025 Arteriosclerosis of coronary artery 04/20/2025 Benign hypertension 04/20/2025 Gastroesophageal reflux disease 04/20/2025 Harmful use of alcohol 04/20/2025 Hyperlipidemia 04/20/2025 Multiple pulmonary nodules 04/20/2025 Malignant neoplasm of overla pping sites of bladder ([facility] V24, [facility] V28) 02/25/2025 Cancer Staging:Clinical stage from 03/30/2025:Stage II(cT2, cN0, cM0) - Signed by Sheridan Sandoval MD on 03/30/2025 Hematuria 02/14/2025 Encounters Date Type Department Care Team Description 08/15/2025 10:22 AM EST - 08/20/2025 5:01 PM EST Hospital Encounter [facility] Surgical Unit [address] [place] [phone] Ej Dixon MD Zipagan, MD April Blake Nermina, MD Physical deconditioning (Primary Dx); Sepsis with acute renal failure, due to unspecified organism, unspecified acute renal failure type, unspecified whether septic shock present ([facility] V24, [facility] V28); Urinary tract infection in male; Acute kidney injury ([facility] V24); Atrial fib/flutter, transient ([facility] V24, [facility] V28) Discharge Disposition: Home-Health Care [facility] 08/15/2025 9:45 AM EST Office Visit [facility] Hematology Oncology [address] [place] [phone] Yohannes Woody MD 08/11/[address] [facility] - Main Lab [address] [facility] [place] [id number] Mook Chinchilla PA Pyuria 08/07/2025 1:54 PM EDT - 08/07/2025 11:59 PM EDT Hospital Encounter [facility] Radiation Oncology [address] [place] [phone] Malignant neoplasm of overlapping sites of bladder ([facility]/HCC V24, [facility]/HCC V28) (Primary Dx) Discharge Disposition: Home or Self Care 08/03/2025 Results Follow-Up Vascular Surgery - [facility] [address] [place] [address] Aubree Lockett PA 07/26/2025 7:56 AM EDT - 07/26/2025 11:59 PM EDT Hospital Encounter [facility] CT Scan [address] [place] [phone] Thoracic aortic aneurysm without rupture, unspecified part ([facility] V24) Discharge Disposition: Home or Self Care 07/18/2025 11:24 AM EDT - 07/18/2025 11:59 PM EDT Hospital Encounter [facility] Radiation Oncology [address] [place] [phone] Conchis Jackson NP Malignant neoplasm of overlapping sites of bladder ([facility]/HCC V24, [facility]/HCC V28) (Primary Dx) Discharge Disposition: Home or Self Care 07/18/2025 9:15 AM EDT Office Visit [facility] Hematology Oncology [address] [place] [phone] Yohannes Woody MD Malignant neoplasm of overlapping sites of bladder ([facility]/HCC V24, [facility]/HCC V28) (Primary Dx) 07/18/2025 Telephone [facility] Radiation Oncology [address] [place] [phone] 06/23/2025 Telephone [facility] Hematology Oncology [address] [place] [phone] Yohannes Woody MD 06/20/2025 9:00 AM EDT Office Visit [facility] Hematology Oncology [address] [place] [phone] Yohannes Woody MD Malignant neoplasm of overlapping sites of bladder ([facility]/HCC V24, [facility]/HCC V28) (Primary Dx) 06/08/2025 5:08 PM EDT - 06/09/2025 12:49 AM EDT Emergency [facility] Emergency [address] [place] [phone] Pj Calderon MD Chest pain, unspecified type (Primary Dx); Epigastric pain; Anemia, unspecified type Discharge Disposition: Home or Self Care 06/07/2025 10:14 AM EDT - 06/07/2025 11:59 PM EDT Hospital Encounter [facility] CT Scan [address] [place] [phone] Malignant neoplasm of overlapping sites of bladder ([facility]/HCC V24, [facility]/HCC V28) Discharge Disposition: Home or Self Care 06/07/2025 9:50 AM EDT - 06/07/2025 11:59 PM EDT Hospital Encounter [facility] Radiation Oncology [address] [place] [phone] Sheridan Sandoval MD Malignant neoplasm of overlapping sites of bladder ([facility]/HCC V24, [facility]/HCC V28) (Primary Dx) Discharge Disposition: Home or Self Care 06/07/2025 9:07 AM EDT - 06/07/2025 11:59 PM EDT Hospital Encounter [facility] Radiation Oncology [address] [place] [phone] Malignant neoplasm of overlapping sites of bladder ([facility]/HCC V24, [facility]/HCC V28) (Primary Dx) Discharge Disposition: Home or Self Care 06/06/2025 9:30 AM EDT - 06/06/2025 11:59 PM EDT Hospital Encounter [facility] Radiation Oncology [address] [place] [phone] Discharge Disposition: Home or Self Care 06/05/2025 Telephone [facility] Radiation Oncology [address] [place] [phone] Jerrica Ernandez, KIMBERLEY 2025 7:32 AM EDT Anesthesia Event [facility] Main OR [address] [place] [phone] Mikey Singh MD 2025 7:30 AM EDT - 2025 9:00 AM EDT Surgery [facility] Main OR [address] [place] [phone] Jurgen Currie MD CYSTOSCOPY, Bilateral Retrograde Pyelogram, BILATERAL STENT EXCHANGE, Removal of Right Nephrostomy Tube [67151 (CPT )] 2025 6:05 AM EDT - 2025 11:59 PM EDT Hospital Encounter [facility] Xray [address] [place] [phone] Pain Discharge Disposition: Home or Self Care 2025 6:00 AM EDT - 2025 10:27 AM EDT Hospital Encounter [facility] OR [address] [place] [phone] Jurgen Currie MD Malignant neoplasm of overlapping sites of bladder ([facility]/HCC V24, [facility] V28) Discharge Disposition: Home or Self Care 06/01/2025 9:50 AM EDT - 06/01/2025 11:59 PM EDT Hospital Encounter [facility] Infusion [facility] [address] [place] [phone] Yohannes Woody MD Malignant neoplasm of overlapping sites of bladder (CMS/HCC V24, CMS/HCC V28) (Primary Dx); Acquired autoimmune hypothyroidism Discharge Disposition: Home or Self Care 06/01/2025 9:18 AM EDT - 06/01/2025 11:59 PM EDT Hospital Encounter [facility] Radiation Oncology [address] [place] [phone] Discharge Disposition: Home or Self Care 05/31/2025 9:15 AM EDT - 05/31/2025 11:59 PM EDT Hospital Encounter [facility] Radiation Oncology [address] [place] [phone] Discharge Disposition: Home or Self Care 05/30/2025 9:30 AM EDT - 05/30/2025 11:59 PM EDT Hospital Encounter [facility] Radiation Oncology [address] [place] [phone] Discharge Disposition: Home or Self Care 05/30/2025 9:00 AM EDT Office Visit [facility] Hematology Oncology [address] [place] [phone] Yohannes Woody MD Malignant neoplasm of overlapping sites of bladder (CMS/HCC V24, CMS/HCC V28) (Primary Dx) 05/29/2025 9:14 AM EDT - 05/29/2025 11:59 PM EDT Hospital Encounter [facility] Radiation Oncology [address] [place] [phone] Discharge Disposition: Home or Self Care 05/25/2025 10:54 AM EDT - 05/25/2025 11:59 PM EDT Hospital Encounter [facility] Xray [address] [place] [phone] Malignant neoplasm of overlapping sites of bladder (CMS/HCC V24, CMS/HCC V28) Discharge Disposition: Home or Self Care 05/25/2025 9:47 AM EDT - 05/25/2025 11:59 PM EDT Hospital Encounter [facility] Infusion [facility] [address] [place] [phone] Yohannes Woody MD Malignant neoplasm of overlapping sites of bladder (CMS/HCC V24, CMS/HCC V28) (Primary Dx); Acquired autoimmune hypothyroidism Discharge Disposition: Home or Self Care 05/25/2025 9:16 AM EDT - 05/25/2025 11:59 PM EDT Hospital Encounter [facility] Radiation Oncology [address] [place] [phone] Discharge Disposition: Home or Self Care 05/24/2025 9:30 AM EDT - 05/24/2025 11:59 PM EDT Hospital Encounter [facility] Radiation Oncology [address] [place] [phone] Discharge Disposition: Home or Self Care from Last 3 Months Surgical History Surgery Date Site/Laterality Comments BLADDER SURGERY CYSTOSCOPY Medical History Medical History Date Comments Bladder cancer ([facility] V24, [facility] V28) Nephrostomy present ([facility] V24, [facility] V28) Family History Medical History Relation Name [...] for your loved ones. For example, child protection specialist or elderly care for an older adult? [...] Mass Index 16.78 08/16/2025 8:09 AM EST Plan of Treatment Upcoming Encounters Date Type Department Care Team (Late st Contact Info) Description 09/01/2025 10:00 AM EST Consult Vascular Surgery - [facility] [address] [place] [phone] Williams Wood MD [address] [place] [phone] Health Maintenance Due Date Last Done Comments [...] 10/20/2022, 2020 Social Influencers of Health Screening 08/15/2026 08/15/2025 Falls Risk Assessment 08/20/2026 08/20/2025 Hypertension/CHF/CAD Annual BMP Blood Test 08/20/2026 08/20/2025, 08/18/2025, 08/17/2025, Additional history exists HIB Vaccines Aged Out [...] this topic Medical Devices Implanted Type Area Senior Asp Net Developer Device Identifier Shelf Expiration Date Model / Serial / Lot Stent Uret [id number] Contr Percuflex Hydroplus - Sn/A - [id number] Implanted:Qty: 1 on 02/17/2025 by Naty Harris MD at [facility] Stents Left: Bladder [employer] 09/01/2027 [id number] / N/A / [id number] Stent Nephuret Lplk [id number] Radiopq Bnd - [id number] Implanted:Qty: 1 on 05/01/2025 by Leydi Jain MD at [facility] Stents Right: Kidney [employer] [id number] 11/15/2027 [id number] / / [id number] Stent Uret Tria Firm W/Side Holes 7f [id number] - Sn/A - [id number] Implanted:Qty: 1 on 2025 by Jurgen Currie MD at [facility] Stents Right: Ureter [employer] [id number] 01/24/2028 [id number] / N/A / [id number] Stent Uret Tria Firm W/Side Holes 7f [id number] - Sn/A - [id number] Implanted:Qty: 1 on 2025 by Jurgen Currie MD at [facility] Stents Left: Ureter [employer] [id number] 01/24/2028 [id number] / N/A / [id number] Procedures Procedure Name Priority Date/Time Associated Diagnosis Comments ECG ANNOTATED 08/21/2025 LAVENDER - EDTA Routine 08/20/2025 5:52 AM EST EXTRA TUBES Routine 08/20/2025 5:52 AM EST MAGNESIUM Routine 08/20/2025 5:52 AM EST BASIC METABOLIC PANEL Routine 08/20/2025 5:52 AM EST CBC WITH AUTO DIFFERENTIAL Routine 08/18/2025 6:37 AM EST MAGNESIUM Timed 08/18/2025 6:37 AM EST CBC AND DIFFERENTIAL Routine 08/18/2025 6:37 AM EST BASIC METABOLIC PANEL Routine 08/18/2025 6:37 AM EST CBC WITH AUTO DIFFERENTIAL Routine 08/17/2025 5:24 AM EST MAGNESIUM Timed 08/17/2025 5:24 AM EST CBC AND DIFFERENTIAL Routine 08/17/2025 5:24 AM EST BASIC METABOLIC PANEL Routine 08/17/2025 5:24 AM EST TRANSTHORACIC ECHOCARDIOGRAM (TTE) COMPLETE W/ CONTRAST Routine 08/16/2025 8:09 AM EST Atrial fib/flutter, transient (CMS/HCC V24, CMS/HCC V28) CBC WITH AUTO DIFFERENTIAL Routine 08/16/2025 5:17 AM EST MAGNESIUM Timed 08/16/2025 5:17 AM EST CBC AND DIFFERENTIAL Routine 08/16/2025 5:17 AM EST BASIC METABOLIC PANEL Routine 08/16/2025 5:17 AM EST TRIIODOTHYRONINE FREE Routine 08/15/2025 5:13 PM EST FREE THYROXINE WITH REFLEX TO FREE TRIIODOTHYRONINE Routine 08/15/2025 5:13 PM EST THYROID STIMULATING HORMONE WITH REFLEX TO FREE T4 AND FREE T3 Routine 08/15/2025 5:13 PM EST CULTURE BLOOD STAT 08/15/2025 5:13 PM EST CULTURE BLOOD STAT 08/15/2025 5:10 PM EST LACTATE, WITH REFLEX Timed 08/15/2025 2:35 PM EST YELLOW URINE NO ADDITIVE Routine 08/15/2025 1:41 PM EST SERNA URINE CULTURE TUBE Routine 08/15/20 1:41 PM EST EXTRA TUBES Routine 08/15/2025 1:41 PM EST URINALYSIS WITH REFLEX MICROSCOPIC STAT 08/15/2025 1:41 PM EST URINALYSIS WITH REFLEX MICROSCOPIC STAT 08/15/2025 1:41 PM EST CULTURE URINE STAT 08/15/2025 1:41 PM EST ECG 12-LEAD STAT 08/15/2025 12:59 PM EST XR CHEST 1 VIEW STAT 08/15/2025 12:56 PM EST TROPONIN I HIGH SENSITIVITY Timed 08/15/2025 11:[address] ABDOMEN PELVIS WO CONTRAST STAT 08/15/2025 11:02 AM EST TRIIODOTHYRONINE FREE Routine 08/15/2025 10:53 AM EST FREE THYROXINE WITH REFLEX TO FREE TRIIODOTHYRONINE Routine 08/15/2025 10:53 AM EST THYROID STIMULATING HORMONE WITH REFLEX TO FREE T4 AND FREE T3 Add-On 08/15/2025 10:53 AM EST MAGNESIUM STAT Add-on 08/15/2025 10:53 AM EST CBC WITH AUTO DIFFERENTIAL STAT 08/15/2025 10:53 AM EST TROPONIN I HIGH SENSITIVITY Timed 08/15/2025 10:53 AM EST LACTATE, WITH REFLEX STAT 08/15/2025 10:53 AM EST ACTIVATED PARTIAL THROMBOPLASTIN TIME STAT 08/15/2025 10:53 AM EST PROTHROMBIN TIME WITH INR STAT 08/15/2025 10:53 AM EST COMPREHENSIVE METABOLIC PANEL STAT 08/15/2025 10:53 AM EST CBC AND DIFFERENTIAL STAT 08/15/2025 10:53 AM EST ECG 12-LEAD STAT 08/15/2025 10:27 AM EST FL CRITICAL CARE 30-74 MINUTES Routine 08/15/2025 10:13 AM EST BACTERIAL IDENTIFICATION AND SUSCEPTIBILITY, AEROBIC Routine 08/10/2025 12:[address] ANGIO CHEST WO AND/OR W CONTRAST Routine 07/26/2025 8:20 AM EDT Thoracic aortic aneurysm without rupture, unspecified part (CMS/HCC V24) CBC WITH AUTO DIFFERENTIAL Routine 07/12/2025 9:42 [...] V28) SERNA URINE CULTURE TUBE Routine 06/23/20 11:19 AM EDT Urinary tract infection without [...] LMA(NO CHARGE) Routine 2025 7:50 AM EDT FL CYSTOURETHROSCOPY WITH INSERTION INDWELLING URETERAL STENT 2025 [...] TREATMENT SUMMARY Routine 05/24/2025 9:44 AM EDT from Last 3 Months Results * ECG-Annotated (08/21/2025) Only the most recent of2 resultswithin the time period is included. us Provider Onbase MD ECG ORDERABLES Final Result * Lavender tube (08/20/2025 5:52 AM EST) Pathologist [facility] Extra Tube Hold for add-ons. 08/20/2025 8:01 AM EST [facility] Comment:Auto resulted. Blood Venous blood specimen / Unknown Venipuncture / Unknown 08/20/2025 5:52 AM EST 08/20/2025 6:11 AM EST us J Luis Tello MD LAB BLOOD ORDERABLES Final Re sult [facility] [address] [place] [address], * (ABNORMAL) Magnesium (08/20/2025 5:52 AM EST) Only the most recent of6 resultswithin the time period is included. Magnesium 1.6(L) 1.9 - 2.6 mg/dL LAB CHEMISTRY METHOD 08/20/2025 7:11 AM [facility] Blood Venous blood specimen / Unknown Venipuncture / Unknown 08/20/2025 5:52 AM EST 08/20/2025 6:09 AM EST us J Luis Tello MD LAB BLOOD ORDERABLES Final Re sult [facility] [address] [place] [address], [place] [phone] * (ABNORMAL) Basic metabolic panel (08/20/2025 5:52 AM EST) Only the most recent of4 resultswithin the time period is included. Sodium 141 133 - 145 mmol/L LAB CHEMISTRY METHOD 08/20/2025 7:11 AM [facility] Potassium 4.2 3.5 - 5.5 mmol/L LAB CHEMISTRY METHOD 08/20/2025 7:11 AM [facility] Chloride 115(H) 96 - 110 mmol/L LAB CHEMISTRY METHOD 08/20/2025 7:11 AM [facility] CO2 22 21 - 32 mmol/L LAB CHEMISTRY METHOD 08/20/2025 7:11 AM [facility] Anion Gap 4 3 - 11 LAB CHEMISTRY METHOD 08/20/2025 7:11 AM [facility] Glucose 88 70 - 100 mg/dL LAB CHEMISTRY METHOD 08/20/2025 7:11 AM [facility] BUN 10 5 - 25 mg/dL LAB CHEMISTRY METHOD 08/20/2025 7:11 AM [facility] Creatinine 1.14 0.70 - 1.30 mg/dL LAB CHEMISTRY METHOD 08/20/2025 7:11 AM [facility] eGFR 66 >=60 mL/min/1. 73m2 LAB CHEMISTRY METHOD 08/20/2025 7:11 AM [facility] Comment:Calculation based on the Chronic Kidney Disease Epidemiology Collaboration (CKD-EPI) equation refit without adjustment for race. BUN/Creatinine Ratio 8.8 LAB CHEMISTRY METHOD 08/20/2025 7:11 AM [facility] Calcium 7.5(L) 8.5 - 10.5 mg/dL LAB CHEMISTRY METHOD 08/20/2025 7:11 AM [facility] Blood Venous blood specimen / Unknown Venipuncture / Unknown 08/20/2025 5:52 AM EST 08/20/2025 6:09 AM EST us J Luis Tello MD LAB BLOOD ORDERABLES Final Re sult [facility] [address] [place] [address], [place] [phone] * (ABNORMAL) CBC auto differential (08/18/2025 6:37 AM EST) Only the most recent of8 resultswithin the time period is included. WBC 5.0 4.8 - 10.8 K/mcL LAB HEMETOLOGY METHOD 08/18/2025 7:29 AM [facility] RBC 3.60(L) 4.50 - 5.50 M/mcL LAB HEMETOLOGY METHOD 08/18/2025 7:29 AM [facility] Hemoglobin 8.9(L) 13.5 - 17.5 g/dL LAB HEMETOLOGY METHOD 08/18/2025 7:29 AM [facility] Hematocrit 30.7(L) 42.0 - 54.0 % LAB HEMETOLOGY METHOD 08/18/2025 7:29 AM [facility] MCV 84.3 79.0 - 98.0 FL LAB HEMETOLOGY METHOD 08/18/2025 7:29 AM [facility] MCH 24.5(L) 27.0 - 32.0 pcg LAB HEMETOLOGY METHOD 08/18/2025 7:29 AM [facility] MCHC 29.0(L) 32.0 - 37.0 g/dL LAB HEMETOLOGY METHOD 08/18/2025 7:29 AM [facility] RDW 17.1(H) 11.0 - 15.0 % LAB HEMETOLOGY METHOD 08/18/2025 7:29 AM [facility] Platelets 205 130 - 400 K/mcL LAB HEMETOLOGY METHOD 08/18/2025 7:29 AM [facility] MPV 9.9 7.0 - 11.0 FL LAB HEMETOLOGY METHOD 08/18/2025 7:29 AM [facility] NRBC 0.0 <1.0 % LAB HEMETOLOGY METHOD 08/18/2025 7:29 AM [facility] NRBC Absolute 0.00 <0.10 K/mcL LAB HEMETOLOGY METHOD 08/18/2025 7:29 AM [facility] Neutrophils Relative 64.4 % LAB HEMETOLOGY METHOD 08/18/2025 7:29 AM [facility] Lymphocytes Relative 19.8 % LAB HEMETOLOGY METHOD 08/18/2025 7:29 AM [facility] Monocytes Relative 8.7 % LAB HEMETOLOGY METHOD 08/18/2025 7:29 AM [facility] Eosinophils Relative 6.3 % LAB HEMETOLOGY METHOD 08/18/2025 7:29 AM [facility] Basophils Relative 0.4 % LAB HEMETOLOGY METHOD 08/18/2025 7:29 AM [facility] Immature Granulocytes Relative 0.4 % LAB HEMETOLOGY METHOD 08/18/2025 7:29 AM [facility] Neutrophils Absolute 3.20 1.50 - 7.00 K/mcL LAB HEMETOLOGY METHOD 08/18/2025 7:29 AM EST [facility] Lymphocytes Absolute 0.98(L) 1.00 - 5.00 K/mcL LAB HEMETOLOGY METHOD 08/18/2025 7:29 AM EST [facility] Monocytes Absolute 0.43 0.20 - 1.00 K/mcL LAB HEMETOLOGY METHOD 08/18/2025 7:29 AM EST [facility] Eosinophils Absolute 0.31 0.00 - 0.50 K/mcL LAB HEMETOLOGY METHOD 08/18/2025 7:29 AM EST [facility] Basophils Absolute 0.02 0.00 - 0.20 K/mcL LAB HEMETOLOGY METHOD 08/18/2025 7:29 AM [facility] Immature Granulocytes Absolute 0.02 0.00 - 0.03 K/mcL LAB HEMETOLOGY METHOD 08/18/2025 7:29 AM [facility] Blood Venous blood specimen / Unknown Venipuncture / Unknown 08/18/2025 6:37 AM EST 08/18/2025 7:14 AM EST Marilee MCDOWELL LAB BLOOD ORDERABLES Final Result [facility] [address] [place] [address], * (ABNORMAL) TRANSTHORACIC ECHOCARDIOGRAM (TTE) COMPLETE W/ [...] 79 mL CV PACS Left [facility] Minor [place] 5.8 cm CV PACS Left [facility] Major [place] 6.7 cm CV PACS LA Area Sys [...] Proximal 2.0 cm CV PACS MV Deceleration Tyler 2.3 m/s2 CV PACS E Wave Deceleration Time 278(A) 119 - 242 ms CV PACS MV PHT 81 ms CV PACS MV Peak A Alban 0.56 m/s CV PACS MV Peak E Alban 0.65 m/s CV PACS MV Area PHT 2.7 cm2 CV PACS FL End Max Velocity 1.0 m/s CV PACS [...] ECHO PROCEDURES Final R esult * (ABNORMAL) Thyroid stimulating hormone with reflex to free t4 and free t3 (08/15/2025 5:13 PM EST) Only the most recent of2 resultswithin the time period is included. TSH 5.80(H) 0.40 - 4.00 mcIU/mL LAB CHEMISTRY METHOD 08/15/2025 6:04 PM EST [facility] Blood Venous blood specimen / Unknown Venipuncture / Unknown 08/15/2025 5:13 PM EST 08/15/2025 5:19 PM EST [facility] LAB BLOOD ORDERABLES Final Result Performing Organization Address City/[facility]/ZIP Co de Phone Number [facility] [address] [place] [address], [place] [phone] * Free thyroxine with reflex to free triiodothyronine (08/15/2025 5:13 PM EST) Only the most recent of2 resultswithin the time period is included. Pathologist [facility] Free T4 0.78 0.70 - 1.80 ng/dL LAB CHEMISTRY METHOD 08/15/2025 7:35 PM EST [facility] Blood Venous blood specimen / Unknown Venipuncture / Unknown 08/15/2025 5:13 PM EST 08/15/2025 5:19 PM EST [facility] Final Result Performing Organization Address City/[facility]/ZIP Co de Phone Number [facility] [address] [place] [address], [place] [phone] * Culture blood (08/15/2025 5:13 PM EST) Only the most recent of2 resultswithin the time period is included. Culture, Blood No growth at 5 days 08/20/2025 6:01 PM EST [facility] Blood Venous blood specimen / Unknown Venipuncture / Unknown 08/15/2025 5:13 PM EST 08/15/2025 5:19 PM EST us Marilee MCDOWELL LAB MICROBIOLOGY - GENERAL ORDERABLES Final Result Performing Organization Address City/[facility]/ZIP Co de Phone Number [facility] [address] [place] [address], [place] [phone] * (ABNORMAL) Triiodothyronine free (08/15/2025 5:13 PM EST) Only the most recent of2 resultswithin the time period is included. T3, Free 207(L) 230 - 420 pcg/dL LAB CHEMISTRY METHOD 08/15/2025 10:03 PM EST [facility] Blood Venous blood specimen / Unknown Venipuncture / Unknown 08/15/2025 5:13 PM EST 08/15/2025 5:19 PM EST Marilee MCDOWELL LAB BLOOD ORDERABLES Final Result Performing Organization Address [facility] Co de Phone Number [facility] [address] [place] [address], [place] [phone] * Lactate, with reflex (08/15/2025 2:35 PM EST) Only the most recent of2 resultswithin the time period is included. LACTIC ACID 1.9 0.4 - 2.0 mmol/L LAB CHEMISTRY METHOD 08/15/2025 3:36 PM EST [facility] Blood Venous blood specimen / Unknown Venipuncture / Unknown 08/15/2025 2:35 PM EST 08/15/2025 3:00 PM EST Ej Dixon MD LAB BLOOD ORDERABLES Final Result Performing Organization Address City/[facility]/ZIP Co de Phone Number [facility] [address] [place] [address], [place] [phone] * (ABNORMAL) Urinalysis with reflex microscopic (08/15/2025 1:41 PM EST) Specific [place] Urine 1.014 1.003 - 1.030 LAB URINALYSIS - AUTOMATED METHOD 08/15/2025 2:56 PM [facility] pH, Urine 6.0 5.0 - 8.0 pH LAB URINALYSIS - AUTOMATED METHOD 08/15/2025 2:56 PM [facility] Leukocytes, Urine Large(A) Negative LAB URINALYSIS - AUTOMATED METHOD 08/15/2025 2:56 PM [facility] Nitrite, Urine Positive(A) Negative LAB URINALYSIS - AUTOMATED METHOD 08/15/2025 2:56 PM [facility] Protein, Urine 100(A) <=Trace mg/dL LAB URINALYSIS - AUTOMATED METHOD 08/15/2025 2:56 PM [facility] Glucose, Urine Negative Negative mg/dL LAB URINALYSIS - AUTOMATED METHOD 08/15/2025 2:56 PM [facility] Ketones, Urine Negative Negative mg/dL LAB URINALYSIS - AUTOMATED METHOD 08/15/2025 2:56 PM [facility] Urobilinogen , Urine 1.0 0.2 - 1.0 mg/dL LAB URINALYSIS - AUTOMATED METHOD 08/15/2025 2:56 PM [facility] Bilirubin, Urine Negative Negative LAB URINALYSIS - AUTOMATED METHOD 08/15/2025 2:56 PM [facility] Blood, Urine Large(A) Negative LAB URINALYSIS - AUTOMATED METHOD 08/15/2025 2:56 PM [facility] RBC, Urine 50.0(H) 0 - 4 /HPF LAB URINALYSIS - AUTOMATED METHOD 08/15/2025 2:56 PM [facility] WBC, Urine 73.1(H) 0 - 4 /HPF LAB URINALYSIS - AUTOMATED METHOD 08/15/2025 2:56 PM [facility] Squamous Epithelial, Urine 68(H) 0 - 60 /LPF LAB URINALYSIS - AUTOMATED METHOD 08/15/2025 2:56 PM [facility] Bacteria, Urine Moderate(A) Negative /HPF LAB URINALYSIS - AUTOMATED METHOD 08/15/2025 2:56 PM [facility] Hyaline Casts, Urine 1.6 0 - 3 /LPF LAB URINALYSIS - AUTOMATED METHOD 08/15/2025 2:56 PM [facility] Other Casts, Urine 2-5 FINE GRANULAR /LPF LAB URINALYSIS - AUTOMATED METHOD 08/15/2025 2:56 PM [facility] Urine Urine specimen obtained by clean catch procedure / Unknown Non-blood Collection / Unknown 08/15/2025 1:41 PM EST 08/15/2025 1:57 PM EST Ej Dixon MD LAB URINE ORDERABLES Final Result Performing Organization Address City/[facility]/ZIP Co de Phone Number [facility] [address] [place] [address], [place] [phone] * Serna urine culture tube (08/15/2025 1:41 PM EST) Only the most recent of2 resultswithin the time period is included. Extra Tube Hold for add-ons. 08/15/2025 3:01 PM EST [facility] Comment:Auto resulted. Urine Urine specimen obtained by clean catch procedure / Unknown 08/15/2025 1:41 PM EST 08/15/2025 1:58 PM EST Ej Dixon MD LAB URINE ORDERABLES Final Result Performing Organization Address City/[facility]/ZIP Co de Phone Number [facility] [address] [place] [address], [place] [phone] * Yellow urine no additive (08/15/2025 1:41 PM EST) Pathologist [facility] Extra Tube Hold for add-ons. 08/15/2025 3:01 PM EST [facility] Comment:Auto resulted. Urine Urine specimen obtained by clean catch procedure / Unknown 08/15/2025 1:41 PM EST 08/15/2025 1:58 PM EST Ej Dixon MD LAB URINE ORDERABLES Final Result Performing Organization Address [facility] Co de Phone Number [facility] [address] [place] [address], [place] [phone] * Culture urine (08/15/2025 1:41 PM EST) Only the most recent of3 resultswithin the time period is included. Pathologist [facility] Culture, Urine <10,000 CFU/mL gram positive cocci, insignificant count, no further workup 08/18/2025 11:22 AM EST [facility] Urine Urine specimen from urethra / Unknown 08/15/2025 1:41 PM EST 08/16/2025 7:58 AM EST J Luis Tello MD LAB MICROBIOLOGY - GENERAL OR DERABLES Final Result Performing Organization Address [facility] Co de Phone Number [facility] [address] [place] [address], * ECG 12 lead (08/15/2025 12:59 PM EST) Only the most recent of3 resultswithin the time period is included. Ventricular Rate ECG 85 BPM GEMUSE Atrial Rate 85 BPM GEMUSE P-R Interval 150 ms GEMUSE QRS Duration 70 ms GEMUSE Q-T Interval 382 ms GEMUSE QTc 454 ms GEMUSE P Wave [place] 33 degrees GEMUSE R [place] -29 degrees GEMUSE T [place] 10 degrees GEMUSE ECG Interpretation Normal sinus rhythm Normal ECG When compared with ECG of 15-AUG-2025 10:27, (unconfirmed) Sinus rhythm has replaced Atrial fibrillation Vent. rate has decreased BY [address] no longer depressed in Lateral leads Nonspecific T wave abnormality, improved in Lateral leads Confirmed by ARABELLA BARAJAS ([id number]) on 08/15/2025 7:55:18 PM GEMUSE 08/15/2025 12:5 9 PM EST 08/15/2025 7:55 PM EST us Ej Dixon MD ECG ORDERABLES Final Resul t GEMUSE * XR Chest 1 View (08/15/2025 12:56 PM EST) Only the most recent of3 resultswithin the time period is included. Anatomical Region Laterality Modality Body Radiographic [place] 08/15/2025 1:49 PM EST Impressions 08/15/2025 1:49 PM EST FINDINGS/IMPRESSION: No consolidation or effusion. No congestive heart failure. -------- FINAL REPORT -------- Dictated By: Segundo Brown Dictated Date: 08/15/2025 13:49 ET Assigned Physician: Segundo Brown Reviewed and Electronically Signed By: Segundo Brown Signed Date: 08/15/2025 13:49 ET Workstation ID: [id number] Transcribed By: Self Edit Transcribed Date: 08/15/2025 [...] Signed Date: 08/15/2025 13:49 ET Workstation ID: [id number] Transcribed By: Self Edit Transcribed Date: 08/15/2025 13:49 ET Ej Dixon MD IMG XR PROCEDURES Final Res ult * Troponin I high sensitivity (08/15/2025 11:52 AM EST) Only the most recent of4 resultswithin the time period is included. High Sensitivity Troponin I 12 <=79 ng/L LAB CHEMISTRY METHOD 08/15/2025 12:36 PM EST [facility] Blood Venous blood specimen / Unknown Venipuncture / Unknown 08/15/2025 11:52 AM EST 08/15/2025 12:04 PM EST Narrative [facility] - 08/15/2025 12:36 PM EST High levels of biotin in samples may falsely decrease hsTroponin values. Use caution when interpreting hsTroponin results in patients taking biotin who exhibit renal impairment (eGFR <60) or in patients taking more than 20 mg/day of biotin. Ej Dixon MD LAB BLOOD ORDERABLES Final Result [facility] [address] [place] [address], [place] [phone] * CT Abdomen Pelvis wo Contrast (08/15/2025 [...] Signed Date: 08/15/2025 11:28 ET Workstation ID: [id number] Transcribed By: Self Edit Transcribed Date: 08/15/2025 [...] of contrast discarded: 0 mL FINDINGS: Digital assistant administrator demonstrates bilateral nephroureteral stents. LIVER: The liver [...] acute or suspicious osseous abnormality. Procedure Note Rose, Timothy F, MD - 08/15/2025 EXAMINATION: CT ABDOMEN/PELVIS WITHOUT [...] of contrast discarded: 0 mL FINDINGS: Digital assistant administrator demonstrates bilateral nephroureteral stents. LIVER: The liver [...] Signed Date: 08/15/2025 11:28 ET Workstation ID: [id number] Transcribed By: Self Edit Transcribed Date: 08/15/2025 11:19 ET Ej Dixon MD IMG CT PROCEDURES Final Res ult * APTT (08/15/2025 10:53 AM EST) aPTT 33.4 24.1 - 39.3 sec LAB COAGULATION METHOD 08/15/2025 11:31 AM EST [facility] Blood Venous blood specimen / Unknown Venipuncture / Unknown 08/15/2025 10:53 AM EST 08/15/2025 11:16 AM EST Ej Dixon MD LAB BLOOD ORDERABLES Final Result [facility] [address] [place] [address], [place] [phone] * Protime-INR (08/15/2025 10:53 AM EST) Protime 12.7 10.6 - 13.9 sec LAB COAGULATION METHOD 08/15/2025 11:31 AM EST [facility] INR 1.0 LAB COAGULATION METHOD 08/15/2025 11:31 AM EST [facility] Blood Venous blood specimen / Unknown Venipuncture / Unknown 08/15/2025 10:53 AM EST 08/15/2025 11:16 AM EST us Ej Dixon MD LAB BLOOD ORDERABLES Final Result [facility] [address] [place] [address], [place] [phone] * (ABNORMAL) Comprehensive Metabolic Panel (CMP) (08/15/2025 10:53 AM EST) Only the most recent of5 resultswithin the time period is included. Sodium 133 133 - 145 mmol/L LAB CHEMISTRY METHOD 08/15/2025 12:02 PM [facility] Potassium 5.0 3.5 - 5.5 mmol/L LAB CHEMISTRY METHOD 08/15/2025 12:02 PM [facility] Chloride 101 96 - 110 mmol/L LAB CHEMISTRY METHOD 08/15/2025 12:02 PM [facility] CO2 25 21 - 32 mmol/L LAB CHEMISTRY METHOD 08/15/2025 12:02 PM [facility] Anion Gap 7 3 - 11 LAB CHEMISTRY METHOD 08/15/2025 12:02 PM [facility] Glucose 123(H) 70 - 100 mg/dL LAB CHEMISTRY METHOD 08/15/2025 12:02 PM [facility] BUN 35(H) 5 - 25 mg/dL LAB CHEMISTRY METHOD 08/15/2025 12:02 PM [facility] Creatinine 2.31(H) 0.70 - 1.30 mg/dL LAB CHEMISTRY METHOD 08/15/2025 12:02 PM [facility] eGFR 28(L) >=60 mL/min/1. 73m2 LAB CHEMISTRY METHOD 08/15/2025 12:02 PM [facility] Comment:Calculation based on the Chronic Kidney Disease Epidemiology Collaboration (CKD-EPI) equation refit without adjustment for race. BUN/Creatinine Ratio 15.2 LAB CHEMISTRY METHOD 08/15/2025 12:02 PM [facility] Calcium 9.3 8.5 - 10.5 mg/dL LAB CHEMISTRY METHOD 08/15/2025 12:02 PM [facility] AST (SGOT) 22 10 - 42 unit/L LAB CHEMISTRY METHOD 08/15/2025 12:02 PM [facility] ALT (SGPT) 30 10 - 60 unit/L LAB CHEMISTRY METHOD 08/15/2025 12:02 PM [facility] Alkaline Phosphatase 138(H) 42 - 121 unit/L LAB CHEMISTRY METHOD 08/15/2025 12:02 PM [facility] Total Protein 8.7(H) 6.0 - 8.0 g/dL LAB CHEMISTRY METHOD 08/15/2025 12:02 PM [facility] Albumin 2.8(L) 3.2 - 5.0 g/dL LAB CHEMISTRY METHOD 08/15/2025 12:02 PM [facility] Total Bilirubin 0.4 0.0 - 1.4 mg/dL LAB CHEMISTRY METHOD 08/15/2025 12:02 PM [facility] Blood Venous blood specimen / Unknown Venipuncture / Unknown 08/15/2025 10:53 AM EST 08/15/2025 11:16 AM EST us Ej Dixon MD LAB BLOOD ORDERABLES Final Result [facility] [address] [place] [address], * [place] [facility] 30-74 MINUTES (08/15/2025 10:13 AM [...] MD IN CLINIC/BEDSIDE ORDERABLE S Final Result * (ABNORMAL) Baterial identification and susceptibility, aerobic (08/10/2025 12:00 AM EDT) [facility] Culture, Bacterial ID and Sensitivity Pseudomonas aeruginosa(A) JEROME 08/13/2025 8:00 AM [facility] Comment: The organism value for this result has been updated. These results have been appended to the previously preliminary verified report. This is an edited result. Previous organism was Gram negative bacilli on 08/12/2025 at 1041 EDT. Culture, Bacterial ID and Sensitivity Vancomycin resistant Enterococcus faecium(A) JEROME 08/13/2025 8:00 AM [facility] Comment: The organism value for [...] ug/ml: Susceptible Vancomycin resistant Enterococcus faecium Vancomycin EJROME >=32 ug/ml: Resistant Vancomycin resistant Enterococcus faecium Tetracycline JEROME >=16 ug/ml: Resistant Vancomycin resistant Enterococcus faecium Nitrofurantoin JEROME 32 ug/ml: Susceptible us Mook MCDOWELL LAB MICROBIOLOGY - GENERAL ORDER GABRIEL Final Result [facility] [address] [place] [address], * CT Angio Chest wo and/or w Contrast (07/26/2025 8:20 AM EDT) Anatomical Region Laterality Modality Body Computed Tomogra phy 08/03/2025 10:0 3 AM EDT Impressions 08/03/2025 10:32 AM EDT Stable fusiform dilatation of the lower descending [...] Signed Date: 08/03/2025 10:32 ET Workstation ID: [id number] Transcribed By: Self Edit Transcribed Date: 08/03/2025 10:03 ET Narrative 08/03/2025 10:32 AM EDT PROCEDURE: CT pulmonary angiogram. HISTORY: Thoracic aortic [...] pulmonary arteries. No pulmonary embolism. Standard three-vessel aortic arch. Multifocal hard and soft plaque throughout the aorta and great vessels. Ascending aorta measures 3.5 cm in diameter. There is fusiform dilatation of the lower descending thoracic and upper abdominal aorta, measuring up to 4.9 x 4.1 cm in diameter. Aortic caliber is unchanged compared with the noncontrast study on 02/19/2025. There are thin irregular [...] anterior wedging of the T7 vertebral body. Procedure Note Colby Rahman MD - 08/03/2025 PROCEDURE: CT pulmonary angiogram. HISTORY: Thoracic aortic aneurysm (TAA), follow up. TECHNIQUE: CT of the chest with intravenous contrast administration withpulmonary angiogram protocol. Coronal and sagittal reformats and MIPreconstructions were created. Dose length product: 336 mGy-cm. Contrast dose: 90 mL [id number]. COMPARISON: FINDINGS: LUNGS/PLEURA: Small amount of aspirated debris in the trachea near thethoracic inlet. Mild centrilobular edema. Patchy groundglass opacitiesin the left lower lobe and mild interstitial scarring at both bases. Stable 4 mm right middle lobe nodule, series 3 image 128. Stable 5 mm lateral right lower lobe juxtapleural nodule, series 3 [id number]. Previously demonstrated small bilateral pleural effusions have resolved. MEDIASTINUM/ROMÁN: No mass or lymphadenopathy. VASCULATURE: Normal caliber pulmonary arteries. No pulmonary embolism.Standard three-vessel aortic arch. Multifocal hard and soft plaquethroughout the aorta and great vessels. Ascending aorta measures 3.5 cmin diameter. There is fusiform dilatation of the lower descendingthoracic and upper abdominal aorta, measuring up to 4.9 x 4.1 cm indiameter. Aortic caliber is unchanged compared with the noncontrast studyon 02/19/2025. There are thin irregular irregular webs in the anterioraortic lumen just above the level of maximal aortic dilatation. CARDIAC: Mild cardiomegaly. Mild coronary artery calcification. CHEST WALL: No axillary or supraclavicular lymphadenopathy. LIMITED ABDOMEN: Evaluation limited by motion. There are partiallyvisible bilateral double-J nephroureteral stents. Visualized portions ofthe stents appear well-positioned. Moderately distended gallbladder.Multifocal atherosclerotic calcifications.. BONES: Mild degenerative changes of the spine and shoulders. Thinsyndesmophytes raise the possibility of ankylosing spondylitis. Stablemild anterior wedging of the T7 vertebral body. IMPRESSION: Stable fusiform dilatation of the lower descending thoracic and upperabdominal aorta. There are thin irregular webs in the anterior aorticlumen just above the level of maximal dilatation which are not apparent onthe comparison noncontrast CT. -------- FINAL REPORT -------- Dictated By: Colby Rahman Dictated Date: 08/03/2025 10:03 ET Assigned Physician: Colby Rahman Reviewed and Electronically Signed By: Colby Rahman Signed Date: 08/03/2025 10:32 ET Workstation ID: [id number] Transcribed By: Self Edit Transcribed Date: 08/03/2025 10:03 ET Jerrica MCDOWELL IMG CT PROCEDURES Final Result * (ABNORMAL) Urinalysis with reflex microscopic and culture (06/23/2025 11:19 AM EDT) Specific [place] Urine 1.010 1.003 - 1.030 LAB URINALYSIS - AUTOMATED METHOD 06/23/2025 12:57 PM [facility] pH, Urine 6.0 5.0 - 8.0 pH LAB URINALYSIS - AUTOMATED METHOD 06/23/2025 12:57 PM [facility] Leukocytes, Urine Large(A) Negative LAB URINALYSIS - AUTOMATED METHOD 06/23/2025 12:57 PM [facility] Nitrite, Urine Negative Negative LAB URINALYSIS - AUTOMATED METHOD 06/23/2025 12:57 PM [facility] Protein, Urine 100(A) <=Trace mg/dL LAB URINALYSIS - AUTOMATED METHOD 06/23/2025 12:57 PM [facility] Glucose, Urine Negative Negative mg/dL LAB URINALYSIS - AUTOMATED METHOD 06/23/2025 12:57 PM [facility] Ketones, Urine Negative Negative mg/dL LAB URINALYSIS - AUTOMATED METHOD 06/23/2025 12:57 PM [facility] Urobilinogen , Urine 0.2 0.2 - 1.0 mg/dL LAB URINALYSIS - AUTOMATED METHOD 06/23/2025 12:57 PM [facility] Bilirubin, Urine Negative Negative LAB URINALYSIS - AUTOMATED METHOD 06/23/2025 12:57 PM [facility] Blood, Urine Moderate(A) Negative LAB URINALYSIS - AUTOMATED METHOD 06/23/2025 12:57 PM [facility] RBC, Urine 3 0 - 4 /HPF LAB URINALYSIS - AUTOMATED METHOD 06/23/2025 12:57 PM [facility] WBC, Urine >4,000(H) 0 - 4 /HPF LAB URINALYSIS - AUTOMATED METHOD 06/23/2025 12:57 PM EDT [facility] Squamous Epithelial, Urine 93(H) 0 - 60 /LPF LAB URINALYSIS - AUTOMATED METHOD 06/23/2025 12:57 PM EDT [facility] Bacteria, Urine Many(A) Negative /HPF LAB URINALYSIS - AUTOMATED METHOD 06/23/2025 12:57 PM EDT [facility] Hyaline Casts, Urine 33.7(H) 0 - 3 /LPF LAB URINALYSIS - AUTOMATED METHOD 06/23/2025 12:57 PM EDT [facility] Urine Urine specimen obtained by clean catch procedure / Unknown Non-blood Collection / Unknown 06/23/2025 11:19 AM EDT 06/23/2025 11:26 AM EDT Yohannes Woody MD LAB URINE ORDERABLES Final Result Performing Organization Address [facility]/ZIP Co de Phone Number [facility] [address] [place] [address], [place] [phone] * Lipase (06/08/2025 9:34 PM EDT) Lipase 21 13 - 75 unit/L LAB CHEMISTRY METHOD 06/08/2025 10:18 PM EDT [facility] Blood Venous blood specimen / Unknown Venipuncture / Unknown 06/08/2025 9:34 PM EDT 06/08/2025 9:52 PM EDT Pj Calderon MD LAB BLOOD ORDERABLES Final R esult Performing Organization Address City/[facility]/ZIP Co de Phone Number [facility] [address] [place] [address], [place] [phone] * CT Head wo Contrast (06/07/2025 10:28 [...] central atrophy versus normal [place] ([id number]) -------- FINAL REPORT -------- Dictated By: Amaris Merino Dictated Date: 06/07/2025 10:31 ET Assigned Physician: Amaris Merino Reviewed and Electronically Signed By: Amaris Merino Signed Date: 06/07/2025 10:35 ET Workstation ID: [id number] Transcribed By: Self Edit Transcribed Date: 06/07/2025 10:31 ET Narrative 06/07/2025 10:35 AM EDT History: Headache. Fall 4 days ago. Personal history of bladder carcinoma. Comparison: 02/18/16 Technique: Contiguous axial images were obtained at 2.5 mm intervals through the posterior fossa and at 5 mm intervals through the remainder of the brain without intravenous contrast. DLP: 808.85 mGy/cm [place] VCT Iterative reconstruction technique Findings: There is [...] brain without intravenous contrast. DLP: 808.85 mGy/cm [place] VCT Iterative reconstruction technique Findings: There is [...] asymmetric central atrophy versus [place] pressurehydro[place] ([id number]) -------- FINAL REPORT -------- Dictated By: Amaris Merino Dictated Date: 06/07/2025 10:31 ET Assigned Physician: Amaris Merino Reviewed and Electronically Signed By: Amaris Merino Signed Date: 06/07/2025 10:35 ET Workstation ID: [id number] Transcribed By: Self Edit Transcribed Date: 06/07/2025 10:31 ET Sheridan Sandoval MD IM CT PROCEDURES Final Result * Rad Onc [...] GY ORDERABLES Final Result Performing Organization Address [facility] Co de Phone Number [facility] RADIATION ONCOLOGY [...] GY ORDERABLES Final Result Performing Organization Address [facility] Phone Number [facility] RADIATION ONCOLOGY * XR Urogram Retrograde [...] product for this procedure was 1.3612 Gy*cm2. PQRI CPT II G9500 -------- FINAL REPORT -------- Dictated By: Abhishek Mace Dictated Date: 2025 08:24 ET Assigned Physician: Abhishek Mace Reviewed and Electronically Signed By: Abhishek Mace Signed Date: 2025 08:25 ET Workstation ID: [id number] Transcribed By: Self Edit Transcribed Date: 2025 08:24 ET Procedure Note Abhishek Mace MD - 2025 Fluoroscopic spot radiographs obtained during a bilateral endourologicprocedure are submitted. No radiologist consultation was requested orprovided during this procedure and there is no radiologist professionalcharge. This report is generated for documentation purposes only. The dose-area product for this procedure was 1.3612 Gy*cm2. PQRI CPT II G9500 -------- FINAL REPORT -------- Dictated By: Abhishek Mace Dictated Date: 2025 08:24 ET Assigned Physician: Abhishek Mace Reviewed and Electronically Signed By: Abhishek Mace Signed Date: 2025 08:25 ET Workstation ID: [id number] Transcribed By: Self Edit Transcribed Date: 2025 08:24 ET us Jurgen Currie MD IMG FLUOROSCOPY PROCEDURES Final Result * TH AN LMA(NO CHARGE) (2025 7:50 AM EDT) Mikey Sanderson MD - 2025 7:50 AM EDT Mikey [...] 2025 7:39 AMStop Time: 2025 7:39 AM us Mikey Singh MD ANESTHESIA ORDERABLES Final Re [...] GY ORDERABLES Final Result Performing Organization Address City/[facility]/ZIP Co de Phone Number [facility] RADIATION [...] 9:49 AM EDT Physician Radiation Oncology RADIATION ONCOLO [...] [facility] RADIATION ONCOLOGY 05/29/2025 9:36 AM EDT Physician Radiation Oncology RADIATION ONCKASSANDRA [...] Oncology RADIATION ONCKASSANDRA GY ORDERABLES Final Result Performing Organization Address City/[facility] Co de Phone Number [facility] RADIATION ONCOLOGY [...] Oncology RADIATION ONCKASSANDRA GY ORDERABLES Final Result Performing Organization Address [facility] Phone Number [facility] RADIATION ONCOLOGY from Last 3 Months Insurance MEDICARE Advance Directives * No CPR/Do Not Intubate (Latest Code Status on File) Date Activated Date Inactivated Comments 08/15/2025 3:53 PM 08/20/2025 7:[address] [facility] was ascertained in the following way: Code status discussion: discussion with patient To update the patient's code status, place a code status order. Do not modify or discontinue any currently active code status orders. * Full Code - Default Date Activated Date Inactivated Comments 08/15/2025 3:14 PM 08/15/2025 3:53 PM This is orde r is used when code status has not been discussed with the patient, or code status is otherwise unknown/unconfirmed To update the patient's code status, place a code status order. Do not modify or discontinue any currently active code status orders. * Full Code - Default Date Activated Date Inactivated Comments 02/14/2025 4:21 PM 02/21/2025 8:09 PM This is order is used when code status has not been discussed with the patient, or code status is otherwise unknown/unconfirmed To update the patient's code status, place a code status order. Do not modify or discontinue any currently active code status orders. Care Teams Rac Specialist Relationship Specialty Start Date End Date Noemi Oliva MD [address] [place] [address] , [address] [facility] D[facility]B/A: [facility] ALEIDA Tello PCP - General Internal Medicine 02/15/25
== END 2025-08-24 10:21 | disposition home or self-care (01) ==
PROVIDERS: PCP Internal Medicine; Visit Provider Internal Medicine
DX: F32.0 Major depressive disorder, single episode, mild (principal); I10 Essential (primary) hypertension; I48.91 Unspecified atrial fibrillation; C67.9 Malignant neoplasm of bladder, unspecified; D64.9 Anemia, unspecified

== ENCOUNTER → 2025-08-24 09:46 | Outpatient (BNVA) | payer MEDICARE, SELFPAY | PROVIDERS: PCP Internal Medicine; Visit Provider Internal Medicine | DX: I10 Essential (primary) hypertension (principal); I48.91 Unspecified atrial fibrillation; F32.0 Major depressive disorder, single episode, mild; D64.9 Anemia, unspecified; C67.9 Malignant neoplasm of bladder, unspecified; Z79.01 Long term (current) use of anticoagulants | CPT/HCPCS: 96127; 99212 ==

== ENCOUNTER 2025-09-11 15:09 | Outpatient (AMB) | payer MEDICARE, SELFPAY ==
--- OUTSIDE RECORDS SUMMARY | 2025-09-08 21:17 | XMS_ITS | Encounter Summary ---
Author Organization [facility] Address [address] [place] [address] Care Team Providers Care Beater Tender Name Role Phone Noemi Oliva MD Primary Care Provider [phone] Reason for Visit * Reason Comments Chest Pain CP started yesterday . Pain now worse today Shortness of Breath Abdominal Pain Encounter Details Date Type Department Care Team (Late st Contact Info) Description 09/08/2025 9:17 PM EST - 09/09/2025 1:59 AM EST Emergency [facility] Emergency [address] [place] [address] Yeison Calderon MD [address] [place] [id number] Acute cystitis without hematuria (Primary Dx); Chronic renal impairment, unspecified CKD stage; Acute chest pain; Shortness of breath; Aneurysm of descending thoracic aorta without rupture ([facility] V24) Discharge Disposition: Home or Self Care Social History Tobacco Use Types Packs/Day Years [...] your doctor or pharmacy? Not on file Financial Risk Answer Date Recorded How hard [...] care for your loved ones. For example, children's aide or elderly care for an older adult? [...] Sign Reading Time Taken Comments Blood Pressure 111/52 09/09/2025 12:55 AM EST Pulse 67 09/09/2025 12:55 AM EST Temperature 37.3 C (99.1 F) 09/08/2025 7:27 PM EST Respiratory Rate 16 09/08/2025 11:14 PM EST Oxygen Saturation 99% 09/08/2025 11:14 PM EST Inhaled Oxygen Concentration - - Weight 48.1 kg (106 lb) 09/08/2025 7:27 PM EST Height 160 cm (5' 3 ) 09/08/2025 7:27 PM EST Body Mass Index 18.78 09/08/2025 7:27 PM EST documented in this encounter Functional Status [...] EDT Dolmaddie, As wendi Mauro RN * Calculated C-SSRS Risk Score (Lifetime/Recent) Answer Date of Assessment Author No Risk Indicated 09/08/2025 6:50 PM EST Alise Ramirez, XOCHITL * Elfrida Suicide Severity Rating Scale (Screener/Recent Self-Report) Question Answer Date of Assessment Author 1. Wish to be (Past 1 Month) No 09/08/2025 6:50 PM EST Estefanía Mi RN 2. Non-Specific Active Suici marcy Thoughts (Past 1 Month) No 09/08/2025 6:50 PM EST Silvino Mi RN 6. Suicidal Behavior (Lifetime) No 6:50 PM EST Alise Mi RN documented as of this encounter Mental Status * Because of a physical, mental, or emotional condition, do you have serious difficulty concentrating, remembering, or making decisions? (5 years old or older) Answer Entry Date Author No 02/14/2025 2:41 PM EDT Cipriano Rene RN documented in this encounter Discharge Instructions * Discharge Instructions* Yeison Calderon MD - 09/09/2025 1:23 AM EST Start taking antibiotics as prescribed for your infection and start taking probiotics to prevent complications of antibiotic use such as diarrhea or fungal infections. Stay well-hydrated and get plenty of rest. If not allergic or contraindicated, take naproxen and Tylenol as needed for pain. Follow-up with your doctor and return for new symptoms worsening symptoms or concerns Take Zofran as needed for nausea and vomiting. Take Pepcid for abdominal or chest pain. * Attachments The following attachments cannot be sent through Care Everywhere. * UTI (Urinary Tract Infection): Male (Malian) * SOB (Shortness of Breath) (Malian) * Chest Pain ([place]alian) documented in this encounter Medications at Time of Discharge apixaban (ELIQUIS) 5 mg tablet Take 1 tablet (5 mg total) by mouth 2 (two) times a day. 60 each 08/20/2025 aspirin 81 mg EC tablet Take 1 tablet (81 mg total) by mouth 1 (one) time each day. cephalexin (KEFLEX) 500 mg capsule Take 1 capsule (500 mg total) by mouth 3 (three) times a day for 10 days. 30 each 09/09/2025 5 famotidine (PEPCID) 20 mg tablet Take 1 tablet (20 mg total) by mouth 2 (two) times a day for 15 days. 30 tablet 09/09/2025 5 Lactobacillus acidophilus 100 mg (1 billion cell) capsule Take 1 capsule by mouth 2 (two) times a day. 60 each 09/09/2025 5 levothyroxine (SYNTHROID, LEVOTHROID) 25 mcg tablet Take 1 tablet (25 mcg total) by mouth 1 (one) time each day before breakfast. 30 each 11 08/21/2025 6 lisinopriL (PRINIVIL,ZESTRIL) 5 mg tablet Take 1 [...] crush or chew. 15 each 08/21/2025 6 ondansetron ODT (ZOFRAN-ODT) 4 mg disintegrating tablet Dissolve 1 tablet (4 mg total) on top of the tongue every 8 (eight) hours if needed for nausea or vomiting for up to 7 days. 20 tablet 09/09/2025 5 oxyCODONE (ROXICODONE) 5 mg immediate release tablet [...] minutes following the same meal each day. documented as of this encounter Ordered Prescriptions Prescription Sig Dispense Quantity Refills Last Filled Start Date End Date Lactobacillus acidophilus 100 mg (1 billion cell) capsule Take 1 capsule by mouth 2 (two) times a day. 60 each 09/09/2025 5 cephalexin (KEFLEX) 500 mg capsule Take 1 capsule (500 mg total) by mouth 3 (three) times a day for 10 days. 30 each 09/09/2025 5 famotidine (PEPCID) 20 mg tablet Take 1 tablet (20 mg total) by mouth 2 (two) times a day for 15 days. 30 tablet 09/09/2025 5 ondansetron ODT (ZOFRAN-ODT) 4 mg disintegrating tablet Dissolve 1 tablet (4 mg total) on top of the tongue every 8 (eight) hours if needed for nausea or vomiting for up to 7 days. 20 tablet 09/09/2025 5 Lactobacillus acidophilus 100 mg (1 billion cell) capsule Take 1 capsule by mouth 2 (two) times a day. 60 each 09/09/2025 5 documented in this encounter Discharge Disposition Disposition Code Departure Means Destination Comment s Home or Self Care Pt a/ox4 at discharge. Advised of meds sent to preferred pharmacy. Advised to return with worsening sx and to follow up with pcp. Left with son in wheelchair documented in this encounter Progress Notes * Dina Mccray RN - 09/08/2025 8:59 PM EST Son reports patient has also been c/o dysuria x few days * Dina Mccray RN - 09/08/2025 7:28 PM EST Pt c/o midsternal cp x 1 day with ongoing dyspnea on exertion for few weeks and diffuse abd pain x 3 days. Resps equal unlab able to speak clear full sent. LS CTA, skin warm dry. Skin warm dry. Non toxic appearing * Yeison Calderon MD - 09/08/2025 6:47 PM EST Images from the original note were not included. [facility] EMERGENCY EMERGENCY DEPARTMENT ENCOUNTER CHIEF COMPLAINT Chief Complaint Patient presents with Chest Pain CP started yesterday. Pain now worse today Shortness of Breath Abdominal Pain HISTORY OF PRESENT ILLNESS Pt c/o midsternal cp x 1 day with ongoing dyspnea on exertion for few weeks and diffuse abd pain x 3 days. He has also been unable to urinate and had dysuria. PAST MEDICAL HISTORY Medical History[1] Problem List[2] SURGICAL HISTORY Surgical History[3] CURRENT MEDICATIONS Discharge Medication List as of 09/09/2025 1:27 AM CONTINUE these medications which have NOT CHANGED Details apixaban (ELIQUIS) 5 mg tablet Take 1 tablet (5 mg total) by mouth 2 (two) times a day., Starting 08/20/2025, Normal aspirin 81 mg EC tablet Take 1 tablet (81 mg total) by mouth 1 (one) time each day., Historical Med levothyroxine (SYNTHROID, LEVOTHROID) 25 mcg tablet Take 1 tablet (25 mcg total) by mouth 1 (one) time each day before breakfast., Starting Thu08/21/2025, Until Thu08/21/2026, Normal lisinopriL (PRINIVIL,ZESTRIL) 5 mg tablet Take 1 tablet (5 mg total) by mouth 1 (one) time each day., Starting Thu08/21/2025, Until Thu02/17/2026, Normal megestroL (MEGACE) 40 mg tablet Take 2 tablets (80 mg total) by mouth 4 (four) times a day (with meals and nightly), Starting 08/20/2025, Until Thu08/20/2026, Normal metoprolol succinate (TOPROL-XL) 25 mg 24 hr tablet Take 0.5 tablets (12.5 mg total) by mouth 1 (one) time each day. Do not crush or chew., Starting Thu08/21/2025, Until Thu08/21/2026, Normal oxyCODONE (ROXICODONE) 5 mg immediate release tablet Take 1 tablet (5 mg total) by mouth every 6 (six) hours if needed for severe pain. Partial fill allowed Max Daily Amount: 20 mg, Starting Thu07/18/2025, Normal senna (SENOKOT) 8.6 mg tablet Take 2 tablets (17.2 mg total) by mouth at bedtime as needed for constipation., Starting Thu08/20/2025, Until Thu09/19/2025 at 2359, Normal sucralfate (CARAFATE) 1 gram tablet Take 1 tablet (1 g total) by mouth 4 (four) times a day (beforemeals and nightly)., Starting Thu06/08/2025, Until Thu06/08/2026, Normal tamsulosin (FLOMAX) 0.4 mg 24 hr capsule Take 1 capsule (0.4 mg total) by mouth 1 (one) time each day with breakfast. Capsules should be taken 30 minutes following the same meal each day., HistoricalMed ALLERGIES Atorvastatin calcium, Taxol [paclitaxel], and Percocet [oxycodone-acetaminophen] FAMILY HISTORY Family History[4] SOCIAL HISTORY Social History Socioeconomic History Marital status: Spouse name: Not on file Number of children: Not on file Years of education: Not on file Highest education level: Not on file Occupational History Occupation: Retired Tobacco Use Smoking status: Former Current packs/day: 2.00 Types: Cigarettes Smokeless tobacco: Never Substance and Sexual Activity Alcohol use: Not Currently Comment: Has not drank since October 2024 Drug use: Never Sexual activity: Defer Other Topics Concern Not on file Social History Narrative Not on file Vitals: 09/08/25 1927 09/08/25 2153 09/08/25 2314 09/09/25 0055 BP: 108/66 117/59 116/57 111/52 BP Location: Left arm;Upper Patient Position: Sitting Pulse: 88 77 82 67 Resp: 16 16 16 Temp: 37.3 ??C (99.1 ??F) TempSrc: Oral SpO2: 99% 96% 99% Weight: 48.1 kg (106 lb) Height: 1.6 m (63 ) Pulse Oximetry 99% interpretation normal in my independent interpretation Supplemental Oxygen: Room air PHYSICAL EXAM Physical Exam Vitals and nursing note reviewed. Exam conducted with a medical center representative present. Constitutional: General: He is not in acute distress. Appearance: He is ill-appearing. He is not toxic-appearing or diaphoretic. HENT: Head: Normocephalic and atraumatic. Right Ear: External ear normal. Left Ear: External ear normal. Nose: Nose normal. No congestion or rhinorrhea. Mouth/Throat: Mouth: Mucous membranes are moist. Pharynx: Oropharynx is clear. No oropharyngeal exudate or posterior oropharyngeal erythema. Eyes: General: No scleral icterus. Right eye: No discharge. Left eye: No discharge. Extraocular Movements: Extraocular movements intact. Conjunctiva/sclera: Conjunctivae normal. Pupils: Pupils are equal, round, and reactive to light. Cardiovascular: Rate and Rhythm: Normal rate and regular rhythm. Pulses: Normal pulses. Heart sounds: No murmur heard. No gallop. Pulmonary: Effort: Pulmonary effort is normal. No respiratory distress. Breath sounds: Normal breath sounds. No stridor. No wheezing, rhonchi or rales. Chest: Chest wall: Tenderness present. Abdominal: General: Bowel sounds are normal. There is no distension. Palpations: Abdomen is soft. Tenderness: There is abdominal tenderness in the epigastric area and suprapubic area. There is no right CVA tenderness or left CVA tenderness. Musculoskeletal: General: No swelling, tenderness, deformity or signs of injury. Normal range of motion. Cervical back: Normal range of motion and neck supple. No rigidity or tenderness. Right lower leg: No edema. Left lower leg: No edema. Lymphadenopathy: Cervical: No cervical adenopathy. Skin: General: Skin is warm and dry. Coloration: Skin is not jaundiced. Findings: No erythema. Neurological: General: No focal deficit present. Mental Status: He is alert and oriented to person, place, and time. Mental status is at baseline. Cranial Nerves: No cranial nerve deficit. Motor: No weakness. Coordination: Coordination normal. Psychiatric: Mood and Affect: Mood normal. Behavior: Behavior normal. Thought Content: Thought content normal. Judgment: Judgment normal. DIAGNOSTIC RESULTS Based on the patient's history and physical exam the following labs and radiology studies were ordered in order to evaluate, work-up and determine best course of treatment for the patient. The studies are independently interpreted by me as follow here or in the MDM section or ED course section: Labs Reviewed COMPREHENSIVE METABOLIC PANEL - Abnormal Result Value Sodium 139 Potassium 5.0 Chloride 107 CO2 19 (*) Anion Gap 13 (*) Glucose 111 (*) BUN 29 (*) Creatinine 1.57 (*) eGFR 45 (*) BUN/Creatinine Ratio 18.5 Calcium 8.7 AST (SGOT) 36 ALT (SGPT) 22 Alkaline Phosphatase 122 (*) Total Protein 7.6 Albumin 3.7 Total Bilirubin 0.3 CBC WITH AUTO DIFFERENTIAL - Abnormal WBC 6.8 RBC 4.40 (*) Hemoglobin 11.1 (*) Hematocrit 37.2 (*) MCV 84.0 MCH 25.1 (*) MCHC 29.8 (*) RDW 20.6 (*) Platelets 338 MPV 9.5 NRBC 0.0 NRBC Absolute 0.00 Neutrophils Relative 75.7 Lymphocytes Relative 12.9 Monocytes Relative 7.9 Eosinophils Relative 2.5 Basophils Relative 0.6 Immature Granulocytes Relative 0.4 Neutrophils Absolute 5.11 Lymphocytes Absolute 0.87 (*) Monocytes Absolute 0.53 Eosinophils Absolute 0.17 Basophils Absolute 0.04 Immature Granulocytes Absolute 0.03 URINALYSIS WITH REFLEX MICROSCOPIC - Abnormal Specific Heron Urine 1.013 pH, Urine 6.0 Leukocytes, Urine Large (*) Nitrite, Urine Positive (*) Protein, Urine 100 (*) Glucose, Urine Negative Ketones, Urine Negative Urobilinogen, Urine 1.0 Bilirubin, Urine Negative Blood, Urine Moderate (*) RBC, Urine 20 (*) WBC, Urine >100 (*) Squamous Epithelial, Urine 10 Bacteria, Urine Moderate (*) Hyaline Casts, Urine 3 TROPONIN I HIGH SENSITIVITY - Normal High Sensitivity Troponin I 5 TROPONIN I HIGH SENSITIVITY - Normal High Sensitivity Troponin I 4 LIPASE - Normal Lipase 35 MAGNESIUM - Normal Magnesium 2.2 B-TYPE NATRIURETIC PEPTIDE - Normal BNP 74 Narrative: Over the counter supplements containing high doses of biotin may interfere with this assay. If interference is suspected, patients shoud be retested after refraining from biotin supplements for 72 hours. LACTATE, WITH REFLEX - Normal LACTIC ACID 1.5 CULTURE BLOOD CULTURE BLOOD CBC AND DIFFERENTIAL Narrative: The following orders were created for panel order CBC and differential. Procedure Abnormality Status --------- ------ CBC auto differential[[id number]] Abnormal Final result Please view results for these tests on the individual orders. URINALYSIS WITH REFLEX MICROSCOPIC Narrative: The following orders were created for panel order Urinalysis with reflex microscopic. Procedure Abnormality Status --------- ------ Urinalysis with reflex ...[[id number]] Abnormal Final result Please view results for these tests on the individual orders. CT Abdomen Pelvis w Contrast Final Result 1. 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 2. Moderate right renal atrophy with bilateral ureteral stents in place. Resolution of previously noted right hydroureteronephrosis. 3. Moderate diffuse aortoiliac atherosclerotic calcification, with prominent noncalcified atherosclerotic plaque in the proximal left common femoral artery. This document has been electronically signed by: Zack Diaz MD on 09/08/2025 22:58:20 XR Chest 2 Views ED Interpretation Normal chest x-ray I personally reviewed the patient's images and agree with radiologist interpretation unless otherwise noted here or in ED course or MDM section Encounter Date: 09/08/25 ECG 12 lead Result Value Ventricular Rate ECG 77 Atrial Rate 77 P-R Interval 156 QRS Duration 70 Q-T Interval 414 QTc 468 P Wave Clover 59 R Clover -28 T Clover 0 ECG Interpretation Sinus rhythm with Premature atrial complexes Nonspecific ST abnormality Abnormal ECG When compared with ECG of 08-SEP-2025 19:31, (unconfirmed) Sinus rhythm has replaced Atrial fibrillation *Note: Due to a large number of results and/or encounters for the requested time period, some results have not been displayed. A complete set of results can be found in Results Review. If an EKG was performed on today's visit and is documented above or within the ED course section, Iindependently interpreted/read the EKG as noted above at the time of service as above in the ED course section. EMERGENCY DEPARTMENT COURSE and DIFFERENTIAL DIAGNOSIS/MDM: ED Course as of 09/09/25 0443 ThuSep 08, [id number] CBC and differential(!) Normal white count and platelets improvement in chronic anemia [MN] 8 Comprehensive metabolic panel(!) Acute on chronic renal insufficiency with mild acidosis, normal sodium potassium chloride and calcium. Normal LFTs [MN] 2247 Lipase: 35 Normal [MN] 2248 Magnesium: 2.2 normal [MN] 2248 TROPONIN I, HIGH SENSITIVITY: 5 negative [MN] 224 B Type Natriuretic Peptide: 74 Normal [MN] 2314 TROPONIN I, HIGH SENSITIVITY: 4 Negative [MN] 2350 Urinalysis with reflex microscopic(!) Positive for UTI [MN] Sat Sep 09, 2025 0410 ECG 12 lead EKG performed at time 2254 demonstrates sinus rhythm with PACs and a rate of 77. Nonspecific ST changes. These are simply T wave inversions in lead III and T wave flattening in aVF. No ST segment elevation depression no acute ischemic change [MN] 0416 ECG 12 lead EKG performed at time 1931 demonstrates atrial fibrillation with no ST segment elevations or depressions no acute ischemic change rate of 81. Atrial fibrillation is new compared to EKG of August however patient was in atrial fibrillation on a previous EKG on the same day in August. [MN] ED Course User Index [MN] Yeison Calderon MD Clinical Impressions as of 09/09/25 0443 Acute cystitis without hematuria Chronic renal impairment, unspecified CKD stage Acute chest pain Shortness of breath Aneurysm of descending thoracic aorta without rupture (CMS/HCC V24) History providers: Patient and family member Patient Presents With a New Acute Problem with: Uncertain prognosis, Systemic symptoms, and Threat to life or bodily/organ/limb function Patient presents with a chronic problem with: N/A Care discussed with: Nursing staff here Social determinants of health that significantly limited prognosis, diagnosis and/or treatment: medicare/medicaid which limits access to primary care and specialists Differential diagnosis: Chest pain differential I considered acute coronary syndrome, acute NH, CHF, dysrhythmias, WPW, Wellen's syndrome, Brugada syndrome, prolonged QT, short QT, AVnRT, electrolyte abnormalities including hyperglycemia, DKA, hyperosmolar nonketotic state, hyperkalemia, hypokalemia, hyponatremia, myocarditis, pericarditis, PE, aortic dissection, pericardial effusion, acute viral syndromes, GERD, gastritis, esophagitis, pancreatitis, hepatitis, peptic ulcers, herpes zoster, cholecystitis, pleurisy, pneumonia, bronchitis, pleural effusion, empyema, parapneumonic abscess, pneumothorax, hemothorax, asthma, anxiety, panic attack, hyperventilation syndrome, intercostal neuritis, intercostal muscle strain, costochondritis musculoskeletal chest pain, COVID and other causes. Abdominal pain differential I considered the possibility of GERD, gastritis, pancreatitis, hepatitis, cholecystitis, peptic ulcer disease, hiatal hernia, esophagitis, esophageal spasm, bowel obstruction, colitis, proctitis, diverticulitis, appendicitis, mesenteric adenitis, terminal ileitis, mesenteric ischemia, intra-abdominal infarctions, choledocholithiasis, ascending cholangitis, primary biliary sclerosis, retained stone and other common bile duct obstructions, Franko-Cuong Carlito, UTI, kidney stone, pyelonephritis, bowel obstruction, intra-abdominal abscess, aortic aneurysm, aortic dissection, mesenteric ischemia, fatty liver, liver abscess, splenic infarct, renal infarct, as well as potential pelvic pathologies, abdominal wall injuries, perforated viscus, malignancies, diverticulitis, constipation, obstipation, early gastroenteritis, infectious diarrhea, C diff colitis, urinary tract infection, kidney stone, pyelonephritis, electrolyte abnormalities, dehydration, COVID, other viral illnesses, less likely pleurisy, pericarditis, myocarditis, mesenteric ischemia, acute NH, acute coronary syndrome, CHF, pneumonia, empyema and other causes UTI differential I considered the possibility of urinary tract infection, pyelonephritis, kidney stone, congenital and acquired hydronephrosis, renal infarct, urogenital malignancies, STDs, urogenital trauma, dehydration, overactive bladder, urinary retention and others Shortness of breath differential I considered acute asthma exacerbation, COPD exacerbation, common cold, COPD, reactive airway disease, COVID, influenza, RSV, other viral upper respiratory infections, strep pharyngitis, viral pharyngitis, pneumonia, empyema, parapneumonic abscess, bronchitis, sinusitis, sleep apnea, Pickwickian syndrome, parapneumonic abscess, empyema, toxic inhalations, airway burn, pneumonitis, pulmonary edema, CHF, acute NH, acute coronary syndrome, valvular heart disease, anxiety, panic attack, chemical inhalation injury, thermal inhalational injury, medication side effects, allergic reaction, airway swelling, anaphylaxis, pericarditis, myocarditis, acute viral syndromes, pulmonary embolism, pneumothorax, hemothorax, pleurisy, pleural effusion, intercostal neuritis, intercostal muscle strain, hiatal hernia,and others Risk factors to consider in determining the patient's fitness for procedures and or prognosis related to current illness include: History of cancer, HTN, and HLD Labs: Ordered, Reviewed, and Interpreted Radiology: Ordered, Reviewed, and Independently interpreted External data reviewed and/or prior visits reviewed: Prior visits for sepsis with renal failure, chronic aneurysm of the thoracic aorta. Malignant neoplasm of the bladder, chest pain, epigastric pain and others Notes, Labs, Radiology, and EKG Treatment and interventions considered or used: Medications: OTC medication and Prescribed medications Admission Considerations: Decision made regarding hospitalization and Considered but ultimately not admitted Surgery options considered or used: Considered major or minor surgery but deemed unnecessary or otherwise not needed at this time Risk considerations: I considered the possible need for emergent surgery for acute cholecystitis, acute appendicitis, acute diverticulitis with perforation or other intra- abdominal surgical emergencies. I also consideredneed for admission for medical management of conditions such as ulcerative colitis, Crohn's disease, diverticulitis without perforation, and others I considered the need for admission for acute NH, medical management of CHF exacerbation, treatmentof pulmonary embolism including the need for IR guided embolectomy in the setting of saddle pulmonary embolism, emergency surgery for coronary angiography and stent placement in the setting of acute NH, CABG in the setting of multivessel disease and other reasons to admit for medical management of other conditions as listed in the differential. I considered the need for intubation, BiPAP, continuous nebulization, IV steroids, other advanced airway techniques, admission for hypoxic or hypercarbic respiratory failure or airway compromise from edema, infection or trauma, CHF pneumonia or need for chest tube for empyema I considered the need for emergent urologic intervention including possible nephrostomy tube placement for infected completely obstructed stone or medical admission for severe pyelonephritis with sepsis The following procedures were undertaken to stabilize and treat the patient's condition: Procedures Based on the above history and exam as well as the results as listed the following medications and/or treatments were ordered in order to treat and stabilize the patient's condition: Medications morphine injection 4 mg (4 mg intravenous Given 09/08/252211) ondansetron (PF) (ZOFRAN) injection 4 mg (4 mg intravenous Given 09/08/252210) famotidine (PF) (PEPCID) injection 20 mg (20 mg intravenous Given 09/08/252211) sodium chloride 0.9 % flush 10 mL (10 mL intravenous Given 09/08/252218) iopamidoL (ISOVUE-370) 370 mg iodine /mL (76 %) injection 90 mL (90 mL intravenous Given 09/08/252222) cefTRIAXone (ROCEPHIN) 2 g in sterile water 20 mL IV syringe (2 g intravenous Given 09/09/25 0053) sodium chloride 0.9 % bolus 1,000 mL (0 mL intravenous Stopped 09/09/25 0201) REASSESSMENT Stable/improved CONSULTS: None The patient ultiumately did not warrant hospitalization nor any acute surgical interventions beyondany procedures performed here and documented above. That said, I considered the need for both admission and additional surgical procedures. Also considered the need to obtain additional imaging and/or labs beyond what may have been ordered but no additional testing was indicated based on the patient's condition and results of any other testing that may have been performed. Any medications given here and/or prescribed for discharge are documented within the other portionsof the note. After any medications or treatments that may have been provided here the patient was improved and symptoms had resolved or become tolerable or no medications or treatments were indicated based on thepatient's condition. The patient was deemed stable safe and appropriate for discharge to home and is instructed to follow-up with his primary care doctor and return for any new or worsening symptoms. DISPOSITION/PLAN Discharge 09/09/2025 01:21:21 AM The following medications were prescribed in order to continue the patient's treatment as an outpatient: Your medication list START taking these medications Instructions Last Dose Given Next Dose Due cephalexin 500 mg capsule Commonly known as: KEFLEX Take 1 capsule (500 mg total) by mouth 3 (three) times a day for 10 days. famotidine 20 mg tablet Commonly known as: PEPCID Take 1 tablet (20 mg total) by mouth 2 (two) times a day for 15 days. Lactobacillus acidophilus 100 mg (1 billion cell) capsule [place] 1 c??psula por v??a oral 2 (dos) veces al d??a. (Take 1 capsule by mouth 2 (two) times a day.) ondansetron ODT 4 mg disintegrating tablet Commonly known as: ZOFRAN-ODT Dissolve 1 tablet (4 mg total) on top of the tongue every 8 (eight) hours if needed for nausea or vomiting for up to 7 days. ASK your doctor about these medications Instructions Last Dose Given Next Dose Due apixaban 5 mg tablet Commonly known as: ELIQUIS [place] 1 tableta (5 mg en total) por v??a oral 2 (dos) veces al d??a. (Take 1 tablet (5 mg total) by mouth 2 (two) times a day.) aspirin 81 mg EC tablet Take 1 tablet (81 mg total) by mouth 1 (one) time each day. levothyroxine 25 mcg tablet Commonly known as: SYNTHROID, LEVOTHROID [place] 1 tableta (25 mcg en total) por v??a oral 1 (surendra) vez al d??a antes del desayuno. (Take 1 tablet (25 mcg total) by mouth 1 (one) time each day before breakfast.) lisinopriL 5 mg tablet Commonly known as: PRINIVIL,ZESTRIL [place] 1 tableta (5 mg en total) por v??a oral 1 (surendra) vez al d??a. (Take 1 tablet (5 mg total) by mouth 1 (one) time each day.) megestroL 40 mg tablet Commonly known as: MEGACE Take 2 tablets (80 mg total) by mouth 4 (four) times a day (with meals and nightly) metoprolol succinate 25 mg 24 hr tablet Commonly known as: TOPROL-XL Take 0.5 tablets (12.5 mg total) by mouth 1 (one) time each day. Do not crush or chew. oxyCODONE 5 mg immediate release tablet Commonly known as: ROXICODONE Take 1 tablet (5 mg total) by mouth every 6 (six) hours if needed for severe pain. Partial fill allowed Max Daily Amount: 20 mg senna 8.6 mg tablet Commonly known as: SENOKOT Take 2 tablets (17.2 mg total) by mouth at bedtime as needed for constipation. sucralfate 1 gram tablet Commonly known as: CARAFATE Take 1 tablet (1 g total) by mouth 4 (four) times a day (before meals and nightly). tamsulosin 0.4 mg 24 hr capsule Commonly known as: FLOMAX Take 1 capsule (0.4 mg total) by mouth 1 (one) time each day with breakfast. Capsules should be taken 30 minutes following the same meal each day. thiamine 100 mg tablet Commonly known as: VITAMIN B-1 Ask about: Should I take this medication? Take 1 tablet (100 mg total) by mouth 1 (one) time each day for 4 doses. Where to Get Your Medications These medications were sent to [facility] [address] [place] [id number] cephalexin 500 mg capsule famotidine 20 mg tablet Lactobacillus acidophilus 100 mg (1 billion cell) capsule ondansetron ODT 4 mg disintegrating tablet FINAL IMPRESSION DIAGNOSES: 1. Acute cystitis without hematuria 2. Chronic renal impairment, unspecified CKD stage 3. Acute chest pain 4. Shortness of breath 5. Aneurysm of descending thoracic aorta without rupture ([facility] V24) The patient was discharged, all questions were answered and we engaged in shared decision-making with the plan, I stressed the importance of prompt follow-up to the patient and they were advised to follow-up and/or referrals placed as below: Noemi Oliva MD [address] [place] [address] [address], [address] [facility] D/B/A: [facility] [phone] Schedule an appointment as soon as possible for a visit As needed, Return to ED sooner if symptoms worsen [facility] Emergency [address] [facility] [id number] As needed, If symptoms worsen (Please note that portions of this note were completed with a voice recognition program. Quite often unanticipated grammatical, syntax, homophones, and other interpretive errors are inadvertently transcribed by the computer software. These should have been corrected during proofreading. If you haveany questions, please contact the author of this note for clarification.) Note to patient: It was a pleasure taking care of you today. The 21st Century Cures Act makes medical notes like this one available to patients in the interest of transparency. However, be advised that this is a medical document. It is intended as physician to physician communication. It is writtenin medical language and may contain abbreviations or verbiage that are unfamiliar. It may appear blunt or direct or even insulting if taken out of the clinical communication context. Medical documents are not meant to communicate to patients, they are intended to carry relevant information, facts as evident, and the clinical opinion of the practitioner. Yeison Calderon MD (electronically signed) 4:43 AM EST [1] Past Medical History: Diagnosis Date Bladder cancer (CMS/HCC V24, CMS/HCC V28) Nephrostomy present (CMS/HCC V24, CMS/HCC V28) [2] Patient Active Problem List Diagnosis Hematuria Malignant neoplasm of overlapping sites of bladder (CMS/HCC V24, CMS/HCC V28) Arteriosclerosis of coronary artery Benign hypertension Gastroesophageal reflux disease Harmful use of alcohol Hyperlipidemia Multiple pulmonary nodules Acute pyelonephritis Acquired autoimmune hypothyroidism Sepsis with acute renal failure, due to unspecified organism, unspecified acute renal failure type,unspecified whether septic shock present (CMS/[facility] V24, [facility] V28) [3] Past Surgical History: Procedure Laterality Date BLADDER SURGERY CYSTOSCOPY [4] Family History Problem Relation Name Age of Onset Cancer Neg Hx Yeison Calderon MD 09/09/25 0443 documented in this encounter Plan of Treatment Upcoming Encounters Date Type Department Care Team (Late st Contact Info) Description 09/03/2026 10:30 AM EST Office Visit Vascular Surgery - [place] [address] [place] [address] Williams Wood MD [address] [place] [phone] Pending Results Name Type Priority Associated Diagnoses Date /Time Blood Culture, Peripheral #1 Microbiology STAT 09/09/2025 12:45 AM EST Blood Culture, Peripheral #2 Microbiology STAT 09/09/2025 12:45 AM EST documented as of this encounter Procedures Procedure Name Priority Date/Time Associated Diagnosis Comments LACTATE, WITH REFLEX STAT 09/09/2025 12:45 AM EST CULTURE BLOOD STAT 09/09/2025 12:45 AM EST CULTURE BLOOD STAT 09/09/2025 12:45 AM EST ECG 12-LEAD STAT 09/08/2025 10:[address] ABDOMEN PELVIS W CONTRAST STAT 09/08/2025 10:26 PM EST URINALYSIS WITH REFLEX MICROSCOPIC STAT 09/08/2025 10:26 PM EST URINALYSIS WITH REFLEX MICROSCOPIC STAT 09/08/2025 10:26 PM EST TROPONIN I HIGH SENSITIVITY Timed 09/08/2025 9:53 PM EST XR CHEST 2 VIEWS STAT 09/08/2025 9:10 PM EST TROPONIN I HIGH SENSITIVITY Timed 09/08/2025 8:06 PM EST CBC WITH AUTO DIFFERENTIAL STAT 09/08/2025 8:06 PM EST CBC AND DIFFERENTIAL STAT 09/08/2025 8:06 PM EST B-TYPE NATRIURETIC PEPTIDE STAT 09/08/2025 8:06 PM EST MAGNESIUM STAT 09/08/2025 8:06 PM EST LIPASE STAT 09/08/2025 8:06 PM EST COMPREHENSIVE METABOLIC PANEL STAT 09/08/2025 8:06 PM EST ECG 12-LEAD STAT 09/08/2025 7:31 PM EST documented in this encounter Results * Lactate, with Reflex (09/09/2025 12:45 AM EST) Pathologist [facility] LACTIC ACID 1.5 0.4 - 2.0 mmol/L 09/09/2025 2:00 AM EST [facility] Blood Venous blood specimen / Unknown Venipuncture / Unknown 09/09/2025 12:45 AM EST 09/09/2025 1:10 AM EST us Yeison Calderon MD LAB BLOOD ORDERABLES Final Resul t [facility] [address] [place] [address], * ECG 12 lead (09/08/2025 10:54 PM EST) Ventricular Rate ECG 77 BPM GEMUSE Atrial Rate 77 BPM GEMUSE P-R Interval 156 ms GEMUSE QRS Duration 70 ms GEMUSE Q-T Interval 414 ms GEMUSE QTc 468 ms GEMUSE P Wave Clover 59 degrees GEMUSE R [place] -28 degrees GEMUSE T [place] 0 degrees GEMUSE ECG Interpretation Sinus rhythm with Premature atrial complexes Nonspecific ST abnormality Abnormal ECG When compared with ECG of 08-SEP-2025 19:31, (unconfirmed) Sinus rhythm has replaced Atrial fibrillation Confirmed by EDUIN ROMO ([id number]) on 09/09/2025 10:12:16 AM GEMUSE 09/08/2025 10:5 4 PM EST 09/09/2025 10:12 AM EST us Belem Veilz MD ECG ORDERABLES Final Result GEMUSE * CT Abdomen Pelvis w Contrast (09/08/2025 10:26 PM EST) Anatomical Region Laterality Modality Body Computed Tomogra phy 09/08/2025 10:5 8 PM EST Impressions 09/08/2025 10:58 PM EST 1. 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 2. Moderate right renal atrophy with bilateral ureteral stents in place. Resolution of previously noted right hydroureteronephrosis. 3. Moderate diffuse aortoiliac atherosclerotic calcification, with prominent noncalcified atherosclerotic plaque in the proximal left common femoral artery. This document has been electronically signed by: aZck Diaz MD on 09/08/2025 22:58:20 Narrative 09/08/2025 10:58 PM EST INDICATION: Abdominal pain, acute, no prior medical history CT abdomen and pelvis with contrast Comparison: CT/KO/GA/SR - CT ABD PEL WO CONTRAST - 08/15/25 11:01 EST Findings: The lung bases are clear. Moderate right renal atrophy. Bilateral ureteral stents are in place. Previously noted right hydroureteronephrosis has resolved. Other solid organs are unremarkable. Normal gallbladder. 8 mm CBD. No bowel obstruction, pneumoperitoneum, or pneumatosis. Normal appendix. Sigmoid diverticulosis. 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 Moderate diffuse aortoiliac atherosclerotic calcification, with prominent noncalcified atherosclerotic plaque in the proximal left common femoral artery. Pelvic contents unremarkable. The bones are intact. Procedure Note Zack Diaz - 09/08/2025 INDICATION: Abdominal pain, acute, no prior medical history CT abdomen and pelvis with contrast Comparison: CT/KO/GA/SR - CT ABD PEL WO CONTRAST - 08/15/25 11:01 EST Findings: The lung bases are clear. Moderate right renal atrophy. Bilateral ureteral stents are in place. Previously noted right hydroureteronephrosis has resolved. Other solid organs are unremarkable. Normal gallbladder. 8 mm CBD. No bowel obstruction, pneumoperitoneum, or pneumatosis. Normal appendix. Sigmoid diverticulosis. Small dissection flap in the descending thoracic aorta, followed by a4.3 cm fusiform aneurysm of the upper abdominal aorta. Moderate diffuse aortoiliac atherosclerotic calcification, with prominent noncalcified atherosclerotic plaque in the proximal left common femoral artery. Pelvic contents unremarkable. The bones are intact. IMPRESSION: 1. 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 2. Moderate right renal atrophy with bilateral ureteral stents in place. Resolution of previously noted right hydroureteronephrosis. 3. Moderate diffuse aortoiliac atherosclerotic calcification, with prominent noncalcified atherosclerotic plaque in the proximal leftcommon femoral artery. This document has been electronically signed by: Zack Diaz MD on 09/08/2025 22:58:20 us Yeison Yumiko JONES IM CT PROCEDURES Final Result * (ABNORMAL) Urinalysis with reflex microscopic (09/08/2025 10:26 PM EST) Specific [place] Urine 1.013 1.003 - 1.030 LAB URINALYSIS - AUTOMATED METHOD 09/08/2025 11:50 PM EST [facility] pH, Urine 6.0 5.0 - 8.0 pH LAB URINALYSIS - AUTOMATED METHOD 09/08/2025 11:50 PM EST [facility] Leukocytes, Urine Large(A) Negative LAB URINALYSIS - AUTOMATED METHOD 09/08/2025 11:50 PM EST [facility] Nitrite, Urine Positive(A) Negative LAB URINALYSIS - AUTOMATED METHOD 09/08/2025 11:50 PM [facility] Protein, Urine 100(A) <=Trace mg/dL LAB URINALYSIS - AUTOMATED METHOD 09/08/2025 11:50 PM [facility] Glucose, Urine Negative Negative mg/dL LAB URINALYSIS - AUTOMATED METHOD 09/08/2025 11:50 PM [facility] Ketones, Urine Negative Negative mg/dL LAB URINALYSIS - AUTOMATED METHOD 09/08/2025 11:50 PM [facility] Urobilinogen , Urine 1.0 0.2 - 1.0 mg/dL LAB URINALYSIS - AUTOMATED METHOD 09/08/2025 11:50 PM [facility] Bilirubin, Urine Negative Negative LAB URINALYSIS - AUTOMATED METHOD 09/08/2025 11:50 PM [facility] Blood, Urine Moderate(A) Negative LAB URINALYSIS - AUTOMATED METHOD 09/08/2025 11:50 PM [facility] RBC, Urine 20(H) 0 - 4 /HPF 09/08/2025 11:50 PM [facility] WBC, Urine >100(H) 0 - 4 /HPF 09/08/2025 11:50 PM [facility] Squamous Epithelial, Urine 10 0 - 60 /LPF 09/08/2025 11:50 PM [facility] Bacteria, Urine Moderate(A) Negative /HPF 09/08/2025 11:50 PM [facility] Hyaline Casts, Urine 3 0 - 3 /LPF 09/08/2025 11:50 PM [facility] Urine Urine specimen obtained by clean catch procedure / Unknown Non-blood Collection / Unknown 09/08/2025 10:26 PM EST 09/08/2025 11:20 PM EST us Belem Veliz MD LAB URINE ORDERABLES Final Res ult Performing Organization Address [facility]/ZIP Co de Phone Number [facility] [address] [place] [address], [place] [phone] * Troponin I high sensitivity (09/08/2025 9:53 PM EST) High Sensitivity Troponin I 4 <=53 ng/L 09/08/2025 11:13 PM EST [facility] Blood Venous blood specimen / Unknown Venipuncture / Unknown 09/08/2025 9:53 PM EST 09/08/2025 10:30 PM EST Belem Veliz MD LAB BLOOD ORDERABLES Final Res ult Performing Organization Address [facility] Co de Phone Number [facility] [address] [place] [address], [place] [phone] * XR Chest 2 Views (09/08/2025 9:10 PM EST) Anatomical Region Laterality Modality Body Radiographic Laney ging 09/09/2025 10:5 1 AM EST Impressions 09/09/2025 11:02 AM EST FINDINGS/IMPRESSION: Lungs are clear. No pleural effusion or pneumothorax. Cardiac silhouette is normal in size. Degenerative changes seen throughout the bones. Bilateral nephroureteral stents in place. -------- FINAL REPORT -------- Dictated By: BRY JOSEPH Dictated Date: 09/09/2025 10:51 ET Assigned Physician: BRY JOSEPH Reviewed and Electronically Signed By: BRY JOSEPH Signed Date: 09/09/2025 11:02 ET Workstation ID: [id number] Transcribed By: Self Edit Transcribed Date: 09/09/2025 10:51 ET Narrative 09/09/2025 11:02 AM EST XR CHEST 2 VIEWS INDICATION: Pain TECHNIQUE: XR CHEST 2 VIEWS COMPARISON: 08/15/2025 Procedure Note Bry Joseph MD - 09/09/2025 XR CHEST 2 VIEWS INDICATION: Pain TECHNIQUE: XR CHEST 2 VIEWS COMPARISON: 08/15/2025 IMPRESSION: FINDINGS/IMPRESSION: Lungs are clear. No pleural effusion orpneumothorax. Cardiac silhouette is normal in size. Degenerative changesseen throughout the bones. Bilateral nephroureteral stents in place. -------- FINAL REPORT -------- Dictated By: BRY JOSEPH Dictated Date: 09/09/2025 10:51 ET Assigned Physician: BRY JOSEPH Reviewed and Electronically Signed By: BRY JOSEPH Signed Date: 09/09/2025 11:02 ET Workstation ID: [id number] Transcribed By: Self Edit Transcribed Date: 09/09/2025 10:51 ET Belem Veliz MD IMG XR PROCEDURES Final Result * (ABNORMAL) CBC auto differential (09/08/2025 8:06 PM EST) WBC 6.8 4.8 - 10.8 K/mcL LAB HEMETOLOGY METHOD 09/08/2025 8:30 PM [facility] RBC 4.40(L) 4.50 - 5.50 M/mcL LAB HEMETOLOGY METHOD 09/08/2025 8:30 PM [facility] Hemoglobin 11.1(L) 13.5 - 17.5 g/dL LAB HEMETOLOGY METHOD 09/08/2025 8:30 PM [facility] Hematocrit 37.2(L) 42.0 - 54.0 % LAB HEMETOLOGY METHOD 09/08/2025 8:30 PM [facility] MCV 84.0 79.0 - 98.0 FL LAB HEMETOLOGY METHOD 09/08/2025 8:30 PM [facility] MCH 25.1(L) 27.0 - 32.0 pcg LAB HEMETOLOGY METHOD 09/08/2025 8:30 PM [facility] MCHC 29.8(L) 32.0 - 37.0 g/dL LAB HEMETOLOGY METHOD 09/08/2025 8:30 PM [facility] RDW 20.6(H) 11.0 - 15.0 % LAB HEMETOLOGY METHOD 09/08/2025 8:30 PM [facility] Platelets 338 130 - 400 K/mcL LAB HEMETOLOGY METHOD 09/08/2025 8:30 PM [facility] MPV 9.5 7.0 - 11.0 FL LAB HEMETOLOGY METHOD 09/08/2025 8:30 PM [facility] NRBC 0.0 <1.0 % LAB HEMETOLOGY METHOD 09/08/2025 8:30 PM [facility] NRBC Absolute 0.00 <0.10 K/mcL LAB HEMETOLOGY METHOD 09/08/2025 8:30 PM [facility] Neutrophils Relative 75.7 % LAB HEMETOLOGY METHOD 09/08/2025 8:30 PM [facility] Lymphocytes Relative 12.9 % LAB HEMETOLOGY METHOD 09/08/2025 8:30 PM [facility] Monocytes Relative 7.9 % LAB HEMETOLOGY METHOD 09/08/2025 8:30 PM [facility] Eosinophils Relative 2.5 % LAB HEMETOLOGY METHOD 09/08/2025 8:30 PM [facility] Basophils Relative 0.6 % LAB HEMETOLOGY METHOD 09/08/2025 8:30 PM [facility] Immature Granulocytes Relative 0.4 % LAB HEMETOLOGY METHOD 09/08/2025 8:30 PM [facility] Neutrophils Absolute 5.11 1.50 - 7.00 K/mcL LAB HEMETOLOGY METHOD 09/08/2025 8:30 PM [facility] Lymphocytes Absolute 0.87(L) 1.00 - 5.00 K/mcL LAB HEMETOLOGY METHOD 09/08/2025 8:30 PM EST [facility] Monocytes Absolute 0.53 0.20 - 1.00 K/[facility] LAB HEMETOLOGY METHOD 09/08/2025 8:30 PM EST [facility] Eosinophils Absolute 0.17 0.00 - 0.50 K/[facility] LAB HEMETOLOGY METHOD 09/08/2025 8:30 PM EST [facility] Basophils Absolute 0.04 0.00 - 0.20 K/[facility] LAB HEMETOLOGY METHOD 09/08/2025 8:30 PM EST [facility] Immature Granulocytes Absolute 0.03 0.00 - 0.03 K/[facility] LAB HEMETOLOGY METHOD 09/08/2025 8:30 PM EST [facility] Blood Venous blood specimen / Unknown Venipuncture / Unknown 09/08/2025 8:06 PM EST 09/08/2025 8:11 PM EST Belem Veliz MD LAB BLOOD ORDERABLES Final Res ult [facility] [address] [place] [address], * B-type natriuretic peptide (09/08/2025 8:06 PM EST) BNP 74 <=100 pcg/mL 09/08/2025 8:46 PM EST [facility] Blood Venous blood specimen / Unknown Venipuncture / Unknown 09/08/2025 8:06 PM EST 09/08/2025 8:11 PM EST Narrative [facility] - 09/08/2025 8:46 PM EST Over the counter supplements containing high doses of biotin may interfere with this assay. If interference is suspected, patients shoud be retested after refraining from biotin supplements for 72 hours. us Belem Veliz MD LAB BLOOD ORDERABLES Final Res ult Performing Organization Address [facility]/ZIP Co de Phone Number [facility] [address] [place] [address], [place] [phone] * Magnesium (09/08/2025 8:06 PM EST) Pathologist [facility] Magnesium 2.2 1.9 - 2.6 mg/dL 09/08/2025 8:42 PM EST [facility] Blood Venous blood specimen / Unknown Venipuncture / Unknown 09/08/2025 8:06 PM EST 09/08/2025 8:11 PM EST us Belem Veliz MD LAB BLOOD ORDERABLES Final Res ult Performing Organization Address [facility]/ZIP Co de Phone Number [facility] [address] [place] [address], [place] [phone] * Lipase (09/08/2025 8:06 PM EST) [facility] Lipase 35 12 - 53 unit/L 09/08/2025 8:42 PM EST [facility] Blood Venous blood specimen / Unknown Venipuncture / Unknown 09/08/2025 8:06 PM EST 09/08/2025 8:11 PM EST us Belem Veliz MD LAB BLOOD ORDERABLES Final Res ult Performing Organization Address [facility]/ZIP Co de Phone Number [facility] [address] [place] [address], [place] [phone] * (ABNORMAL) Comprehensive metabolic panel (09/08/2025 8:06 PM EST) [facility] Sodium 139 133 - 145 mmol/L 09/08/2025 8:42 PM EST [facility] Potassium 5.0 3.5 - 5.5 mmol/L 09/08/2025 8:42 PM EST [facility] Chloride 107 96 - 110 mmol/L 09/08/2025 8:42 PM [facility] CO2 19(L) 21 - 32 mmol/L 09/08/2025 8:42 PM [facility] Anion Gap 13(H) 3 - 11 09/08/2025 8:42 PM [facility] Glucose 111(H) 70 - 100 mg/dL 09/08/2025 8:42 PM [facility] BUN 29(H) 5 - 25 mg/dL 09/08/2025 8:42 PM [facility] Creatinine 1.57(H) 0.70 - 1.30 mg/dL 09/08/2025 8:42 PM [facility] eGFR 45(L) >=60 mL/min/1. 73m2 09/08/2025 8:42 PM [facility] Comment:Calculation based on the Chronic Kidney Disease Epidemiology Collaboration (CKD-EPI) equation refit without adjustment for race. BUN/Creatinine Ratio 18.5 09/08/2025 8:42 PM [facility] Calcium 8.7 8.5 - 10.5 mg/dL 09/08/2025 8:42 PM [facility] AST (SGOT) 36 10 - 42 unit/L 09/08/2025 8:42 PM [facility] ALT (SGPT) 22 10 - 60 unit/L 09/08/2025 8:42 PM [facility] Alkaline Phosphatase 122(H) 42 - 121 unit/L 09/08/2025 8:42 PM [facility] Total Protein 7.6 6.0 - 8.0 g/dL 09/08/2025 8:42 PM [facility] Albumin 3.7 3.2 - 5.0 g/dL 09/08/2025 8:42 PM [facility] Total Bilirubin 0.3 0.0 - 1.4 mg/dL 09/08/2025 8:42 PM EST [facility] Blood Venous blood specimen / Unknown Venipuncture / Unknown 09/08/2025 8:06 PM EST 09/08/2025 8:11 PM EST Belem Veliz MD LAB BLOOD ORDERABLES Final Res ult Performing Organization Address City/[facility]/ZIP Co de Phone Number [facility] [address] [place] [address], [place] [phone] * Troponin I high sensitivity (09/08/2025 8:06 PM EST) [facility] High Sensitivity Troponin I 5 <=53 ng/L 09/08/2025 8:46 PM EST [facility] Blood Venous blood specimen / Unknown Venipuncture / Unknown 09/08/2025 8:06 PM EST 09/08/2025 8:12 PM EST Belem Veliz MD LAB BLOOD ORDERABLES Final Res ult Performing Organization Address [facility] Co de Phone Number [facility] [address] [place] [address], [place] [phone] * ECG 12 lead (09/08/2025 7:31 PM EST) [facility] Ventricular Rate ECG 81 BPM GEMUSE QRS Duration 68 ms GEMUSE Q-T Interval 384 ms GEMUSE QTc 446 ms GEMUSE R Clover -18 degrees GEMUSE T Clover 18 degrees GEMUSE ECG Interpretation Atrial fibrillation Abnormal ECG When compared with ECG of 15-AUG-2025 12:59, Atrial fibrillation has replaced Sinus rhythm Confirmed by EDUIN ROMO ([id number]) on 09/09/2025 10:08:38 AM GEMUSE 09/08/2025 7:31 PM EST 09/09/2025 10:08 AM EST us Belem Veliz MD ECG ORDERABLES Final Result GEMREN documented in this encounter Visit Diagnoses Diagnosis Acute cystitis without hematuria- Primary Chronic renal impairment, unspecified CKD stage Acute chest pain Unspecified chest pain Shortness of breath Aneurysm of descending thoracic aorta without rupture (CMS/[facility] V24) documented in this encounter Administered Medications Inactive Administered Medications - up to 3 most recent administrations Medication Order MAR Action Action Date Dose Rate Site cefTRIAXone (ROCEPHIN) 2 g in sterile water 20 mL IV syringe 2 g, intravenous, Administer over 3 Minutes, Once, On Thu09/08/25 at 2353, For 1 dose, Do not administer simultaneously with any calcium containing solutions via a Y-site in any patient., Indication: Pneumonia, Community Acquired Given 09/09/2025 12:53 AM EST 2 g famotidine (PF) (PEPCID) injection 20 mg 20 mg, intravenous, Administer over 2 Minutes, Once, On Thu09/08/25 at 2116, For 1 dose Given 09/08/2025 10:12 PM EST 20 mg iopamidoL (ISOVUE-370) 370 mg iodine /mL (76 %) injection 90 mL 90 mL, intravenous, Once in imaging, Starting on Thu09/08/25 at 2213, For 1 dose Given 09/08/2025 10:23 PM EST 90 mL morphine injection 4 mg 4 mg, intravenous, Once, On Thu09/08/25 at 2116, For 1 dose Given 09/08/2025 10:12 PM EST 4 mg ondansetron (PF) (ZOFRAN) injection 4 mg 4 mg, intravenous, Once, On Thu09/08/25 at 2116, For 1 dose Given 09/08/2025 10:11 PM EST 4 mg sodium chloride 0.9 % bolus 1,000 mL 1,000 mL, intravenous, at 1,000 mL/hr, Administer over 1 Hours, Once, On Thu09/08/25 at 2353, For 1 dose New Bag 09/09/2025 12:52 AM EST 1,000 mL 1000 mL/hr sodium chloride 0.9 % flush 10 mL 10 mL, intravenous, Once, On Thu09/08/25 at 2214, For 1 dose Given 09/08/2025 10:19 PM EST 10 mL documented in this encounter Discontinued Medications Medication Sig Discontinue Reason Start Date End Da te Lactobacillus acidophilus 100 mg (1 billion cell) capsule Take 1 capsule by mouth 2 (two) times a day. 09/09/2025 09/09/2025 documented as of this encounter Active and Recently Administered Medications Times are shown in EST. Scheduled Medication Order 09/07/2025 09/08/2025 09/09/2025 cefTRIAXone (ROCEPHIN) 2 g in sterile water 20 mL IV syringe (COMPLETED) 2 g, intravenous, Administer over 3 Minutes, Once, On Thu09/08/25 at 2353, For 1 dose, Do not administer simultaneously with any calcium containing solutions via a Y-site in any patient., Indication: Pneumonia, Community Acquired 52 (Given - Provid er: Margareth Carter RN) famotidine (PF) (PEPCID) injection 20 mg (COMPLETED) 20 mg, intravenous, Administer over 2 Minutes, Once, On Thu09/08/25 at 2116, For 1 dose 2211 (Given - Provider: Margareth Carter RN) iopamidoL (ISOVUE-370) 370 mg iodine /mL (76 %) injection 90 mL (COMPLETED) 90 mL, intravenous, Once in imaging, Starting on Thu09/08/25 at 2213, For 1 dose 2222 (Given - Provider: Dalia Huerta) morphine injection 4 mg (COMPLETED) 4 mg, intravenous, Once, On Thu09/08/25 at 2116, For 1 dose 2211 (Given - Provider: Margareth Carter RN) ondansetron (PF) (ZOFRAN) injection 4 mg (COMPLETED) 4 mg, intravenous, Once, On Thu09/08/25 at 2116, For 1 dose 2210 (Given - Provider: Margareth Carter RN) sodium chloride 0.9 % bolus 1,000 mL (COMPLETED) 1,000 mL, intravenous, at 1,000 mL/hr, Administer over 1 Hours, Once, On Thu09/08/25 at 2353, For 1 dose 005 (New Bag - Provider: Margareth Carter RN)020 (Stopped - Provider: Margareth Carter RN) sodium chloride 0.9 % flush 10 mL (COMPLETED) 10 mL, intravenous, Once, On Thu09/08/25 at 2214, For 1 dose 2219 (Given - Provider: Margareth Carter, RN) documented in this encounter Orders Medications Ordered That Biju ht Not Have Been Administered Count Last Ordered Date First Ordered Date ketorolac (TORADOL) injection 15 mg 1 09/08 documented in this encounter Care Teams Beater Tender Relationship Specialty Start Date End Date Noemi Oliva MD [address] [facility] , [address] [facility] Physician Associ D/B/A: [facility] [place], [place] PCP - General Internal Medicine 02/15/25 documented as of this encounter
[2025-09-11 15:20] VITALS: BP 130/70; PULSE 48; O2SAT 98; BMI 18.6
--- NOTE | 2025-09-11 15:20 | AM.OFFVISMDC ---
Intake Vital Signs 09/11/25 15:20 Height 5 ft 3 in Weight 104 lb 15.04 oz BMI 18.6 BP 130/70 Blood Pressure Location Lt brachial Position Sitting Pulse 48 L Pulse Source Pulse Oximeter Pulse Oximetry (%) 98 Oxygen Delivery Method Room Air Intake Visit Reasons: AWV Inspector Subassembly Required: No Accompanied by: Self / Same As Patient Allergies atorvastatin Allergy (Intermediate, Verified 09/11/25 15:46) Rash oxycodone (From Percocet) Adverse Reaction (Intermediate, Verified 09/11/25 15:46) itchy skin Medication List - Last Reconciled 09/11/25 by Noemi Oliva MD apixaban (Eliquis) 5 mg PO BID aspirin (Adult Aspirin Regimen) 81 mg PO DAILY 90 days fosfomycin tromethamine 1 packet PO Q OTHER DAY levofloxacin 500 mg PO DAILY 5 days lisinopril 10 mg PO DAILY 90 days megestrol 800 mg PO DAILY metoprolol tartrate 25 mg PO BID 90 days rivaroxaban (Xarelto) 20 mg PO DAILY 90 days tamsulosin 0.4 mg PO BEDTIME thiamine HCl (vitamin B1) 100 mg PO DAILY 90 days zolpidem 10 mg PO BEDTIME PRN 30 days HPI HPI Comments History of Present Illness Details The patient is a 80 year old individual presenting for a Medicare wellness exam. [facility] handed to patient. [place] of care reviewed and updated.There were recent issues with lab orders sent on August 24 for the Coumadin clinic, which the receiving office reportedly did not get. Orders for an EKG were also placed on August 25. The patient's medical history is notable for atrial fibrillation, for which anticoagulation is indicated. The patient was previously on Eloquis and an attempt to start Xarelto was made, but it was too expensive. The patient has a history of hernia surgery, sees an oncologist, and has undergone both radiation with Dr. GREEN and chemotherapy with Dr. Fausto Woody. The patient also sees a vascular surgeon, Dr. Wood, and has a pending cardiology referral that has not yet been scheduled. Current medications include lisinopril 10 mg and metoprolol for blood pressure, and megestrol for appetite. The patient's allergies include atorvastatin and oxycodone. The patient reports significant depression and has previously stopped medications for it. A sleeping medication, Ambien, was discontinued after it caused sleepwalking, during which the patient broke a lamp. Socially, the patient no longer smokes or drinks alcohol. Functionally, the patient requires help with bathing, dressing, toileting, and transferring. The patient is dependent on others for travel, shopping, meal preparation, and housework, but can feed self and use a telephone. The patient needs assistance with managing medications and money, though has a good understanding of finances. [facility] Medical History (Updated 09/11/25 @ 20:34 by Noemi Oliva MD) Mild major depression Anemia Decrease in appetite Alcoholic liver disease Dyslipidemia Former smoker Essential hypertension Surgical History History of hernia surgery Family History Mother No problems noted. Father No problems noted. Social History Household Members: Children Housing: House Housing Other:: lives with son Are you a primary urgent care physician to a significant other at home: No Do you presently have visiting nurse or other home services: No Alcohol intake: former Patient Tobacco Use Status: Former Tobacco user Tobacco use type: Cigarette e-Cigarette/Vaping Use: Never Used Second Hand Smoke Exposure: No service: No Current occupational status: retired Cognitive needs: No Hearing needs: No Vision needs: No Questionnaire Medicare Wellness Checkup What [age] What gender do you identify with?: male During the past 4 weeks, how much have you been bothered by emotional problems such as feeling anxious, depressed, irritable, sad or downhearted, and blue?: quite a bit During the past 4 weeks, has your physical & emotional health limited your social activities with family, friends, neighbors, or groups?: extremely During the past 4 weeks, how much bodily pain have you generally had?: moderate pain During the past 4 weeks, was someone available to help you if you needed & wanted help?: yes, some During the past 4 weeks, what was the hardest physical activity you could do for at least 2 minutes?: heavy Can you get to places out of walking distance without help? (For eg., can you travel alone on buses, taxis or drive your car?): No Can you go shopping for groceries or clothes without someone's help?: No Can you prepare your own meals?: No Can you do your housework without help?: No Because of any health problems, do you need the help of another person with your personal care needs such as eating, bathing, dressing or getting around the house?: Yes Can you handle your own money without help?: No During the past 4 weeks, how would you rate your health in general?: poor During the past 4 weeks how have things been going for you?: pretty bad Are you having difficulties driving your car?: yes, often Do you always fasten your seat belt when you are in a car?: yes, sometimes During past 4 weeks, have you been bothered by the following: sometimes: Teeth or denture problems? and Problems using the telephone?, often: Falling or dizzy when standing up and Trouble eating well? and always: Tiredness or fatigue? Have you fallen 2 or more times in the past year?: Yes Are you afraid of falling?: Yes Are you a smoker?: no During the past 4 weeks, how many drinks of wine, beer, or other alcoholic beverages did you have?: no alcohol at all Do you exercise for about 20 minutes 3 or more times a week?: no, I usually do not exercise this much Have you been given information to help with the following?: no: Hazards in your house that might hurt you? and no: Keeping track of your medications? How often do you have trouble taking medicines the way you have been told to take them?: sometimes I take medicine as prescribed How confident are you that you can control & manage most of your health problems?: not very confident What is your race?: or origin or descent Mini Mental State Exam (MMSE) Orientation What is the (year) (season) (date) (day) (month)?: year, season, date, day and month Where are we (state) (county) (town or city) (hospital) (floor)?: state, county, town or city, hospital/clinic and floor Registration Name of 3 unrelated objects clearly and slowly, then ask patient to repeat all 3 of them. (1st repeat determines score. Make sure they can repeat all three): object 1, object 2 and object 3 Attention & Calculation (CHOOSE ONE) Spell WORLD backwards (DLROW): 4 letters Recall Ask patient to repeat the 3 items from question #3.: object 1 and object 2 Language Show patient a wristwatch & ask what it is. Repeat for pencil.: watch and pencil Ask the patient to repeat the phrase 'No ifs, ands, or buts' after you.: correct Ask the patient to 'take a piece of paper with their right hand' 'fold paper in half' 'place paper on floor': take paper in right hand, fold paper in half and place paper on floor Print the sentence 'CLOSE YOUR EYES' on a piece. If patient actually closes eyes then score.: followed written direction Give patient a blank piece of paper & ask to write a sentence. Score if it contains a noun & verb.: sentence contains subject and verb Score Score: 27 Activity of Daily Living Bathing - sponge bath, tub bath or shower: receives help in bathing more than one body part (or not bathed) Dressing - getting clothes from closets & drawers, including inner/outer garments & fasteners.: receives help getting clothes or getting dressed, or stays undressed Toileting - going to the 'toilet room' for urine/bowel elimination & cleaning self/arranging clothes: receives help going to toilet room, cleaning self or arranging clothes Transfer: moves in & out of bed or chair with help Continence: has occasional 'accidents' Feeding: feeds self without help Total Score: 2 Information obtained from: patient Using telephone: independent Traveling: dependent Shopping: dependent Preparing meals: dependent Housework: dependent Taking medicine: dependent Managing money: needs assistance PHQ-9 Over the last 2 weeks, how often have you been bothered by any of the following problems? 1. Little interest or pleasure in doing things: more than half the days 2. Feeling down, depressed, or hopeless: more than half the days 3. Trouble falling or staying asleep, or sleeping too much: more than half the days 4. Feeling tired or having little energy: nearly every day 5. Poor appetite or overeating: nearly every day 6. Feeling bad about yourself - or that you are a failure or have let yourself or your family down: nearly every day 7. Trouble concentrating on things, such as reading the newspaper or watching television: more than half the days 8. Moving or speaking so slowly that other people could have noticed. Or the opposite - being so fidgety or restless that you have been moving around a lot more than usual: nearly every day 9. Thoughts that you would be better off or of hurting yourself in some way: nearly every day Total score: 23 Depression Screening Interpretation: Positive (no suicidal thoughts) Depression Screening Follow-up: Existing condition and Follow-up Visit Requested Depression Screening Done: Yes 71300 - PHQ-9 Billing: Yes Source: Developed by Drs. Joseph Bourgeois, Veronica Fiore, Kenyon Barbosa and colleagues, with an educational chico from [employer]. PHQ-2/PHQ-9 PHQ-2 Over the last 2 weeks, how often have you been bothered by any of the following problems? 1. Little interest or pleasure in doing things: more than half the days 2. Feeling down, depressed, or hopeless: more than half the days Total score: 4 If score is 3 or greater, continue 3. Trouble falling or staying asleep, or sleeping too much: more than half the days 4. Feeling tired or having little energy: nearly every day 5. Poor appetite or overeating: nearly every day 6. Feeling bad about yourself - or that you are a failure or have let yourself or your family down: nearly every day 7. Trouble concentrating on things, such as reading the newspaper or watching television: more than half the days 8. Moving or speaking so slowly that other people could have noticed. Or the opposite - being so fidgety or restless that you have been moving around a lot more than usual: nearly every day 9. Thoughts that you would be better off or of hurting yourself in some way: nearly every day Total score: 23 0-4 None-Minimal, 5-9 Mild, 10-14 Moderate, 15-19 Moderately Severe, 20-27 Severe Source: Developed by Drs. Joseph Bourgeois, Veronica Fiore, Kenyon Barbosa and colleagues, with an educational chico from [employer]. Thrive Questionnaire Date Thrive assessed: 09/11/25 I am a: Parent/Caregiver What is your living situation today?: I have a steady place to live Within the past 12 months, did the food you bought not last and you didn't have the money to get more?: Never true Within the past 12 months, did you worry whether your food would run out before you got money to buy more?: Never true Do you have trouble paying for medicines?: Yes Do you have trouble getting transportation to medical appointments?: No Do you have trouble paying your heating and electricity bill?: No Do you have trouble taking care of your child, family member or friend?: I choose not to answer this question Do you have trouble with day-to-day activities such as bathing, preparing meals, shopping, managing finances, etc.?: Yes Are you currently unemployed and looking for a job?: No Are you interested in more education?: No Please select the resources that you would like help with: Paying for medicine, Care for elder or disabled and Daily support Currently or been in a relationship where the following occur: I choose not to answer THRIVE Score: 0 DUNIA-7 AMB Questionnaire DUNIA-7 Date DUNIA - 7 assessed: 09/11/25 Feeling nervous, anxious, or on edge: 0 = Not at all Not being able to stop or control worryin = Not at all Worrying too much about different things: 0 = Not at all Trouble relaxin = Not at all Being so restless that it is hard to sit still: 0 = Not at all Becoming easily annoyed or irritable: 1 = Several days Feeling afraid as if something awful might happen: 0 = Not at all Total DUNIA-7 score (0-4 normal; 5-9 mild; 10-14 moderate; 15-21 severe): 1 Source: Developed by Drs. Joseph Bourgeois, Veronica Fiore, Kenyon Barbosa and colleagues, with an educational chico from [employer]. Review of Systems Const All systems reviewed & are unremarkable except as noted in HPI and below Card Denies chest pain at rest, Denies chest pain with activity, Denies edema, Denies irregular heart rhythm, Denies claudication, Denies dyspnea, Denies dyspnea on exertion, Denies orthopnea, Denies paroxysmal nocturnal dyspnea and Denies slow heart rate Resp Denies cough, Denies dyspnea and Denies dyspnea on exertion GI Denies abdominal pain, Denies change in bowel habits, Denies excessive flatus, Denies nausea and Denies vomiting Physical Exam Vital Signs: Last Vital Signs Pulse 48 L 09/11/25 15:20 BP 130/70 09/11/25 15:20 Pulse Ox 98 09/11/25 15:20 Oxygen Delivery Method Room Air 09/11/25 15:20 BMI result Body Mass Index 18.6 Resp Effort & Inspection: normal respiratory effort Auscultation: clear to auscultation bilaterally Cardio Jugular venous distension: no JVD Rate: regular rate Rhythm: regular rhythm Heart sounds: S1 normal heart sound present and S2 normal heart sound present Neuro Romberg Test: Negative Extrem General: Yes full ROM Immunizations pneumoc 20-amadeo conj-dip cr(PF) 0.5 mL IM syringe Performing Provider: Noemi Oliva MD Performing [facility] [place] [facility] Administered by: Fe Horowitz LPN on 09/11/25 16:25 Dose Route Admin Location Dispensed Lot Number Expiration Date [facility] Plant Engineer 0.5 mL IM Left Deltoid 0.5 mL [id number] 07/11/26 [employer] Total Dispensed Waste 0.5 mL 0 % VIS Given Date VIS Provided VIS Publication Date 09/11/25 Single Vaccine 25 Eligibility Eligibility Date Funding Source Not [facility] Eligible 09/11/25 Private Assessment & Plan Assessment & Plan (1) Encounter for annual wellness exam in Medicare patient: Code(s): Z00.00 - Encounter for general adult medical examination without abnormal findings (2) Atrial fibrillation: Code(s): I48.91 - Unspecified atrial fibrillation (3) Severe major depression: Code(s): F32.2 - Major depressive disorder, single episode, severe without psychotic features Plan Plan 1. Medicare wellness exam Repeat in a year. 2. Atrial Fibrillation Anticoagulation is indicated for atrial fibrillation. There have been logistical issues with a referral to the Coumadin clinic, as the orders were reportedly not received. The phone number for the anticoagulation service will be provided to the patient to facilitate setup. Xarelto was previously considered but was not a viable option due to cost. A follow-up on the pending cardiology referral is also warranted. 3. Depression And Insomnia The patient reports significant depression. The patient previously took a sleeping medication (Ambien) but stopped due to sleepwalking. A new medication will be prescribed to be taken at night to address both sleep and mood. 4. Hypertension The patient is on lisinopril and metoprolol. It was clarified that the blood pressure medication should be taken regardless of food intake. Advised to avoid coffee if experiencing chest pain. Orders: Orders Vitamin B12 and Folate Today E53.8 - Deficiency of other specified B group vitamins, I48.91 - Unspecified atrial fibrillation Vitamin B1 Today K70.9 - Alcoholic liver disease, unspecified Thyroid Stimulating Hormone Today I48.91 - Unspecified atrial fibrillation Pneumococcal 20 Immunization Today Z23 - Encounter for immunization Referrals Cardiology Referral I48.91 - Unspecified atrial fibrillation, I49.8 - Other specified cardiac arrhythmias Medications: New venlafaxine ER 37.5 mg PO BEDTIME 30 caps 0RF 30 days Discontinued rivaroxaban (Xarelto) must administer with evening meal Discontinued Reason: Insurance Denied 20 mg PO DAILY 90 days 90 tabs 1RF levofloxacin Discontinued Reason: Patient Completed Course 500 mg PO DAILY 5 days 5 tabs 0RF zolpidem Discontinued Reason: Patient Completed Course 10 mg PO BEDTIME 30 days PRN 30 tabs 0RF sleep Quality Reporting (2019) Depression/Bipolar (159/160/161/177) PHQ-9: Total score: 23 Coding Level of Care Code Medicare Subsequent (G0439) Est Pt Level 3 (27869) Diagnoses Encounter for annual wellness exam in Medicare patient Z00.00 Atrial fibrillation I48.91 Severe major depression F32.2 Additional Codes PHQ-9 - 03310 - PHQ-9 Billing: Yes ([id number]) Time Spent (min) 36 Advance Care Planning Advance Care Planning discussion: Exists, not on file Forms completed: Health Care Proxy
--- OUTSIDE RECORDS SUMMARY | 2025-09-11 18:17 | XMS_ITS | Encounter Summary ---
Author Organization [facility] Address [address] [place] [address] Care Team Providers Care Second Butler Name Role Phone Noemi Oliva MD Primary Care Provider Encounter Details Date Type Department Care Team (Late st Contact Info) Description 08/11/[address] [facility] - Main Lab [address] [facility] [place] [id number] Mook Chinchilla PA [address] [place] [address] Pyuria Social History Tobacco Use Types Packs/Day [...] for your loved ones. For example, child nutrition director or elderly care for an older adult? [...] AM EST Office Visit Vascular Surgery - [place] [address] [facility] [address] [place] [phone] Williams Wood MD [address] [place] [phone] documented as of this encounter Procedures Procedure Name Priority Date/Time Associated Diagnosis Comments BACTERIAL IDENTIFICATION AND SUSCEPTIBILITY, AEROBIC Routine 08/10/2025 12:00 AM EDT Pyuria documented in this encounter Results * (ABNORMAL) Baterial identification and susceptibility, aerobic (08/10/2025 12:00 AM EDT) Culture, Bacterial ID and Sensitivity Pseudomonas aeruginosa(A) JEROME 08/13/2025 8:00 AM EST [facility] Comment: The organism value for this result has been updated. These results have been appended to the previously preliminary verified report. This is an edited result. Previous organism was Gram negative bacilli on 08/12/2025 at 1041 EDT. 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
--- OUTSIDE RECORDS SUMMARY | 2025-09-11 18:17 | XMS_ITS | Encounter Summary ---
Author Organization [facility] Address [address] [place] [address] Care Team Providers Care Pipe Coverer And Insulator Name Role Phone Noemi Oliva MD Primary Care Provider [phone] Encounter Details Date Type Department Care Team (Late st Contact Info) Description 08/03/2025 Results Follow-Up Vascular Surgery - [place] [address] [place] [address] Aubree Lockett PA [address] [facility] [address] [place] [address] Social History Tobacco Use Types Packs/Day Years [...] AM EST Office Visit Vascular Surgery - [place] [address] [place] [address] Williams Wood MD [address] [place] [phone] documented as of this encounter Visit Diagnoses Not on filedocumented in this encounter Additional Health Concerns Infection Onset Date Last Indicated Resolved Time 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
--- OUTSIDE RECORDS SUMMARY | 2025-09-11 18:17 | XMS_ITS ---
Author Organization [facility] Address [address] [place] [address] Phone Care Team Providers Care Manufacturing Operator Name Role Phone Noemi Oliva MD Primary Care Provider [phone] Active Problems Problem Noted Date Diagnosed Date Sepsis with acute renal fail ure, due to unspecified organism, unspecified acute renal failure type, unspecified whether septic shock present ([facility] V24, [facility] V28) 08/15/2025 Acquired autoimmune hypothyroidism 05/03/2025 Acute pyelonephritis 04/25/2025 Arteriosclerosis of coronary artery 04/20/2025 Benign hypertension 04/20/2025 Gastroesophageal reflux disease 04/20/2025 Harmful use of alcohol 04/20/2025 Hyperlipidemia 04/20/2025 Multiple pulmonary nodules 04/20/2025 Malignant neoplasm of overla pping sites of bladder ([facility] V24, [facility] V28) 02/25/2025 Cancer Staging:Clinical stage from 03/30/2025:Stage II(cT2, cN0, cM0) - Signed by Sheridan Sandoval MD on 03/30/2025 Hematuria 02/14/2025 Current Treatment and Therapy Plans Albumin-bound PACLitaxel concurrent with radiation* Plan Start Date:05/04/2025 Plan Provider:Yohannes Woody MD Linked Problems Malignant neoplasm of overla pping sites of bladder ([facility] V24, [facility] V28)Acquired autoimmune hypothyroidism Treatment Medications Current Day [...]
--- OUTSIDE RECORDS SUMMARY | 2025-09-11 18:18 | XMS_ITS | Clinical Summary ---
Author Organization [facility] Address [address] [place] [address] Phone Care Team Providers Care Counseling Services Director Name Role Phone Noemi Oliva MD Primary Care Provider [phone] Allergies Active Allergy Reactions Criticality Noted Date Comments Atorvastatin Calcium Rash High 03/30/2025 Oxycodone-Acetaminophen Itching 03/30/2025 Pt states he is not allergic to this he is on oxycodone now with no problems Paclitaxel Pain High 04/20/2025 Chest Pain, HTN, Medications aspirin 81 mg EC tablet Take 1 tablet (81 mg total) by mouth 1 (one) time each day. Active sucralfate (CARAFATE) 1 gram tablet Take 1 tablet (1 g total) by mouth 4 (four) times a day (before meals and nightly). 120 each 11 025 2025 Active oxyCODONE (ROXICODONE) 5 mg immediate release tablet Take 1 tablet (5 mg total) by mouth every 6 (six) hours if needed for severe pain. Partial fill allowed Max Daily Amount: 20 mg 120 tablet 025 Active tamsulosin (FLOMAX) 0.4 mg 24 hr capsule Take 1 capsule (0.4 mg total) by mouth 1 (one) time each day with breakfast. Capsules should be taken 30 minutes following the same meal each day. Active megestroL (MEGACE) 40 mg tablet Take 2 tablets (80 mg total) by mouth 4 (four) times a day (with meals and nightly) 240 tablet 11 2025 Active apixaban (ELIQUIS) 5 mg tablet Take 1 tablet (5 mg total) by mouth 2 (two) times a day. 60 each Active Additional Information Patient not taking.Reported on 09/01/2025 levothyroxine (SYNTHROID, LEVOTHROID) 25 mcg tablet Take 1 tablet (25 mcg total) by mouth 1 (one) time each day before breakfast. 30 each 11 2025 Active metoprolol succinate (TOPROL-XL) 25 mg 24 hr tablet Take 0.5 tablets (12.5 mg total) by mouth 1 (one) time each day. Do not crush or chew. 15 each 2025 Active senna (SENOKOT) 8.6 mg tablet Take 2 tablets (17.2 mg total) by mouth at bedtime as needed for constipation. 60 tablet 2024 Active lisinopriL (PRINIVIL,ZESTRIL ) 5 mg tablet Take 1 tablet (5 mg total) by mouth 1 (one) time each day. 30 each 5 2025 Active ondansetron ODT (ZOFRAN-ODT) 4 mg disintegrating tablet Dissolve 1 tablet (4 mg total) on top of the tongue every 8 (eight) hours if needed for nausea or vomiting for up to 7 days. 20 tablet 2024 Active famotidine (PEPCID) 20 mg tablet Take 1 tablet (20 mg total) by mouth 2 (two) times a day for 15 days. 30 tablet 2024 Active cephalexin (KEFLEX) 500 mg capsule Take 1 capsule (500 mg total) by mouth 3 (three) times a day for 10 days. 30 each 2024 Active Lactobacillus acidophilus 100 mg (1 billion cell) capsule Take 1 capsule by mouth 2 (two) times a day. 60 each 025 2024 Active metoprolol tartrate (LOPRESSOR) 25 mg tablet Take 1 tablet (25 mg total) by mouth 2 (two) times a day. 2024 Discontinued(S top Taking at Discharge) lisinopriL (PRINIVIL,ZESTRIL ) 10 mg tablet Take 1 tablet (10 mg total) by mouth 1 (one) time each day. 2024 Discontinued(S top Taking at Discharge) phenazopyridine (PYRIDIUM) 200 mg tablet Take 1 tablet (200 mg total) by mouth every 8 (eight) hours if needed (urinary discomfort). 9 tablet 025 2024 Discontinued(S top Taking at Discharge) megestroL (MEGACE) 400 mg/10 mL (40 mg/mL) suspension Take 20 mL (800 mg total) by mouth 1 (one) time each day. Shake well just before you measure a dose. Measure with a special dose-measuring spoon or medicine cup, not with a regular table spoon. If you do not have a dose-measuring device, ask your pharmacist for one. 600 mL 1 2024 Discontinued(S top Taking at Discharge) sulfamethoxazole- trimethoprim (BACTRIM DS,SEPTRA DS) 800-160 mg per tablet Take 1 tablet by mouth 2 (two) times a day. 2024 Discontinued(S top Taking at Discharge) thiamine (VITAMIN B-1) 100 mg tablet Take 1 tablet (100 mg total) by mouth 1 (one) time each day for 4 doses. 4 tablet 2024 Lactobacillus acidophilus 100 mg (1 billion cell) capsule Take 1 capsule by mouth 2 (two) times a day. 60 each 025 2024 Discontinued Active Problems Problem Noted Date Diagnosed Date Sepsis with acute renal fail ure, due to unspecified organism, unspecified acute renal failure type, unspecified whether septic shock present ([facility] V24, [facility] V28) 08/15/2025 Acquired autoimmune hypothyroidism 05/03/2025 Acute pyelonephritis 04/25/2025 Arteriosclerosis of coronary artery 04/20/2025 Benign hypertension 04/20/2025 Gastroesophageal reflux disease 04/20/2025 Harmful use of alcohol 04/20/2025 Hyperlipidemia 04/20/2025 Multiple pulmonary nodules 04/20/2025 Malignant neoplasm of overla pping sites of bladder ([facility] V24, [facility] V28) 02/25/2025 Cancer Staging:Clinical stage from 03/30/2025:Stage II(cT2, cN0, cM0) - Signed by Sheridan Sandoval MD on 03/30/2025 Hematuria 02/14/2025 Encounters Date Type Department Care Team Description 09/08/2025 9:17 PM EST - 09/09/2025 1:[address] [facility] Emergency [address] [place] [phone] Yeison Calderon MD Acute cystitis without hematuria (Primary Dx); Chronic renal impairment, unspecified CKD stage; Acute chest pain; Shortness of breath; Aneurysm of descending thoracic aorta without rupture ([facility] V24) Discharge Disposition: Home or Self Care 09/01/2025 10:00 AM EST Consult Vascular Surgery - [facility] [address] [place] [address] Williams Wood MD Aneurysm of descending thoracic aorta without rupture ([facility] V24) (Primary Dx) 08/31/[address] [facility] Hematology Oncology [address] [place] [phone] Yohannes Woody MD 08/15/2025 10:22 AM EST - 08/20/2025 5:01 PM EST Hospital Encounter [facility] Medical Surgical Unit [address] [place] [address] Ej Dixon MD Zipagan, James T, MD Bukalo, Nermina, MD Physical deconditioning (Primary Dx); Sepsis with acute renal failure, due to unspecified organism, unspecified acute renal failure type, unspecified whether septic shock present ([facility] V24, [facility] V28); Urinary tract infection in male; Acute kidney injury ([facility] V24); Atrial fib/flutter, transient ([facility] V24, [facility] V28) Discharge Disposition: Home-Health Care Svc 08/15/2025 9:45 AM EST Office Visit [facility] Hematology Oncology [address] [place] [phone] Yohannes Woody MD 08/11/[address] [facility] [address] [facility] [place] [phone] Mook Chinchilla PA Pyuria 08/07/2025 1:54 PM EDT - 08/07/2025 11:59 PM EDT Hospital Encounter [facility] Radiation Oncology [address] [place] [phone] Malignant neoplasm of overlapping sites of bladder ([facility] V[facility], [facility] V28) (Primary Dx) Discharge Disposition: Home or Self Care 08/03/2025 Results Follow-Up Vascular Surgery - [facility] [address] [place] [address] Aubree Lockett PA 07/26/2025 7:56 AM EDT - 07/26/2025 11:59 PM EDT Hospital Encounter [facility] CT Scan [address] [place] [phone] Thoracic aortic aneurysm without rupture, unspecified part ([facility] V24) Discharge Disposition: Home or Self Care 07/18/2025 11:24 AM EDT - 07/18/2025 11:59 PM EDT Hospital Encounter [facility] Radiation Oncology [address] [place] [phone] Conchis Jackson, JAVY Malignant neoplasm of overlapping sites of bladder ([facility] (Primary Dx) Discharge Disposition: Home or Self Care 07/18/2025 9:15 AM EDT Office Visit [facility] Hematology Oncology [address] [place] [phone] Yohannes Woody MD Malignant neoplasm of overlapping sites of bladder ([facility] V24, [facility] V28) (Primary Dx) 07/18/[address] [facility] Radiation Oncology [address] [place] [phone] 06/23/[address] [facility] Hematology Oncology [address] [place] [address] [place] [phone] Yohannes Woody MD 06/20/2025 9:00 AM EDT Office Visit [facility] Hematology Oncology [address] [place] [phone] Yohannes Woody MD Malignant neoplasm of overlapping sites of bladder ([facility] V24, [facility] [place] [place] V28) (Primary Dx) from Last 3 Months Surgical History Surgery Date Site/Laterality Comments BLADDER SURGERY CYSTOSCOPY Medical History Medical History Date Comments Bladder cancer ([facility] [place] V24, [facility] [place] V28) Nephrostomy present ([facility] [place] V24, [facility] [place] V28) Family History Medical History Relation Name [...] for your loved ones. For example, children's lunchroom supervisor or elderly care for an older adult? [...] Mass Index 18.78 09/08/2025 7:27 PM EST Plan of Treatment Upcoming Encounters Date Type Department Care Team (Late st Contact Info) Description 09/03/2026 10:30 AM EST Office Visit Vascular Surgery - [facility] [address] [facility] [address] [place] [phone] Williams Wood MD [facility] [place] [phone] Health Maintenance Due Date Last Done Comments [...] 08/20/2026 08/20/2025 Hypertension/CHF/CAD Annual BMP Blood Test 09/08/2026 09/08/2025, 08/20/2025, 08/18/2025, Additional history exists HIB Vaccines Aged Out [...] this topic Medical Devices Implanted Type Area Lieutenant Colonel Device Identifier Shelf Expiration Date Model / Serial / Lot Stent Uret [id number] Contr Percuflex Hydroplus - Sn/A - [id number] Implanted:Qty: 1 on 02/17/2025 by Naty Harris MD at [facility] Stents Left: Bladder [employer] GY 09/01/2027 [id number] / N/A / [id number] Stent Nephuret Lplk 8.1aa13im Radiopq Bnd - [id number] Implanted:Qty: 1 on 05/01/2025 by Leydi Jain MD at [facility] Stents Right: Kidney [employer] [id number] 11/15/2027 [id number] / / [id number] Stent Uret Tria Firm W/Side Holes 7f [id number] - Sn/A - [id number] Implanted:Qty: 1 on 2025 by Jurgen Currie MD at [facility] Stents Right: Ureter [employer] [id number] 01/24/2028 [id number] 30 / N/A / [id number] Stent Uret [employer] W/Side Holes 7f [id number] - Sn/A - [id number] Implanted:Qty: 1 on 2025 by Jurgen Currie MD at [facility] Stents Left: Ureter [employer] [id number] 01/24/2028 [id number] 30 / N/A / [id number] Procedures Procedure Name Priority Date/Time Associated Diagnosis [...] 2 VIEWS STAT 09/08/2025 9:10 PM EST CBC WITH AUTO DIFFERENTIAL STAT 09/08/2025 8:06 PM EST B-TYPE NATRIURETIC PEPTIDE STAT 09/08/2025 8:06 PM EST MAGNESIUM STAT 09/08/2025 8:06 PM EST LIPASE STAT 09/08/2025 8:06 PM EST COMPREHENSIVE METABOLIC PANEL STAT 09/08/2025 8:06 PM EST CBC AND DIFFERENTIAL STAT 09/08/2025 8:06 PM EST TROPONIN I HIGH SENSITIVITY Timed 09/08/2025 8:06 PM EST ECG 12-LEAD STAT 09/08/2025 7:31 PM EST ECG ANNOTATED 08/21/2025 LAVENDER - EDTA Routine [...] ECG 12-LEAD STAT 08/15/2025 10:27 AM EST [facility] 30-74 MINUTES Routine 08/15/2025 10:13 [...] Urinary tract infection without hematuria, site unspecified from Last 3 Months Results * Lactate, with Reflex (09/09/2025 12:45 AM EST) Only the most recent of3 resultswithin the time period is included. LACTIC ACID 1.5 0.4 - 2.0 mmol/L 09/09/2025 2:00 AM EST [facility] Blood Venous blood specimen / Unknown Venipuncture / Unknown 09/09/2025 12:45 AM EST 09/09/2025 1:10 AM EST Yeison Calderon MD LAB BLOOD ORDERABLES Final Resul t [facility] [address] [place] [address], [place] [phone] * ECG 12 lead (09/08/2025 10:54 PM EST) Only the most recent of4 resultswithin the time period is included. Ventricular Rate ECG 77 BPM GEMUSE Atrial Rate 77 BPM GEMUSE P-R Interval 156 ms GEMUSE QRS Duration 70 ms GEMUSE Q-T Interval 414 ms GEMUSE QTc 468 ms GEMUSE P Wave [place] 59 degrees GEMUSE R [place] -28 degrees GEMUSE T [place] 0 degrees GEMUSE ECG Interpretation Sinus rhythm with Premature atrial complexes Nonspecific ST abnormality Abnormal ECG When compared with ECG of 08-SEP-2025 19:31, (unconfirmed) Sinus rhythm has replaced Atrial fibrillation Confirmed by EDUIN ROMO ([id number]) on 09/09/2025 10:12:16 AM GEMUSE 09/08/2025 10:5 4 PM EST 09/09/2025 10:12 AM EST Belem Veliz MD ECG ORDERABLES Final Result GEMUSE * [...] by: Zack Diaz MD on 09/08/2025 22:58:20 Narrative 09/08/2025 10:58 PM EST INDICATION: Abdominal pain, acute, no prior medical history CT abdomen and pelvis with contrast Comparison: CT/KO/TN/SR - CT ABD PEL WO CONTRAST - [...] bones are intact. Procedure Note Zack Diaz Setswana - 09/08/2025 INDICATION: Abdominal pain, acute, no prior medical history CT abdomen and pelvis with contrast Comparison: CT/KO/TN/SR - CT ABD PEL WO CONTRAST - [...] on 09/08/2025 22:58:20 us Yeison Yumiko JONES IMG CT PROCEDURES Final Result * (ABNORMAL) Urinalysis with reflex microscopic (09/08/2025 10:26 PM EST) Only the most recent of2 resultswithin the time period is included. Specific [place] Urine 1.013 1.003 - 1.030 LAB URINALYSIS - AUTOMATED METHOD 09/08/2025 11:50 PM [facility] pH, Urine 6.0 5.0 - 8.0 pH LAB URINALYSIS - AUTOMATED METHOD 09/08/2025 11:50 PM [facility] Leukocytes, Urine Large(A) Negative LAB URINALYSIS - AUTOMATED METHOD 09/08/2025 11:50 PM [facility] Nitrite, Urine Positive(A) Negative LAB URINALYSIS - AUTOMATED METHOD 09/08/2025 11:50 PM [facility] Protein, Urine 100(A) <=Trace mg/dL LAB URINALYSIS - AUTOMATED METHOD 09/08/2025 11:50 PM [facility] Glucose, Urine Negative Negative mg/dL LAB URINALYSIS - AUTOMATED METHOD 09/08/2025 11:50 PM [facility] Ketones, Urine Negative Negative mg/dL LAB URINALYSIS - AUTOMATED METHOD 09/08/2025 11:50 PM [facility] Urobilinogen , Urine 1.0 0.2 - 1.0 mg/dL LAB URINALYSIS - AUTOMATED METHOD 09/08/2025 11:50 PM [facility] Bilirubin, Urine Negative Negative LAB URINALYSIS - AUTOMATED METHOD 09/08/2025 11:50 PM [facility] Blood, Urine Moderate(A) Negative LAB URINALYSIS - AUTOMATED METHOD 09/08/2025 11:50 PM [facility] RBC, Urine 20(H) 0 - 4 /HPF 09/08/2025 11:50 PM [facility] WBC, Urine >100(H) 0 - 4 /HPF 09/08/2025 11:50 PM [facility] Squamous Epithelial, Urine 10 0 - 60 /LPF 09/08/2025 11:50 PM [facility] Bacteria, Urine Moderate(A) Negative /HPF 09/08/2025 11:50 PM [facility] Hyaline Casts, Urine 3 0 - 3 /LPF 09/08/2025 11:50 PM [facility] Urine Urine specimen obtained by clean catch procedure / Unknown Non-blood Collection / Unknown 09/08/2025 10:26 PM EST 09/08/2025 11:20 PM EST us Belem Veliz MD LAB URINE ORDERABLES Final Res ult [facility] [address] [place] [address], * Troponin I high sensitivity (09/08/2025 9:53 PM EST) Only the most recent of4 resultswithin the time period is included. High Sensitivity Troponin I 4 <=53 ng/L 09/08/2025 11:13 PM [facility] Blood Venous blood specimen / Unknown Venipuncture / Unknown 09/08/2025 9:53 PM EST 09/08/2025 10:30 PM EST us Belem Veliz MD LAB BLOOD ORDERABLES Final Res ult [facility] [address] [place] [address], * XR Chest 2 Views (09/08/2025 9:10 [...] Signed Date: 09/09/2025 11:02 ET Workstation ID: [id number] Transcribed By: Self Edit Transcribed Date: 09/09/2025 [...] Signed Date: 09/09/2025 11:02 ET Workstation ID: [id number] Transcribed By: Self Edit Transcribed Date: 09/09/2025 10:51 ET us Belem Veliz MD IMG XR PROCEDURES Final Result * (ABNORMAL) CBC auto differential (09/08/2025 8:06 PM EST) Only the most recent of6 resultswithin the time period is included. WBC 6.8 4.8 - 10.8 K/mcL LAB HEMETOLOGY METHOD 09/08/2025 8:30 PM [facility] RBC 4.40(L) 4.50 - 5.50 M/mcL LAB HEMETOLOGY METHOD 09/08/2025 8:30 PM [facility] Hemoglobin 11.1(L) 13.5 - 17.5 g/dL LAB HEMETOLOGY METHOD 09/08/2025 8:30 PM [facility] Hematocrit 37.2(L) 42.0 - 54.0 % LAB HEMETOLOGY METHOD 09/08/2025 8:30 PM [facility] MCV 84.0 79.0 - 98.0 FL LAB HEMETOLOGY METHOD 09/08/2025 8:30 PM [facility] MCH 25.1(L) 27.0 - 32.0 pcg LAB HEMETOLOGY METHOD 09/08/2025 8:30 PM [facility] MCHC 29.8(L) 32.0 - 37.0 g/dL LAB HEMETOLOGY METHOD 09/08/2025 8:30 PM [facility] RDW 20.6(H) 11.0 - 15.0 % LAB HEMETOLOGY METHOD 09/08/2025 8:30 PM [facility] Platelets 338 130 - 400 K/mcL LAB HEMETOLOGY METHOD 09/08/2025 8:30 PM [facility] MPV 9.5 7.0 - 11.0 FL LAB HEMETOLOGY METHOD 09/08/2025 8:30 PM [facility] NRBC 0.0 <1.0 % LAB HEMETOLOGY METHOD 09/08/2025 8:30 PM [facility] NRBC Absolute 0.00 <0.10 K/mcL LAB HEMETOLOGY METHOD 09/08/2025 8:30 PM [facility] Neutrophils Relative 75.7 % LAB HEMETOLOGY METHOD 09/08/2025 8:30 PM [facility] Lymphocytes Relative 12.9 % LAB HEMETOLOGY METHOD 09/08/2025 8:30 PM [facility] Monocytes Relative 7.9 % LAB HEMETOLOGY METHOD 09/08/2025 8:30 PM [facility] Eosinophils Relative 2.5 % LAB HEMETOLOGY METHOD 09/08/2025 8:30 PM [facility] Basophils Relative 0.6 % LAB HEMETOLOGY METHOD 09/08/2025 8:30 PM [facility] Immature Granulocytes Relative 0.4 % LAB HEMETOLOGY METHOD 09/08/2025 8:30 PM [facility] Neutrophils Absolute 5.11 1.50 - 7.00 K/mcL LAB HEMETOLOGY METHOD 09/08/2025 8:30 PM [facility] Lymphocytes Absolute 0.87(L) 1.00 - 5.00 K/mcL LAB HEMETOLOGY METHOD 09/08/2025 8:30 PM [facility] Monocytes Absolute 0.53 0.20 - 1.00 K/mcL LAB HEMETOLOGY METHOD 09/08/2025 8:30 PM [facility] Eosinophils Absolute 0.17 0.00 - 0.50 K/mcL LAB HEMETOLOGY METHOD 09/08/2025 8:30 PM EST [facility] Basophils Absolute 0.04 0.00 - 0.20 K/mcL LAB HEMETOLOGY METHOD 09/08/2025 8:30 PM EST [facility] Immature Granulocytes Absolute 0.03 0.00 - 0.03 K/mcL LAB HEMETOLOGY METHOD 09/08/2025 8:30 PM EST [facility] Blood Venous blood specimen / Unknown Venipuncture / Unknown 09/08/2025 8:06 PM EST 09/08/2025 8:11 PM EST us Belem Veliz MD LAB BLOOD ORDERABLES Final Res ult Performing Organization Address [facility]/ZIP Co de Phone Number [facility] [address] [place] [address], [place] [phone] * B-type natriuretic peptide (09/08/2025 8:06 PM EST) BNP 74 <=100 pcg/mL 09/08/2025 8:46 PM EST [facility] Blood Venous blood specimen / Unknown Venipuncture / Unknown 09/08/2025 8:06 PM EST 09/08/2025 8:11 PM EST Narrative [facility] - 09/08/2025 8:46 PM EST Over the counter supplements containing high doses of biotin may interfere with this assay. If interference is suspected, patients shoud be retested after refraining from biotin supplements for 72 hours. us Belem Veliz MD LAB BLOOD ORDERABLES Final Res ult [facility] [address] [place] [address], [place] [phone] * Magnesium (09/08/2025 8:06 PM EST) Only the most recent of6 resultswithin the time period is included. Magnesium 2.2 1.9 - 2.6 mg/dL 09/08/2025 8:42 PM EST [facility] Blood Venous blood specimen / Unknown Venipuncture / Unknown 09/08/2025 8:06 PM EST 09/08/2025 8:11 PM EST Belem Veliz MD LAB BLOOD ORDERABLES Final Res ult Performing Organization Address City/[facility]/ZIP Co de Phone Number [facility] [address] [place] [address], [place] [phone] * Lipase (09/08/2025 8:06 PM EST) Lipase 35 12 - 53 unit/L 09/08/2025 8:42 PM EST [facility] Blood Venous blood specimen / Unknown Venipuncture / Unknown 09/08/2025 8:06 PM EST 09/08/2025 8:11 PM EST Belem Veliz MD LAB BLOOD ORDERABLES Final Res ult Performing Organization Address City/[facility]/ZIP Co de Phone Number [facility] [address] [place] [address], [place] [phone] * (ABNORMAL) Comprehensive metabolic panel (09/08/2025 8:06 PM EST) Only the most recent of3 resultswithin the time period is included. Sodium 139 133 - 145 mmol/L 09/08/2025 8:42 PM EST [facility] Potassium 5.0 3.5 - 5.5 mmol/L 09/08/2025 8:42 PM EST [facility] Chloride 107 96 - 110 mmol/L 09/08/2025 8:42 PM EST [facility] CO2 19(L) 21 - 32 mmol/L 09/08/2025 8:42 PM EST [facility] Anion Gap 13(H) 3 - 11 09/08/2025 8:42 PM [facility] Glucose 111(H) 70 - 100 mg/dL 09/08/2025 8:42 PM [facility] BUN 29(H) 5 - 25 mg/dL 09/08/2025 8:42 PM [facility] Creatinine 1.57(H) 0.70 - 1.30 mg/dL 09/08/2025 8:42 PM [facility] eGFR 45(L) >=60 mL/min/1. 73m2 09/08/2025 8:42 PM [facility] Comment:Calculation based on the Chronic Kidney Disease Epidemiology Collaboration (CKD-EPI) equation refit without adjustment for race. BUN/Creatinine Ratio 18.5 09/08/2025 8:42 PM [facility] Calcium 8.7 8.5 - 10.5 mg/dL 09/08/2025 8:42 PM [facility] AST (SGOT) 36 10 - 42 unit/L 09/08/2025 8:42 PM [facility] ALT (SGPT) 22 10 - 60 unit/L 09/08/2025 8:42 PM [facility] Alkaline Phosphatase 122(H) 42 - 121 unit/L 09/08/2025 8:42 PM [facility] Total Protein 7.6 6.0 - 8.0 g/dL 09/08/2025 8:42 PM [facility] Albumin 3.7 3.2 - 5.0 g/dL 09/08/2025 8:42 PM [facility] Total Bilirubin 0.3 0.0 - 1.4 mg/dL 09/08/2025 8:42 PM [facility] Blood Venous blood specimen / Unknown Venipuncture / Unknown 09/08/2025 8:06 PM EST 09/08/2025 8:11 PM EST Belem Veliz MD LAB BLOOD ORDERABLES Final Res ult Performing Organization Address City/[facility]/ZIP Co de Phone Number [facility] [address] [place] [address], [place] [phone] * ECG-Annotated (08/21/2025) Provider Onbase MD ECG ORDERABLES Final Result * Lavender tube (08/20/2025 5:52 AM EST) [facility] Extra Tube Hold for add-ons. 08/20/2025 8:01 AM EST [facility] Comment:Auto resulted. Blood Venous blood specimen / Unknown Venipuncture / Unknown 08/20/2025 5:52 AM EST 08/20/2025 6:11 AM EST J Luis Tello MD LAB BLOOD ORDERABLES Final Re sult Performing Organization Address [facility]/ZIP Co de Phone Number [facility] [address] [place] [address], [place] [phone] * (ABNORMAL) Basic metabolic panel (08/20/2025 5:52 AM EST) Only the most recent of4 resultswithin the time period is included. [facility] Sodium 141 133 - 145 mmol/L LAB CHEMISTRY METHOD 08/20/2025 7:11 AM [facility] Potassium 4.2 3.5 - 5.5 mmol/L LAB CHEMISTRY METHOD 08/20/2025 7:11 AM [facility] Chloride 115(H) 96 - 110 mmol/L LAB CHEMISTRY METHOD 08/20/2025 7:11 AM [facility] CO2 22 21 - 32 mmol/L LAB CHEMISTRY METHOD 08/20/2025 7:11 AM [facility] Anion Gap 4 3 - 11 LAB CHEMISTRY METHOD 08/20/2025 7:11 AM [facility] Glucose 88 70 - 100 mg/dL LAB CHEMISTRY METHOD 08/20/2025 7:11 AM [facility] BUN 10 5 - 25 mg/dL LAB CHEMISTRY METHOD 08/20/2025 7:11 AM [facility] Creatinine 1.14 0.70 - 1.30 mg/dL LAB CHEMISTRY METHOD 08/20/2025 7:11 AM [facility] eGFR 66 >=60 mL/min/1. 73m2 LAB CHEMISTRY METHOD 08/20/2025 7:11 AM [facility] Comment:Calculation based on the Chronic Kidney Disease Epidemiology Collaboration (CKD-EPI) equation refit without adjustment for race. BUN/Creatinine Ratio 8.8 LAB CHEMISTRY METHOD 08/20/2025 7:11 AM [facility] Calcium 7.5(L) 8.5 - 10.5 mg/dL LAB CHEMISTRY METHOD 08/20/2025 7:11 AM [facility] Blood Venous blood specimen / Unknown Venipuncture / Unknown 08/20/2025 5:52 AM EST 08/20/2025 6:09 AM EST us J Luis Tello MD LAB BLOOD ORDERABLES Final Re sult [facility] [address] [place] [address], [place] [phone] * (ABNORMAL) TRANSTHORACIC ECHOCARDIOGRAM (TTE) COMPLETE W/ [...] 79 mL CV PACS Left [facility] Minor [place] 5.8 cm CV PACS Left [facility] Major [place] 6.7 cm CV PACS LA Area Sys [...] Proximal 2.0 cm CV PACS MV Deceleration Clare 2.3 m/s2 CV PACS E Wave Deceleration Time 278(A) 119 - 242 ms CV PACS MV PHT 81 ms CV PACS MV Peak A [place] 0.56 m/s CV PACS MV Peak E [place] 0.65 m/s CV PACS MV Area PHT 2.7 cm2 CV PACS [place] End Max Velocity 1.0 m/s CV PACS [...] LAB CHEMISTRY METHOD 08/15/2025 6:04 PM EST [facility] Blood Venous blood specimen / Unknown Venipuncture / Unknown 08/15/2025 5:13 PM EST 08/15/2025 5:19 PM EST Marilee MCDOWELL LAB BLOOD ORDERABLES Final Result Performing Organization Address [facility]/ZIP Co de Phone Number [facility] [address] [place] [address], [place] [phone] * Free thyroxine with reflex to free triiodothyronine (08/15/2025 5:13 PM EST) Only the most recent of2 resultswithin the time period is included. [facility] Free T4 0.78 0.70 - 1.80 ng/dL LAB CHEMISTRY METHOD 08/15/2025 7:35 PM EST [facility] Blood Venous blood specimen / Unknown Venipuncture / Unknown 08/15/2025 5:13 PM EST 08/15/2025 5:19 PM EST Marilee MCDOWELL LAB BLOOD ORDERABLES Final Result [facility] [address] [place] [address], [place] [phone] * Culture blood (08/15/2025 5:13 PM EST) Only the most recent of2 resultswithin the time period is included. Pathologist [facility] Culture, Blood No growth at 5 days 08/20/2025 6:01 PM EST [facility] Blood Venous blood specimen / Unknown Venipuncture / Unknown 08/15/2025 5:13 PM EST 08/15/2025 5:19 PM EST Marilee MCDOWELL LAB MICROBIOLOGY - GENERAL ORDERABLES Final Result Performing Organization Address [facility]/ZIP Co de Phone Number [facility] [address] [place] [address], [place] [phone] * (ABNORMAL) Triiodothyronine free (08/15/2025 5:13 PM EST) Only the most recent of2 resultswithin the time period is included. T3, Free 207(L) 230 - 420 pcg/dL LAB CHEMISTRY METHOD 08/15/2025 10:03 PM EST [facility] Blood Venous blood specimen / Unknown Venipuncture / Unknown 08/15/2025 5:13 PM EST 08/15/2025 5:19 PM EST Marilee MCDOWELL LAB BLOOD ORDERABLES Final Result Performing Organization Address [facility] Co de Phone Number [facility] [address] [place] [address], [place] [phone] * Serna urine culture tube (08/15/2025 1:41 PM EST) Only the most recent of2 resultswithin the time period is included. Pathologist [facility] Extra Tube Hold for add-ons. 08/15/2025 3:01 PM EST [facility] Comment:Auto resulted. Urine Urine specimen obtained by clean catch procedure / Unknown 08/15/2025 1:41 PM EST 08/15/2025 1:58 PM EST Ej Dixon MD LAB URINE ORDERABLES Final Result Performing Organization Address [facility]/ZIP Co de Phone Number [facility] [address] [place] [address], [place] [phone] * Yellow urine no additive (08/15/2025 1:41 PM EST) Extra Tube Hold for add-ons. 08/15/2025 3:01 PM EST [facility] Comment:Auto resulted. Urine Urine specimen obtained by clean catch procedure / Unknown 08/15/2025 1:41 PM EST 08/15/2025 1:58 PM EST Ej Dixon MD LAB URINE ORDERABLES Final Result Performing Organization Address [facility] Co de Phone Number [facility] [address] [place] [address], [place] [phone] * Culture urine (08/15/2025 1:41 PM EST) Only the most recent of2 resultswithin the time period is included. Culture, Urine <10,000 CFU/mL gram positive cocci, insignificant count, no further workup 08/18/2025 11:22 AM EST [facility] Urine Urine specimen from urethra / Unknown 08/15/2025 1:41 PM EST 08/16/2025 7:58 AM EST J Luis Tello MD LAB MICROBIOLOGY - GENERAL OR DERABLES Final Result Performing Organization Address [facility]/ZIP Co de Phone Number [facility] [address] [place] [address], [place] [phone] * XR Chest 1 View (08/15/2025 12:56 [...] Signed Date: 08/15/2025 13:49 ET Workstation ID: [id number] Transcribed By: Self Edit Transcribed Date: 08/15/2025 [...] Signed Date: 08/15/2025 13:49 ET Workstation ID: [id number] Transcribed By: Self Edit Transcribed Date: 08/15/2025 13:49 ET Ej Dixon MD IMG XR PROCEDURES Final Res ult * CT Abdomen Pelvis wo Contrast (08/15/2025 [...] Signed Date: 08/15/2025 11:28 ET Workstation ID: [id number] Transcribed By: Self Edit Transcribed Date: 08/15/2025 [...] of contrast discarded: 0 mL FINDINGS: Digital banker mason demonstrates bilateral nephroureteral stents. LIVER: The liver [...] of contrast discarded: 0 mL FINDINGS: Digital banker mason demonstrates bilateral nephroureteral stents. LIVER: The liver [...] Signed Date: 08/15/2025 11:28 ET Workstation ID: [id number] Transcribed By: Self Edit Transcribed Date: 08/15/2025 11:19 ET Ej Dixon MD IMG CT PROCEDURES Final Res ult * APTT (08/15/2025 10:53 AM EST) aPTT 33.4 24.1 - 39.3 sec LAB COAGULATION METHOD 08/15/2025 11:31 AM EST [facility] Blood Venous blood specimen / Unknown Venipuncture / Unknown 08/15/2025 10:53 AM EST 08/15/2025 11:16 AM EST Ej Dixon MD LAB BLOOD ORDERABLES Final Result Performing Organization Address [facility] Co de Phone Number [facility] [address] [place] [address], [place] [phone] * Protime-INR (08/15/2025 10:53 AM EST) Protime 12.7 10.6 - 13.9 sec LAB COAGULATION METHOD 08/15/2025 11:31 AM EST [facility] INR 1.0 LAB COAGULATION METHOD 08/15/2025 11:31 AM EST [facility] Blood Venous blood specimen / Unknown Venipuncture / Unknown 08/15/2025 10:53 AM EST 08/15/2025 11:16 AM EST Ej Dixon MD LAB BLOOD ORDERABLES Final Result Performing Organization Address City/[facility]/ZIP Co de Phone Number [facility] [address] [place] [address], [place] [phone] * [place] CRITICAL CARE 30-74 MINUTES (08/15/2025 10:13 AM EST) Ej Brooks MD - 08/15/2025 10:13 AM EST Ej [...] Pseudomonas aeruginosa(A) JEROME 08/13/2025 8:00 AM EST [facility] ([facility]) [facility] Comment: The organism value for this result has been updated. These results have been appended to the previously preliminary verified report. This is an edited result. Previous organism was Gram negative bacilli on 08/12/2025 at 1041 EDT. Culture, Bacterial ID and Sensitivity Vancomycin resistant Enterococcus faecium(A) JEROME 08/13/2025 8:00 AM EST [facility] ([facility]) [facility] Comment: The organism value for [...] MICROBIOLOGY - GENERAL ORDER GABRIEL Final Result [facility] ([facility]) [facility] [address] [place] [address], * CT Angio Chest wo and/or w [...] Signed Date: 08/03/2025 10:32 ET Workstation ID: [id number] Transcribed By: Self Edit Transcribed Date: 08/03/2025 [...] right lower lobe juxtapleural nodule, series 3 . Previously demonstrated small bilateral pleural effusions have [...] Signed Date: 08/03/2025 10:32 ET Workstation ID: [id number] Transcribed By: Self Edit Transcribed Date: 08/03/2025 10:03 ET Jerrica MCDOWELL IM CT PROCEDURES Final Result * (ABNORMAL) Urinalysis with reflex microscopic and culture (06/23/2025 11:19 AM EDT) Specific [place] Urine 1.010 1.003 - 1.030 LAB URINALYSIS - AUTOMATED METHOD 06/23/2025 12:57 PM [facility] pH, Urine 6.0 5.0 - 8.0 pH LAB URINALYSIS - AUTOMATED METHOD 06/23/2025 12:57 PM [facility] Leukocytes, Urine Large(A) Negative LAB URINALYSIS - AUTOMATED METHOD 06/23/2025 12:57 PM [facility] Nitrite, Urine Negative Negative LAB URINALYSIS - AUTOMATED METHOD 06/23/2025 12:57 PM [facility] Protein, Urine 100(A) <=Trace mg/dL LAB URINALYSIS - AUTOMATED METHOD 06/23/2025 12:57 PM [facility] Glucose, Urine Negative Negative mg/dL LAB URINALYSIS - AUTOMATED METHOD 06/23/2025 12:57 PM [facility] Ketones, Urine Negative Negative mg/dL LAB URINALYSIS - AUTOMATED METHOD 06/23/2025 12:57 PM [facility] Urobilinogen , Urine 0.2 0.2 - 1.0 mg/dL LAB URINALYSIS - AUTOMATED METHOD 06/23/2025 12:57 PM [facility] Bilirubin, Urine Negative Negative LAB URINALYSIS - AUTOMATED METHOD 06/23/2025 12:57 [facility] Blood, Urine Moderate(A) Negative LAB URINALYSIS - AUTOMATED METHOD 06/23/2025 12:57 PM [facility] RBC, Urine 3 0 - 4 /HPF LAB URINALYSIS - AUTOMATED METHOD 06/23/2025 12:57 [facility] WBC, Urine >4,000(H) 0 - 4 /HPF LAB URINALYSIS - AUTOMATED METHOD 06/23/2025 12:57 PM [facility] Squamous Epithelial, Urine 93(H) 0 - 60 /LPF LAB URINALYSIS - AUTOMATED METHOD 06/23/2025 12:57 PM [facility] Bacteria, Urine Many(A) Negative /HPF LAB URINALYSIS - AUTOMATED METHOD 06/23/2025 12:57 PM [facility] Hyaline Casts, Urine 33.7(H) 0 - 3 /LPF LAB URINALYSIS - AUTOMATED METHOD 06/23/2025 12:57 PM [facility] Urine Urine specimen obtained by clean catch procedure / Unknown Non-blood Collection / Unknown 06/23/2025 11:19 AM EDT 06/23/2025 11:26 AM EDT us Yohannes Wodoy MD LAB URINE ORDERABLES Final Result [facility] [address] [place] [address], from Last 3 Months Insurance MEDICARE Advance [...] currently active code status orders. Care Teams Counseling Services Director Relationship Specialty Start Date End Date Noemi Oliva MD [address] [place] [address] , [address] [place] [address] Physician Associ D/B/A: [facility] ALEIDA Tello PCP - General Internal Medicine 02/15/25
--- OUTSIDE RECORDS SUMMARY | 2025-09-11 18:18 | XMS_ITS | Encounter Summary ---
Author Organization [facility] Address [address] [place] [address] Care Team Providers Care Financial Aid Director Name Role Phone Noemi Oliva MD Primary Care Provider [phone] Reason for Referral * Imaging (Routine) - Authorized Specialty Diagnoses / Procedures Referred By Contac t Referred To Contact Radiology Diagnoses Malignant neoplasm of overlapping sites of bladder ([facility]/HCC V24, [facility]/HCC V28) Procedures PET CT Skull to Mid Thigh Initial Yohannes Woody MD [address] [place] [phone] Phone: tel: fax: [address] [phone] Phone: tel: Referral ID Status Reason Start Date Expiration Date V isits Requested Visits Authorized [id number] Authorized 09/04/2025 09/04/2026 1 1 Encounter Details Date Type Department Care Team (Late st Contact Info) Description 08/31/2025 Telephone [facility] Hematology Oncology [address] [place] [phone] Yohannes Woody MD [address] [place] [address] Social History Tobacco Use Types Packs/Day Years [...] care for your loved ones. For example, child's nurse or elderly care for an older adult? [...] PM EDT Edgard, As wendi Mauro RN * Do you have serious difficulty walking or climbing stairs? Answer Date of Assessment Author No 02/14/2025 2:41 PM EDT Edgard, As wendi Mauro RN * Do you have serious difficulty dressing or bathing? Answer Date of Assessment Author No 02/14/2025 2:41 PM EDT Edgard, As wendi Mauro RN * Because of [...] documented in this encounter Progress Notes * Yohannes Woody MD - 09/06/2025 9:17 AM EST 1 week after PET * Felisa Arenas MA - 09/06/2025 9:09 AM EST FYI , I do see the order for PET was placed, just want to make aware no follow up was ever booked for pt. * Merry Wetzel MA - 09/04/2025 2:54 PM EST Son is aware * Yohannes Woody MD - 09/04/2025 10:54 AM EST Entered order for PET/CT first week in September * Diana Amador - 08/31/2025 3:11 PM EST Patient's son Gregory called to follow up on a potential cat scan for the patient. Patient was seen on 08/15 and was under the impression that one was to be scheduled. Is this still the plan? Please call Gregory at [phone] documented in this encounter Plan of Treatment Upcoming Encounters Date Type Department Care Team (Late st Contact Info) Description 09/03/2026 10:30 AM EST Office Visit Vascular Surgery - [place] [address] [place] [address] Williams Wood MD [address] [place] [phone] Scheduled Orders Name Type Priority Associated Diagnoses Orde r Schedule PET CT Skull to Mid Thigh Initial Imaging Routine Malignant neoplasm of overlapping sites of bladder (CMS/HCC V24, CMS/HCC V28) Expected: 09/13/2025, Expires: 09/04/2026 documented as of this encounter Visit Diagnoses Diagnosis Malignant neoplasm of overlapping sites of bladder (CMS/HCC V24, CMS/HCC V28)- Primary documented in this encounter Care Teams Financial Aid Director Relationship Specialty Start Date End Date Noemi Oliva MD [address] [facility] , [address] [facility] Physician Associ D/B/A: [facility] ALEIDA Tello PCP - General Internal Medicine 02/15/25 documented as of this encounter
== END 2025-09-11 16:29 | disposition home or self-care (01) ==
LOC: HO.HMCH 15:09
PROVIDERS: PCP Internal Medicine; Visit Provider Internal Medicine
DX: Z00.00 Encounter for general adult medical examination without abnormal findings (principal); I48.91 Unspecified atrial fibrillation; F32.2 Major depressive disorder, single episode, severe without psychotic features; Z23 Encounter for immunization

== ENCOUNTER → 2025-09-11 15:09 | Outpatient (BNVA) | payer MEDICARE, SELFPAY | PROVIDERS: PCP Internal Medicine; Visit Provider Internal Medicine | DX: I48.91 Unspecified atrial fibrillation (principal); F32.2 Major depressive disorder, single episode, severe without psychotic features; I49.8 Other specified cardiac arrhythmias; G47.00 Insomnia, unspecified; Z23 Encounter for immunization; Z13.31 Encounter for screening for depression; Z13.39 Encounter for screening examination for other mental health and behavioral disorders | CPT/HCPCS: 90471; 90677; 96127; 99212 ==